=== PATIENT | male | born 1945 | race Caucasian/White ===

== ENCOUNTER 2019-01-02 05:02 | Inpatient (IN) | payer MEDICARE, OTHER ==
[~2019-01-02] VITALS: Ht 152.4 cm; Wt 76.4 kg
[2019-01-02] MEDS ORDERED: APIX5TAB3 PO (05:33)
[2019-01-02] MEDS ORDERED: DONE5TAB7 PO (05:33)
[2019-01-02] MEDS ORDERED: DIVA500T17 PO (05:33)
[2019-01-02] MEDS ORDERED: SERT100T8 PO (05:33)
[2019-01-02] MEDS ORDERED: DILT180C86 PO (05:33)
[2019-01-02] MEDS ORDERED: ASPI81TA50 PO (05:33)
[2019-01-02] MEDS ORDERED: LEVO25TA4 PO (05:33)
[2019-01-02] MEDS ORDERED: FINA5TAB4 PO (05:33)
[2019-01-02] MEDS ORDERED: CARV25TA2 PO (05:33)
[2019-01-02] MEDS ORDERED: FURO20TA3 PO (05:33)
[2019-01-02] MEDS ORDERED: VALS320T2 PO (05:33)
[2019-01-02] MEDS ORDERED: TAMS0.4C97 PO (05:33)
[2019-01-02] MEDS ORDERED: POTA20TA4 PO (05:33)
[2019-01-02] MEDS ORDERED: MELA3TAB56 PO (05:33)
[2019-01-02] MEDS ORDERED: ATOR40TA59 PO (05:33)
[2019-01-02] MEDS ORDERED: DIVA250T14 PO (05:33)
[2019-01-02] MEDS ORDERED: MEMA5TAB PO (05:33)
[2019-01-02] MEDS ORDERED: PANT40TA5 PO (05:33)
[2019-01-02] MEDS ORDERED: MAG HYDROX/AL HYDROX/SIMETH 30 ML ORAL.SUSP PO PRN (06:30)
[2019-01-02] MEDS ORDERED: METHYL SALICYLATE/MENTHOL TOPICAL OINTMENT 57GM TUBE. TP PRN (06:30)
[2019-01-02] MEDS ORDERED: [UNRECOGNIZED DRUG - OTHER] (06:32)
[2019-01-02] MEDS ORDERED: BUDE10.22 IH (06:32)
[2019-01-02 06:33] VITALS: BP 164/96
[2019-01-02 07:00] LABS: BASO # 0.1 x10^3/uL (0.0-0.2); BASO % 1 % (0-3); EOS # 0.6 x10^3/uL (0.0-0.7); EOS % 8 % (0-3); HEMATOCRIT 38.4 % (39.0-53.0); HEMOGLOBIN 12.6 g/dL (13.0-17.5); LYMPH # 2.7 x10^3/uL (1.0-4.8); LYMPH % 37 % (24-48); MEAN CORPUSCULAR HEMOGLOBIN 30 pg (25-35); MEAN CORPUSCULAR HGB CONC 33 g/dL (31-37); MEAN CORPUSCULAR VOLUME 93 fL (79-100); MONO # 0.7 x10^3/uL (0.0-1.1); MONO % 10 % (0-9); NEUT # 3.1 x10^3uL (1.8-7.7); NEUT % 44 % (31-73); PLATELET COUNT 175 x10^3/uL (140-400); RED BLOOD COUNT 4.15 x10^6/uL (4.30-5.70); RED CELL DISTRIBUTION WIDTH 13.9 % (11.5-14.5); WHITE BLOOD COUNT 7.1 x10^3/uL (4.0-11.0)
[2019-01-02 07:07] LABS: BACTERIA,URINE 0 /HPF (0-FEW); BILIRUBIN,URINE NEG (NEG); CLARITY,URINE CLEAR; COLOR,URINE STRAW; GLUCOSE,URINE NEG (NEG); HYALINE CASTS, URINE OCC /HPF; NITRITE,URINE NEG (NEG); RBC,URINE OCC /HPF (0-2); SQUAMOUS EPITHELIAL CELL,UR OCC /LPF; UROBILINOGEN,URINE 0.2 mg/dL (0.2 mg/dL); WBC,URINE RARE /HPF (0-4)
[2019-01-02 07:19] LABS: ALBUMIN 2.9 g/dL (3.4-5.0); ALBUMIN/GLOBULIN RATIO 0.8 (1.0-1.7); CALCIUM 9.9 mg/dL (8.5-10.1); CREATININE 1.3 mg/dL (0.7-1.3); GFR 54.3; POTASSIUM 3.7 mmol/L (3.5-5.1); TOTAL BILIRUBIN 0.2 mg/dL (0.2-1.0); TOTAL PROTEIN 6.7 g/dL (6.4-8.2)
[2019-01-02 07:41] LABS: VAL ACID 41 mcg/mL (50-100)
[2019-01-02] MEDS: PANTOPRAZOLE 40 MG TABLET. PO SCH ×2 (07:53→16:02)
[2019-01-02] MEDS: LEVOTHYROXINE 25 MCG TABLET. PO SCH (07:54)
[2019-01-02] MEDS: CARVEDILOL 12.5 MG TABLET PO SCH ×2 (07:54→16:02)
[2019-01-02] MEDS: DONEPEZIL HCL 5 MG TABLET. PO SCH (07:56)
[2019-01-02] MEDS: APIXABAN 5 MG TABLET. PO SCH ×2 (07:57→19:36)
[2019-01-02] MEDS: DIVALPROEX ER 250 MG TAB.ER.24H. PO SCH (07:57)
[2019-01-02] MEDS: LOSARTAN 50 MG TABLET. PO SCH (07:57)
[2019-01-02] MEDS: FINASTERIDE 5 MG TABLET PO SCH (07:58)
[2019-01-02] MEDS: FUROSEMIDE 20 MG TABLET PO SCH (07:58)
[2019-01-02] MEDS: MEMANTINE 5 MG TABLET. PO SCH (07:58)
[2019-01-02] MEDS: SERTRALINE 100 MG TABLET. PO SCH (07:59)
[2019-01-02] MEDS ORDERED: NON FORMULARY ITEM (Budesonide/Formoterol Fumarate (Symbicort 80-4.5 Mcg Inhaler) 2 PUFF) IH SCH (09:00)
[2019-01-02] MEDS: BUDESONIDE 0.5 MG/2 ML NEBU NEB SCH ×2 (11:00→22:47)
[2019-01-02] MEDS: ALBUTEROL SULFATE 2.5 MG/3 ML NEBU. NEB SCH ×3 (11:00→22:47)
[2019-01-02 14:34] LABS: THYROID STIM HORMONE (TSH) 11.215 uIU/mL (0.358-3.740)
[2019-01-02 16:17] VITALS: BP 175/86
--- NOTE | 2019-01-02 16:56 | EKG ---
[address] [address] Test Date: 2019-01-02 Test Time: 16:32:43 Pat Name: JACQUE MUSTAFA Department: Room: [facility] 1 Gender: M Legislators: : 1945 Requested By: EILEEN CHAVEZ Order Number: [id number] Reading MD: Clint Chandra MD Measurements Intervals [place] Rate: 57 P: MA: QRS: 56 QRSD: 100 T: -3 QT: 456 QTc: 443 Interpretive Statements ATRIAL FIBRILLATION WITH CONTROLLED VENTRICULAR RESPONSE NON-SPECIFIC ST/T CHANGES Electronically Signed On 01-03-2019 14:14:34 CDT by Clint Chandra MD
[2019-01-02] MEDS: MELATONIN 3 MG TABLET PO SCH (19:36)
[2019-01-02] MEDS: ASPIRIN ENTERIC COATED 81 MG TABLET.DR. PO SCH (19:36)
[2019-01-02] MEDS: POTASSIUM CHLORIDE 20 MEQ TABLET.ER. PO SCH (19:37)
[2019-01-02] MEDS: ATORVASTATIN CALCIUM 20 MG TABLET PO SCH (19:37)
[2019-01-02] MEDS: TAMSULOSIN 0.4 MG CAP.ER.24H. PO SCH (19:37)
[2019-01-02] MEDS ORDERED: DIVALPROEX ER 500 MG TAB.ER.24H PO SCH (21:00)
--- NOTE | 2019-01-02 21:36 | PDOC ---
Exam Note: Brian Note: Please also refer to the separate dictated note~for this date of service dictated separately. Discussed the patient with Nursing staff reviewed the chart.~Reviewed interim history and current functioning. Reviewed vital signs,~Labs/ Radiology~and current medications noted below. Continue current treatment with the changes noted in the dictated addendum note Assessment: Vital Signs/I&O: Vital Signs Date Time Temp Pulse Resp B/P (MAP) Pulse Ox O2 Delivery O2 Flow Rate FiO2 01/02/19 20:55 96 Room Air 01/02/19 16:17 97.2 60 20 175/86 (115) Labs: Laboratory Tests Test 01/02/19 06:19 01/02/19 06:42 Urine Collection Type Unknown Urine Color Straw Urine Clarity Clear Urine pH 7.0 Urine Specific Buna 1.015 Urine Protein Neg (NEG-TRACE) Urine Glucose (UA) Neg mg/dL (NEG) Urine Ketones (Stick) Neg mg/dL (NEG) Urine Blood Neg (NEG) Urine Nitrite Neg (NEG) Urine Bilirubin Neg (NEG) Urine Urobilinogen Dipstick 0.2 mg/dL (0.2 mg/dL) Urine Leukocyte Esterase Neg (NEG) Urine RBC Occ /HPF (0-2) Urine WBC Rare /HPF (0-4) Urine Squamous Epithelial Cells Occ /LPF Urine Bacteria 0 /HPF (0-FEW) Urine Hyaline Casts Occ /HPF White Blood Count 7.1 x10^3/uL (4.0-11.0) Red Blood Count 4.15 x10^6/uL (4.30-5.70) L Hemoglobin 12.6 g/dL (13.0-17.5) L Hematocrit 38.4 % (39.0-53.0) L Mean Corpuscular Volume 93 fL (79-100) Mean Corpuscular Hemoglobin 30 pg (25-35) Mean Corpuscular Hemoglobin Concent 33 g/dL (31-37) Red Cell Distribution Width 13.9 % (11.5-14.5) Platelet Count 175 x10^3/uL (140-400) Neutrophils (%) (Auto) 44 % (31-73) Lymphocytes (%) (Auto) 37 % (24-48) Monocytes (%) (Auto) 10 % (0-9) H Eosinophils (%) (Auto) 8 % (0-3) H Basophils (%) (Auto) 1 % (0-3) Neutrophils # (Auto) 3.1 x10^3uL (1.8-7.7) Lymphocytes # (Auto) 2.7 x10^3/uL (1.0-4.8) Monocytes # (Auto) 0.7 x10^3/uL (0.0-1.1) Eosinophils # (Auto) 0.6 x10^3/uL (0.0-0.7) Basophils # (Auto) 0.1 x10^3/uL (0.0-0.2) Sodium Level 142 mmol/L (136-145) Potassium Level 3.7 mmol/L (3.5-5.1) Chloride Level 107 mmol/L (98-107) Carbon Dioxide Level 31 mmol/L (21-32) Anion Gap 4 (6-14) L Blood Urea Nitrogen 25 mg/dL (8-26) Creatinine 1.3 mg/dL (0.7-1.3) Estimated GFR (Cockcroft-Gault) 54.3 BUN/Creatinine Ratio 19 (6-20) Glucose Level 111 mg/dL (70-99) H Calcium Level 9.9 mg/dL (8.5-10.1) Magnesium Level 2.0 mg/dL (1.8-2.4) Iron Level 45 ug/dL (65-175) L Total Iron Binding Capacity 251 ug/dL (250-450) Iron Saturation 18 % (15-34) Total Bilirubin 0.2 mg/dL (0.2-1.0) Aspartate Amino Transferase (AST) 17 U/L (15-37) Alanine Aminotransferase (ALT) 14 U/L (16-63) L Alkaline Phosphatase 86 U/L (46-116) Total Protein 6.7 g/dL (6.4-8.2) Albumin 2.9 g/dL (3.4-5.0) L Albumin/Globulin Ratio 0.8 (1.0-1.7) L Triglycerides Level 106 mg/dL (0-150) Cholesterol Level 137 mg/dL (0-200) LDL Cholesterol, Calculated 83 mg/dL (0-100) VLDL Cholesterol, Calculated 21 mg/dL (0-40) Non-HDL Cholesterol Calculated 104 mg/dL (0-129) HDL Cholesterol 33 mg/dL (40-60) L Cholesterol/HDL Ratio 4.0 25-Hydroxy Vitamin D Total 26.7 ng/mL (30-100) L Thyroid Stimulating Hormone (TSH) 11.215 uIU/mL (0.358-3.740) Valproic Acid Level 41 mcg/mL (50-100) L Valproic Acid Last Dose Date 01/01/19 Valproic Acid Last Dose Time 0900 Treponema pallidum Antibody Nonreactive (Nonreactive) Current Medications: Meds: Current Medications Medications (Trade) Dose Ordered Sig/Ojse David Route PRN Reason Start Time Stop Time Status Last Admin Dose Admin Divalproex Sodium (Depakote Er) 250 mg DAILY PO 01/02/19 09:00 01/02/19 07:59 Divalproex Sodium (Depakote Er) 500 mg HS PO 01/02/19 21:00 01/02/19 19:37 Donepezil HCl (Aricept) 5 mg DAILY PO 01/02/19 09:00 01/02/19 07:59 Memantine (Namenda) 5 mg DAILY PO 01/02/19 09:00 01/02/19 07:59 Sertraline HCl (Zoloft) 150 mg DAILY PO 01/02/19 09:00 01/02/19 07:59 Melatonin 3 mg QHS PO 01/02/19 21:00 01/02/19 19:37 Apixaban (Eliquis) 5 mg BID PO 01/02/19 09:00 01/02/19 19:37 Aspirin (Aspirin Enteric Coated) 81 mg HS PO 01/02/19 21:00 01/02/19 19:37 Finasteride (Proscar) 5 mg DAILY PO 01/02/19 09:00 01/02/19 07:59 Furosemide (Lasix) 20 mg DAILY PO 01/02/19 09:00 01/02/19 07:59 Levothyroxine Sodium (Synthroid) 12.5 mcg DAILY06 PO 01/02/19 07:30 01/02/19 07:59 Pantoprazole Sodium (Protonix) 40 mg BIDBFRMEAL PO 01/02/19 07:30 01/02/19 16:02 Potassium Chloride (Klor-Con) 20 meq HS PO 01/02/19 21:00 01/02/19 19:37 Tamsulosin HCl (Flomax) 0.8 mg HS PO 01/02/19 21:00 01/02/19 19:37 Atorvastatin Calcium (Lipitor) 40 mg QHS PO 01/02/19 21:00 01/02/19 19:37 Carvedilol (Coreg) 25 mg BIDWMEALS PO 01/02/19 08:00 01/02/19 16:02 Diltiazem HCl (Cardizem 24hr Cd) 180 mg DAILY PO 01/02/19 09:00 01/02/19 07:59 Losartan Potassium (Cozaar) 100 mg DAILY PO 01/02/19 09:00 01/02/19 07:59 Olanzapine (ZyPREXA ZYDIS) 2.5 mg PRN Q2HR PRN PO PSYCHOSIS 01/02/19 07:00 01/02/19 17:54 Albuterol Sulfate (Ventolin) 2.5 mg Q6H NEB 01/02/19 12:00 01/02/19 16:38 Budesonide (Pulmicort) 0.5 mg RTBID NEB 01/02/19 08:00 01/02/19 11:00 I have reviewed the current psychotropics carefully including drug interactions. Risk benefit ratio favors no change other than as noted in my dictated progress note. Diagnosis: Problems: (1) Major neurocognitive disorder (2) Anxiety disorder (3) Dementia in Alzheimer's disease with delusions (4) Dementia in Alzheimer's disease with depression (5) Dementia, vascular, with delusions (6) Dementia, vascular, with depression (7) Impulse control disorder EILEEN CHAVEZ MD Jan 02, 2019 21:36
[2019-01-02 22:11] LABS: THYROXINE 4.3 ug/dL (4.5-12.0)
[2019-01-03 00:06] LABS: HEMOGLOBIN A1C 7.1 % (4.8-5.6)
[2019-01-03] MEDS: LEVOTHYROXINE 25 MCG TABLET. PO SCH (06:02)
[2019-01-03] MEDS: ALBUTEROL SULFATE 2.5 MG/3 ML NEBU. NEB SCH ×4 (06:15→22:13)
[2019-01-03 06:25] VITALS: BP 177/89
[2019-01-03] MEDS: LOSARTAN 50 MG TABLET. PO SCH (08:08)
[2019-01-03] MEDS: SERTRALINE 100 MG TABLET. PO SCH (08:08)
[2019-01-03] MEDS: PANTOPRAZOLE 40 MG TABLET. PO SCH ×2 (08:09→16:17)
[2019-01-03] MEDS: FUROSEMIDE 20 MG TABLET PO SCH (08:09)
[2019-01-03] MEDS: CARVEDILOL 12.5 MG TABLET PO SCH ×2 (08:09→16:17)
[2019-01-03] MEDS: DONEPEZIL HCL 5 MG TABLET. PO SCH (08:10)
[2019-01-03] MEDS: MEMANTINE 5 MG TABLET. PO SCH (08:10)
[2019-01-03] MEDS: FINASTERIDE 5 MG TABLET PO SCH (08:10)
[2019-01-03] MEDS: DIVALPROEX ER 250 MG TAB.ER.24H. PO SCH (08:10)
[2019-01-03] MEDS: APIXABAN 5 MG TABLET. PO SCH ×2 (08:10→19:25)
[2019-01-03] MEDS: BUDESONIDE 0.5 MG/2 ML NEBU NEB SCH ×2 (09:45→20:00)
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
[2019-01-03 16:21] VITALS: BP 160/89
[2019-01-03] MEDS ORDERED: HALOPERIDOL LACT 5 MG/ML VIAL. IM ONE (17:45)
[2019-01-03] MEDS: MELATONIN 3 MG TABLET PO SCH (19:24)
[2019-01-03] MEDS: DIVALPROEX ER 500 MG TAB.ER.24H PO SCH (19:24)
[2019-01-03] MEDS: ASPIRIN ENTERIC COATED 81 MG TABLET.DR. PO SCH (19:24)
[2019-01-03] MEDS: ATORVASTATIN CALCIUM 20 MG TABLET PO SCH (19:25)
[2019-01-03] MEDS: TAMSULOSIN 0.4 MG CAP.ER.24H. PO SCH (19:25)
[2019-01-03] MEDS: POTASSIUM CHLORIDE 20 MEQ TABLET.ER. PO SCH (19:25)
[2019-01-03] MEDS: PRAZOSIN 1 MG CAPSULE. PO SCH (21:00)
--- NOTE | 2019-01-03 21:44 | PDOC ---
Exam Note: Brian Note: Please also refer to the separate dictated note~for this date of service dictated separately.~Patient seen individually. Discussed the patient with Nursing staff reviewed the chart.~Reviewed interim history and current functioning. Reviewed vital signs,~Labs/ Radiology~and current medications noted below. Continue current treatment with the changes noted in the dictated addendum note Assessment: Vital Signs/I&O: Vital Signs Date Time Temp Pulse Resp B/P (MAP) Pulse Ox O2 Delivery O2 Flow Rate FiO2 01/03/19 16:21 97.2 68 19 160/89 (112) 96 Room Air I & O 01/02/19 01/02/19 01/03/19 14:59 22:59 06:59 Intake Total 480 ml 120 ml Balance 480 ml 120 ml Current Medications: Meds: Current Medications Medications (Trade) Dose Ordered Sig/Jose David Route PRN Reason Start Time Stop Time Status Last Admin Dose Admin Divalproex Sodium (Depakote Er) 1,000 mg HS PO 01/03/19 21:00 01/03/19 19:26 Haloperidol Lactate (Haldol) 10 mg 1X ONCE IM 01/03/19 17:45 01/03/19 17:46 DC 01/03/19 19:05 Lorazepam (Ativan Inj) 1 mg 1X ONCE IM 01/03/19 17:45 01/03/19 17:46 DC 01/03/19 19:05 I have reviewed the current psychotropics carefully including drug interactions. Risk benefit ratio favors no change other than as noted in my dictated progress note. Diagnosis: Problems: (1) Major neurocognitive disorder (2) Anxiety disorder (3) Dementia in Alzheimer's disease with delusions (4) Dementia in Alzheimer's disease with depression (5) Dementia, vascular, with delusions (6) Dementia, vascular, with depression (7) Impulse control disorder EILEEN CHAVEZ MD Jan 03, 2019 21:44
[2019-01-04] MEDS: LEVOTHYROXINE 25 MCG TABLET. PO SCH (05:34)
[2019-01-04] MEDS: ALBUTEROL SULFATE 2.5 MG/3 ML NEBU. NEB SCH ×3 (05:57→20:20)
[2019-01-04 06:04] VITALS: BP 137/73
[2019-01-04] MEDS: LOSARTAN 50 MG TABLET. PO SCH (07:48)
[2019-01-04] MEDS: DONEPEZIL HCL 5 MG TABLET. PO SCH (07:48)
[2019-01-04] MEDS: SERTRALINE 100 MG TABLET. PO SCH (07:49)
[2019-01-04] MEDS: FUROSEMIDE 20 MG TABLET PO SCH (07:49)
[2019-01-04] MEDS: PANTOPRAZOLE 40 MG TABLET. PO SCH ×2 (07:49→16:30)
[2019-01-04] MEDS: MEMANTINE 5 MG TABLET. PO SCH (07:49)
[2019-01-04] MEDS: APIXABAN 5 MG TABLET. PO SCH ×2 (07:49→20:00)
[2019-01-04] MEDS: FINASTERIDE 5 MG TABLET PO SCH (07:49)
[2019-01-04] MEDS: CARVEDILOL 12.5 MG TABLET PO SCH ×2 (07:50→17:00)
[2019-01-04] MEDS: BUDESONIDE 0.5 MG/2 ML NEBU NEB SCH ×2 (11:39→20:20)
[2019-01-04 16:38] VITALS: BP 140/86
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
--- NOTE | 2019-01-04 19:37 | CONS ---
DATE OF CONSULTATION: 01/04/2019 ATTENDING PHYSICIAN: Dr. Mata. REASON FOR CONSULTATION: We are asked to see this patient for medical evaluation. The patient is very pleasant, but confused. INCOMPLETE DICTATION ANNETTE CORONADO MD DR: AIDA/zheng JOB#: [id number] / [id number]
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
[2019-01-04] MEDS: DIVALPROEX ER 500 MG TAB.ER.24H PO SCH (19:59)
[2019-01-04] MEDS: TAMSULOSIN 0.4 MG CAP.ER.24H. PO SCH (19:59)
[2019-01-04] MEDS: MELATONIN 3 MG TABLET PO SCH (20:00)
[2019-01-04] MEDS: ATORVASTATIN CALCIUM 20 MG TABLET PO SCH (20:00)
[2019-01-04] MEDS: POTASSIUM CHLORIDE 20 MEQ TABLET.ER. PO SCH (20:00)
[2019-01-04] MEDS: ASPIRIN ENTERIC COATED 81 MG TABLET.DR. PO SCH (20:00)
[2019-01-04] MEDS: PRAZOSIN 1 MG CAPSULE. PO SCH (20:00)
[2019-01-04] MEDS: risperiDONE 0.5 MG TABLET. PO SCH (20:01)
--- NOTE | 2019-01-04 21:47 | PDOC ---
Exam Note: Brian Note: Please also refer to the separate dictated note~for this date of service dictated separately.~Patient seen individually. Discussed the patient with Nursing staff reviewed the chart.~Reviewed interim history and current functioning. Reviewed vital signs,~Labs/ Radiology~and current medications noted below. Continue current treatment with the changes noted in the dictated addendum note Assessment: Vital Signs/I&O: Vital Signs Date Time Temp Pulse Resp B/P (MAP) Pulse Ox O2 Delivery O2 Flow Rate FiO2 01/04/19 20:24 94 Room Air 01/04/19 20:01 72 140/86 01/04/19 16:38 97.6 18 I & O 01/03/19 01/03/19 01/04/19 15:00 23:00 07:00 Intake Total 840 ml 0 ml 240 ml Balance 840 ml 0 ml 240 ml Current Medications: Meds: Current Medications Medications (Trade) Dose Ordered Sig/Jose David Route PRN Reason Start Time Stop Time Status Last Admin Dose Admin Risperidone (RisperDAL) 0.5 mg HS PO 01/04/19 21:00 01/04/19 20:01 I have reviewed the current psychotropics carefully including drug interactions. Risk benefit ratio favors no change other than as noted in my dictated progress note. Diagnosis: Problems: (1) Major neurocognitive disorder (2) Anxiety disorder (3) Dementia in Alzheimer's disease with delusions (4) Dementia in Alzheimer's disease with depression (5) Dementia, vascular, with delusions (6) Dementia, vascular, with depression (7) Impulse control disorder EILEEN CHAVEZ MD Jan 04, 2019 21:47
[2019-01-05] MEDS: ALBUTEROL SULFATE 2.5 MG/3 ML NEBU. NEB SCH ×5 (05:00→20:47)
[2019-01-05 05:44] VITALS: BP 145/62
[2019-01-05] MEDS: LEVOTHYROXINE 25 MCG TABLET. PO SCH (05:47)
[2019-01-05] MEDS: FUROSEMIDE 20 MG TABLET PO SCH (07:42)
[2019-01-05] MEDS: FINASTERIDE 5 MG TABLET PO SCH (07:43)
[2019-01-05] MEDS: MEMANTINE 5 MG TABLET. PO SCH (07:43)
[2019-01-05] MEDS: CARVEDILOL 12.5 MG TABLET PO SCH ×2 (07:43→17:00)
[2019-01-05] MEDS: APIXABAN 5 MG TABLET. PO SCH ×2 (07:43→19:31)
[2019-01-05] MEDS: LOSARTAN 50 MG TABLET. PO SCH (07:43)
[2019-01-05] MEDS: DONEPEZIL HCL 5 MG TABLET. PO SCH (07:43)
[2019-01-05] MEDS: PANTOPRAZOLE 40 MG TABLET. PO SCH ×2 (07:43→16:30)
[2019-01-05] MEDS: SERTRALINE 100 MG TABLET. PO SCH (07:44)
[2019-01-05] MEDS: BUDESONIDE 0.5 MG/2 ML NEBU NEB SCH ×2 (08:00→20:47)
[2019-01-05 15:29] VITALS: BP 173/125
[2019-01-05] MEDS: MELATONIN 3 MG TABLET PO SCH (19:30)
[2019-01-05] MEDS: ASPIRIN ENTERIC COATED 81 MG TABLET.DR. PO SCH (19:30)
[2019-01-05] MEDS: DIVALPROEX ER 500 MG TAB.ER.24H PO SCH (19:31)
[2019-01-05] MEDS: POTASSIUM CHLORIDE 20 MEQ TABLET.ER. PO SCH (19:31)
[2019-01-05] MEDS: TAMSULOSIN 0.4 MG CAP.ER.24H. PO SCH (19:31)
[2019-01-05] MEDS: ATORVASTATIN CALCIUM 20 MG TABLET PO SCH (19:31)
[2019-01-05] MEDS: PRAZOSIN 1 MG CAPSULE. PO SCH (19:32)
[2019-01-05] MEDS: risperiDONE 0.5 MG TABLET. PO SCH (19:32)
--- NOTE | 2019-01-05 22:43 | PDOC ---
Exam Note: Brian Note: Please also refer to the separate dictated note~for this date of service dictated separately.~Patient seen individually. Discussed the patient with Nursing staff reviewed the chart.~Reviewed interim history and current functioning. Reviewed vital signs,~Labs/ Radiology~and current medications noted below. Continue current treatment with the changes noted in the dictated addendum note Assessment: Vital Signs/I&O: Vital Signs Date Time Temp Pulse Resp B/P (MAP) Pulse Ox O2 Delivery O2 Flow Rate FiO2 01/05/19 20:49 95 Room Air 01/05/19 19:32 66 173/125 01/05/19 15:29 97.9 20 I & O 01/04/19 01/04/19 01/05/19 15:00 23:00 07:00 Intake Total 840 ml 720 ml Balance 840 ml 720 ml Labs: Laboratory Tests Test 01/05/19 12:03 01/05/19 19:29 Glucose (Fingerstick) 101 mg/dL (70-99) H 159 mg/dL (70-99) H Current Medications: I have reviewed the current psychotropics carefully including drug interactions. Risk benefit ratio favors no change other than as noted in my dictated progress note. Diagnosis: Problems: (1) Major neurocognitive disorder (2) Anxiety disorder (3) Dementia in Alzheimer's disease with delusions (4) Dementia in Alzheimer's disease with depression (5) Dementia, vascular, with delusions (6) Dementia, vascular, with depression (7) Impulse control disorder EILEEN CHAVEZ MD Jan 05, 2019 22:43
[2019-01-05] MEDS: LORazepam 0.5 MG TABLET PO PRN (22:58)
[2019-01-06] MEDS: LEVOTHYROXINE 25 MCG TABLET. PO SCH (05:03)
[2019-01-06] MEDS: ALBUTEROL SULFATE 2.5 MG/3 ML NEBU. NEB SCH ×4 (05:53→23:58)
[2019-01-06 05:56] VITALS: BP 152/80
[2019-01-06] MEDS: MEMANTINE 5 MG TABLET. PO SCH (07:40)
[2019-01-06] MEDS: FINASTERIDE 5 MG TABLET PO SCH (07:40)
[2019-01-06] MEDS: FUROSEMIDE 20 MG TABLET PO SCH (07:40)
[2019-01-06] MEDS: DONEPEZIL HCL 5 MG TABLET. PO SCH (07:41)
[2019-01-06] MEDS: PANTOPRAZOLE 40 MG TABLET. PO SCH ×2 (07:42→15:49)
[2019-01-06] MEDS: APIXABAN 5 MG TABLET. PO SCH ×2 (07:42→19:42)
[2019-01-06] MEDS: LOSARTAN 50 MG TABLET. PO SCH (07:42)
[2019-01-06] MEDS: SERTRALINE 100 MG TABLET. PO SCH (07:42)
[2019-01-06] MEDS: CARVEDILOL 12.5 MG TABLET PO SCH ×2 (07:42→15:48)
[2019-01-06 07:44] LABS: BASO # 0.1 x10^3/uL (0.0-0.2); BASO % 1 % (0-3); EOS # 0.5 x10^3/uL (0.0-0.7); EOS % 7 % (0-3); HEMOGLOBIN 13.5 g/dL (13.0-17.5); LYMPH % 31 % (24-48); MEAN CORPUSCULAR HEMOGLOBIN 30 pg (25-35); MEAN CORPUSCULAR HGB CONC 33 g/dL (31-37); MEAN CORPUSCULAR VOLUME 93 fL (79-100); MONO # 0.7 x10^3/uL (0.0-1.1); MONO % 10 % (0-9); NEUT # 3.4 x10^3uL (1.8-7.7); NEUT % 51 % (31-73); PLATELET COUNT 189 x10^3/uL (140-400); RED BLOOD COUNT 4.42 x10^6/uL (4.30-5.70); RED CELL DISTRIBUTION WIDTH 14.1 % (11.5-14.5); WHITE BLOOD COUNT 6.6 x10^3/uL (4.0-11.0)
[2019-01-06 07:51] LABS: ALBUMIN 3.1 g/dL (3.4-5.0); ALBUMIN/GLOBULIN RATIO 0.8 (1.0-1.7); ALK PHOS 89 U/L (46-116); ALT (SGPT) 19 U/L (16-63); ANION GAP 6 (6-14); AST (SGOT) 20 U/L (15-37); BLOOD UREA NITROGEN 16 mg/dL (8-26); BUN/CREATININE RATIO 15 (6-20); CALCIUM 10.2 mg/dL (8.5-10.1); CARBON DIOXIDE 31 mmol/L (21-32); CHLORIDE 107 mmol/L (98-107); CREATININE 1.1 mg/dL (0.7-1.3); GFR 65.8; GLUCOSE 105 mg/dL (70-99); POTASSIUM 3.9 mmol/L (3.5-5.1); SODIUM 144 mmol/L (136-145); TOTAL BILIRUBIN 0.2 mg/dL (0.2-1.0)
[2019-01-06 07:56] LABS: VAL ACID 57 mcg/mL (50-100)
[2019-01-06] MEDS: BUDESONIDE 0.5 MG/2 ML NEBU NEB SCH ×2 (09:59→23:58)
[2019-01-06 15:42] VITALS: BP 163/92
[2019-01-06] MEDS: ASPIRIN ENTERIC COATED 81 MG TABLET.DR. PO SCH (19:42)
[2019-01-06] MEDS: DIVALPROEX ER 500 MG TAB.ER.24H PO SCH (19:42)
[2019-01-06] MEDS: risperiDONE 0.5 MG TABLET. PO SCH (19:42)
[2019-01-06] MEDS: MELATONIN 3 MG TABLET PO SCH (19:42)
[2019-01-06] MEDS: TAMSULOSIN 0.4 MG CAP.ER.24H. PO SCH (19:42)
[2019-01-06] MEDS: POTASSIUM CHLORIDE 20 MEQ TABLET.ER. PO SCH (19:42)
[2019-01-06] MEDS: ATORVASTATIN CALCIUM 20 MG TABLET PO SCH (19:43)
[2019-01-06] MEDS: PRAZOSIN 1 MG CAPSULE. PO SCH (19:44)
[2019-01-06] MEDS: MIRTAZAPINE 7.5 MG TABLET. PO SCH (20:57)
--- NOTE | 2019-01-06 20:57 | PDOC ---
Exam Note: Brian Note: Please also refer to the separate dictated note~for this date of service dictated separately.~Patient seen individually. Discussed the patient with Nursing staff reviewed the chart.~Reviewed interim history and current functioning. Reviewed vital signs,~Labs/ Radiology~and current medications noted below. Continue current treatment with the changes noted in the dictated addendum note Assessment: Vital Signs/I&O: Vital Signs Date Time Temp Pulse Resp B/P (MAP) Pulse Ox O2 Delivery O2 Flow Rate FiO2 01/06/19 19:44 65 163/92 01/06/19 15:42 97.3 16 97 01/06/19 10:00 Room Air I & O 01/05/19 01/05/19 01/06/19 15:00 23:00 07:00 Intake Total 480 ml 480 ml 480 ml Balance 480 ml 480 ml 480 ml Labs: Laboratory Tests Test 01/06/19 07:15 01/06/19 07:34 01/06/19 19:18 White Blood Count 6.6 x10^3/uL (4.0-11.0) Red Blood Count 4.42 x10^6/uL (4.30-5.70) Hemoglobin 13.5 g/dL (13.0-17.5) Hematocrit 41.0 % (39.0-53.0) Mean Corpuscular Volume 93 fL (79-100) Mean Corpuscular Hemoglobin 30 pg (25-35) Mean Corpuscular Hemoglobin Concent 33 g/dL (31-37) Red Cell Distribution Width 14.1 % (11.5-14.5) Platelet Count 189 x10^3/uL (140-400) Neutrophils (%) (Auto) 51 % (31-73) Lymphocytes (%) (Auto) 31 % (24-48) Monocytes (%) (Auto) 10 % (0-9) H Eosinophils (%) (Auto) 7 % (0-3) H Basophils (%) (Auto) 1 % (0-3) Neutrophils # (Auto) 3.4 x10^3uL (1.8-7.7) Lymphocytes # (Auto) 2.0 x10^3/uL (1.0-4.8) Monocytes # (Auto) 0.7 x10^3/uL (0.0-1.1) Eosinophils # (Auto) 0.5 x10^3/uL (0.0-0.7) Basophils # (Auto) 0.1 x10^3/uL (0.0-0.2) Sodium Level 144 mmol/L (136-145) Potassium Level 3.9 mmol/L (3.5-5.1) Chloride Level 107 mmol/L (98-107) Carbon Dioxide Level 31 mmol/L (21-32) Anion Gap 6 (6-14) Blood Urea Nitrogen 16 mg/dL (8-26) Creatinine 1.1 mg/dL (0.7-1.3) Estimated GFR (Cockcroft-Gault) 65.8 BUN/Creatinine Ratio 15 (6-20) Glucose Level 105 mg/dL (70-99) H Calcium Level 10.2 mg/dL (8.5-10.1) H Total Bilirubin 0.2 mg/dL (0.2-1.0) Aspartate Amino Transferase (AST) 20 U/L (15-37) Alanine Aminotransferase (ALT) 19 U/L (16-63) Alkaline Phosphatase 89 U/L (46-116) Ammonia 20 mcmol/L (11-34) Total Protein 7.0 g/dL (6.4-8.2) Albumin 3.1 g/dL (3.4-5.0) L Albumin/Globulin Ratio 0.8 (1.0-1.7) L Valproic Acid Level 57 mcg/mL (50-100) Valproic Acid Last Dose Date 01/05/2019 Valproic Acid Last Dose Time 2100 Glucose (Fingerstick) 92 mg/dL (70-99) 197 mg/dL (70-99) H Current Medications: Meds: Current Medications Medications (Trade) Dose Ordered Sig/Jose David Route PRN Reason Start Time Stop Time Status Last Admin Dose Admin Prazosin HCl (Minipress) 2 mg HS PO 01/06/19 21:00 01/06/19 19:44 I have reviewed the current psychotropics carefully including drug interactions. Risk benefit ratio favors no change other than as noted in my dictated progress note. Diagnosis: Problems: (1) Impulse control disorder (2) Dementia, vascular, with depression (3) Dementia, vascular, with delusions (4) Dementia in Alzheimer's disease with depression (5) Dementia in Alzheimer's disease with delusions (6) Anxiety disorder EILEEN CHAVEZ MD Jan 06, 2019 20:57
--- NOTE | 2019-01-07 00:43 | PN ---
DATE: 01/04/2019 PSYCHIATRIC PROGRESS NOTE This late entry 01/04/2019 covers elements not covered in my initial note. SUBJECTIVE: I met with the patient evening of 01/04/2019. The patient slept 8-3/4 hours previous night. He remains somewhat anxious, paranoid, but the marked agitation, aggression totally out of control and dangerous behavior, throwing things that he had the night before, has not been evident on 01/04/2019. REVIEW OF SYSTEMS: No CV, , pulmonary, eye, ENT system symptoms on review. Reliability poor. MENTAL STATUS EXAM: Oriented to himself. Insight, judgment, recent and remote memory, attention, concentration, fund of knowledge poor, consistent with his diagnosis mentioned in my initial note. PLAN: Increase nighttime Risperdal to 0.5 mg at bedtime. Continue Depakote, Zoloft, Aricept, Namenda, melatonin, unchanged along with Zyprexa p.r.n. Valproic acid level subtherapeutic at 41 and is being adjusted. MAN Yvon CHAVEZ MD DR: JEANIE/zheng JOB#: [id number] / [id number]
--- NOTE | 2019-01-07 00:45 | PN ---
DATE: 01/05/2019 PSYCHIATRIC PROGRESS NOTE This late entry, 01/05/2019, covers elements not covered in my initial note. SUBJECTIVE: I met with the patient evening of 01/05/2019. The patient slept 7 hours previous night. He remains confused, less paranoid for the last 48 hours. We will discontinue the IM scheduled Haldol. REVIEW OF SYSTEMS: No CV, , pulmonary, eye, ENT system symptoms on review. Reliability poor. MENTAL STATUS EXAM: Oriented to himself. Insight, judgment, recent and remote memory, attention, concentration, fund of knowledge poor, consistent with his diagnosis mentioned in my initial note. PLAN: No change from initial note and Risperdal 0.5 mg at bedtime may need to be increased in due course. MAN Yvon CHAVEZ MD DR: JEANIE/zheng JOB#: [id number] / [id number]
[2019-01-07] MEDS: ALBUTEROL SULFATE 2.5 MG/3 ML NEBU. NEB SCH ×4 (05:21→23:35)
[2019-01-07 05:42] VITALS: BP 174/74
[2019-01-07] MEDS: LEVOTHYROXINE 25 MCG TABLET. PO SCH (06:33)
[2019-01-07] MEDS: LOSARTAN 50 MG TABLET. PO SCH (08:05)
[2019-01-07] MEDS: FINASTERIDE 5 MG TABLET PO SCH (08:05)
[2019-01-07] MEDS: MEMANTINE 5 MG TABLET. PO SCH (08:05)
[2019-01-07] MEDS: APIXABAN 5 MG TABLET. PO SCH ×2 (08:06→19:52)
[2019-01-07] MEDS: SERTRALINE 100 MG TABLET. PO SCH (08:06)
[2019-01-07] MEDS: CARVEDILOL 12.5 MG TABLET PO SCH ×2 (08:06→17:00)
[2019-01-07] MEDS: FUROSEMIDE 20 MG TABLET PO SCH (08:06)
[2019-01-07] MEDS: PANTOPRAZOLE 40 MG TABLET. PO SCH ×2 (08:06→16:30)
[2019-01-07] MEDS: DONEPEZIL HCL 5 MG TABLET. PO SCH (08:07)
[2019-01-07] MEDS: BUDESONIDE 0.5 MG/2 ML NEBU NEB SCH ×2 (11:10→23:35)
[2019-01-07 16:30] VITALS: BP 118/70
--- NOTE | 2019-01-07 18:31 | PN ---
DATE: 01/04/2019 ADDENDUM I previously dictated the patient's note on the dictation #[id number], this relates to date of service 01/04/2019. MAN Yvon CHAVEZ MD DR: Bob JOB#: [id number] / [id number]
--- NOTE | 2019-01-07 19:16 | PDOC ---
Exam Note: Brian Note: Please also refer to the separate dictated note~for this date of service dictated separately.~Patient seen individually. Discussed the patient with Nursing staff reviewed the chart.~Reviewed interim history and current functioning. Reviewed vital signs,~Labs/ Radiology~and current medications noted below. Continue current treatment with the changes noted in the dictated addendum note Assessment: Vital Signs/I&O: Vital Signs Date Time Temp Pulse Resp B/P (MAP) Pulse Ox O2 Delivery O2 Flow Rate FiO2 01/07/19 18:07 81 118/70 01/07/19 16:30 98.0 18 93 01/07/19 16:24 Room Air I & O 01/06/19 01/06/19 01/07/19 15:00 23:00 07:00 Intake Total 720 ml 600 ml Balance 720 ml 600 ml Labs: Laboratory Tests Test 01/06/19 19:18 01/07/19 08:12 Glucose (Fingerstick) 197 mg/dL (70-99) H 94 mg/dL (70-99) Current Medications: Meds: Current Medications Medications (Trade) Dose Ordered Sig/Jose David Route PRN Reason Start Time Stop Time Status Last Admin Dose Admin Prazosin HCl (Minipress) 2 mg HS PO 01/06/19 21:00 01/06/19 19:44 Mirtazapine (Remeron) 7.5 mg QHS PO 01/06/19 21:00 01/06/19 20:57 I have reviewed the current psychotropics carefully including drug interactions. Risk benefit ratio favors no change other than as noted in my dictated progress note. Diagnosis: Problems: (1) Post traumatic stress disorder (2) Impulse control disorder (3) Dementia, vascular, with depression (4) Dementia, vascular, with delusions (5) Dementia in Alzheimer's disease with depression (6) Dementia in Alzheimer's disease with delusions (7) Anxiety disorder EILEEN CHAVEZ MD Jan 07, 2019 19:16
[2019-01-07] MEDS: risperiDONE 0.5 MG TABLET. PO SCH (19:52)
[2019-01-07] MEDS: MELATONIN 3 MG TABLET PO SCH (19:52)
[2019-01-07] MEDS: ASPIRIN ENTERIC COATED 81 MG TABLET.DR. PO SCH (19:52)
[2019-01-07] MEDS: MIRTAZAPINE 7.5 MG TABLET. PO SCH (19:52)
[2019-01-07] MEDS: POTASSIUM CHLORIDE 20 MEQ TABLET.ER. PO SCH (19:53)
[2019-01-07] MEDS: ATORVASTATIN CALCIUM 20 MG TABLET PO SCH (19:53)
[2019-01-07] MEDS: DIVALPROEX ER 500 MG TAB.ER.24H PO SCH (19:53)
[2019-01-07] MEDS: TAMSULOSIN 0.4 MG CAP.ER.24H. PO SCH (19:53)
[2019-01-07] MEDS: PRAZOSIN 1 MG CAPSULE. PO SCH (19:53)
[2019-01-08] MEDS: LEVOTHYROXINE 25 MCG TABLET. PO SCH (05:18)
[2019-01-08 05:35] VITALS: BP 146/82
[2019-01-08] MEDS: ALBUTEROL SULFATE 2.5 MG/3 ML NEBU. NEB SCH ×2 (05:54→10:33)
[2019-01-08] MEDS: BUDESONIDE 0.5 MG/2 ML NEBU NEB SCH ×2 (08:00→22:07)
[2019-01-08] MEDS: PANTOPRAZOLE 40 MG TABLET. PO SCH ×2 (08:10→16:52)
[2019-01-08] MEDS: DONEPEZIL HCL 5 MG TABLET. PO SCH (08:10)
[2019-01-08] MEDS: CARVEDILOL 12.5 MG TABLET PO SCH ×2 (08:12→16:53)
[2019-01-08] MEDS: LOSARTAN 50 MG TABLET. PO SCH (08:13)
[2019-01-08] MEDS: APIXABAN 5 MG TABLET. PO SCH ×2 (08:13→19:30)
[2019-01-08] MEDS: FINASTERIDE 5 MG TABLET PO SCH (08:14)
[2019-01-08] MEDS: MEMANTINE 5 MG TABLET. PO SCH (08:14)
[2019-01-08] MEDS: SERTRALINE 100 MG TABLET. PO SCH (08:14)
[2019-01-08] MEDS: FUROSEMIDE 20 MG TABLET PO SCH (08:14)
[2019-01-08] MEDS ORDERED: ALBUTEROL SULFATE 2.5 MG/3 ML NEBU. NEB PRN (13:30)
[2019-01-08 16:10] VITALS: BP 156/82
[2019-01-08] MEDS: CHOLECALCIFEROL (VITAMIN D3) 50,000 UNIT CAPSULE PO SCH (16:52)
--- NOTE | 2019-01-08 18:42 | PDOC ---
Exam Note: Brian Note: Please also refer to the separate dictated note~for this date of service dictated separately.~Patient seen individually. Discussed the patient with Nursing staff reviewed the chart.~Reviewed interim history and current functioning. Reviewed vital signs,~Labs/ Radiology~and current medications noted below. Continue current treatment with the changes noted in the dictated addendum note Assessment: Vital Signs/I&O: Vital Signs Date Time Temp Pulse Resp B/P (MAP) Pulse Ox O2 Delivery O2 Flow Rate FiO2 01/08/19 16:54 64 156/82 01/08/19 16:10 98.0 19 96 Room Air I & O 01/07/19 01/07/19 01/08/19 15:00 23:00 07:00 Intake Total 360 ml 720 ml Balance 360 ml 720 ml Labs: Laboratory Tests Test 01/07/19 19:45 01/08/19 07:13 Glucose (Fingerstick) 163 mg/dL (70-99) H 115 mg/dL (70-99) H Current Medications: Meds: Current Medications Medications (Trade) Dose Ordered Sig/Jose David Route PRN Reason Start Time Stop Time Status Last Admin Dose Admin Vitamin D (Vitamin D3) 50,000 unit WEEKLY PO 01/08/19 13:15 01/08/19 16:54 I have reviewed the current psychotropics carefully including drug interactions. Risk benefit ratio favors no change other than as noted in my dictated progress note. Diagnosis: Problems: (1) Impulse control disorder (2) Dementia, vascular, with depression (3) Dementia, vascular, with delusions (4) Dementia in Alzheimer's disease with depression (5) Dementia in Alzheimer's disease with delusions (6) Anxiety disorder (7) Post traumatic stress disorder EILEEN CHAVEZ MD Jan 08, 2019 18:42
[2019-01-08] MEDS: POTASSIUM CHLORIDE 20 MEQ TABLET.ER. PO SCH (19:29)
[2019-01-08] MEDS: MELATONIN 3 MG TABLET PO SCH (19:29)
[2019-01-08] MEDS: MIRTAZAPINE 7.5 MG TABLET. PO SCH (19:29)
[2019-01-08] MEDS: risperiDONE 0.5 MG TABLET. PO SCH (19:30)
[2019-01-08] MEDS: PRAZOSIN 1 MG CAPSULE. PO SCH (19:30)
[2019-01-08] MEDS: ASPIRIN ENTERIC COATED 81 MG TABLET.DR. PO SCH (19:30)
[2019-01-08] MEDS: DIVALPROEX ER 500 MG TAB.ER.24H PO SCH (19:30)
[2019-01-08] MEDS: TAMSULOSIN 0.4 MG CAP.ER.24H. PO SCH (19:30)
[2019-01-08] MEDS: ATORVASTATIN CALCIUM 20 MG TABLET PO SCH (19:30)
--- NOTE | 2019-01-08 23:13 | PN ---
DATE: 01/07/2019 PSYCHIATRIC PROGRESS NOTE This late entry 01/07/2019 covers elements not covered in my initial note. SUBJECTIVE: I met with the patient evening of 01/07/2019. The patient slept 5-1/2 hours previous night, which is an improvement from the night before. He slept until lunch. He was up at night, undressed, confused, did not seem to recognize his of 50 years when she initially woke him up during visiting, but once he was fully awake, he recognized her readily. His , Darshana, did visit him and he was not aggressive towards her. REVIEW OF SYSTEMS: No CV, , pulmonary, eye, ENT system symptoms on review. Reliability poor. MENTAL STATUS EXAM: Oriented to himself. Insight, judgment, recent and remote memory, attention, concentration, fund of knowledge poor, consistent with his diagnosis mentioned in my initial note. PLAN: No change from initial note. EILEEN CHAVEZ MD DR: JEANIE/zheng JOB#: [id number] / [id number]
--- NOTE | 2019-01-08 23:14 | PN ---
DATE: 01/06/2019 PSYCHIATRIC PROGRESS NOTE This late entry, 01/06, covers the elements not covered in my initial note. SUBJECTIVE: I met with the patient on the evening of 01/06. The patient slept 3 hours previous night. Middle of the night, he was up and about saying there was a man in the basement, was yelling and agitated, psychotic. His brother and nephew visited. He has received Zyprexa around dinnertime. Gait is slightly unsteady. Valproic acid level is 57 therapeutic. REVIEW OF SYSTEMS: No CV, , pulmonary, eye, ENT systems symptoms on review. Reliability poor. MENTAL STATUS EXAM: Oriented to himself. Insight, judgment, recent and remote memory, attention, concentration, fund of knowledge poor, consistent with his diagnosis. IMPRESSION: Major neurocognitive disorder, Alzheimer, vascular with delusion, depression, behavioral disturbance, PTSD; anxiety disorder, unspecified; impulse control disorder, unspecified. PLAN: Start Remeron 7.5 mg at bedtime. Continue Depakote, Namenda, melatonin, Aricept, Zoloft and Risperdal for now. Continue Minipress 2 mg p.o. at bedtime for his PTSD symptoms. Start Remeron 7.5 mg at bedtime for insomnia and anxiety. Rest unchanged for now. EILEEN CHAVEZ MD DR: JEANIE/zheng JOB#: [id number] / [id number]
[2019-01-09] MEDS: LEVOTHYROXINE 25 MCG TABLET. PO SCH (05:04)
[2019-01-09 05:42] VITALS: BP 150/79
[2019-01-09] MEDS: FUROSEMIDE 20 MG TABLET PO SCH (08:17)
[2019-01-09] MEDS: PANTOPRAZOLE 40 MG TABLET. PO SCH ×2 (08:17→17:16)
[2019-01-09] MEDS: APIXABAN 5 MG TABLET. PO SCH ×2 (08:17→19:34)
[2019-01-09] MEDS: DONEPEZIL HCL 5 MG TABLET. PO SCH (08:17)
[2019-01-09] MEDS: FINASTERIDE 5 MG TABLET PO SCH (08:18)
[2019-01-09] MEDS: SERTRALINE 100 MG TABLET. PO SCH (08:18)
[2019-01-09] MEDS: MEMANTINE 5 MG TABLET. PO SCH (08:18)
[2019-01-09] MEDS: CARVEDILOL 12.5 MG TABLET PO SCH ×2 (08:19→17:16)
[2019-01-09] MEDS: LOSARTAN 50 MG TABLET. PO SCH (08:20)
[2019-01-09] MEDS: BUDESONIDE 0.5 MG/2 ML NEBU NEB SCH ×2 (09:45→20:00)
[2019-01-09] MEDS: LORazepam 0.5 MG TABLET PO PRN ×2 (13:08→23:31)
[2019-01-09 16:15] VITALS: BP 157/90
[2019-01-09] MEDS: PRAZOSIN 1 MG CAPSULE. PO SCH (19:33)
[2019-01-09] MEDS: DIVALPROEX ER 500 MG TAB.ER.24H PO SCH (19:33)
[2019-01-09] MEDS: ATORVASTATIN CALCIUM 20 MG TABLET PO SCH (19:34)
[2019-01-09] MEDS: POTASSIUM CHLORIDE 20 MEQ TABLET.ER. PO SCH (19:34)
[2019-01-09] MEDS: ASPIRIN ENTERIC COATED 81 MG TABLET.DR. PO SCH (19:34)
[2019-01-09] MEDS: TAMSULOSIN 0.4 MG CAP.ER.24H. PO SCH (19:34)
[2019-01-09] MEDS: MELATONIN 3 MG TABLET PO SCH (19:34)
[2019-01-09] MEDS: risperiDONE 1 MG TABLET. PO SCH (19:35)
[2019-01-09] MEDS: MIRTAZAPINE 7.5 MG TABLET. PO SCH (19:36)
--- NOTE | 2019-01-09 21:48 | PDOC ---
Exam Note: Brian Note: Please also refer to the separate dictated note~for this date of service dictated separately.~Patient seen individually. Discussed the patient with Nursing staff reviewed the chart.~Reviewed interim history and current functioning. Reviewed vital signs,~Labs/ Radiology~and current medications noted below. Continue current treatment with the changes noted in the dictated addendum note Assessment: Vital Signs/I&O: Vital Signs Date Time Temp Pulse Resp B/P (MAP) Pulse Ox O2 Delivery O2 Flow Rate FiO2 01/09/19 20:10 97 Room Air 01/09/19 19:36 85 157/90 01/09/19 16:15 97.8 20 I & O 01/08/19 01/08/19 01/09/19 15:00 23:00 07:00 Intake Total 600 ml 480 ml Balance 600 ml 480 ml Labs: Laboratory Tests Test 01/09/19 08:22 01/09/19 19:37 Glucose (Fingerstick) 102 mg/dL (70-99) H 130 mg/dL (70-99) H Current Medications: Meds: Current Medications Medications (Trade) Dose Ordered Sig/Jose David Route PRN Reason Start Time Stop Time Status Last Admin Dose Admin Risperidone (RisperDAL) 1 mg HS PO 01/09/19 21:00 01/09/19 19:36 I have reviewed the current psychotropics carefully including drug interactions. Risk benefit ratio favors no change other than as noted in my dictated progress note. Diagnosis: Problems: (1) Major neurocognitive disorder (2) Post traumatic stress disorder (3) Anxiety disorder (4) Dementia in Alzheimer's disease with delusions (5) Dementia in Alzheimer's disease with depression (6) Dementia, vascular, with delusions (7) Dementia, vascular, with depression (8) Impulse control disorder EILEEN CHAVEZ MD Jan 09, 2019 21:48
--- NOTE | 2019-01-10 02:31 | PN ---
DATE: 01/08/2019 PSYCHIATRIC PROGRESS NOTE This late entry for date of service 01/08/2019 covers elements not covered in my initial note. SUBJECTIVE: I met with the patient in the evening of 01/08/2019. The patient slept 7-1/4 hours previous night. He did well at night, but around 3:30, he was exit seeking looking for his . Received Zyprexa Zydis and then was calmer. REVIEW OF SYSTEMS: No CV, , pulmonary, eye, ENT system symptoms on review. Reliability poor. MENTAL STATUS EXAM: Oriented to himself. Insight, judgment, recent and remote memory, attention, concentration, fund of knowledge poor, consistent with his diagnosis mentioned in my initial note. PLAN: No change from initial note. MAN Yvon CHAVEZ MD DR: JEANIE/zheng JOB#: [id number] / [id number]
[2019-01-10] MEDS: LEVOTHYROXINE 25 MCG TABLET. PO SCH (05:20)
[2019-01-10 06:31] VITALS: BP 180/94
[2019-01-10 07:50] VITALS: BP 201/115
[2019-01-10] MEDS: MEMANTINE 5 MG TABLET. PO SCH (08:01)
[2019-01-10] MEDS: FUROSEMIDE 20 MG TABLET PO SCH (08:01)
[2019-01-10] MEDS: CARVEDILOL 12.5 MG TABLET PO SCH ×2 (08:01→16:31)
[2019-01-10] MEDS: DONEPEZIL HCL 5 MG TABLET. PO SCH (08:02)
[2019-01-10] MEDS: LOSARTAN 50 MG TABLET. PO SCH (08:02)
[2019-01-10] MEDS: PANTOPRAZOLE 40 MG TABLET. PO SCH ×2 (08:02→16:31)
[2019-01-10] MEDS: FINASTERIDE 5 MG TABLET PO SCH (08:02)
[2019-01-10] MEDS: SERTRALINE 100 MG TABLET. PO SCH (08:03)
[2019-01-10] MEDS: APIXABAN 5 MG TABLET. PO SCH ×2 (08:03→19:28)
[2019-01-10 11:06] VITALS: BP 163/99
[2019-01-10] MEDS: BUDESONIDE 0.5 MG/2 ML NEBU NEB SCH ×2 (11:32→20:14)
[2019-01-10] MEDS: LORazepam 0.5 MG TABLET PO PRN (13:10)
[2019-01-10 15:51] VITALS: BP 147/98
[2019-01-10] MEDS: ATORVASTATIN CALCIUM 20 MG TABLET PO SCH (19:27)
[2019-01-10] MEDS: ASPIRIN ENTERIC COATED 81 MG TABLET.DR. PO SCH (19:27)
[2019-01-10] MEDS: risperiDONE 1 MG TABLET. PO SCH (19:27)
[2019-01-10] MEDS: MIRTAZAPINE 7.5 MG TABLET. PO SCH (19:27)
[2019-01-10] MEDS: POTASSIUM CHLORIDE 20 MEQ TABLET.ER. PO SCH (19:28)
[2019-01-10] MEDS: TAMSULOSIN 0.4 MG CAP.ER.24H. PO SCH (19:28)
[2019-01-10] MEDS: DIVALPROEX ER 500 MG TAB.ER.24H PO SCH (19:28)
[2019-01-10] MEDS: MELATONIN 3 MG TABLET PO SCH (19:28)
[2019-01-10] MEDS: PRAZOSIN 1 MG CAPSULE. PO SCH (19:32)
[2019-01-10] MEDS: traZODone 50 MG TABLET. PO PRN (20:30)
--- NOTE | 2019-01-10 21:04 | PDOC ---
Exam Note: Brian Note: Please also refer to the separate dictated note~for this date of service dictated separately.~Patient seen individually. Discussed the patient with Nursing staff reviewed the chart.~Reviewed interim history and current functioning. Reviewed vital signs,~Labs/ Radiology~and current medications noted below. Continue current treatment with the changes noted in the dictated addendum note Assessment: Vital Signs/I&O: Vital Signs Date Time Temp Pulse Resp B/P (MAP) Pulse Ox O2 Delivery O2 Flow Rate FiO2 01/10/19 20:15 97 Room Air 01/10/19 19:32 67 147/98 01/10/19 15:51 97.4 16 I & O 01/09/19 01/09/19 01/10/19 15:00 23:00 07:00 Intake Total 720 ml 240 ml 240 ml Balance 720 ml 240 ml 240 ml Labs: Laboratory Tests Test 01/10/19 07:58 01/10/19 19:36 Glucose (Fingerstick) 114 mg/dL (70-99) H 139 mg/dL (70-99) H Current Medications: Meds: Current Medications Medications (Trade) Dose Ordered Sig/Jose David Route PRN Reason Start Time Stop Time Status Last Admin Dose Admin Prazosin HCl (Minipress) 3 mg HS PO 01/10/19 21:00 01/10/19 19:32 Trazodone HCl (Desyrel) 50 mg PRN QHS PRN PO insomnia 01/10/19 12:00 01/10/19 20:31 I have reviewed the current psychotropics carefully including drug interactions. Risk benefit ratio favors no change other than as noted in my dictated progress note. Diagnosis: Problems: (1) Major neurocognitive disorder (2) Post traumatic stress disorder (3) Anxiety disorder (4) Dementia in Alzheimer's disease with delusions (5) Dementia in Alzheimer's disease with depression (6) Dementia, vascular, with delusions (7) Dementia, vascular, with depression (8) Impulse control disorder EILEEN CHAVEZ MD Jan 10, 2019 21:04
--- NOTE | 2019-01-11 01:02 | PN ---
DATE: 01/09/2019 PSYCHIATRIC PROGRESS NOTE This late entry 01/09/2019 covers elements not covered in my initial note. SUBJECTIVE: I met with the patient in the evening of 01/09/2019. The patient slept 6-1/4 hours previous night. He remains confused, but he had one episode where he threw a chair in the dining room. He was paranoid, gets intermittently quite psychotic, though he is not as severe as he was a few days back. These symptoms persist. REVIEW OF SYSTEMS: No CV, , pulmonary, eye, ENT system symptoms on review. Reliability poor. MENTAL STATUS EXAM: Oriented to himself. Insight, judgment, recent and remote memory, attention, concentration, fund of knowledge poor, consistent with his diagnosis mentioned in my initial note. PLAN: No change from initial note, but we may need to increase the Minipress and perhaps the Risperdal if psychotic symptoms persist. MAN Yvon CHAVEZ MD DR: JEANIE/zheng JOB#: [id number] / [id number]
--- NOTE | 2019-01-11 01:05 | PN ---
DATE: 01/10/2019 PSYCHIATRIC PROGRESS NOTE This note covers elements not covered in my initial note of 01/10/2019. SUBJECTIVE: I met with the patient in the evening and staff at a treatment team meeting with the entire team in the morning. The patient slept 1-1/2 hours previous night. He remains disorganized. After lunchtime, he was agitated, tried to throw a chair, restless, and anxious. REVIEW OF SYSTEMS: No CV, , pulmonary, eye, ENT system symptoms on review. Reliability poor. MENTAL STATUS EXAM: Oriented to himself. Insight, judgment, recent and remote memory, attention, concentration, fund of knowledge poor, consistent with his diagnosis mentioned in my initial note. PLAN: Increase Risperdal from 0.5 mg at bedtime to 1 mg at bedtime, Minipress from 2 mg at bedtime to 3 mg at bedtime. Continue Aricept 5 mg a day, Namenda at current dosage, Zoloft 150 mg a day, melatonin 3 mg at bedtime, Depakote ER 1000 mg at bedtime, level is therapeutic at 57, Zyprexa p.r.n., Remeron 7.5 mg at bedtime, Ativan p.r.n. We will make further adjustments as clinically indicated. We will go ahead and add trazodone 50 mg at bedtime p.r.n. insomnia, may repeat times one. MAN Yvon CHAVEZ MD DR: JEANIE/zheng JOB#: [id number] / [id number]
[2019-01-11] MEDS: LEVOTHYROXINE 25 MCG TABLET. PO SCH (04:58)
[2019-01-11 06:17] VITALS: BP 153/93
[2019-01-11] MEDS: CARVEDILOL 12.5 MG TABLET PO SCH ×2 (08:30→16:24)
[2019-01-11] MEDS: PANTOPRAZOLE 40 MG TABLET. PO SCH ×2 (08:30→16:23)
[2019-01-11] MEDS: DONEPEZIL HCL 5 MG TABLET. PO SCH (08:30)
[2019-01-11] MEDS: APIXABAN 5 MG TABLET. PO SCH ×2 (08:31→20:54)
[2019-01-11] MEDS: LOSARTAN 50 MG TABLET. PO SCH (08:31)
[2019-01-11] MEDS: SERTRALINE 100 MG TABLET. PO SCH (08:32)
[2019-01-11] MEDS: MEMANTINE 5 MG TABLET. PO SCH (08:32)
[2019-01-11] MEDS: FUROSEMIDE 20 MG TABLET PO SCH (08:32)
[2019-01-11] MEDS: FINASTERIDE 5 MG TABLET PO SCH (08:32)
[2019-01-11] MEDS: POLYETHYLENE GLYCOL 3350 17 GM PACKET. PO SCH (08:34)
[2019-01-11] MEDS: DOCUSATE SODIUM 100 MG CAPSULE PO SCH (08:34)
[2019-01-11] MEDS: BUDESONIDE 0.5 MG/2 ML NEBU NEB SCH ×2 (11:20→19:57)
[2019-01-11 15:46] VITALS: BP 172/97
[2019-01-11 20:35] LABS: BASO # 0.1 x10^3/uL (0.0-0.2); BASO % 1 % (0-3); EOS # 0.7 x10^3/uL (0.0-0.7); EOS % 10 % (0-3); HEMATOCRIT 42.8 % (39.0-53.0); LYMPH % 29 % (24-48); MEAN CORPUSCULAR HEMOGLOBIN 31 pg (25-35); MEAN CORPUSCULAR HGB CONC 33 g/dL (31-37); MEAN CORPUSCULAR VOLUME 94 fL (79-100); MONO # 0.9 x10^3/uL (0.0-1.1); MONO % 13 % (0-9); NEUT # 3.3 x10^3uL (1.8-7.7); NEUT % 48 % (31-73); PLATELET COUNT 207 x10^3/uL (140-400); RED BLOOD COUNT 4.56 x10^6/uL (4.30-5.70); RED CELL DISTRIBUTION WIDTH 14.2 % (11.5-14.5); WHITE BLOOD COUNT 6.8 x10^3/uL (4.0-11.0)
[2019-01-11] MEDS: ASPIRIN ENTERIC COATED 81 MG TABLET.DR. PO SCH (20:53)
[2019-01-11] MEDS: MELATONIN 3 MG TABLET PO SCH (20:53)
[2019-01-11] MEDS: POTASSIUM CHLORIDE 20 MEQ TABLET.ER. PO SCH (20:54)
[2019-01-11] MEDS: DIVALPROEX 125 MG CAP.SPRINK PO SCH (20:54)
[2019-01-11] MEDS: MIRTAZAPINE 7.5 MG TABLET. PO SCH (20:55)
[2019-01-11] MEDS: risperiDONE 1 MG TABLET. PO SCH (20:55)
[2019-01-11] MEDS: TAMSULOSIN 0.4 MG CAP.ER.24H. PO SCH (20:55)
[2019-01-11] MEDS: PRAZOSIN 1 MG CAPSULE. PO SCH (20:55)
[2019-01-11] MEDS: ATORVASTATIN CALCIUM 20 MG TABLET PO SCH (20:55)
[2019-01-11 21:11] LABS: ALBUMIN 3.3 g/dL (3.4-5.0); ALBUMIN/GLOBULIN RATIO 0.8 (1.0-1.7); CALCIUM 10.1 mg/dL (8.5-10.1); TOTAL PROTEIN 7.5 g/dL (6.4-8.2)
[2019-01-11 21:12] LABS: CREATININE 1.4 mg/dL (0.7-1.3); GFR 49.8; POTASSIUM 4.1 mmol/L (3.5-5.1); TOTAL BILIRUBIN 0.3 mg/dL (0.2-1.0)
--- NOTE | 2019-01-11 21:58 | PDOC ---
Exam Note: Brian Note: Please also refer to the separate dictated note~for this date of service dictated separately.~Patient seen individually. Discussed the patient with Nursing staff reviewed the chart.~Reviewed interim history and current functioning. Reviewed vital signs,~Labs/ Radiology~and current medications noted below. Continue current treatment with the changes noted in the dictated addendum note Assessment: Vital Signs/I&O: Vital Signs Date Time Temp Pulse Resp B/P (MAP) Pulse Ox O2 Delivery O2 Flow Rate FiO2 01/11/19 20:56 60 144/90 01/11/19 19:58 95 Room Air 01/11/19 15:46 98.0 20 I & O 01/10/19 01/10/19 01/11/19 14:59 22:59 06:59 Intake Total 720 ml 480 ml 240 ml Balance 720 ml 480 ml 240 ml Labs: Laboratory Tests Test 01/11/19 07:24 01/11/19 19:09 01/11/19 20:13 Glucose (Fingerstick) 118 mg/dL (70-99) H 198 mg/dL (70-99) H White Blood Count 6.8 x10^3/uL (4.0-11.0) Red Blood Count 4.56 x10^6/uL (4.30-5.70) Hemoglobin 14.0 g/dL (13.0-17.5) Hematocrit 42.8 % (39.0-53.0) Mean Corpuscular Volume 94 fL (79-100) Mean Corpuscular Hemoglobin 31 pg (25-35) Mean Corpuscular Hemoglobin Concent 33 g/dL (31-37) Red Cell Distribution Width 14.2 % (11.5-14.5) Platelet Count 207 x10^3/uL (140-400) Neutrophils (%) (Auto) 48 % (31-73) Lymphocytes (%) (Auto) 29 % (24-48) Monocytes (%) (Auto) 13 % (0-9) H Eosinophils (%) (Auto) 10 % (0-3) H Basophils (%) (Auto) 1 % (0-3) Neutrophils # (Auto) 3.3 x10^3uL (1.8-7.7) Lymphocytes # (Auto) 2.0 x10^3/uL (1.0-4.8) Monocytes # (Auto) 0.9 x10^3/uL (0.0-1.1) Eosinophils # (Auto) 0.7 x10^3/uL (0.0-0.7) Basophils # (Auto) 0.1 x10^3/uL (0.0-0.2) Sodium Level 142 mmol/L (136-145) Potassium Level 4.1 mmol/L (3.5-5.1) Chloride Level 105 mmol/L (98-107) Carbon Dioxide Level 33 mmol/L (21-32) H Anion Gap 4 (6-14) L Blood Urea Nitrogen 20 mg/dL (8-26) Creatinine 1.4 mg/dL (0.7-1.3) H Estimated GFR (Cockcroft-Gault) 49.8 BUN/Creatinine Ratio 14 (6-20) Glucose Level 217 mg/dL (70-99) H Calcium Level 10.1 mg/dL (8.5-10.1) Total Bilirubin 0.3 mg/dL (0.2-1.0) Aspartate Amino Transferase (AST) 11 U/L (15-37) L Alanine Aminotransferase (ALT) 16 U/L (16-63) Alkaline Phosphatase 106 U/L (46-116) Total Protein 7.5 g/dL (6.4-8.2) Albumin 3.3 g/dL (3.4-5.0) L Albumin/Globulin Ratio 0.8 (1.0-1.7) L Current Medications: Meds: Current Medications Medications (Trade) Dose Ordered Sig/Jose David Route PRN Reason Start Time Stop Time Status Last Admin Dose Admin Diltiazem HCl (Cardizem 24hr Cd) 240 mg DAILY PO 01/11/19 09:00 01/11/19 08:34 Docusate Sodium (Colace) 100 mg DAILY PO 01/11/19 09:00 01/11/19 08:34 Polyethylene Glycol (miraLAX) 17 gm DAILY PO 01/11/19 09:00 01/11/19 08:34 Divalproex Sodium (Depakote Sprinkles) 1,000 mg HS PO 01/11/19 21:00 01/11/19 20:56 I have reviewed the current psychotropics carefully including drug interactions. Risk benefit ratio favors no change other than as noted in my dictated progress note. Diagnosis: Problems: (1) Major neurocognitive disorder (2) Post traumatic stress disorder (3) Anxiety disorder (4) Dementia in Alzheimer's disease with delusions (5) Dementia in Alzheimer's disease with depression (6) Dementia, vascular, with delusions (7) Dementia, vascular, with depression (8) Impulse control disorder EILEEN CHAVEZ MD Jan 11, 2019 21:58
[2019-01-11] MEDS: LORazepam 0.5 MG TABLET PO PRN (23:37)
[2019-01-11] MEDS: traZODone 50 MG TABLET. PO PRN (23:37)
[2019-01-12] MEDS: LEVOTHYROXINE 25 MCG TABLET. PO SCH (06:09)
[2019-01-12] MEDS: CARVEDILOL 12.5 MG TABLET PO SCH ×2 (06:09→16:47)
[2019-01-12 06:16] VITALS: BP 175/98
[2019-01-12] MEDS: PANTOPRAZOLE 40 MG TABLET. PO SCH ×2 (08:14→16:46)
[2019-01-12] MEDS: DOCUSATE SODIUM 100 MG CAPSULE PO SCH (08:15)
[2019-01-12] MEDS: LOSARTAN 50 MG TABLET. PO SCH (08:15)
[2019-01-12] MEDS: DONEPEZIL HCL 5 MG TABLET. PO SCH (08:15)
[2019-01-12] MEDS: FUROSEMIDE 20 MG TABLET PO SCH (08:16)
[2019-01-12] MEDS: FINASTERIDE 5 MG TABLET PO SCH (08:16)
[2019-01-12] MEDS: MEMANTINE 5 MG TABLET. PO SCH (08:16)
[2019-01-12] MEDS: POLYETHYLENE GLYCOL 3350 17 GM PACKET. PO SCH (08:16)
[2019-01-12] MEDS: APIXABAN 5 MG TABLET. PO SCH ×2 (08:16→21:40)
[2019-01-12] MEDS: SERTRALINE 100 MG TABLET. PO SCH (08:16)
[2019-01-12] MEDS: LORazepam 0.5 MG TABLET PO PRN ×2 (11:36→23:19)
[2019-01-12] MEDS: BUDESONIDE 0.5 MG/2 ML NEBU NEB SCH ×2 (13:45→20:00)
[2019-01-12 14:00] LABS: BACTERIA,URINE 0 /HPF (0-FEW); BILIRUBIN,URINE NEG (NEG); CLARITY,URINE CLEAR; COLOR,URINE STRAW; GLUCOSE,URINE NEG (NEG); HYALINE CASTS, URINE OCC /HPF; NITRITE,URINE NEG (NEG); UROBILINOGEN,URINE 0.2 mg/dL (0.2 mg/dL)
[2019-01-12 15:56] VITALS: BP 157/89
[2019-01-12] MEDS: ASPIRIN ENTERIC COATED 81 MG TABLET.DR. PO SCH (20:35)
[2019-01-12] MEDS: MIRTAZAPINE 7.5 MG TABLET. PO SCH (20:36)
[2019-01-12] MEDS: ATORVASTATIN CALCIUM 20 MG TABLET PO SCH (20:36)
[2019-01-12] MEDS: TAMSULOSIN 0.4 MG CAP.ER.24H. PO SCH (20:36)
[2019-01-12] MEDS: PRAZOSIN 1 MG CAPSULE. PO SCH (20:36)
[2019-01-12] MEDS: risperiDONE 1 MG TABLET. PO SCH (20:37)
[2019-01-12] MEDS: DIVALPROEX 125 MG CAP.SPRINK PO SCH (21:40)
[2019-01-12] MEDS: MELATONIN 3 MG TABLET PO SCH (21:41)
[2019-01-12] MEDS: POTASSIUM CHLORIDE 20 MEQ TABLET.ER. PO SCH (21:43)
[2019-01-12] MEDS: traZODone 50 MG TABLET. PO PRN ×2 (22:08→23:19)
--- NOTE | 2019-01-12 22:38 | PDOC ---
Exam Note: Brian Note: Please also refer to the separate dictated note~for this date of service dictated separately.~Patient seen individually. Discussed the patient with Nursing staff reviewed the chart.~Reviewed interim history and current functioning. Reviewed vital signs,~Labs/ Radiology~and current medications noted below. Continue current treatment with the changes noted in the dictated addendum note Assessment: Vital Signs/I&O: Vital Signs Date Time Temp Pulse Resp B/P (MAP) Pulse Ox O2 Delivery O2 Flow Rate FiO2 01/12/19 21:44 72 157/89 01/12/19 20:17 95 Room Air 01/12/19 15:56 97.8 18 I & O 01/11/19 01/11/19 01/12/19 15:00 23:00 07:00 Intake Total 1200 ml 360 ml Balance 1200 ml 360 ml Labs: Laboratory Tests Test 01/12/19 07:22 01/12/19 13:35 Glucose (Fingerstick) 143 mg/dL (70-99) H Urine Collection Type Void Urine Color Straw Urine Clarity Clear Urine pH 7.0 Urine Specific [place] 1.015 Urine Protein Neg (NEG-TRACE) Urine Glucose (UA) Neg mg/dL (NEG) Urine Ketones (Stick) Neg mg/dL (NEG) Urine Blood Trace (NEG) Urine Nitrite Neg (NEG) Urine Bilirubin Neg (NEG) Urine Urobilinogen Dipstick 0.2 mg/dL (0.2 mg/dL) Urine Leukocyte Esterase Neg (NEG) Urine RBC 1-2 /HPF (0-2) Urine WBC 1-4 /HPF (0-4) Urine Squamous Epithelial Cells None /LPF Urine Bacteria 0 /HPF (0-FEW) Urine Hyaline Casts Occ /HPF Urine Mucus Slight /LPF Current Medications: I have reviewed the current psychotropics carefully including drug interactions. Risk benefit ratio favors no change other than as noted in my dictated progress note. Diagnosis: Problems: (1) Major neurocognitive disorder (2) Post traumatic stress disorder (3) Anxiety disorder (4) Dementia in Alzheimer's disease with delusions (5) Dementia in Alzheimer's disease with depression (6) Dementia, vascular, with delusions (7) Dementia, vascular, with depression (8) Impulse control disorder EILENE CHAVEZ MD Jan 12, 2019 22:38
[2019-01-13 05:38] VITALS: BP 164/86
[2019-01-13] MEDS: LEVOTHYROXINE 25 MCG TABLET. PO SCH (06:39)
[2019-01-13] MEDS: PANTOPRAZOLE 40 MG TABLET. PO SCH ×3 (08:15→17:03)
[2019-01-13] MEDS: DONEPEZIL HCL 10 MG TABLET PO SCH ×2 (08:15→12:16)
[2019-01-13] MEDS: CARVEDILOL 12.5 MG TABLET PO SCH ×3 (08:15→17:04)
[2019-01-13] MEDS: DOCUSATE SODIUM 100 MG CAPSULE PO SCH ×2 (08:16→12:17)
[2019-01-13] MEDS: APIXABAN 5 MG TABLET. PO SCH ×3 (08:16→20:17)
[2019-01-13] MEDS: LOSARTAN 50 MG TABLET. PO SCH ×2 (08:16→12:17)
[2019-01-13] MEDS: FINASTERIDE 5 MG TABLET PO SCH ×2 (08:17→12:18)
[2019-01-13] MEDS: FUROSEMIDE 20 MG TABLET PO SCH ×2 (08:17→12:17)
[2019-01-13] MEDS: POLYETHYLENE GLYCOL 3350 17 GM PACKET. PO SCH ×2 (08:17→12:17)
[2019-01-13] MEDS: SERTRALINE 100 MG TABLET. PO SCH ×2 (08:17→12:18)
[2019-01-13] MEDS: MEMANTINE 5 MG TABLET. PO SCH ×3 (08:17→20:18)
[2019-01-13] MEDS: BUDESONIDE 0.5 MG/2 ML NEBU NEB SCH (12:03)
[2019-01-13 12:15] VITALS: BP 187/92
[2019-01-13 16:04] VITALS: BP 140/90
[2019-01-13] MEDS: ASPIRIN ENTERIC COATED 81 MG TABLET.DR. PO SCH (20:16)
[2019-01-13] MEDS: MELATONIN 3 MG TABLET PO SCH (20:16)
[2019-01-13] MEDS: DIVALPROEX 125 MG CAP.SPRINK PO SCH (20:16)
[2019-01-13] MEDS: ATORVASTATIN CALCIUM 20 MG TABLET PO SCH (20:17)
[2019-01-13] MEDS: POTASSIUM CHLORIDE 20 MEQ TABLET.ER. PO SCH (20:17)
[2019-01-13] MEDS: TAMSULOSIN 0.4 MG CAP.ER.24H. PO SCH (20:17)
[2019-01-13] MEDS: PRAZOSIN 1 MG CAPSULE. PO SCH (20:18)
[2019-01-13] MEDS: MIRTAZAPINE 7.5 MG TABLET. PO SCH (20:18)
[2019-01-13] MEDS: risperiDONE 1 MG TABLET. PO SCH (20:19)
--- NOTE | 2019-01-13 21:50 | PN ---
DATE: 01/12/2019 PSYCHIATRIC PROGRESS NOTE This late entry 01/12/2019 covers elements not covered in my initial note of 01/12/2019. SUBJECTIVE: I met with the patient evening of 01/12/2019. The patient slept 6-1/2 hours previous night. Nursing staff report, he had an episode earlier in the day, which they described as a "PTSD attack." He was bewildered, appeared agitated, appeared psychotic, had to be re-moved to the other end of the hallway away from stimuli, received a p.r.n., then did better. Labs are awaited. REVIEW OF SYSTEMS: No CV, , pulmonary, eye, ENT system symptoms on review. Reliability poor. MENTAL STATUS EXAM: Oriented to himself. Insight, judgment, recent and remote memory, attention, concentration, fund of knowledge poor, consistent with his diagnosis mentioned in my initial note. PLAN: Increase Aricept from 5 mg a day to 10 mg a day, Namenda from 5 mg daily to 5 mg twice a day. Trazodone had been added the previous night 50 mg at bedtime p.r.n., may repeat x 1 for insomnia. Continue rest of the psychotropics per initial note including clonidine 3 mg at bedtime for his PTSD symptoms. Risperdal 1 mg at bedtime, Remeron 7.5 mg at bedtime; Aricept, Namenda is as noted, melatonin 3 mg at bedtime, Depakote Sprinkles 1000 mg at bedtime, level is therapeutic at 57, Zyprexa p.r.n. EILEEN CHAVEZ MD DR: JEANEI/zheng JOB#: [id number] / [id number]
--- NOTE | 2019-01-13 21:59 | PN ---
DATE: 01/11/2019 PSYCHIATRIC PROGRESS NOTE This late entry 01/11/2019 covers elements not covered in my initial note. SUBJECTIVE: I met with the patient evening of 01/11/2019. The patient slept 6-1/4 hours previous night. He remains confused, his speech is word salad. Takes his medications crushed. At one point, he was trying to eat the paper menu. REVIEW OF SYSTEMS: No CV, , pulmonary, eye, ENT system symptoms on review. Reliability poor. MENTAL STATUS EXAM: Oriented to himself. Insight, judgment, recent and remote memory, attention, concentration, fund of knowledge poor, consistent with his diagnosis mentioned in my initial note. PLAN: We will check a UA, make sure UTI is not worsening his confusion. Check labs, CBC, CMP for electrolytes. Continue rest of the psychotropics unchanged. MAN Yvon CHAVEZ MD DR: JEANIE/zheng JOB#: [id number] / [id number]
--- NOTE | 2019-01-13 22:20 | PDOC ---
Exam Note: Brian Note: Please also refer to the separate dictated note~for this date of service dictated separately.~Patient seen individually. Discussed the patient with Nursing staff reviewed the chart.~Reviewed interim history and current functioning. Reviewed vital signs,~Labs/ Radiology~and current medications noted below. Continue current treatment with the changes noted in the dictated addendum note Assessment: Vital Signs/I&O: Vital Signs Date Time Temp Pulse Resp B/P (MAP) Pulse Ox O2 Delivery O2 Flow Rate FiO2 01/13/19 20:55 97 Room Air 01/13/19 20:19 90 140/90 01/13/19 16:04 97.0 20 I & O 01/12/19 01/12/19 01/13/19 15:00 23:00 07:00 Intake Total 840 ml 720 ml 240 ml Balance 840 ml 720 ml 240 ml Labs: Laboratory Tests Test 01/13/19 07:19 01/13/19 19:27 Glucose (Fingerstick) 106 mg/dL (70-99) H 147 mg/dL (70-99) H Current Medications: Meds: Current Medications Medications (Trade) Dose Ordered Sig/Jose David Route PRN Reason Start Time Stop Time Status Last Admin Dose Admin Donepezil HCl (Aricept) 10 mg DAILY PO 01/13/19 09:00 01/13/19 12:18 Memantine (Namenda) 5 mg BID PO 01/13/19 09:00 01/13/19 20:19 I have reviewed the current psychotropics carefully including drug interactions. Risk benefit ratio favors no change other than as noted in my dictated progress note. Diagnosis: Problems: (1) Major neurocognitive disorder (2) Post traumatic stress disorder (3) Anxiety disorder (4) Dementia in Alzheimer's disease with delusions (5) Dementia in Alzheimer's disease with depression (6) Dementia, vascular, with delusions (7) Dementia, vascular, with depression (8) Impulse control disorder EILEEN CHAVEZ MD Jan 13, 2019 22:20
[2019-01-14] MEDS: LEVOTHYROXINE 25 MCG TABLET. PO SCH (05:07)
[2019-01-14 05:48] VITALS: BP 139/84
[2019-01-14] MEDS: BUDESONIDE 0.5 MG/2 ML NEBU NEB SCH ×3 (05:57→23:03)
[2019-01-14] MEDS: PANTOPRAZOLE 40 MG TABLET. PO SCH ×2 (08:17→15:52)
[2019-01-14] MEDS: CARVEDILOL 12.5 MG TABLET PO SCH ×2 (08:17→15:52)
[2019-01-14] MEDS: DONEPEZIL HCL 10 MG TABLET PO SCH (08:17)
[2019-01-14] MEDS: DOCUSATE SODIUM 100 MG CAPSULE PO SCH (08:17)
[2019-01-14] MEDS: POLYETHYLENE GLYCOL 3350 17 GM PACKET. PO SCH (08:18)
[2019-01-14] MEDS: SERTRALINE 100 MG TABLET. PO SCH (08:18)
[2019-01-14] MEDS: MEMANTINE 5 MG TABLET. PO SCH ×2 (08:18→19:36)
[2019-01-14] MEDS: FINASTERIDE 5 MG TABLET PO SCH (08:18)
[2019-01-14] MEDS: LOSARTAN 50 MG TABLET. PO SCH (08:18)
[2019-01-14] MEDS: APIXABAN 5 MG TABLET. PO SCH ×2 (08:18→19:36)
[2019-01-14] MEDS: FUROSEMIDE 20 MG TABLET PO SCH (08:18)
[2019-01-14 15:31] VITALS: BP 154/91
[2019-01-14] MEDS: LORazepam 0.5 MG TABLET PO PRN (18:27)
[2019-01-14] MEDS: ASPIRIN ENTERIC COATED 81 MG TABLET.DR. PO SCH (19:32)
[2019-01-14] MEDS: ATORVASTATIN CALCIUM 20 MG TABLET PO SCH (19:32)
[2019-01-14] MEDS: DIVALPROEX 125 MG CAP.SPRINK PO SCH (19:32)
[2019-01-14] MEDS: MELATONIN 3 MG TABLET PO SCH (19:33)
[2019-01-14] MEDS: risperiDONE 1 MG TABLET. PO SCH (19:35)
[2019-01-14] MEDS: MIRTAZAPINE 7.5 MG TABLET. PO SCH (19:36)
[2019-01-14] MEDS: POTASSIUM CHLORIDE 20 MEQ TABLET.ER. PO SCH (19:36)
[2019-01-14] MEDS: TAMSULOSIN 0.4 MG CAP.ER.24H. PO SCH (19:37)
[2019-01-14] MEDS: traZODone 50 MG TABLET. PO PRN (19:37)
[2019-01-14] MEDS ORDERED: PRAZOSIN 1 MG CAPSULE. PO SCH (21:00)
--- NOTE | 2019-01-14 21:42 | PDOC ---
Exam Note: Brian Note: Please also refer to the separate dictated note~for this date of service dictated separately.~Patient seen individually. Discussed the patient with Nursing staff reviewed the chart.~Reviewed interim history and current functioning. Reviewed vital signs,~Labs/ Radiology~and current medications noted below. Continue current treatment with the changes noted in the dictated addendum note Assessment: Vital Signs/I&O: Vital Signs Date Time Temp Pulse Resp B/P (MAP) Pulse Ox O2 Delivery O2 Flow Rate FiO2 01/14/19 20:15 96 Room Air 01/14/19 19:37 74 154/91 01/14/19 15:31 97.0 20 I & O 01/13/19 01/13/19 01/14/19 15:00 23:00 07:00 Intake Total 240 ml 340 ml Balance 240 ml 340 ml Labs: Laboratory Tests Test 01/14/19 07:56 Glucose (Fingerstick) 101 mg/dL (70-99) H Current Medications: Meds: Current Medications Medications (Trade) Dose Ordered Sig/Jose David Route PRN Reason Start Time Stop Time Status Last Admin Dose Admin Prazosin HCl (Minipress) 4 mg HS PO 01/14/19 21:00 01/14/19 19:37 Risperidone (RisperDAL) 1.5 mg HS PO 01/14/19 21:00 01/14/19 19:37 I have reviewed the current psychotropics carefully including drug interactions. Risk benefit ratio favors no change other than as noted in my dictated progress note. Diagnosis: Problems: (1) Major neurocognitive disorder (2) Post traumatic stress disorder (3) Anxiety disorder (4) Dementia in Alzheimer's disease with delusions (5) Dementia in Alzheimer's disease with depression (6) Dementia, vascular, with delusions (7) Dementia, vascular, with depression (8) Impulse control disorder EILEEN CHAVEZ MD Jan 14, 2019 21:42
--- NOTE | 2019-01-15 01:07 | PN ---
DATE: 01/13/2019 PSYCHIATRIC PROGRESS NOTE This late entry 01/13/2019 covers elements not covered in my initial note. SUBJECTIVE: I met with the patient in evening of 01/13/2019. The patient slept just 1 hour previous night. He has been restless, received trazodone x 2, Ativan and Zyprexa at night, has a shuffling gait, leaning over to one side, more disorganized. REVIEW OF SYSTEMS: No CV, , pulmonary, eye, ENT system symptoms on review. Reliability poor. MENTAL STATUS EXAM: Oriented to himself. Insight, judgment, recent and remote memory, attention, concentration, fund of knowledge poor consistent with his diagnosis mentioned in my initial note. PLAN: No change from initial note. We will increase the Namenda and Aricept. We will see how he sleeps the night of 01/13/2019 and then make further adjustments as clinically indicated. May need to check a UA as well. MAN Yvon CHAVEZ MD DR: JEANIE/zheng JOB#: [id number] / [id number]
[2019-01-15 05:44] VITALS: BP 138/74
[2019-01-15] MEDS: LEVOTHYROXINE 25 MCG TABLET. PO SCH (06:03)
[2019-01-15] MEDS: FINASTERIDE 5 MG TABLET PO SCH (07:30)
[2019-01-15] MEDS: CARVEDILOL 12.5 MG TABLET PO SCH ×2 (07:31→16:17)
[2019-01-15] MEDS: APIXABAN 5 MG TABLET. PO SCH ×2 (07:31→19:26)
[2019-01-15] MEDS: SERTRALINE 100 MG TABLET. PO SCH (07:31)
[2019-01-15] MEDS: DOCUSATE SODIUM 100 MG CAPSULE PO SCH (07:31)
[2019-01-15] MEDS: LOSARTAN 50 MG TABLET. PO SCH (07:32)
[2019-01-15] MEDS: DONEPEZIL HCL 10 MG TABLET PO SCH (07:32)
[2019-01-15] MEDS: FUROSEMIDE 20 MG TABLET PO SCH (07:32)
[2019-01-15] MEDS: MEMANTINE 5 MG TABLET. PO SCH ×2 (07:32→19:27)
[2019-01-15] MEDS: PANTOPRAZOLE 40 MG TABLET. PO SCH ×2 (07:32→16:13)
[2019-01-15] MEDS: POLYETHYLENE GLYCOL 3350 17 GM PACKET. PO SCH (07:33)
[2019-01-15] MEDS: CHOLECALCIFEROL (VITAMIN D3) 50,000 UNIT CAPSULE PO SCH (07:35)
[2019-01-15] MEDS: BUDESONIDE 0.5 MG/2 ML NEBU NEB SCH ×2 (08:00→20:00)
[2019-01-15 15:34] VITALS: BP 148/95
[2019-01-15] MEDS: DIVALPROEX 125 MG CAP.SPRINK PO SCH (19:25)
[2019-01-15] MEDS: ASPIRIN ENTERIC COATED 81 MG TABLET.DR. PO SCH (19:25)
[2019-01-15] MEDS: MIRTAZAPINE 7.5 MG TABLET. PO SCH (19:25)
[2019-01-15] MEDS: risperiDONE 1 MG TABLET. PO SCH (19:26)
[2019-01-15] MEDS: traZODone 50 MG TABLET. PO PRN ×2 (19:26→22:00)
[2019-01-15] MEDS: POTASSIUM CHLORIDE 20 MEQ TABLET.ER. PO SCH (19:26)
[2019-01-15] MEDS: MELATONIN 3 MG TABLET PO SCH (19:27)
[2019-01-15] MEDS: ATORVASTATIN CALCIUM 20 MG TABLET PO SCH (19:27)
[2019-01-15] MEDS: TAMSULOSIN 0.4 MG CAP.ER.24H. PO SCH (19:27)
[2019-01-15] MEDS ORDERED: PRAZOSIN 1 MG CAPSULE. PO SCH (21:00)
--- NOTE | 2019-01-15 21:43 | PDOC ---
Exam Note: Brian Note: Please also refer to the separate dictated note~for this date of service dictated separately.~Patient seen individually. Discussed the patient with Nursing staff reviewed the chart.~Reviewed interim history and current functioning. Reviewed vital signs,~Labs/ Radiology~and current medications noted below. Continue current treatment with the changes noted in the dictated addendum note Assessment: Vital Signs/I&O: Vital Signs Date Time Temp Pulse Resp B/P (MAP) Pulse Ox O2 Delivery O2 Flow Rate FiO2 01/15/19 20:18 95 Room Air 01/15/19 19:28 92 148/95 01/15/19 15:34 97.6 18 I & O 01/14/19 01/14/19 01/15/19 15:00 23:00 07:00 Intake Total 360 ml 120 ml Balance 360 ml 120 ml Labs: Laboratory Tests Test 01/15/19 07:46 01/15/19 19:34 Glucose (Fingerstick) 146 mg/dL (70-99) H 151 mg/dL (70-99) H Current Medications: Meds: Current Medications Medications (Trade) Dose Ordered Sig/Jose David Route PRN Reason Start Time Stop Time Status Last Admin Dose Admin Prazosin HCl (Minipress) 2 mg HS PO 01/15/19 21:00 01/15/19 19:28 I have reviewed the current psychotropics carefully including drug interactions. Risk benefit ratio favors no change other than as noted in my dictated progress note. Diagnosis: Problems: (1) Major neurocognitive disorder (2) Post traumatic stress disorder (3) Anxiety disorder (4) Dementia in Alzheimer's disease with delusions (5) Dementia in Alzheimer's disease with depression (6) Dementia, vascular, with delusions (7) Dementia, vascular, with depression (8) Impulse control disorder EILEEN CHAVEZ MD Jan 15, 2019 21:42
--- NOTE | 2019-01-15 23:17 | PN ---
DATE: 01/14/2019 PSYCHIATRIC PROGRESS NOTE This late entry, 01/14, covers the elements not covered in my initial note. SUBJECTIVE: I met with the patient on the evening of 01/14. The patient slept 3-1/4 hours previous night, but then he slept early in the day, slept till lunchtime. He refused his bedtime meds the night before, but generally had a good day till the evening of 01/14. He had visits from his family and his son, who he has not seen for 10 years, visited him. The patient was unable to recognize the son, but some of this is understandable. He did recognize his , Darshana, when she visited. UA on the was negative. However, around 5:00 p.m. as the family were in the office of social service staff and nursing staff was there as well, the patient became extremely paranoid, psychotic and according to the description by staff seemed to have a "PTSD attack." He grabbed onto the nurse, refused to let her go, was barricading the room, extremely aggressive, volatile, making threatening gestures, pointing like he was shooting and believed people were trying to kill him. This is quite an emergency situation. Staff had to intervene. He was removed to the less stimuli area of the [facility]. REVIEW OF SYSTEMS: No CV, , pulmonary, eye, ENT systems symptoms on review. I met with him in the [facility]. Reliability poor. MENTAL STATUS EXAM: Oriented to himself. Insight, judgment, recent and remote memory, attention, concentration, fund of knowledge poor, consistent with his diagnosis. IMPRESSION: Major neurocognitive disorder, Alzheimer, vascular with delusion, depression, behavioral disturbance. PTSD. Anxiety disorder, unspecified. Impulse control disorder, unspecified. PLAN: Increase Minipress from 3 mg at bedtime to 4 mg at bedtime, Risperdal from 1 mg at bedtime to 1.5 mg at bedtime. May need to add daytime Minipress for PTSD symptoms as well. Continue Aricept, Zoloft, Namenda, melatonin, Depakote along with Zyprexa p.r.n., trazodone, Remeron, unchanged from initial note. EILEEN CHAVEZ MD DR: JEANIE/zheng JOB#: [id number] / [id number]
[2019-01-16] MEDS: LEVOTHYROXINE 25 MCG TABLET. PO SCH (03:51)
[2019-01-16 05:42] VITALS: BP 125/78
[2019-01-16] MEDS: DONEPEZIL HCL 10 MG TABLET PO SCH (08:25)
[2019-01-16] MEDS: APIXABAN 5 MG TABLET. PO SCH ×2 (08:25→21:14)
[2019-01-16] MEDS: DOCUSATE SODIUM 100 MG CAPSULE PO SCH (08:25)
[2019-01-16] MEDS: POLYETHYLENE GLYCOL 3350 17 GM PACKET. PO SCH (08:25)
[2019-01-16] MEDS: PRAZOSIN 1 MG CAPSULE. PO SCH ×3 (08:26→21:43)
[2019-01-16] MEDS: FUROSEMIDE 20 MG TABLET PO SCH (08:26)
[2019-01-16] MEDS: PANTOPRAZOLE 40 MG TABLET. PO SCH ×2 (08:26→15:38)
[2019-01-16] MEDS: CARVEDILOL 12.5 MG TABLET PO SCH ×2 (08:27→15:39)
[2019-01-16] MEDS: FINASTERIDE 5 MG TABLET PO SCH (08:27)
[2019-01-16] MEDS: SERTRALINE 100 MG TABLET. PO SCH (08:28)
[2019-01-16] MEDS: MEMANTINE 5 MG TABLET. PO SCH ×2 (08:29→21:14)
[2019-01-16] MEDS: LOSARTAN 50 MG TABLET. PO SCH (08:29)
[2019-01-16] MEDS: BUDESONIDE 0.5 MG/2 ML NEBU NEB SCH ×2 (10:30→20:18)
[2019-01-16 15:37] VITALS: BP 167/81
--- NOTE | 2019-01-16 21:03 | PDOC ---
Exam Note: Brian Note: Please also refer to the separate dictated note~for this date of service dictated separately.~Patient seen individually. Discussed the patient with Nursing staff reviewed the chart.~Reviewed interim history and current functioning. Reviewed vital signs,~Labs/ Radiology~and current medications noted below. Continue current treatment with the changes noted in the dictated addendum note Assessment: Vital Signs/I&O: Vital Signs Date Time Temp Pulse Resp B/P (MAP) Pulse Ox O2 Delivery O2 Flow Rate FiO2 01/16/19 20:19 94 Room Air 01/16/19 15:39 63 167/81 01/16/19 15:37 98.4 18 I & O 01/15/19 01/15/19 01/16/19 14:59 22:59 06:59 Intake Total 960 ml 480 ml Balance 960 ml 480 ml Labs: Laboratory Tests Test 01/16/19 07:56 01/16/19 19:56 Glucose (Fingerstick) 115 mg/dL (70-99) H 97 mg/dL (70-99) Current Medications: Meds: Current Medications Medications (Trade) Dose Ordered Sig/Jose David Route PRN Reason Start Time Stop Time Status Last Admin Dose Admin Prazosin HCl (Minipress) 1 mg BID@0900,1300 PO 01/16/19 09:00 01/16/19 17:42 DC 01/16/19 14:56 I have reviewed the current psychotropics carefully including drug interactions. Risk benefit ratio favors no change other than as noted in my dictated progress note. Diagnosis: Problems: (1) Major neurocognitive disorder (2) Post traumatic stress disorder (3) Anxiety disorder (4) Dementia in Alzheimer's disease with delusions (5) Dementia in Alzheimer's disease with depression (6) Dementia, vascular, with delusions (7) Dementia, vascular, with depression (8) Impulse control disorder EILEEN CHAVEZ MD Jan 16, 2019 21:03
[2019-01-16] MEDS: MELATONIN 3 MG TABLET PO SCH (21:11)
[2019-01-16] MEDS: ATORVASTATIN CALCIUM 20 MG TABLET PO SCH (21:11)
[2019-01-16] MEDS: MIRTAZAPINE 7.5 MG TABLET. PO SCH (21:12)
[2019-01-16] MEDS: POTASSIUM CHLORIDE 20 MEQ TABLET.ER. PO SCH (21:12)
[2019-01-16] MEDS: TAMSULOSIN 0.4 MG CAP.ER.24H. PO SCH (21:12)
[2019-01-16] MEDS: ASPIRIN ENTERIC COATED 81 MG TABLET.DR. PO SCH (21:13)
[2019-01-16] MEDS: risperiDONE 1 MG TABLET. PO SCH (21:13)
[2019-01-16] MEDS: DIVALPROEX 125 MG CAP.SPRINK PO SCH (21:14)
--- NOTE | 2019-01-17 00:26 | PN ---
DATE: 01/15/2019 PSYCHIATRIC PROGRESS NOTE This late entry 01/15/2019 covers elements not covered in my initial note. SUBJECTIVE: I met with the patient in the evening of 01/15/2019. The patient slept 6 hours previous night. He did well previous night. No PRNs were given, did well in the morning until about 2 p.m. Then, he was anxious, pacing, walking rapidly up and down the unit, hyperverbal, talking to his father. He received Zyprexa p.r.n. and then seemed calmer about 45 minutes after that. Quite interactive, verbal, still impulsive as I met with him at some length in the evening. REVIEW OF SYSTEMS: No CV, , pulmonary, eye, ENT system symptoms on review. Reliability poor. MENTAL STATUS EXAM: Oriented to himself. Insight, judgment, recent and remote memory, attention, concentration, fund of knowledge poor, consistent with his diagnosis mentioned in my initial note. IMPRESSION: Major neurocognitive disorder, Alzheimer, vascular with delusion, depression, behavioral disturbance, PTSD; anxiety disorder, unspecified; impulse control disorder, unspecified. PLAN: Change the Minipress 4 mg at bedtime to 1 mg at 9:00 a.m., 1:00 p.m. and 2 mg at bedtime, may need to increase further. Continue rest of the psychotropics unchanged. Valproic acid level is therapeutic. MAN Yvon CHAVEZ MD DR: JEANIE/zheng JOB#: [id number] / [id number]
[2019-01-17 05:52] VITALS: BP 171/94
[2019-01-17] MEDS: LEVOTHYROXINE 25 MCG TABLET. PO SCH (05:59)
[2019-01-17] MEDS: CARVEDILOL 12.5 MG TABLET PO SCH ×2 (06:00→17:35)
[2019-01-17] MEDS: BUDESONIDE 0.5 MG/2 ML NEBU NEB SCH ×2 (08:00→22:55)
[2019-01-17] MEDS: MEMANTINE 5 MG TABLET. PO SCH ×2 (08:14→19:27)
[2019-01-17] MEDS: APIXABAN 5 MG TABLET. PO SCH ×2 (08:14→19:29)
[2019-01-17] MEDS: FINASTERIDE 5 MG TABLET PO SCH (08:14)
[2019-01-17] MEDS: PRAZOSIN 1 MG CAPSULE. PO SCH ×3 (08:14→19:28)
[2019-01-17] MEDS: LOSARTAN 50 MG TABLET. PO SCH (08:15)
[2019-01-17] MEDS: SERTRALINE 100 MG TABLET. PO SCH (08:15)
[2019-01-17] MEDS: DOCUSATE SODIUM 100 MG CAPSULE PO SCH (08:17)
[2019-01-17] MEDS: DONEPEZIL HCL 10 MG TABLET PO SCH (08:17)
[2019-01-17] MEDS: FUROSEMIDE 20 MG TABLET PO SCH (08:18)
[2019-01-17] MEDS: POLYETHYLENE GLYCOL 3350 17 GM PACKET. PO SCH (08:18)
[2019-01-17] MEDS: PANTOPRAZOLE 40 MG TABLET. PO SCH ×2 (08:18→17:35)
[2019-01-17 15:41] VITALS: BP 175/83
[2019-01-17] MEDS: ASPIRIN ENTERIC COATED 81 MG TABLET.DR. PO SCH (19:26)
[2019-01-17] MEDS: MIRTAZAPINE 7.5 MG TABLET. PO SCH (19:26)
[2019-01-17] MEDS: risperiDONE 1 MG TABLET. PO SCH (19:27)
[2019-01-17] MEDS: MELATONIN 3 MG TABLET PO SCH (19:27)
[2019-01-17] MEDS: ATORVASTATIN CALCIUM 20 MG TABLET PO SCH (19:28)
[2019-01-17] MEDS: POTASSIUM CHLORIDE 20 MEQ TABLET.ER. PO SCH (19:29)
[2019-01-17] MEDS: TAMSULOSIN 0.4 MG CAP.ER.24H. PO SCH (19:30)
[2019-01-17] MEDS: DIVALPROEX 125 MG CAP.SPRINK PO SCH (19:30)
--- NOTE | 2019-01-17 21:54 | PDOC ---
Exam Note: Brian Note: Please also refer to the separate dictated note~for this date of service dictated separately.~Patient seen individually. Discussed the patient with Nursing staff reviewed the chart.~Reviewed interim history and current functioning. Reviewed vital signs,~Labs/ Radiology~and current medications noted below. Continue current treatment with the changes noted in the dictated addendum note Assessment: Vital Signs/I&O: Vital Signs Date Time Temp Pulse Resp B/P (MAP) Pulse Ox O2 Delivery O2 Flow Rate FiO2 01/17/19 20:50 97 Room Air 01/17/19 19:41 64 175/83 01/17/19 15:41 97.9 19 I & O 01/16/19 01/16/19 01/17/19 14:59 22:59 06:59 Intake Total 990 ml 480 ml Balance 990 ml 480 ml Labs: Laboratory Tests Test 01/17/19 07:53 01/17/19 19:38 Glucose (Fingerstick) 115 mg/dL (70-99) H 140 mg/dL (70-99) H Current Medications: I have reviewed the current psychotropics carefully including drug interactions. Risk benefit ratio favors no change other than as noted in my dictated progress note. Diagnosis: Problems: (1) Major neurocognitive disorder (2) Post traumatic stress disorder (3) Anxiety disorder (4) Dementia in Alzheimer's disease with delusions (5) Dementia in Alzheimer's disease with depression (6) Dementia, vascular, with delusions (7) Dementia, vascular, with depression (8) Impulse control disorder EILEEN CHAVEZ MD Jan 17, 2019 21:54
[2019-01-17] MEDS: traZODone 50 MG TABLET. PO PRN (23:26)
[2019-01-18 06:00] VITALS: BP 159/69
[2019-01-18] MEDS: LEVOTHYROXINE 25 MCG TABLET. PO SCH (06:12)
[2019-01-18] MEDS: BUDESONIDE 0.5 MG/2 ML NEBU NEB SCH ×2 (08:00→20:00)
[2019-01-18] MEDS: APIXABAN 5 MG TABLET. PO SCH ×2 (08:18→19:59)
[2019-01-18] MEDS: DOCUSATE SODIUM 100 MG CAPSULE PO SCH (08:18)
[2019-01-18] MEDS: FINASTERIDE 5 MG TABLET PO SCH (08:19)
[2019-01-18] MEDS: PRAZOSIN 1 MG CAPSULE. PO SCH ×3 (08:19→19:57)
[2019-01-18] MEDS: PANTOPRAZOLE 40 MG TABLET. PO SCH ×2 (08:19→16:55)
[2019-01-18] MEDS: LOSARTAN 50 MG TABLET. PO SCH (08:20)
[2019-01-18] MEDS: CARVEDILOL 12.5 MG TABLET PO SCH ×2 (08:20→16:55)
[2019-01-18] MEDS: DONEPEZIL HCL 10 MG TABLET PO SCH (08:20)
[2019-01-18] MEDS: MEMANTINE 5 MG TABLET. PO SCH ×2 (08:21→19:59)
[2019-01-18] MEDS: SERTRALINE 100 MG TABLET. PO SCH (08:21)
[2019-01-18] MEDS: POLYETHYLENE GLYCOL 3350 17 GM PACKET. PO SCH (08:22)
[2019-01-18] MEDS: FUROSEMIDE 20 MG TABLET PO SCH (08:22)
[2019-01-18 16:51] VITALS: BP 121/70
[2019-01-18] MEDS: POTASSIUM CHLORIDE 20 MEQ TABLET.ER. PO SCH (19:58)
[2019-01-18] MEDS: MIRTAZAPINE 7.5 MG TABLET. PO SCH (19:59)
[2019-01-18] MEDS: ASPIRIN ENTERIC COATED 81 MG TABLET.DR. PO SCH (19:59)
[2019-01-18] MEDS: MELATONIN 3 MG TABLET PO SCH (19:59)
[2019-01-18] MEDS: risperiDONE 1 MG TABLET. PO SCH (19:59)
[2019-01-18] MEDS: TAMSULOSIN 0.4 MG CAP.ER.24H. PO SCH (19:59)
[2019-01-18] MEDS: ATORVASTATIN CALCIUM 20 MG TABLET PO SCH (19:59)
[2019-01-18] MEDS: DIVALPROEX 125 MG CAP.SPRINK PO SCH (20:00)
[2019-01-18] MEDS: traZODone 50 MG TABLET. PO PRN (20:31)
[2019-01-18] MEDS: LORazepam 0.5 MG TABLET PO PRN (20:32)
--- NOTE | 2019-01-18 21:38 | PDOC ---
Exam Note: Brian Note: Please also refer to the separate dictated note~for this date of service dictated separately.~Patient seen individually. Discussed the patient with Nursing staff reviewed the chart.~Reviewed interim history and current functioning. Reviewed vital signs,~Labs/ Radiology~and current medications noted below. Continue current treatment with the changes noted in the dictated addendum note Assessment: Vital Signs/I&O: Vital Signs Date Time Temp Pulse Resp B/P (MAP) Pulse Ox O2 Delivery O2 Flow Rate FiO2 01/18/19 20:15 97 Room Air 01/18/19 20:10 65 121/70 01/18/19 16:51 97.9 16 I & O 01/17/19 01/17/19 01/18/19 14:59 22:59 06:59 Intake Total 960 ml 0 ml 240 ml Balance 960 ml 0 ml 240 ml Labs: Laboratory Tests Test 01/18/19 07:36 01/18/19 19:14 Glucose (Fingerstick) 97 mg/dL (70-99) 204 mg/dL (70-99) H Current Medications: I have reviewed the current psychotropics carefully including drug interactions. Risk benefit ratio favors no change other than as noted in my dictated progress note. Diagnosis: Problems: (1) Major neurocognitive disorder (2) Post traumatic stress disorder (3) Anxiety disorder (4) Dementia in Alzheimer's disease with delusions (5) Dementia in Alzheimer's disease with depression (6) Dementia, vascular, with delusions (7) Dementia, vascular, with depression (8) Impulse control disorder EILEEN CHAVEZ MD Jan 18, 2019 21:38
--- NOTE | 2019-01-18 22:40 | PN ---
DATE: 01/17/2019 PSYCHIATRIC PROGRESS NOTE This late entry 01/17/2019 covers elements not covered in my initial note. SUBJECTIVE: I met with the patient evening of 01/17/2019 and staffed at a treatment team, meeting with the entire team in the morning. The patient's and youngest son, Darshana attended that lengthy treatment team meeting. We had a lengthy discussion with the patient's diagnosis of major neurocognitive disorder, Alzheimer, vascular with delusion, depression, behavioral disturbance, PTSD and his ongoing episodic marked aggression, threatening behavior, reliving war. Appetite 75-100%, sleeping 4-1/2-5:00 hours. The patient remains anxious, delusional. He has been raising his fists, asking for a gun to shoot people because he feels he is being shot at. was quite clear she could not have the patient back home. [facility] and social [facility]. REVIEW OF SYSTEMS: No CV, , pulmonary, eye, ENT system symptoms on review. Reliability poor. MENTAL STATUS EXAM: Oriented to himself. Insight, judgment, recent and remote memory, attention, concentration, fund of knowledge poor, consistent with his diagnosis. IMPRESSION: Major neurocognitive disorder, Alzheimer, vascular with delusions, depression, behavioral disturbance; anxiety disorder, unspecified; impulse control disorder, unspecified; post-traumatic stress disorder. Rest unchanged. PLAN: Continue current psychotropics. We will increase the patient's prazosin. Maintain Namenda, Zoloft, Aricept, melatonin, Depakote, Zyprexa as p.r.n., Risperdal 1.5 mg at bedtime, Remeron along with trazodone and Ativan p.r.n. Adjust further as clinically indicated. MAN Yvon CHAVEZ MD DR: JEANIE/zheng JOB#: [id number] / [id number]
--- NOTE | 2019-01-19 02:46 | PN ---
DATE: 01/16/2019 PSYCHIATRIC PROGRESS NOTE This late entry, 01/16/2019, covers elements not covered in my initial note. SUBJECTIVE: I met with the patient evening of 01/16/2019. The patient slept 6-3/4 hours previous night. He was delusional in the morning and it appeared to nursing staff, he felt he was in a war and was in the [place], making statements "the [place] will take over this place." He was posturing. He had his fist ____ ready to strike nursing staff, but did not do so. REVIEW OF SYSTEMS: No CV, , pulmonary, eye, ENT system symptoms on review. Reliability poor. MENTAL STATUS EXAM: Oriented to himself. Insight, judgment, recent and remote memory, attention, concentration, fund of knowledge poor, consistent with his diagnosis. IMPRESSION: Posttraumatic stress disorder; major neurocognitive disorder; Alzheimer, vascular with delusion; depression; behavioral disturbance; anxiety disorder, unspecified; impulse control disorder, unspecified. PLAN: The patient got a Zyprexa p.r.n. at 8:45 and did better a little bit after that. Given his significant PTSD symptoms, increase prazosin to 2 mg 3 times a day from current 1 mg twice a day, 2 mg at bedtime. Continue rest unchanged for now. EILEEN CHAVEZ MD DR: JEANIE/zheng JOB#: [id number] / [id number]
[2019-01-19] MEDS: LEVOTHYROXINE 25 MCG TABLET. PO SCH (05:27)
[2019-01-19] MEDS: DONEPEZIL HCL 10 MG TABLET PO SCH (07:50)
[2019-01-19] MEDS: POLYETHYLENE GLYCOL 3350 17 GM PACKET. PO SCH (07:50)
[2019-01-19] MEDS: LOSARTAN 50 MG TABLET. PO SCH (07:50)
[2019-01-19] MEDS: DOCUSATE SODIUM 100 MG CAPSULE PO SCH (07:51)
[2019-01-19] MEDS: CARVEDILOL 12.5 MG TABLET PO SCH ×2 (07:51→17:04)
[2019-01-19] MEDS: FUROSEMIDE 20 MG TABLET PO SCH (07:51)
[2019-01-19] MEDS: PANTOPRAZOLE 40 MG TABLET. PO SCH ×2 (07:51→17:02)
[2019-01-19] MEDS: MEMANTINE 5 MG TABLET. PO SCH ×2 (07:52→20:02)
[2019-01-19] MEDS: FINASTERIDE 5 MG TABLET PO SCH (07:52)
[2019-01-19] MEDS: APIXABAN 5 MG TABLET. PO SCH ×2 (07:52→20:03)
[2019-01-19] MEDS: SERTRALINE 100 MG TABLET. PO SCH (07:53)
[2019-01-19] MEDS: PRAZOSIN 1 MG CAPSULE. PO SCH ×2 (07:53→15:01)
[2019-01-19 10:24] VITALS: BP 125/75
[2019-01-19] MEDS: BUDESONIDE 0.5 MG/2 ML NEBU NEB SCH ×2 (11:24→20:23)
[2019-01-19 15:22] VITALS: BP 149/76
--- NOTE | 2019-01-19 19:52 | PDOC ---
Exam Note: Brian Note: Please also refer to the separate dictated note~for this date of service dictated separately.~Patient seen individually. Discussed the patient with Nursing staff reviewed the chart.~Reviewed interim history and current functioning. Reviewed vital signs,~Labs/ Radiology~and current medications noted below. Continue current treatment with the changes noted in the dictated addendum note Assessment: Vital Signs/I&O: Vital Signs Date Time Temp Pulse Resp B/P (MAP) Pulse Ox O2 Delivery O2 Flow Rate FiO2 01/19/19 17:04 84 149/76 01/19/19 15:22 97.3 18 92 01/19/19 11:24 Room Air I & O 01/18/19 01/18/19 01/19/19 15:00 23:00 07:00 Intake Total 960 ml 480 ml 240 ml Balance 960 ml 480 ml 240 ml Labs: Laboratory Tests Test 01/19/19 07:41 01/19/19 19:16 Glucose (Fingerstick) 104 mg/dL (70-99) H 128 mg/dL (70-99) H Current Medications: I have reviewed the current psychotropics carefully including drug interactions. Risk benefit ratio favors no change other than as noted in my dictated progress note. Diagnosis: Problems: (1) Major neurocognitive disorder (2) Post traumatic stress disorder (3) Anxiety disorder (4) Dementia in Alzheimer's disease with delusions (5) Dementia in Alzheimer's disease with depression (6) Dementia, vascular, with delusions (7) Dementia, vascular, with depression (8) Impulse control disorder EILEEN CHAVEZ MD Jan 19, 2019 19:52
[2019-01-19] MEDS: ATORVASTATIN CALCIUM 20 MG TABLET PO SCH (20:02)
[2019-01-19] MEDS: MELATONIN 3 MG TABLET PO SCH (20:02)
[2019-01-19] MEDS: ASPIRIN ENTERIC COATED 81 MG TABLET.DR. PO SCH (20:02)
[2019-01-19] MEDS: TAMSULOSIN 0.4 MG CAP.ER.24H. PO SCH (20:03)
[2019-01-19] MEDS: POTASSIUM CHLORIDE 20 MEQ TABLET.ER. PO SCH (20:03)
[2019-01-19] MEDS: MIRTAZAPINE 7.5 MG TABLET. PO SCH (20:03)
[2019-01-19] MEDS: risperiDONE 1 MG TABLET. PO SCH (20:04)
[2019-01-19] MEDS: DIVALPROEX 125 MG CAP.SPRINK PO SCH (20:04)
[2019-01-19] MEDS ORDERED: PRAZOSIN 1 MG CAPSULE. PO SCH (21:00)
[2019-01-20 05:45] VITALS: BP 161/78
[2019-01-20] MEDS: LEVOTHYROXINE 25 MCG TABLET. PO SCH (06:11)
[2019-01-20] MEDS: POLYETHYLENE GLYCOL 3350 17 GM PACKET. PO SCH (07:42)
[2019-01-20] MEDS: PRAZOSIN 1 MG CAPSULE. PO SCH ×3 (07:43→21:11)
[2019-01-20] MEDS: APIXABAN 5 MG TABLET. PO SCH ×2 (07:43→20:52)
[2019-01-20] MEDS: MEMANTINE 5 MG TABLET. PO SCH ×2 (07:43→20:52)
[2019-01-20] MEDS: PANTOPRAZOLE 40 MG TABLET. PO SCH ×2 (07:43→17:24)
[2019-01-20] MEDS: LOSARTAN 50 MG TABLET. PO SCH (07:43)
[2019-01-20] MEDS: SERTRALINE 100 MG TABLET. PO SCH (07:44)
[2019-01-20] MEDS: DONEPEZIL HCL 10 MG TABLET PO SCH (07:44)
[2019-01-20] MEDS: FINASTERIDE 5 MG TABLET PO SCH (07:44)
[2019-01-20] MEDS: DOCUSATE SODIUM 100 MG CAPSULE PO SCH (07:44)
[2019-01-20] MEDS: FUROSEMIDE 20 MG TABLET PO SCH (07:44)
[2019-01-20] MEDS: CARVEDILOL 12.5 MG TABLET PO SCH ×2 (07:44→17:24)
[2019-01-20 08:23] LABS: BASO % 1 % (0-3); EOS # 0.6 x10^3/uL (0.0-0.7); EOS % 10 % (0-3); HEMOGLOBIN 14.3 g/dL (13.0-17.5); LYMPH # 1.7 x10^3/uL (1.0-4.8); LYMPH % 28 % (24-48); MEAN CORPUSCULAR HEMOGLOBIN 31 pg (25-35); MEAN CORPUSCULAR HGB CONC 33 g/dL (31-37); MEAN CORPUSCULAR VOLUME 94 fL (79-100); MONO # 0.8 x10^3/uL (0.0-1.1); MONO % 13 % (0-9); NEUT % 48 % (31-73); PLATELET COUNT 216 x10^3/uL (140-400); RED BLOOD COUNT 4.67 x10^6/uL (4.30-5.70); RED CELL DISTRIBUTION WIDTH 14.3 % (11.5-14.5); WHITE BLOOD COUNT 6.1 x10^3/uL (4.0-11.0)
[2019-01-20] MEDS: LORazepam 0.5 MG TABLET PO PRN (08:30)
[2019-01-20 08:35] LABS: ALBUMIN 3.6 g/dL (3.4-5.0); ALBUMIN/GLOBULIN RATIO 0.8 (1.0-1.7); CALCIUM 10.5 mg/dL (8.5-10.1); CREATININE 1.4 mg/dL (0.7-1.3); GFR 49.8; POTASSIUM 3.8 mmol/L (3.5-5.1); TOTAL BILIRUBIN 0.3 mg/dL (0.2-1.0); TOTAL PROTEIN 7.9 g/dL (6.4-8.2)
[2019-01-20] MEDS: BUDESONIDE 0.5 MG/2 ML NEBU NEB SCH ×2 (11:43→21:53)
[2019-01-20] MEDS ORDERED: PRAZOSIN 1 MG CAPSULE. PO SCH (14:00)
[2019-01-20 15:52] VITALS: BP 155/89
[2019-01-20] MEDS: TAMSULOSIN 0.4 MG CAP.ER.24H. PO SCH (20:47)
[2019-01-20] MEDS: MIRTAZAPINE 7.5 MG TABLET. PO SCH (20:47)
[2019-01-20] MEDS: ATORVASTATIN CALCIUM 20 MG TABLET PO SCH (20:47)
[2019-01-20] MEDS: POTASSIUM CHLORIDE 20 MEQ TABLET.ER. PO SCH (20:48)
[2019-01-20] MEDS: risperiDONE 1 MG TABLET. PO SCH (20:48)
[2019-01-20] MEDS: MELATONIN 3 MG TABLET PO SCH (20:48)
[2019-01-20] MEDS: ASPIRIN ENTERIC COATED 81 MG TABLET.DR. PO SCH (20:48)
[2019-01-20] MEDS: DIVALPROEX 125 MG CAP.SPRINK PO SCH (20:49)
--- NOTE | 2019-01-20 21:29 | PN ---
DATE: 01/18/2019 PSYCHIATRIC PROGRESS NOTE This late entry 01/18/2019 covers elements not covered in my initial note. SUBJECTIVE: I met with the patient evening of 01/18/2019. The patient slept 6-3/4 hours previous night. He has had intermittent hallucinations, flashbacks part of his PTSD and has been seeing his son. He has been yelling for his son, wanting to walk to the parking lot, frequently asking others if they would fly the aircraft. He seems to get back to the [place] War, getting upset at another demented patient, but at other times singing and dancing with staff, quite labile. REVIEW OF SYSTEMS: No CV, , pulmonary, eye, ENT system symptoms on review. Reliability poor. MENTAL STATUS EXAM: Oriented to himself. Insight, judgment, recent and remote memory, attention, concentration, fund of knowledge poor, consistent with his diagnosis mentioned in my initial note. PLAN: No change from initial note. Prazosin was increased. Maintain Zoloft 150 mg a day. Rest unchanged. MAN Yvon CHAVEZ MD DR: JEANIE/zheng JOB#: [id number] / [id number]
--- NOTE | 2019-01-20 21:37 | PN ---
DATE: 01/19/2019 PSYCHIATRIC PROGRESS NOTE This late entry 01/19/2019 covers elements not covered in my initial note. SUBJECTIVE: I met with the patient in the evening of 01/19/2019. The patient slept 7-1/4 hours previous night. He has had a better day, remains confused, paranoid, believes nursing staff are trying to poison him, was agitated previous night and intermittently during the day on 01/19/2019 as well. REVIEW OF SYSTEMS: No CV, , pulmonary, eye, ENT system symptoms on review. Reliability poor. MENTAL STATUS EXAM: Oriented to himself. Insight, judgment, recent and remote memory, attention, concentration, fund of knowledge poor, consistent with his diagnosis mentioned in my initial note. PLAN: No change from initial note, but he is currently on prazosin 2 mg 3 times a day. We will increase to 2 mg a.m. and 3 mg at 2:00 p.m., which is around the time he has most of his PTSD flashbacks and continue 2 mg in the evening. Rest unchanged. MAN Yvon CHAVEZ MD DR: JEANIE/zheng JOB#: [id number] / [id number]
--- NOTE | 2019-01-20 21:38 | PDOC ---
Exam Note: Brian Note: Please also refer to the separate dictated note~for this date of service dictated separately.~Patient seen individually. Discussed the patient with Nursing staff reviewed the chart.~Reviewed interim history and current functioning. Reviewed vital signs,~Labs/ Radiology~and current medications noted below. Continue current treatment with the changes noted in the dictated addendum note Assessment: Vital Signs/I&O: Vital Signs Date Time Temp Pulse Resp B/P (MAP) Pulse Ox O2 Delivery O2 Flow Rate FiO2 01/20/19 21:11 67 114/72 01/20/19 15:52 98.0 20 97 01/20/19 11:43 Room Air I & O 01/19/19 01/19/19 01/20/19 15:00 23:00 07:00 Intake Total 960 ml 720 ml Balance 960 ml 720 ml Labs: Laboratory Tests Test 01/20/19 07:48 01/20/19 07:58 01/20/19 19:20 Glucose (Fingerstick) 110 mg/dL (70-99) H 126 mg/dL (70-99) H White Blood Count 6.1 x10^3/uL (4.0-11.0) Red Blood Count 4.67 x10^6/uL (4.30-5.70) Hemoglobin 14.3 g/dL (13.0-17.5) Hematocrit 44.0 % (39.0-53.0) Mean Corpuscular Volume 94 fL (79-100) Mean Corpuscular Hemoglobin 31 pg (25-35) Mean Corpuscular Hemoglobin Concent 33 g/dL (31-37) Red Cell Distribution Width 14.3 % (11.5-14.5) Platelet Count 216 x10^3/uL (140-400) Neutrophils (%) (Auto) 48 % (31-73) Lymphocytes (%) (Auto) 28 % (24-48) Monocytes (%) (Auto) 13 % (0-9) H Eosinophils (%) (Auto) 10 % (0-3) H Basophils (%) (Auto) 1 % (0-3) Neutrophils # (Auto) 3.0 x10^3uL (1.8-7.7) Lymphocytes # (Auto) 1.7 x10^3/uL (1.0-4.8) Monocytes # (Auto) 0.8 x10^3/uL (0.0-1.1) Eosinophils # (Auto) 0.6 x10^3/uL (0.0-0.7) Basophils # (Auto) 0.0 x10^3/uL (0.0-0.2) Sodium Level 144 mmol/L (136-145) Potassium Level 3.8 mmol/L (3.5-5.1) Chloride Level 106 mmol/L (98-107) Carbon Dioxide Level 33 mmol/L (21-32) H Anion Gap 5 (6-14) L Blood Urea Nitrogen 22 mg/dL (8-26) Creatinine 1.4 mg/dL (0.7-1.3) H Estimated GFR (Cockcroft-Gault) 49.8 BUN/Creatinine Ratio 16 (6-20) Glucose Level 134 mg/dL (70-99) H Calcium Level 10.5 mg/dL (8.5-10.1) H Total Bilirubin 0.3 mg/dL (0.2-1.0) Aspartate Amino Transferase (AST) 19 U/L (15-37) Alanine Aminotransferase (ALT) 18 U/L (16-63) Alkaline Phosphatase 105 U/L (46-116) Total Protein 7.9 g/dL (6.4-8.2) Albumin 3.6 g/dL (3.4-5.0) Albumin/Globulin Ratio 0.8 (1.0-1.7) L Current Medications: Meds: Current Medications Medications (Trade) Dose Ordered Sig/Jose David Route PRN Reason Start Time Stop Time Status Last Admin Dose Admin Prazosin HCl (Minipress) 2 mg BID PO 01/20/19 09:00 01/20/19 21:11 Prazosin HCl (Minipress) 3 mg 1400 PO 01/20/19 14:00 01/20/19 17:24 I have reviewed the current psychotropics carefully including drug interactions. Risk benefit ratio favors no change other than as noted in my dictated progress note. Diagnosis: Problems: (1) Major neurocognitive disorder (2) Post traumatic stress disorder (3) Anxiety disorder (4) Dementia in Alzheimer's disease with delusions (5) Dementia in Alzheimer's disease with depression (6) Dementia, vascular, with delusions (7) Dementia, vascular, with depression (8) Impulse control disorder EILEEN CHAVEZ MD Jan 20, 2019 21:38
[2019-01-21 06:07] VITALS: BP 121/76
[2019-01-21] MEDS: LEVOTHYROXINE 25 MCG TABLET. PO SCH (06:46)
[2019-01-21] MEDS: APIXABAN 5 MG TABLET. PO SCH ×2 (07:47→21:30)
[2019-01-21] MEDS: MEMANTINE 5 MG TABLET. PO SCH ×2 (07:47→21:30)
[2019-01-21] MEDS: DOCUSATE SODIUM 100 MG CAPSULE PO SCH (07:47)
[2019-01-21] MEDS: FUROSEMIDE 20 MG TABLET PO SCH (07:48)
[2019-01-21] MEDS: PRAZOSIN 1 MG CAPSULE. PO SCH ×3 (07:48→20:23)
[2019-01-21] MEDS: PANTOPRAZOLE 40 MG TABLET. PO SCH ×2 (07:48→17:03)
[2019-01-21] MEDS: DONEPEZIL HCL 10 MG TABLET PO SCH (07:49)
[2019-01-21] MEDS: POLYETHYLENE GLYCOL 3350 17 GM PACKET. PO SCH (07:49)
[2019-01-21] MEDS: FINASTERIDE 5 MG TABLET PO SCH (07:49)
[2019-01-21] MEDS: SERTRALINE 100 MG TABLET. PO SCH (07:49)
[2019-01-21] MEDS: LOSARTAN 50 MG TABLET. PO SCH (07:52)
[2019-01-21] MEDS: CARVEDILOL 12.5 MG TABLET PO SCH ×2 (07:52→17:03)
[2019-01-21] MEDS: BUDESONIDE 0.5 MG/2 ML NEBU NEB SCH ×2 (08:00→20:14)
[2019-01-21] MEDS: LORazepam 0.5 MG TABLET PO PRN (13:21)
[2019-01-21 16:19] VITALS: BP 129/71
[2019-01-21] MEDS: risperiDONE 1 MG TABLET. PO SCH (20:24)
[2019-01-21] MEDS: MIRTAZAPINE 7.5 MG TABLET. PO SCH (20:24)
[2019-01-21] MEDS: traZODone 50 MG TABLET. PO PRN (20:24)
[2019-01-21] MEDS: DIVALPROEX 125 MG CAP.SPRINK PO SCH (20:26)
[2019-01-21] MEDS: MELATONIN 3 MG TABLET PO SCH (21:30)
[2019-01-21] MEDS: TAMSULOSIN 0.4 MG CAP.ER.24H. PO SCH (21:30)
[2019-01-21] MEDS: POTASSIUM CHLORIDE 20 MEQ TABLET.ER. PO SCH (21:30)
[2019-01-21] MEDS: ATORVASTATIN CALCIUM 20 MG TABLET PO SCH (21:30)
[2019-01-21] MEDS: ASPIRIN ENTERIC COATED 81 MG TABLET.DR. PO SCH (21:30)
--- NOTE | 2019-01-21 21:33 | PDOC ---
Exam Note: Brian Note: Please also refer to the separate dictated note~for this date of service dictated separately.~Patient seen individually. Discussed the patient with Nursing staff reviewed the chart.~Reviewed interim history and current functioning. Reviewed vital signs,~Labs/ Radiology~and current medications noted below. Continue current treatment with the changes noted in the dictated addendum note Assessment: Vital Signs/I&O: Vital Signs Date Time Temp Pulse Resp B/P (MAP) Pulse Ox O2 Delivery O2 Flow Rate FiO2 01/21/19 20:27 70 129/71 01/21/19 20:16 97 Room Air 01/21/19 16:19 98.2 20 I & O 01/20/19 01/20/19 01/21/19 14:59 22:59 06:59 Intake Total 480 ml 240 ml 120 ml Balance 480 ml 240 ml 120 ml Labs: Laboratory Tests Test 01/21/19 07:37 01/21/19 19:27 Glucose (Fingerstick) 103 mg/dL (70-99) H 179 mg/dL (70-99) H Current Medications: I have reviewed the current psychotropics carefully including drug interactions. Risk benefit ratio favors no change other than as noted in my dictated progress note. Diagnosis: Problems: (1) Major neurocognitive disorder (2) Post traumatic stress disorder (3) Anxiety disorder (4) Dementia in Alzheimer's disease with delusions (5) Dementia in Alzheimer's disease with depression (6) Dementia, vascular, with delusions (7) Dementia, vascular, with depression (8) Impulse control disorder EILEEN CHAVEZ MD Jan 21, 2019 21:33
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
[2019-01-22 05:51] VITALS: BP 167/91
[2019-01-22] MEDS: LEVOTHYROXINE 25 MCG TABLET. PO SCH (05:52)
[2019-01-22] MEDS: DOCUSATE SODIUM 100 MG CAPSULE PO SCH (07:42)
[2019-01-22] MEDS: APIXABAN 5 MG TABLET. PO SCH ×2 (07:42→20:02)
[2019-01-22] MEDS: SERTRALINE 100 MG TABLET. PO SCH (07:43)
[2019-01-22] MEDS: PRAZOSIN 1 MG CAPSULE. PO SCH ×3 (07:43→20:09)
[2019-01-22] MEDS: FINASTERIDE 5 MG TABLET PO SCH (07:44)
[2019-01-22] MEDS: FUROSEMIDE 20 MG TABLET PO SCH (07:44)
[2019-01-22] MEDS: DONEPEZIL HCL 10 MG TABLET PO SCH (07:44)
[2019-01-22] MEDS: MEMANTINE 5 MG TABLET. PO SCH ×2 (07:44→21:45)
[2019-01-22] MEDS: LOSARTAN 50 MG TABLET. PO SCH (07:45)
[2019-01-22] MEDS: CARVEDILOL 12.5 MG TABLET PO SCH ×2 (07:45→16:18)
[2019-01-22] MEDS: PANTOPRAZOLE 40 MG TABLET. PO SCH ×2 (07:45→16:18)
[2019-01-22] MEDS: POLYETHYLENE GLYCOL 3350 17 GM PACKET. PO SCH (07:46)
[2019-01-22] MEDS: CHOLECALCIFEROL (VITAMIN D3) 50,000 UNIT CAPSULE PO SCH (07:47)
[2019-01-22] MEDS: BUDESONIDE 0.5 MG/2 ML NEBU NEB SCH (11:53)
[2019-01-22 15:41] VITALS: BP 144/84
[2019-01-22] MEDS: MIRTAZAPINE 7.5 MG TABLET. PO SCH (20:00)
[2019-01-22] MEDS: DIVALPROEX 125 MG CAP.SPRINK PO SCH (20:02)
[2019-01-22] MEDS: risperiDONE 1 MG TABLET. PO SCH (20:02)
[2019-01-22] MEDS: ATORVASTATIN CALCIUM 20 MG TABLET PO SCH (21:46)
[2019-01-22] MEDS: MELATONIN 3 MG TABLET PO SCH (21:46)
[2019-01-22] MEDS: ASPIRIN ENTERIC COATED 81 MG TABLET.DR. PO SCH (21:46)
[2019-01-22] MEDS: POTASSIUM CHLORIDE 20 MEQ TABLET.ER. PO SCH (21:46)
[2019-01-22] MEDS: TAMSULOSIN 0.4 MG CAP.ER.24H. PO SCH (21:47)
--- NOTE | 2019-01-22 21:52 | PDOC ---
Exam Note: Brian Note: Please also refer to the separate dictated note~for this date of service dictated separately.~Patient seen individually. Discussed the patient with Nursing staff reviewed the chart.~Reviewed interim history and current functioning. Reviewed vital signs,~Labs/ Radiology~and current medications noted below. Continue current treatment with the changes noted in the dictated addendum note Assessment: Vital Signs/I&O: Vital Signs Date Time Temp Pulse Resp B/P (MAP) Pulse Ox O2 Delivery O2 Flow Rate FiO2 01/22/19 20:30 96 Room Air 01/22/19 20:09 61 144/84 01/22/19 15:41 97.8 20 I & O 01/21/19 01/21/19 01/22/19 15:00 23:00 07:00 Intake Total 840 ml 120 ml 240 ml Balance 840 ml 120 ml 240 ml Labs: Laboratory Tests Test 01/22/19 07:39 01/22/19 19:22 Glucose (Fingerstick) 112 mg/dL (70-99) H 145 mg/dL (70-99) H Current Medications: Meds: Current Medications Medications (Trade) Dose Ordered Sig/Jose David Route PRN Reason Start Time Stop Time Status Last Admin Dose Admin Prazosin HCl (Minipress) 2 mg QHS PO 01/22/19 21:00 01/22/19 20:09 I have reviewed the current psychotropics carefully including drug interactions. Risk benefit ratio favors no change other than as noted in my dictated progress note. Diagnosis: Problems: (1) Major neurocognitive disorder (2) Post traumatic stress disorder (3) Anxiety disorder (4) Dementia in Alzheimer's disease with delusions (5) Dementia in Alzheimer's disease with depression (6) Dementia, vascular, with delusions (7) Dementia, vascular, with depression (8) Impulse control disorder EILEEN CHAVEZ MD Jan 22, 2019 21:52
[2019-01-22] MEDS: MAGNESIUM HYDROXIDE 2,400 MG/30 ML ORAL.SUSP. PO PRN (22:17)
--- NOTE | 2019-01-22 22:57 | PN ---
DATE: 01/21/2019 PSYCHIATRIC PROGRESS NOTE. This late entry of 01/21/2019 covers the elements not covered in my initial note. SUBJECTIVE: I met with the patient on the evening of 01/21/2019. The patient slept 6 hours previous night. He has done little better during the day, 01/21/2019 but previous evening, he was tearful, anxious, labile. He received Ativan and Zyprexa, then did better. REVIEW OF SYSTEMS: Ambulation somewhat impaired, slightly unsteady gait, but no CV, , pulmonary, eye, ENT system symptoms on review. Reliability poor. MENTAL STATUS EXAM: Oriented to himself. Insight, judgment, recent and remote memory, attention, concentration, fund of knowledge poor, consistent with his diagnosis mentioned in my initial note. PLAN: No change from initial note. We have increased the prazosin, may need to adjust further as clinically indicated. EILEEN CHAVEZ MD DR: JEANIE/zheng JOB#: [id number] / [id number]
[2019-01-23] MEDS: BUDESONIDE 0.5 MG/2 ML NEBU NEB SCH ×2 (03:30→11:27)
[2019-01-23] MEDS: LEVOTHYROXINE 25 MCG TABLET. PO SCH (05:50)
[2019-01-23 06:01] VITALS: BP 154/75
[2019-01-23] MEDS: SERTRALINE 100 MG TABLET. PO SCH (07:58)
[2019-01-23] MEDS: DONEPEZIL HCL 10 MG TABLET PO SCH (07:59)
[2019-01-23] MEDS: FINASTERIDE 5 MG TABLET PO SCH (07:59)
[2019-01-23] MEDS: CARVEDILOL 12.5 MG TABLET PO SCH ×2 (07:59→15:44)
[2019-01-23] MEDS: DOCUSATE SODIUM 100 MG CAPSULE PO SCH (07:59)
[2019-01-23] MEDS: APIXABAN 5 MG TABLET. PO SCH ×2 (07:59→20:07)
[2019-01-23] MEDS: MEMANTINE 5 MG TABLET. PO SCH ×2 (08:00→22:43)
[2019-01-23] MEDS: PANTOPRAZOLE 40 MG TABLET. PO SCH ×2 (08:00→15:43)
[2019-01-23] MEDS: LOSARTAN 50 MG TABLET. PO SCH (08:00)
[2019-01-23] MEDS: FUROSEMIDE 20 MG TABLET PO SCH (08:01)
[2019-01-23] MEDS: POLYETHYLENE GLYCOL 3350 17 GM PACKET. PO SCH (08:01)
[2019-01-23] MEDS: PRAZOSIN 1 MG CAPSULE. PO SCH ×3 (08:09→20:06)
[2019-01-23 15:37] VITALS: BP 128/84
[2019-01-23] MEDS: ACETAMINOPHEN 325 MG TABLET PO PRN (15:43)
[2019-01-23] MEDS: DIVALPROEX 125 MG CAP.SPRINK PO SCH (20:06)
[2019-01-23] MEDS: MIRTAZAPINE 7.5 MG TABLET. PO SCH (20:07)
[2019-01-23] MEDS: risperiDONE 1 MG TABLET. PO SCH (20:08)
--- NOTE | 2019-01-23 21:57 | PDOC ---
Exam Note: Brian Note: Please also refer to the separate dictated note~for this date of service dictated separately.~Patient seen individually. Discussed the patient with Nursing staff reviewed the chart.~Reviewed interim history and current functioning. Reviewed vital signs,~Labs/ Radiology~and current medications noted below. Continue current treatment with the changes noted in the dictated addendum note Assessment: Vital Signs/I&O: Vital Signs Date Time Temp Pulse Resp B/P (MAP) Pulse Ox O2 Delivery O2 Flow Rate FiO2 01/23/19 20:25 96 Room Air 01/23/19 20:11 89 128/84 01/23/19 15:37 97.9 16 I & O 01/22/19 01/22/19 01/23/19 15:00 23:00 07:00 Intake Total 840 ml 360 ml Balance 840 ml 360 ml Labs: Laboratory Tests Test 01/23/19 07:09 Glucose (Fingerstick) 101 mg/dL (70-99) H Current Medications: Meds: Current Medications Medications (Trade) Dose Ordered Sig/Jose David Route PRN Reason Start Time Stop Time Status Last Admin Dose Admin Prazosin HCl (Minipress) 3 mg BID92 PO 01/23/19 09:00 01/23/19 13:55 I have reviewed the current psychotropics carefully including drug interactions. Risk benefit ratio favors no change other than as noted in my dictated progress note. Diagnosis: Problems: (1) Major neurocognitive disorder (2) Post traumatic stress disorder (3) Anxiety disorder (4) Dementia in Alzheimer's disease with delusions (5) Dementia in Alzheimer's disease with depression (6) Dementia, vascular, with delusions (7) Dementia, vascular, with depression (8) Impulse control disorder EILEEN CHAVEZ MD Jan 23, 2019 21:57
--- NOTE | 2019-01-23 22:13 | PN ---
DATE: 01/22/2019 PSYCHIATRIC PROGRESS NOTE This late entry 01/22/2019 covers elements not covered in my initial note. SUBJECTIVE: I met with the patient in the evening of 01/22/2019. The patient slept 6-1/2 hours previous night per [place] [facility]. Previous night, he was disorganized, paranoid when the stimuli got too loud around him. He does take his meds whole. He believes he is in an airplane, wants to teach staff how to fly, quite confused. REVIEW OF SYSTEMS: No CV, , pulmonary, eye, ENT system symptoms on review. Reliability poor. MENTAL STATUS EXAM: Oriented to himself. Insight, judgment, recent and remote memory, attention, concentration, fund of knowledge poor, consistent with his diagnosis. IMPRESSION: Major neurocognitive disorder, Alzheimer, vascular with delusion, depression, behavioral disturbance; anxiety disorder, unspecified; impulse control disorder, unspecified; posttraumatic stress disorder. PLAN: The patient is currently on total of 7 mg prazosin during the day. We will increase to a total of 8 mg a day, 3 mg 9:00 a.m., 3 mg at 2:00 p.m. and 2 mg at 9 p.m. Continue Zoloft, Aricept, Namenda, melatonin and Depakote at current dosage, level therapeutic at 57, Zyprexa as p.r.n., Remeron 7.5 mg at bedtime, trazodone and Ativan p.r.n. MAN Yvon CHAVEZ MD DR: JEANIE/zheng JOB#: [id number] / [id number]
[2019-01-23] MEDS: MELATONIN 3 MG TABLET PO SCH (22:43)
[2019-01-23] MEDS: ATORVASTATIN CALCIUM 20 MG TABLET PO SCH (22:43)
[2019-01-23] MEDS: ASPIRIN ENTERIC COATED 81 MG TABLET.DR. PO SCH (22:43)
[2019-01-23] MEDS: POTASSIUM CHLORIDE 20 MEQ TABLET.ER. PO SCH (22:43)
[2019-01-23] MEDS: TAMSULOSIN 0.4 MG CAP.ER.24H. PO SCH (22:44)
[2019-01-23] MEDS: traZODone 50 MG TABLET. PO PRN (22:50)
[2019-01-24] MEDS: BUDESONIDE 0.5 MG/2 ML NEBU NEB SCH ×2 (01:20→09:55)
[2019-01-24] MEDS: LEVOTHYROXINE 25 MCG TABLET. PO SCH (05:30)
[2019-01-24 05:38] VITALS: BP 162/99
[2019-01-24] MEDS: SERTRALINE 100 MG TABLET. PO SCH (07:56)
[2019-01-24] MEDS: PRAZOSIN 1 MG CAPSULE. PO SCH ×3 (07:57→19:57)
[2019-01-24] MEDS: APIXABAN 5 MG TABLET. PO SCH ×2 (07:58→19:56)
[2019-01-24] MEDS: LOSARTAN 50 MG TABLET. PO SCH (07:58)
[2019-01-24] MEDS: MEMANTINE 5 MG TABLET. PO SCH ×2 (07:58→19:56)
[2019-01-24] MEDS: CARVEDILOL 12.5 MG TABLET PO SCH ×2 (07:59→16:34)
[2019-01-24] MEDS: DOCUSATE SODIUM 100 MG CAPSULE PO SCH (07:59)
[2019-01-24] MEDS: DONEPEZIL HCL 10 MG TABLET PO SCH (07:59)
[2019-01-24] MEDS: POLYETHYLENE GLYCOL 3350 17 GM PACKET. PO SCH (08:00)
[2019-01-24] MEDS: FINASTERIDE 5 MG TABLET PO SCH (08:05)
[2019-01-24] MEDS: FUROSEMIDE 20 MG TABLET PO SCH (08:05)
[2019-01-24] MEDS: PANTOPRAZOLE 40 MG TABLET. PO SCH ×2 (08:05→16:33)
[2019-01-24 16:23] VITALS: BP 125/73
[2019-01-24] MEDS: MELATONIN 3 MG TABLET PO SCH (19:56)
[2019-01-24] MEDS: POTASSIUM CHLORIDE 20 MEQ TABLET.ER. PO SCH (19:56)
[2019-01-24] MEDS: ATORVASTATIN CALCIUM 20 MG TABLET PO SCH (19:56)
[2019-01-24] MEDS: MIRTAZAPINE 7.5 MG TABLET. PO SCH (19:57)
[2019-01-24] MEDS: TAMSULOSIN 0.4 MG CAP.ER.24H. PO SCH (19:58)
[2019-01-24] MEDS: risperiDONE 1 MG TABLET. PO SCH (19:58)
[2019-01-24] MEDS: ASPIRIN ENTERIC COATED 81 MG TABLET.DR. PO SCH (19:58)
[2019-01-24] MEDS: DIVALPROEX 125 MG CAP.SPRINK PO SCH (19:59)
--- NOTE | 2019-01-24 21:37 | PDOC ---
Exam Note: Brian Note: Please also refer to the separate dictated note~for this date of service dictated separately.~Patient seen individually. Discussed the patient with Nursing staff reviewed the chart.~Reviewed interim history and current functioning. Reviewed vital signs,~Labs/ Radiology~and current medications noted below. Continue current treatment with the changes noted in the dictated addendum note Assessment: Vital Signs/I&O: Vital Signs Date Time Temp Pulse Resp B/P (MAP) Pulse Ox O2 Delivery O2 Flow Rate FiO2 01/24/19 20:20 98 Room Air 01/24/19 19:59 78 125/73 01/24/19 16:23 98.1 16 I & O 01/23/19 01/23/19 01/24/19 14:59 22:59 06:59 Intake Total 720 ml 240 ml 120 ml Balance 720 ml 240 ml 120 ml Current Medications: I have reviewed the current psychotropics carefully including drug interactions. Risk benefit ratio favors no change other than as noted in my dictated progress note. Diagnosis: Problems: (1) Major neurocognitive disorder (2) Post traumatic stress disorder (3) Anxiety disorder (4) Dementia in Alzheimer's disease with delusions (5) Dementia in Alzheimer's disease with depression (6) Dementia, vascular, with delusions (7) Dementia, vascular, with depression (8) Impulse control disorder EILEEN CHAVEZ MD Jan 24, 2019 21:37
[2019-01-25] MEDS: LEVOTHYROXINE 25 MCG TABLET. PO SCH (04:48)
[2019-01-25] MEDS: BUDESONIDE 0.5 MG/2 ML NEBU NEB SCH ×3 (04:52→20:12)
[2019-01-25 05:37] VITALS: BP 165/96
[2019-01-25] MEDS: CARVEDILOL 12.5 MG TABLET PO SCH ×2 (07:46→17:21)
[2019-01-25] MEDS: PRAZOSIN 1 MG CAPSULE. PO SCH ×3 (07:46→20:20)
[2019-01-25] MEDS: FINASTERIDE 5 MG TABLET PO SCH (07:47)
[2019-01-25] MEDS: SERTRALINE 100 MG TABLET. PO SCH (07:47)
[2019-01-25] MEDS: PANTOPRAZOLE 40 MG TABLET. PO SCH ×2 (07:47→17:21)
[2019-01-25] MEDS: FUROSEMIDE 20 MG TABLET PO SCH (07:47)
[2019-01-25] MEDS: DOCUSATE SODIUM 100 MG CAPSULE PO SCH (07:48)
[2019-01-25] MEDS: MEMANTINE 5 MG TABLET. PO SCH ×2 (07:48→20:20)
[2019-01-25] MEDS: APIXABAN 5 MG TABLET. PO SCH ×2 (07:48→20:21)
[2019-01-25] MEDS: DONEPEZIL HCL 10 MG TABLET PO SCH (07:48)
[2019-01-25] MEDS: LOSARTAN 50 MG TABLET. PO SCH (07:48)
[2019-01-25] MEDS: POLYETHYLENE GLYCOL 3350 17 GM PACKET. PO SCH (07:49)
[2019-01-25 16:29] VITALS: BP 152/88
[2019-01-25] MEDS: MIRTAZAPINE 7.5 MG TABLET. PO SCH (20:20)
[2019-01-25] MEDS: ATORVASTATIN CALCIUM 20 MG TABLET PO SCH (20:21)
[2019-01-25] MEDS: MELATONIN 3 MG TABLET PO SCH (20:21)
[2019-01-25] MEDS: risperiDONE 1 MG TABLET. PO SCH (20:21)
[2019-01-25] MEDS: TAMSULOSIN 0.4 MG CAP.ER.24H. PO SCH (20:21)
[2019-01-25] MEDS: ASPIRIN ENTERIC COATED 81 MG TABLET.DR. PO SCH (20:22)
[2019-01-25] MEDS: DIVALPROEX 125 MG CAP.SPRINK PO SCH (20:22)
[2019-01-25] MEDS: POTASSIUM CHLORIDE 20 MEQ TABLET.ER. PO SCH (20:22)
--- NOTE | 2019-01-25 21:57 | PDOC ---
Exam Note: Brian Note: Please also refer to the separate dictated note~for this date of service dictated separately.~Patient seen individually. Discussed the patient with Nursing staff reviewed the chart.~Reviewed interim history and current functioning. Reviewed vital signs,~Labs/ Radiology~and current medications noted below. Continue current treatment with the changes noted in the dictated addendum note Assessment: Vital Signs/I&O: Vital Signs Date Time Temp Pulse Resp B/P (MAP) Pulse Ox O2 Delivery O2 Flow Rate FiO2 01/25/19 20:22 68 152/88 01/25/19 20:13 98 Room Air 01/25/19 16:29 97.0 16 I & O 01/24/19 01/24/19 01/25/19 15:00 23:00 07:00 Intake Total 840 ml 240 ml 120 ml Balance 840 ml 240 ml 120 ml Current Medications: I have reviewed the current psychotropics carefully including drug interactions. Risk benefit ratio favors no change other than as noted in my dictated progress note. Diagnosis: Problems: (1) Major neurocognitive disorder (2) Post traumatic stress disorder (3) Anxiety disorder (4) Dementia in Alzheimer's disease with delusions (5) Dementia in Alzheimer's disease with depression (6) Dementia, vascular, with delusions (7) Dementia, vascular, with depression (8) Impulse control disorder EILEEN CHAVEZ MD Jan 25, 2019 21:57
--- NOTE | 2019-01-26 01:36 | PN ---
DATE: 01/23/2019 PSYCHIATRIC PROGRESS NOTE This late entry 01/23/2019 covers elements not covered in my initial note. Discussed the patient with the nursing staff, reviewed the chart. The patient was also staffed at a treatment team meeting with the entire team. The patient slept 7 hours previous night. Appetite 75-100%. Speech remains word salad. 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 Talking about a child, 2 dogs, and some sheep. However, his PTSD symptoms are better. REVIEW OF SYSTEMS: No CV, , pulmonary, eye, ENT system symptoms on review. Reliability poor. MENTAL STATUS EXAM: Oriented to himself. Insight, judgment, recent and remote memory, attention, concentration, fund of knowledge poor, consistent with his diagnosis mentioned in my initial note. PLAN: No change from initial note. EILEEN CHAVEZ MD DR: JEANIE/zheng JOB#: [id number] / [id number]
--- NOTE | 2019-01-26 01:37 | PN ---
DATE: 01/24/2019 PSYCHIATRIC PROGRESS NOTE This late entry 01/24/2019 covers elements not covered in my initial note. SUBJECTIVE: I met with the patient evening of 01/24/2019. The patient slept 5-1/4 hours previous night. He was taking his medications whole, is less disorganized, less agitated. REVIEW OF SYSTEMS: No CV, , pulmonary, eye, ENT system symptoms on review. Reliability poor. MENTAL STATUS EXAM: Oriented to himself. Insight, judgment, recent and remote memory, attention, concentration, fund of knowledge poor, consistent with his diagnosis mentioned in my initial note. LABORATORY DATA: Reviewed. IMPRESSION: Unchanged from initial note. PLAN: No change from initial note. MAN Yvon CHAVEZ MD DR: JEANIE/zheng JOB#: [id number] / [id number]
[2019-01-26 05:03] VITALS: BP 121/84
[2019-01-26] MEDS: LEVOTHYROXINE 25 MCG TABLET. PO SCH (05:24)
[2019-01-26] MEDS: BUDESONIDE 0.5 MG/2 ML NEBU NEB SCH ×2 (08:00→20:00)
[2019-01-26] MEDS: PANTOPRAZOLE 40 MG TABLET. PO SCH ×2 (10:21→16:11)
[2019-01-26] MEDS: DONEPEZIL HCL 10 MG TABLET PO SCH (10:21)
[2019-01-26] MEDS: CARVEDILOL 12.5 MG TABLET PO SCH ×2 (10:21→16:11)
[2019-01-26] MEDS: DOCUSATE SODIUM 100 MG CAPSULE PO SCH (10:22)
[2019-01-26] MEDS: LOSARTAN 50 MG TABLET. PO SCH (10:22)
[2019-01-26] MEDS: APIXABAN 5 MG TABLET. PO SCH ×2 (10:22→19:50)
[2019-01-26] MEDS: PRAZOSIN 1 MG CAPSULE. PO SCH ×3 (10:23→19:49)
[2019-01-26] MEDS: FUROSEMIDE 20 MG TABLET PO SCH (10:23)
[2019-01-26] MEDS: MEMANTINE 5 MG TABLET. PO SCH ×2 (10:23→19:49)
[2019-01-26] MEDS: FINASTERIDE 5 MG TABLET PO SCH (10:23)
[2019-01-26] MEDS: SERTRALINE 100 MG TABLET. PO SCH (10:23)
[2019-01-26] MEDS: POLYETHYLENE GLYCOL 3350 17 GM PACKET. PO SCH (10:23)
[2019-01-26 13:12] VITALS: BP 163/84
[2019-01-26 13:17] LABS: BASO # 0.1 x10^3/uL (0.0-0.2); BASO % 1 % (0-3); EOS # 0.6 x10^3/uL (0.0-0.7); EOS % 8 % (0-3); HEMATOCRIT 42.8 % (39.0-53.0); HEMOGLOBIN 13.9 g/dL (13.0-17.5); LYMPH # 1.8 x10^3/uL (1.0-4.8); LYMPH % 25 % (24-48); MEAN CORPUSCULAR HEMOGLOBIN 30 pg (25-35); MEAN CORPUSCULAR HGB CONC 32 g/dL (31-37); MEAN CORPUSCULAR VOLUME 94 fL (79-100); MONO # 0.7 x10^3/uL (0.0-1.1); MONO % 10 % (0-9); NEUT % 56 % (31-73); PLATELET COUNT 204 x10^3/uL (140-400); RED BLOOD COUNT 4.55 x10^6/uL (4.30-5.70); RED CELL DISTRIBUTION WIDTH 14.2 % (11.5-14.5); WHITE BLOOD COUNT 7.2 x10^3/uL (4.0-11.0)
[2019-01-26 13:27] LABS: ALBUMIN 3.4 g/dL (3.4-5.0); ALBUMIN/GLOBULIN RATIO 0.8 (1.0-1.7); CALCIUM 10.6 mg/dL (8.5-10.1); CREATININE 1.4 mg/dL (0.7-1.3); GFR 49.8; POTASSIUM 4.2 mmol/L (3.5-5.1); TOTAL BILIRUBIN 0.3 mg/dL (0.2-1.0); TOTAL PROTEIN 7.5 g/dL (6.4-8.2)
[2019-01-26 15:48] VITALS: BP 148/89
[2019-01-26] MEDS: DIVALPROEX 125 MG CAP.SPRINK PO SCH (19:48)
[2019-01-26] MEDS: ASPIRIN ENTERIC COATED 81 MG TABLET.DR. PO SCH (19:49)
[2019-01-26] MEDS: risperiDONE 1 MG TABLET. PO SCH (19:49)
[2019-01-26] MEDS: POTASSIUM CHLORIDE 20 MEQ TABLET.ER. PO SCH (19:49)
[2019-01-26] MEDS: ATORVASTATIN CALCIUM 20 MG TABLET PO SCH (19:50)
[2019-01-26] MEDS: MELATONIN 3 MG TABLET PO SCH (19:50)
[2019-01-26] MEDS: MIRTAZAPINE 7.5 MG TABLET. PO SCH (19:50)
[2019-01-26] MEDS: TAMSULOSIN 0.4 MG CAP.ER.24H. PO SCH (19:50)
--- NOTE | 2019-01-26 22:03 | PN ---
DATE: 01/25/2019 PSYCHIATRIC PROGRESS NOTE This late entry 01/25/2019 covers elements not covered in my initial note. SUBJECTIVE: I met with the patient in the evening. The patient slept 6-1/4 hours previous night. Per report from [place], he had a much better day. He has been pleasant, asking for his , redirectable. PTSD symptoms, agitation, aggression, paranoia are much improved. REVIEW OF SYSTEMS: No CV, , pulmonary, eye, ENT system symptoms on review. Reliability poor. MENTAL STATUS EXAM: Oriented to himself. Insight, judgment, recent and remote memory, attention, concentration, fund of knowledge poor, consistent with his diagnosis mentioned in my initial note. PLAN: No change from initial note. MAN Yvon CHAVEZ MD DR: JEANIE/zheng JOB#: [id number] / [id number]
--- NOTE | 2019-01-26 22:57 | PDOC ---
Exam Note: Brian Note: Please also refer to the separate dictated note~for this date of service dictated separately.~Patient seen individually. Discussed the patient with Nursing staff reviewed the chart.~Reviewed interim history and current functioning. Reviewed vital signs,~Labs/ Radiology~and current medications noted below. Continue current treatment with the changes noted in the dictated addendum note Assessment: Vital Signs/I&O: Vital Signs Date Time Temp Pulse Resp B/P (MAP) Pulse Ox O2 Delivery O2 Flow Rate FiO2 01/26/19 19:50 62 148/89 01/26/19 15:48 97.9 20 96 01/25/19 20:13 Room Air I & O 01/25/19 01/25/19 01/26/19 15:00 23:00 07:00 Intake Total 840 ml 360 ml 240 ml Balance 840 ml 360 ml 240 ml Labs: Laboratory Tests Test 01/26/19 13:05 White Blood Count 7.2 x10^3/uL (4.0-11.0) Red Blood Count 4.55 x10^6/uL (4.30-5.70) Hemoglobin 13.9 g/dL (13.0-17.5) Hematocrit 42.8 % (39.0-53.0) Mean Corpuscular Volume 94 fL (79-100) Mean Corpuscular Hemoglobin 30 pg (25-35) Mean Corpuscular Hemoglobin Concent 32 g/dL (31-37) Red Cell Distribution Width 14.2 % (11.5-14.5) Platelet Count 204 x10^3/uL (140-400) Neutrophils (%) (Auto) 56 % (31-73) Lymphocytes (%) (Auto) 25 % (24-48) Monocytes (%) (Auto) 10 % (0-9) H Eosinophils (%) (Auto) 8 % (0-3) H Basophils (%) (Auto) 1 % (0-3) Neutrophils # (Auto) 4.0 x10^3uL (1.8-7.7) Lymphocytes # (Auto) 1.8 x10^3/uL (1.0-4.8) Monocytes # (Auto) 0.7 x10^3/uL (0.0-1.1) Eosinophils # (Auto) 0.6 x10^3/uL (0.0-0.7) Basophils # (Auto) 0.1 x10^3/uL (0.0-0.2) Sodium Level 144 mmol/L (136-145) Potassium Level 4.2 mmol/L (3.5-5.1) Chloride Level 105 mmol/L (98-107) Carbon Dioxide Level 32 mmol/L (21-32) Anion Gap 7 (6-14) Blood Urea Nitrogen 20 mg/dL (8-26) Creatinine 1.4 mg/dL (0.7-1.3) H Estimated GFR (Cockcroft-Gault) 49.8 BUN/Creatinine Ratio 14 (6-20) Glucose Level 166 mg/dL (70-99) H Calcium Level 10.6 mg/dL (8.5-10.1) H Total Bilirubin 0.3 mg/dL (0.2-1.0) Aspartate Amino Transferase (AST) 22 U/L (15-37) Alanine Aminotransferase (ALT) 22 U/L (16-63) Alkaline Phosphatase 98 U/L (46-116) Total Protein 7.5 g/dL (6.4-8.2) Albumin 3.4 g/dL (3.4-5.0) Albumin/Globulin Ratio 0.8 (1.0-1.7) L Current Medications: I have reviewed the current psychotropics carefully including drug interactions. Risk benefit ratio favors no change other than as noted in my dictated progress note. Diagnosis: Problems: (1) Major neurocognitive disorder (2) Post traumatic stress disorder (3) Anxiety disorder (4) Dementia in Alzheimer's disease with delusions (5) Dementia in Alzheimer's disease with depression (6) Dementia, vascular, with delusions (7) Dementia, vascular, with depression (8) Impulse control disorder EILEEN CHAVEZ MD Jan 26, 2019 22:57
[2019-01-27] MEDS: traZODone 50 MG TABLET. PO PRN ×2 (01:50→19:47)
[2019-01-27] MEDS: LEVOTHYROXINE 25 MCG TABLET. PO SCH (05:08)
[2019-01-27 06:04] VITALS: BP 158/82
[2019-01-27] MEDS: PRAZOSIN 1 MG CAPSULE. PO SCH ×3 (08:13→19:44)
[2019-01-27] MEDS: APIXABAN 5 MG TABLET. PO SCH ×2 (08:15→19:45)
[2019-01-27] MEDS: LOSARTAN 50 MG TABLET. PO SCH (08:15)
[2019-01-27] MEDS: SERTRALINE 100 MG TABLET. PO SCH (08:16)
[2019-01-27] MEDS: DONEPEZIL HCL 10 MG TABLET PO SCH (08:16)
[2019-01-27] MEDS: MEMANTINE 5 MG TABLET. PO SCH ×2 (08:16→19:44)
[2019-01-27] MEDS: CARVEDILOL 12.5 MG TABLET PO SCH ×2 (08:17→15:33)
[2019-01-27] MEDS: DOCUSATE SODIUM 100 MG CAPSULE PO SCH (08:17)
[2019-01-27] MEDS: FINASTERIDE 5 MG TABLET PO SCH (08:17)
[2019-01-27] MEDS: FUROSEMIDE 20 MG TABLET PO SCH (08:17)
[2019-01-27] MEDS: PANTOPRAZOLE 40 MG TABLET. PO SCH ×2 (08:18→15:32)
[2019-01-27] MEDS: POLYETHYLENE GLYCOL 3350 17 GM PACKET. PO SCH (08:18)
[2019-01-27] MEDS: BUDESONIDE 0.5 MG/2 ML NEBU NEB SCH ×2 (09:52→19:42)
[2019-01-27 15:47] VITALS: BP 147/75
[2019-01-27] MEDS: DIVALPROEX 125 MG CAP.SPRINK PO SCH (19:44)
[2019-01-27] MEDS: risperiDONE 1 MG TABLET. PO SCH (19:45)
[2019-01-27] MEDS: ASPIRIN ENTERIC COATED 81 MG TABLET.DR. PO SCH (19:45)
[2019-01-27] MEDS: TAMSULOSIN 0.4 MG CAP.ER.24H. PO SCH (19:47)
[2019-01-27] MEDS: MIRTAZAPINE 7.5 MG TABLET. PO SCH (19:47)
[2019-01-27] MEDS: ATORVASTATIN CALCIUM 20 MG TABLET PO SCH (19:48)
[2019-01-27] MEDS: MELATONIN 3 MG TABLET PO SCH (19:48)
[2019-01-27] MEDS: POTASSIUM CHLORIDE 20 MEQ TABLET.ER. PO SCH (19:48)
--- NOTE | 2019-01-27 21:33 | PDOC ---
Exam Note: Brian Note: Please also refer to the separate dictated note~for this date of service dictated separately.~Patient seen individually. Discussed the patient with Nursing staff reviewed the chart.~Reviewed interim history and current functioning. Reviewed vital signs,~Labs/ Radiology~and current medications noted below. Continue current treatment with the changes noted in the dictated addendum note Assessment: Vital Signs/I&O: Vital Signs Date Time Temp Pulse Resp B/P (MAP) Pulse Ox O2 Delivery O2 Flow Rate FiO2 01/27/19 19:49 76 147/75 01/27/19 19:46 96 Room Air 01/27/19 15:47 98.0 20 I & O 01/26/19 01/26/19 01/27/19 15:00 23:00 07:00 Intake Total 360 ml 480 ml Balance 360 ml 480 ml Current Medications: I have reviewed the current psychotropics carefully including drug interactions. Risk benefit ratio favors no change other than as noted in my dictated progress note. Diagnosis: Problems: (1) Major neurocognitive disorder (2) Post traumatic stress disorder (3) Anxiety disorder (4) Dementia in Alzheimer's disease with delusions (5) Dementia in Alzheimer's disease with depression (6) Dementia, vascular, with delusions (7) Dementia, vascular, with depression (8) Impulse control disorder EILEEN CHAVEZ MD Jan 27, 2019 21:33
[2019-01-28] MEDS: LEVOTHYROXINE 25 MCG TABLET. PO SCH (03:33)
[2019-01-28] MEDS: BUDESONIDE 0.5 MG/2 ML NEBU NEB SCH ×2 (04:57→20:22)
[2019-01-28 06:01] VITALS: BP 160/84
[2019-01-28] MEDS: PRAZOSIN 1 MG CAPSULE. PO SCH ×3 (07:48→19:27)
[2019-01-28] MEDS: SERTRALINE 100 MG TABLET. PO SCH (07:52)
[2019-01-28] MEDS: DOCUSATE SODIUM 100 MG CAPSULE PO SCH (07:52)
[2019-01-28] MEDS: LOSARTAN 50 MG TABLET. PO SCH (07:52)
[2019-01-28] MEDS: FINASTERIDE 5 MG TABLET PO SCH (07:52)
[2019-01-28] MEDS: PANTOPRAZOLE 40 MG TABLET. PO SCH ×2 (07:53→16:14)
[2019-01-28] MEDS: CARVEDILOL 12.5 MG TABLET PO SCH ×2 (07:53→16:15)
[2019-01-28] MEDS: APIXABAN 5 MG TABLET. PO SCH ×2 (07:53→19:27)
[2019-01-28] MEDS: DONEPEZIL HCL 10 MG TABLET PO SCH (07:53)
[2019-01-28] MEDS: FUROSEMIDE 20 MG TABLET PO SCH (07:53)
[2019-01-28] MEDS: POLYETHYLENE GLYCOL 3350 17 GM PACKET. PO SCH (07:54)
[2019-01-28] MEDS: MEMANTINE 5 MG TABLET. PO SCH ×2 (07:54→19:23)
[2019-01-28 15:53] VITALS: BP 147/81
[2019-01-28] MEDS: MIRTAZAPINE 7.5 MG TABLET. PO SCH (19:22)
[2019-01-28] MEDS: DIVALPROEX 125 MG CAP.SPRINK PO SCH (19:22)
[2019-01-28] MEDS: ATORVASTATIN CALCIUM 20 MG TABLET PO SCH (19:23)
[2019-01-28] MEDS: POTASSIUM CHLORIDE 20 MEQ TABLET.ER. PO SCH (19:23)
[2019-01-28] MEDS: TAMSULOSIN 0.4 MG CAP.ER.24H. PO SCH (19:27)
[2019-01-28] MEDS: MELATONIN 3 MG TABLET PO SCH (19:27)
[2019-01-28] MEDS: risperiDONE 1 MG TABLET. PO SCH (19:28)
[2019-01-28] MEDS: ASPIRIN ENTERIC COATED 81 MG TABLET.DR. PO SCH (19:52)
--- NOTE | 2019-01-28 21:36 | PDOC ---
Exam Note: Brian Note: Please also refer to the separate dictated note~for this date of service dictated separately.~Patient seen individually. Discussed the patient with Nursing staff reviewed the chart.~Reviewed interim history and current functioning. Reviewed vital signs,~Labs/ Radiology~and current medications noted below. Continue current treatment with the changes noted in the dictated addendum note Assessment: Vital Signs/I&O: Vital Signs Date Time Temp Pulse Resp B/P (MAP) Pulse Ox O2 Delivery O2 Flow Rate FiO2 01/28/19 20:24 95 Room Air 01/28/19 19:29 61 147/81 01/28/19 15:53 97.9 20 I & O 01/27/19 01/27/19 01/28/19 15:00 23:00 07:00 Intake Total 840 ml 240 ml 0 ml Balance 840 ml 240 ml 0 ml Current Medications: I have reviewed the current psychotropics carefully including drug interactions. Risk benefit ratio favors no change other than as noted in my dictated progress note. Diagnosis: Problems: (1) Major neurocognitive disorder (2) Post traumatic stress disorder (3) Anxiety disorder (4) Dementia in Alzheimer's disease with delusions (5) Dementia in Alzheimer's disease with depression (6) Dementia, vascular, with delusions (7) Dementia, vascular, with depression (8) Impulse control disorder EILEEN CHAVEZ MD Jan 28, 2019 21:36
--- NOTE | 2019-01-28 21:54 | PN ---
DATE: 01/26/2019 PSYCHIATRIC PROGRESS NOTE This late entry 01/26/2019 covers elements not covered in my initial note. SUBJECTIVE: I met with the patient evening of 01/26/2019. The patient slept 6 hours previous night. For the most part, the patient remains confused, but less agitated and symptoms of PTSD are less intense. REVIEW OF SYSTEMS: No CV, , pulmonary, eye, ENT system symptoms on review. Reliability poor. MENTAL STATUS EXAMINATION: Oriented to himself. Insight, judgment, recent and remote memory, attention, concentration, fund of knowledge poor, consistent with his diagnosis mentioned in my initial note. LABORATORY DATA: Reviewed. PLAN: Continue current psychotropics. We will gradually increase the prazosin. We will maintain Zoloft, Aricept, Namenda, melatonin, Depakote along with Zyprexa p.r.n., Remeron, Risperdal and trazodone p.r.n. for now. EILEEN CHAVEZ MD DR: JEANIE/zheng JOB#: [id number] / [id number]
[2019-01-28] MEDS: traZODone 50 MG TABLET. PO PRN (22:55)
--- NOTE | 2019-01-28 23:43 | PN ---
DATE: 01/27/2019 PSYCHIATRIC PROGRESS NOTE This late entry 01/27/2019 covers the elements not covered in my initial note. SUBJECTIVE: I met with the patient in the evening of 01/27/2019. The patient slept 4-1/4 hours previous night. He has been doing better, less anxious, less labile, less of the intense symptoms of psychosis and PTSD. He is up early in the morning. REVIEW OF SYSTEMS: No CV, , pulmonary, eye, ENT system symptoms on review. Reliability is poor. MENTAL STATUS EXAM: Oriented to himself. Insight, judgment, recent and remote memory, attention, concentration, fund of knowledge poor, consistent with his diagnosis mentioned in my initial note. PLAN: No change from initial note. MAN Yvon CHAVEZ MD DR: JEANIE/zheng JOB#: [id number] / [id number]
[2019-01-29] MEDS: LEVOTHYROXINE 25 MCG TABLET. PO SCH (04:48)
[2019-01-29 06:24] VITALS: BP 172/92
[2019-01-29] MEDS: PRAZOSIN 1 MG CAPSULE. PO SCH ×3 (07:48→19:47)
[2019-01-29] MEDS: FINASTERIDE 5 MG TABLET PO SCH (07:49)
[2019-01-29] MEDS: MEMANTINE 5 MG TABLET. PO SCH ×2 (07:49→19:48)
[2019-01-29] MEDS: APIXABAN 5 MG TABLET. PO SCH ×2 (07:49→19:46)
[2019-01-29] MEDS: DOCUSATE SODIUM 100 MG CAPSULE PO SCH (07:49)
[2019-01-29] MEDS: CHOLECALCIFEROL (VITAMIN D3) 50,000 UNIT CAPSULE PO SCH (07:49)
[2019-01-29] MEDS: SERTRALINE 100 MG TABLET. PO SCH (07:50)
[2019-01-29] MEDS: LOSARTAN 50 MG TABLET. PO SCH (07:50)
[2019-01-29] MEDS: DONEPEZIL HCL 10 MG TABLET PO SCH (07:50)
[2019-01-29] MEDS: PANTOPRAZOLE 40 MG TABLET. PO SCH ×2 (07:51→16:50)
[2019-01-29] MEDS: FUROSEMIDE 20 MG TABLET PO SCH (07:51)
[2019-01-29] MEDS: POLYETHYLENE GLYCOL 3350 17 GM PACKET. PO SCH (07:51)
[2019-01-29] MEDS: CARVEDILOL 12.5 MG TABLET PO SCH ×2 (07:53→16:51)
[2019-01-29] MEDS: BUDESONIDE 0.5 MG/2 ML NEBU NEB SCH ×2 (08:00→22:49)
[2019-01-29 16:50] VITALS: BP 110/63
--- NOTE | 2019-01-29 19:07 | PN ---
DATE: 01/28/2019 PSYCHIATRIC PROGRESS NOTE This late entry January 28 covers elements not covered in my initial note. SUBJECTIVE: I met with the patient in the evening. The patient slept at 10:00 in the morning, but did go for breakfast. He has been confused, a little anxious, less paranoid, but no aggression. No CV, , pulmonary, eye, ENT system symptoms on review. Reliability poor. He was trying to whisper in my ear, but it was difficult to understand what he was saying. There was element of paranoia, but much improved. REVIEW OF SYSTEMS: No CV, , pulmonary, eye, ENT system symptoms on review. MENTAL STATUS EXAM: Oriented to himself. Insight, judgment, recent and remote memory, attention, concentration, fund of knowledge poor, consistent with his diagnosis mentioned in my initial note. IMPRESSION: Major neurocognitive disorder, Alzheimer, vascular with delusion, depression, behavioral disturbance, posttraumatic stress disorder, psychotic disorder, unspecified. Rest unchanged. PLAN: No change from initial note. MAN Yvon CHAVEZ MD DR: JEANIE/zheng JOB#: [id number] / [id number]
[2019-01-29] MEDS: MELATONIN 3 MG TABLET PO SCH (19:44)
[2019-01-29] MEDS: ASPIRIN ENTERIC COATED 81 MG TABLET.DR. PO SCH (19:44)
[2019-01-29] MEDS: DIVALPROEX 125 MG CAP.SPRINK PO SCH (19:46)
[2019-01-29] MEDS: POTASSIUM CHLORIDE 20 MEQ TABLET.ER. PO SCH (19:46)
[2019-01-29] MEDS: TAMSULOSIN 0.4 MG CAP.ER.24H. PO SCH (19:46)
[2019-01-29] MEDS: ATORVASTATIN CALCIUM 20 MG TABLET PO SCH (19:47)
[2019-01-29] MEDS: traZODone 50 MG TABLET. PO PRN (19:48)
[2019-01-29] MEDS: risperiDONE 1 MG TABLET. PO SCH (19:48)
[2019-01-29] MEDS: MIRTAZAPINE 7.5 MG TABLET. PO SCH (19:48)
--- NOTE | 2019-01-29 21:57 | PDOC ---
Exam Note: Brian Note: Please also refer to the separate dictated note~for this date of service dictated separately.~Patient seen individually. Discussed the patient with Nursing staff reviewed the chart.~Reviewed interim history and current functioning. Reviewed vital signs,~Labs/ Radiology~and current medications noted below. Continue current treatment with the changes noted in the dictated addendum note Assessment: Vital Signs/I&O: Vital Signs Date Time Temp Pulse Resp B/P (MAP) Pulse Ox O2 Delivery O2 Flow Rate FiO2 01/29/19 20:20 96 Room Air 01/29/19 19:48 61 110/63 01/29/19 16:50 98.6 16 I & O 01/28/19 01/28/19 01/29/19 15:00 23:00 07:00 Intake Total 720 ml 480 ml 240 ml Balance 720 ml 480 ml 240 ml Current Medications: I have reviewed the current psychotropics carefully including drug interactions. Risk benefit ratio favors no change other than as noted in my dictated progress note. Diagnosis: Problems: (1) Major neurocognitive disorder (2) Post traumatic stress disorder (3) Anxiety disorder (4) Dementia in Alzheimer's disease with delusions (5) Dementia in Alzheimer's disease with depression (6) Dementia, vascular, with delusions (7) Dementia, vascular, with depression (8) Impulse control disorder EILEEN CHAVEZ MD Jan 29, 2019 21:57
[2019-01-29 22:32] LABS: BACTERIA,URINE 0 /HPF (0-FEW); BILIRUBIN,URINE NEG (NEG); CLARITY,URINE HAZY; COLOR,URINE YELLOW; GLUCOSE,URINE NEG (NEG); NITRITE,URINE NEG (NEG); SQUAMOUS EPITHELIAL CELL,UR OCC /LPF; UROBILINOGEN,URINE 0.2 mg/dL (0.2 mg/dL)
[2019-01-30] MEDS: LEVOTHYROXINE 25 MCG TABLET. PO SCH (06:12)
[2019-01-30 06:32] VITALS: BP 124/79
[2019-01-30] MEDS: BUDESONIDE 0.5 MG/2 ML NEBU NEB SCH ×2 (08:00→20:00)
[2019-01-30] MEDS: FINASTERIDE 5 MG TABLET PO SCH (10:53)
[2019-01-30] MEDS: DOCUSATE SODIUM 100 MG CAPSULE PO SCH (10:53)
[2019-01-30] MEDS: PRAZOSIN 1 MG CAPSULE. PO SCH ×3 (10:53→19:36)
[2019-01-30] MEDS: SERTRALINE 100 MG TABLET. PO SCH (10:54)
[2019-01-30] MEDS: CARVEDILOL 12.5 MG TABLET PO SCH ×2 (10:55→17:04)
[2019-01-30] MEDS: DONEPEZIL HCL 10 MG TABLET PO SCH (10:55)
[2019-01-30] MEDS: MEMANTINE 5 MG TABLET. PO SCH ×2 (10:55→19:37)
[2019-01-30] MEDS: APIXABAN 5 MG TABLET. PO SCH ×2 (10:55→19:35)
[2019-01-30] MEDS: PANTOPRAZOLE 40 MG TABLET. PO SCH ×2 (10:55→17:03)
[2019-01-30] MEDS: FUROSEMIDE 20 MG TABLET PO SCH (10:56)
[2019-01-30] MEDS: LOSARTAN 50 MG TABLET. PO SCH (10:56)
[2019-01-30] MEDS: POLYETHYLENE GLYCOL 3350 17 GM PACKET. PO SCH (10:56)
[2019-01-30 16:57] VITALS: BP 170/90
[2019-01-30] MEDS: ASPIRIN ENTERIC COATED 81 MG TABLET.DR. PO SCH (19:33)
[2019-01-30] MEDS: MELATONIN 3 MG TABLET PO SCH (19:33)
[2019-01-30] MEDS: DIVALPROEX 125 MG CAP.SPRINK PO SCH (19:35)
[2019-01-30] MEDS: TAMSULOSIN 0.4 MG CAP.ER.24H. PO SCH (19:35)
[2019-01-30] MEDS: ATORVASTATIN CALCIUM 20 MG TABLET PO SCH (19:36)
[2019-01-30] MEDS: POTASSIUM CHLORIDE 20 MEQ TABLET.ER. PO SCH (19:36)
[2019-01-30] MEDS: MIRTAZAPINE 7.5 MG TABLET. PO SCH (19:37)
[2019-01-30] MEDS: risperiDONE 1 MG TABLET. PO SCH (19:39)
--- NOTE | 2019-01-30 21:42 | PDOC ---
Exam Note: Brian Note: Please also refer to the separate dictated note~for this date of service dictated separately.~Patient seen individually. Discussed the patient with Nursing staff reviewed the chart.~Reviewed interim history and current functioning. Reviewed vital signs,~Labs/ Radiology~and current medications noted below. Continue current treatment with the changes noted in the dictated addendum note Assessment: Vital Signs/I&O: Vital Signs Date Time Temp Pulse Resp B/P (MAP) Pulse Ox O2 Delivery O2 Flow Rate FiO2 01/30/19 19:36 56 170/90 01/30/19 17:25 95 01/30/19 16:57 96.9 20 01/30/19 10:27 Room Air I & O 01/29/19 01/29/19 01/30/19 15:00 23:00 07:00 Intake Total 960 ml 360 ml Balance 960 ml 360 ml Labs: Laboratory Tests Test 01/29/19 21:55 Urine Collection Type Unknown Urine Color Yellow Urine Clarity Hazy Urine pH 5.5 Urine Specific [place] >=1.030 Urine Protein Neg (NEG-TRACE) Urine Glucose (UA) Neg mg/dL (NEG) Urine Ketones (Stick) Trace mg/dL (NEG) Urine Blood Trace (NEG) Urine Nitrite Neg (NEG) Urine Bilirubin Neg (NEG) Urine Urobilinogen Dipstick 0.2 mg/dL (0.2 mg/dL) Urine Leukocyte Esterase Trace (NEG) Urine RBC 1-2 /HPF (0-2) Urine WBC 5-10 /HPF (0-4) Urine Squamous Epithelial Cells Occ /LPF Urine Bacteria 0 /HPF (0-FEW) Urine Mucus Mod /LPF Current Medications: I have reviewed the current psychotropics carefully including drug interactions. Risk benefit ratio favors no change other than as noted in my dictated progress note. Diagnosis: Problems: (1) Major neurocognitive disorder (2) Post traumatic stress disorder (3) Anxiety disorder (4) Dementia in Alzheimer's disease with delusions (5) Dementia in Alzheimer's disease with depression (6) Dementia, vascular, with delusions (7) Dementia, vascular, with depression (8) Impulse control disorder EILEEN CHAVEZ MD Jan 30, 2019 21:42
--- NOTE | 2019-01-31 00:30 | PN ---
DATE: 01/29/2019 PSYCHIATRIC PROGRESS NOTE This late entry 01/29/2019 covers elements not covered in my initial note. SUBJECTIVE: I met with the patient evening of 01/29/2019. The patient slept 5-1/4 hours previous night. He has done better during the day, somewhat disorganized. He put his medications in his pocket instead of swallowing them when administered per nursing staff, put water into the cup appropriately. Last night per nursing report, he was "up and down all night." We will check a UA, make sure he does not have a UTI. REVIEW OF SYSTEMS: No CV, , pulmonary, eye, ENT system symptoms on review. Reliability poor. MENTAL STATUS EXAM: Oriented to himself. Insight, judgment, recent and remote memory, attention, concentration, fund of knowledge poor, consistent with his diagnosis mentioned in my initial note. PLAN: No change from initial note. MAN Yvon CHAVEZ MD DR: JEANIE/zheng JOB#: [id number] / [id number]
[2019-01-31] MEDS: LEVOTHYROXINE 25 MCG TABLET. PO SCH (05:46)
[2019-01-31 06:41] VITALS: BP 152/82
[2019-01-31] MEDS: CARVEDILOL 12.5 MG TABLET PO SCH ×2 (08:09→16:29)
[2019-01-31] MEDS: PRAZOSIN 1 MG CAPSULE. PO SCH ×3 (08:09→19:32)
[2019-01-31] MEDS: FUROSEMIDE 20 MG TABLET PO SCH (08:10)
[2019-01-31] MEDS: DOCUSATE SODIUM 100 MG CAPSULE PO SCH (08:10)
[2019-01-31] MEDS: PANTOPRAZOLE 40 MG TABLET. PO SCH ×2 (08:10→16:29)
[2019-01-31] MEDS: DONEPEZIL HCL 10 MG TABLET PO SCH (08:10)
[2019-01-31] MEDS: MEMANTINE 5 MG TABLET. PO SCH ×2 (08:10→19:32)
[2019-01-31] MEDS: APIXABAN 5 MG TABLET. PO SCH ×2 (08:10→19:31)
[2019-01-31] MEDS: SERTRALINE 100 MG TABLET. PO SCH (08:11)
[2019-01-31] MEDS: LOSARTAN 50 MG TABLET. PO SCH (08:11)
[2019-01-31] MEDS: POLYETHYLENE GLYCOL 3350 17 GM PACKET. PO SCH (08:12)
[2019-01-31] MEDS: FINASTERIDE 5 MG TABLET PO SCH (08:12)
[2019-01-31] MEDS: BUDESONIDE 0.5 MG/2 ML NEBU NEB SCH ×2 (11:26→20:17)
[2019-01-31 15:39] VITALS: BP 127/80
[2019-01-31] MEDS: ASPIRIN ENTERIC COATED 81 MG TABLET.DR. PO SCH (19:30)
[2019-01-31] MEDS: MELATONIN 3 MG TABLET PO SCH (19:30)
[2019-01-31] MEDS: ATORVASTATIN CALCIUM 20 MG TABLET PO SCH (19:31)
[2019-01-31] MEDS: TAMSULOSIN 0.4 MG CAP.ER.24H. PO SCH (19:31)
[2019-01-31] MEDS: DIVALPROEX 125 MG CAP.SPRINK PO SCH (19:31)
[2019-01-31] MEDS: POTASSIUM CHLORIDE 20 MEQ TABLET.ER. PO SCH (19:31)
[2019-01-31] MEDS: MIRTAZAPINE 7.5 MG TABLET. PO SCH (19:32)
[2019-01-31] MEDS: risperiDONE 1 MG TABLET. PO SCH (19:32)
--- NOTE | 2019-01-31 21:47 | PDOC ---
Exam Note: Brian Note: Please also refer to the separate dictated note~for this date of service dictated separately.~Patient seen individually. Discussed the patient with Nursing staff reviewed the chart.~Reviewed interim history and current functioning. Reviewed vital signs,~Labs/ Radiology~and current medications noted below. Continue current treatment with the changes noted in the dictated addendum note Assessment: Vital Signs/I&O: Vital Signs Date Time Temp Pulse Resp B/P (MAP) Pulse Ox O2 Delivery O2 Flow Rate FiO2 01/31/19 20:18 95 Room Air 01/31/19 19:32 64 127/80 01/31/19 15:39 98.4 16 I & O 01/30/19 01/30/19 01/31/19 15:00 23:00 07:00 Intake Total 840 ml 0 ml 240 ml Balance 840 ml 0 ml 240 ml Current Medications: I have reviewed the current psychotropics carefully including drug interactions. Risk benefit ratio favors no change other than as noted in my dictated progress note. Diagnosis: Problems: (1) Major neurocognitive disorder (2) Post traumatic stress disorder (3) Anxiety disorder (4) Dementia in Alzheimer's disease with delusions (5) Dementia in Alzheimer's disease with depression (6) Dementia, vascular, with delusions (7) Dementia, vascular, with depression (8) Impulse control disorder EILEEN CHAVEZ MD Jan 31, 2019 21:47
[2019-02-01 05:00] VITALS: BP 134/75
[2019-02-01] MEDS: LEVOTHYROXINE 25 MCG TABLET. PO SCH (05:41)
[2019-02-01 07:13] LABS: BASO # 0.1 x10^3/uL (0.0-0.2); BASO % 1 % (0-3); EOS # 0.5 x10^3/uL (0.0-0.7); EOS % 8 % (0-3); HEMATOCRIT 38.8 % (39.0-53.0); HEMOGLOBIN 12.6 g/dL (13.0-17.5); LYMPH # 2.1 x10^3/uL (1.0-4.8); LYMPH % 34 % (24-48); MEAN CORPUSCULAR HEMOGLOBIN 31 pg (25-35); MEAN CORPUSCULAR HGB CONC 33 g/dL (31-37); MEAN CORPUSCULAR VOLUME 94 fL (79-100); MONO # 0.8 x10^3/uL (0.0-1.1); MONO % 12 % (0-9); NEUT # 2.8 x10^3uL (1.8-7.7); NEUT % 45 % (31-73); PLATELET COUNT 193 x10^3/uL (140-400); RED BLOOD COUNT 4.11 x10^6/uL (4.30-5.70); RED CELL DISTRIBUTION WIDTH 14.6 % (11.5-14.5); WHITE BLOOD COUNT 6.2 x10^3/uL (4.0-11.0)
[2019-02-01] MEDS: FUROSEMIDE 20 MG TABLET PO SCH (07:35)
[2019-02-01] MEDS: LOSARTAN 50 MG TABLET. PO SCH (07:36)
[2019-02-01 07:37] LABS: ALBUMIN 2.9 g/dL (3.4-5.0); ALBUMIN/GLOBULIN RATIO 0.8 (1.0-1.7); CREATININE 1.4 mg/dL (0.7-1.3); GFR 49.8; POTASSIUM 4.2 mmol/L (3.5-5.1); TOTAL BILIRUBIN 0.2 mg/dL (0.2-1.0); TOTAL PROTEIN 6.5 g/dL (6.4-8.2)
[2019-02-01] MEDS: POLYETHYLENE GLYCOL 3350 17 GM PACKET. PO SCH (07:37)
[2019-02-01] MEDS: DONEPEZIL HCL 10 MG TABLET PO SCH (07:37)
[2019-02-01] MEDS: PRAZOSIN 1 MG CAPSULE. PO SCH ×3 (07:37→19:23)
[2019-02-01] MEDS: PANTOPRAZOLE 40 MG TABLET. PO SCH ×2 (07:37→16:30)
[2019-02-01 07:38] LABS: VAL ACID 50 mcg/mL (50-100)
[2019-02-01] MEDS: MEMANTINE 5 MG TABLET. PO SCH ×2 (07:38→19:23)
[2019-02-01] MEDS: SERTRALINE 100 MG TABLET. PO SCH (07:38)
[2019-02-01] MEDS: FINASTERIDE 5 MG TABLET PO SCH (07:38)
[2019-02-01] MEDS: DOCUSATE SODIUM 100 MG CAPSULE PO SCH (07:38)
[2019-02-01] MEDS: CARVEDILOL 12.5 MG TABLET PO SCH ×2 (07:38→17:00)
[2019-02-01] MEDS: APIXABAN 5 MG TABLET. PO SCH ×2 (07:38→19:22)
[2019-02-01] MEDS: BUDESONIDE 0.5 MG/2 ML NEBU NEB SCH ×2 (08:00→21:33)
[2019-02-01 16:18] VITALS: BP 162/97
[2019-02-01] MEDS: MELATONIN 3 MG TABLET PO SCH (19:21)
[2019-02-01] MEDS: ASPIRIN ENTERIC COATED 81 MG TABLET.DR. PO SCH (19:21)
[2019-02-01] MEDS: DIVALPROEX 125 MG CAP.SPRINK PO SCH (19:22)
[2019-02-01] MEDS: POTASSIUM CHLORIDE 20 MEQ TABLET.ER. PO SCH (19:22)
[2019-02-01] MEDS: TAMSULOSIN 0.4 MG CAP.ER.24H. PO SCH (19:22)
[2019-02-01] MEDS: risperiDONE 1 MG TABLET. PO SCH (19:23)
[2019-02-01] MEDS: ATORVASTATIN CALCIUM 20 MG TABLET PO SCH (19:23)
[2019-02-01] MEDS: MIRTAZAPINE 7.5 MG TABLET. PO SCH (19:23)
--- NOTE | 2019-02-01 20:09 | PN ---
DATE: 01/30/2019 PSYCHIATRIC PROGRESS NOTE This late entry 01/30/2019 covers the elements not covered in my initial note. SUBJECTIVE: I met with the patient in the evening of 01/30/2019. The patient slept 5-3/4 hours previous night. Per [place] Finnegan, the patient slept until about 11:00 a.m., had his lunch and then was back to bed around 1:00 p.m. Repeat UA, has reflex to culture and we will await the results since the UTI could be causing some sedation. REVIEW OF SYSTEMS: No CV, , pulmonary, eye, ENT system symptoms on review. Reliability poor. MENTAL STATUS EXAM: Oriented to himself. Insight, judgment, recent and remote memory, attention, concentration and fund of knowledge are poor, consistent with his diagnosis. As I met with him individually, he was holding my hand, wanting to whisper into my ear, seem somewhat suspicious, but not aggressive. IMPRESSION: Unchanged from initial note. PLAN: No change from initial note. Assess for UTI and treat as clinically indicated. Rest unchanged. MAN Yvon CHAVEZ MD DR: JEANIE/zheng JOB#: [id number] / [id number]
--- NOTE | 2019-02-01 21:38 | PDOC ---
Exam Note: Brian Note: Please also refer to the separate dictated note~for this date of service dictated separately.~Patient seen individually. Discussed the patient with Nursing staff reviewed the chart.~Reviewed interim history and current functioning. Reviewed vital signs,~Labs/ Radiology~and current medications noted below. Continue current treatment with the changes noted in the dictated addendum note Assessment: Vital Signs/I&O: Vital Signs Date Time Temp Pulse Resp B/P (MAP) Pulse Ox O2 Delivery O2 Flow Rate FiO2 02/01/19 19:50 96 Room Air 02/01/19 19:23 70 162/97 02/01/19 16:18 97.9 16 I & O 01/31/19 01/31/19 02/01/19 15:00 23:00 07:00 Intake Total 840 ml 480 ml 240 ml Balance 840 ml 480 ml 240 ml Labs: Laboratory Tests Test 02/01/19 06:27 White Blood Count 6.2 x10^3/uL (4.0-11.0) Red Blood Count 4.11 x10^6/uL (4.30-5.70) L Hemoglobin 12.6 g/dL (13.0-17.5) L Hematocrit 38.8 % (39.0-53.0) L Mean Corpuscular Volume 94 fL (79-100) Mean Corpuscular Hemoglobin 31 pg (25-35) Mean Corpuscular Hemoglobin Concent 33 g/dL (31-37) Red Cell Distribution Width 14.6 % (11.5-14.5) H Platelet Count 193 x10^3/uL (140-400) Neutrophils (%) (Auto) 45 % (31-73) Lymphocytes (%) (Auto) 34 % (24-48) Monocytes (%) (Auto) 12 % (0-9) H Eosinophils (%) (Auto) 8 % (0-3) H Basophils (%) (Auto) 1 % (0-3) Neutrophils # (Auto) 2.8 x10^3uL (1.8-7.7) Lymphocytes # (Auto) 2.1 x10^3/uL (1.0-4.8) Monocytes # (Auto) 0.8 x10^3/uL (0.0-1.1) Eosinophils # (Auto) 0.5 x10^3/uL (0.0-0.7) Basophils # (Auto) 0.1 x10^3/uL (0.0-0.2) Sodium Level 146 mmol/L (136-145) H Potassium Level 4.2 mmol/L (3.5-5.1) Chloride Level 110 mmol/L (98-107) H Carbon Dioxide Level 33 mmol/L (21-32) H Anion Gap 3 (6-14) L Blood Urea Nitrogen 27 mg/dL (8-26) H Creatinine 1.4 mg/dL (0.7-1.3) H Estimated GFR (Cockcroft-Gault) 49.8 BUN/Creatinine Ratio 19 (6-20) Glucose Level 104 mg/dL (70-99) H Calcium Level 10.0 mg/dL (8.5-10.1) Total Bilirubin 0.2 mg/dL (0.2-1.0) Aspartate Amino Transferase (AST) 16 U/L (15-37) Alanine Aminotransferase (ALT) 17 U/L (16-63) Alkaline Phosphatase 83 U/L (46-116) Total Protein 6.5 g/dL (6.4-8.2) Albumin 2.9 g/dL (3.4-5.0) L Albumin/Globulin Ratio 0.8 (1.0-1.7) L Valproic Acid Level 50 mcg/mL (50-100) Valproic Acid Last Dose Date 01/31/19 Valproic Acid Last Dose Time 2100 Current Medications: I have reviewed the current psychotropics carefully including drug interactions. Risk benefit ratio favors no change other than as noted in my dictated progress note. Diagnosis: Problems: (1) Major neurocognitive disorder (2) Post traumatic stress disorder (3) Anxiety disorder (4) Dementia in Alzheimer's disease with delusions (5) Dementia in Alzheimer's disease with depression (6) Dementia, vascular, with delusions (7) Dementia, vascular, with depression (8) Impulse control disorder EILEEN CHAVEZ MD Feb 01, 2019 21:38
--- NOTE | 2019-02-01 22:25 | PN ---
DATE: 01/31/2019 PSYCHIATRIC PROGRESS NOTE This late entry 01/31/2019 covers the elements not covered in my initial note. SUBJECTIVE: I met with the patient in the evening and staffed at a treatment team meeting with the entire team in the morning. The patient slept 8 hours previous night. Social service staff discussed how he may be [facility] [place] since [employer] and [facility] [employer] may not have a place. He does walk a little stoop, bent over. Alert, oriented to himself. Slept 7 hours average. Appetite is 75-100%. REVIEW OF SYSTEMS: No CV, , pulmonary, eye, ENT system symptoms on review. Reliability is poor. MENTAL STATUS EXAM: Oriented to self. Insight, judgment, recent and remote memory, attention, concentration, fund of knowledge poor, consistent with his diagnosis mentioned in my initial note. PLAN: No change from initial note. We will check CBC, CMP, valproic acid level in the morning of 02/01/2019. MAN Yvon CHAVEZ MD DR: JEANIE/zheng JOB#: [id number] / [id number]
[2019-02-01] MEDS: LORazepam 0.5 MG TABLET PO PRN (22:31)
[2019-02-01] MEDS: traZODone 50 MG TABLET. PO PRN (22:31)
[2019-02-02 05:05] VITALS: BP 138/92
[2019-02-02] MEDS: LEVOTHYROXINE 25 MCG TABLET. PO SCH (05:31)
[2019-02-02] MEDS: DOCUSATE SODIUM 100 MG CAPSULE PO SCH (07:56)
[2019-02-02] MEDS: SERTRALINE 100 MG TABLET. PO SCH (07:56)
[2019-02-02] MEDS: POLYETHYLENE GLYCOL 3350 17 GM PACKET. PO SCH (07:56)
[2019-02-02] MEDS: CARVEDILOL 12.5 MG TABLET PO SCH ×2 (07:57→17:00)
[2019-02-02] MEDS: PRAZOSIN 1 MG CAPSULE. PO SCH ×3 (07:57→20:01)
[2019-02-02] MEDS: FINASTERIDE 5 MG TABLET PO SCH (07:57)
[2019-02-02] MEDS: MEMANTINE 5 MG TABLET. PO SCH ×2 (07:58→20:01)
[2019-02-02] MEDS: DONEPEZIL HCL 10 MG TABLET PO SCH (07:58)
[2019-02-02] MEDS: LOSARTAN 50 MG TABLET. PO SCH (07:58)
[2019-02-02] MEDS: PANTOPRAZOLE 40 MG TABLET. PO SCH ×2 (07:58→16:30)
[2019-02-02] MEDS: APIXABAN 5 MG TABLET. PO SCH ×2 (07:58→20:01)
[2019-02-02] MEDS: FUROSEMIDE 20 MG TABLET PO SCH (07:59)
[2019-02-02] MEDS: BUDESONIDE 0.5 MG/2 ML NEBU NEB SCH ×2 (10:37→20:03)
[2019-02-02 15:22] VITALS: BP 151/82
[2019-02-02] MEDS: DIVALPROEX 125 MG CAP.SPRINK PO SCH (20:00)
[2019-02-02] MEDS: MELATONIN 3 MG TABLET PO SCH (20:01)
[2019-02-02] MEDS: MIRTAZAPINE 7.5 MG TABLET. PO SCH (20:01)
[2019-02-02] MEDS: TAMSULOSIN 0.4 MG CAP.ER.24H. PO SCH (20:01)
[2019-02-02] MEDS: ASPIRIN ENTERIC COATED 81 MG TABLET.DR. PO SCH (20:01)
[2019-02-02] MEDS: risperiDONE 1 MG TABLET. PO SCH (20:02)
[2019-02-02] MEDS: POTASSIUM CHLORIDE 20 MEQ TABLET.ER. PO SCH (20:02)
[2019-02-02] MEDS: ATORVASTATIN CALCIUM 20 MG TABLET PO SCH (20:02)
--- NOTE | 2019-02-02 22:12 | PDOC ---
Exam Note: Brian Note: Please also refer to the separate dictated note~for this date of service dictated separately.~Patient seen individually. Discussed the patient with Nursing staff reviewed the chart.~Reviewed interim history and current functioning. Reviewed vital signs,~Labs/ Radiology~and current medications noted below. Continue current treatment with the changes noted in the dictated addendum note Assessment: Vital Signs/I&O: Vital Signs Date Time Temp Pulse Resp B/P (MAP) Pulse Ox O2 Delivery O2 Flow Rate FiO2 02/02/19 20:01 96 151/82 02/02/19 15:22 97.3 18 95 02/02/19 10:39 Room Air I & O 02/01/19 02/01/19 02/02/19 15:00 23:00 07:00 Intake Total 1440 ml 840 ml Balance 1440 ml 840 ml Current Medications: I have reviewed the current psychotropics carefully including drug interactions. Risk benefit ratio favors no change other than as noted in my dictated progress note. Diagnosis: Problems: (1) Major neurocognitive disorder (2) Post traumatic stress disorder (3) Anxiety disorder (4) Dementia in Alzheimer's disease with delusions (5) Dementia in Alzheimer's disease with depression (6) Dementia, vascular, with delusions (7) Dementia, vascular, with depression (8) Impulse control disorder EILEEN CHAVEZ MD Feb 02, 2019 22:12
[2019-02-02] MEDS: traZODone 50 MG TABLET. PO PRN (23:50)
[2019-02-02] MEDS: LORazepam 0.5 MG TABLET PO PRN (23:50)
[2019-02-03 05:36] VITALS: BP 158/86
[2019-02-03] MEDS: LEVOTHYROXINE 25 MCG TABLET. PO SCH (05:40)
[2019-02-03] MEDS: POLYETHYLENE GLYCOL 3350 17 GM PACKET. PO SCH (07:45)
[2019-02-03] MEDS: PRAZOSIN 1 MG CAPSULE. PO SCH ×3 (07:46→19:48)
[2019-02-03] MEDS: DOCUSATE SODIUM 100 MG CAPSULE PO SCH (07:46)
[2019-02-03] MEDS: FINASTERIDE 5 MG TABLET PO SCH (07:47)
[2019-02-03] MEDS: DONEPEZIL HCL 10 MG TABLET PO SCH (07:47)
[2019-02-03] MEDS: SERTRALINE 100 MG TABLET. PO SCH (07:47)
[2019-02-03] MEDS: CARVEDILOL 12.5 MG TABLET PO SCH ×2 (07:47→17:00)
[2019-02-03] MEDS: PANTOPRAZOLE 40 MG TABLET. PO SCH ×2 (07:48→16:30)
[2019-02-03] MEDS: LOSARTAN 50 MG TABLET. PO SCH (07:48)
[2019-02-03] MEDS: FUROSEMIDE 20 MG TABLET PO SCH (07:48)
[2019-02-03] MEDS: APIXABAN 5 MG TABLET. PO SCH ×2 (07:49→19:48)
[2019-02-03] MEDS: MEMANTINE 10 MG TABLET. PO SCH ×2 (07:50→19:47)
[2019-02-03] MEDS ORDERED: MEMANTINE 10 MG TABLET. PO SCH (09:00)
[2019-02-03] MEDS: BUDESONIDE 0.5 MG/2 ML NEBU NEB SCH (10:17)
--- NOTE | 2019-02-03 12:00 | PN ---
DATE: 02/01/2019 This late entry 02/01/2019 covers elements not covered in my initial note. SUBJECTIVE: I met with the patient evening of 02/01/2019. The patient slept 5-3/4 hours previous night. He remains confused, but less agitated, less psychotic, symptoms of PTSD appear improved. He is somewhat slow in his movements. REVIEW OF SYSTEMS: No CV, , pulmonary, eye, ENT system symptoms on review. Reliability poor. MENTAL STATUS EXAM: Oriented to himself. Insight, judgment, recent and remote memory, attention, concentration, fund of knowledge poor, consistent with his diagnosis mentioned in my initial note. PLAN: No change from initial note. MAN Yvon CHAVEZ MD DR: JEANIE/zheng JOB#: [id number] / [id number]
[2019-02-03 15:56] VITALS: BP 146/85
[2019-02-03] MEDS: POTASSIUM CHLORIDE 20 MEQ TABLET.ER. PO SCH (19:47)
[2019-02-03] MEDS: ASPIRIN ENTERIC COATED 81 MG TABLET.DR. PO SCH (19:47)
[2019-02-03] MEDS: MIRTAZAPINE 7.5 MG TABLET. PO SCH (19:47)
[2019-02-03] MEDS: MELATONIN 3 MG TABLET PO SCH (19:47)
[2019-02-03] MEDS: ATORVASTATIN CALCIUM 20 MG TABLET PO SCH (19:48)
[2019-02-03] MEDS: DIVALPROEX 125 MG CAP.SPRINK PO SCH (19:49)
[2019-02-03] MEDS: TAMSULOSIN 0.4 MG CAP.ER.24H. PO SCH (19:49)
[2019-02-03] MEDS: risperiDONE 1 MG TABLET. PO SCH (19:49)
--- NOTE | 2019-02-03 21:26 | PDOC ---
Exam Note: Brian Note: Please also refer to the separate dictated note~for this date of service dictated separately.~Patient seen individually. Discussed the patient with Nursing staff reviewed the chart.~Reviewed interim history and current functioning. Reviewed vital signs,~Labs/ Radiology~and current medications noted below. Continue current treatment with the changes noted in the dictated addendum note Assessment: Vital Signs/I&O: Vital Signs Date Time Temp Pulse Resp B/P (MAP) Pulse Ox O2 Delivery O2 Flow Rate FiO2 02/03/19 20:50 98 Room Air 02/03/19 19:48 64 146/85 02/03/19 15:56 97.1 16 I & O 02/02/19 02/02/19 02/03/19 14:59 22:59 06:59 Intake Total 840 ml 480 ml Balance 840 ml 480 ml Current Medications: Meds: Current Medications Medications (Trade) Dose Ordered Sig/Jose David Route PRN Reason Start Time Stop Time Status Last Admin Dose Admin Memantine (Namenda) 10 mg BID PO 02/03/19 09:00 02/03/19 19:47 I have reviewed the current psychotropics carefully including drug interactions. Risk benefit ratio favors no change other than as noted in my dictated progress note. Diagnosis: Problems: (1) Major neurocognitive disorder (2) Post traumatic stress disorder (3) Anxiety disorder (4) Dementia in Alzheimer's disease with delusions (5) Dementia in Alzheimer's disease with depression (6) Dementia, vascular, with delusions (7) Dementia, vascular, with depression (8) Impulse control disorder EILEEN CHAVEZ MD Feb 03, 2019 21:26
[2019-02-04 05:11] VITALS: BP 146/84
[2019-02-04] MEDS: BUDESONIDE 0.5 MG/2 ML NEBU NEB SCH ×3 (05:48→23:00)
[2019-02-04] MEDS: LEVOTHYROXINE 25 MCG TABLET. PO SCH (05:59)
[2019-02-04] MEDS: POLYETHYLENE GLYCOL 3350 17 GM PACKET. PO SCH (07:50)
[2019-02-04] MEDS: PANTOPRAZOLE 40 MG TABLET. PO SCH ×2 (07:51→17:04)
[2019-02-04] MEDS: FINASTERIDE 5 MG TABLET PO SCH (07:51)
[2019-02-04] MEDS: PRAZOSIN 1 MG CAPSULE. PO SCH ×3 (07:51→19:23)
[2019-02-04] MEDS: APIXABAN 5 MG TABLET. PO SCH ×2 (07:51→19:22)
[2019-02-04] MEDS: DOCUSATE SODIUM 100 MG CAPSULE PO SCH (07:51)
[2019-02-04] MEDS: FUROSEMIDE 20 MG TABLET PO SCH (07:52)
[2019-02-04] MEDS: LOSARTAN 50 MG TABLET. PO SCH (07:52)
[2019-02-04] MEDS: SERTRALINE 100 MG TABLET. PO SCH (07:52)
[2019-02-04] MEDS: MEMANTINE 10 MG TABLET. PO SCH ×2 (07:52→19:23)
[2019-02-04] MEDS: DONEPEZIL HCL 10 MG TABLET PO SCH (07:52)
[2019-02-04] MEDS: CARVEDILOL 12.5 MG TABLET PO SCH ×2 (07:53→17:05)
[2019-02-04] MEDS ORDERED: FLU VAX QS 2019-20 (36MOS+)/PF 0.5 ML SYRINGE. VAX IM ONE (13:30)
[2019-02-04 15:56] VITALS: BP 109/75
[2019-02-04] MEDS: MELATONIN 3 MG TABLET PO SCH (19:20)
[2019-02-04] MEDS: ASPIRIN ENTERIC COATED 81 MG TABLET.DR. PO SCH (19:21)
[2019-02-04] MEDS: DIVALPROEX 125 MG CAP.SPRINK PO SCH (19:21)
[2019-02-04] MEDS: TAMSULOSIN 0.4 MG CAP.ER.24H. PO SCH (19:22)
[2019-02-04] MEDS: POTASSIUM CHLORIDE 20 MEQ TABLET.ER. PO SCH (19:22)
[2019-02-04] MEDS: ATORVASTATIN CALCIUM 20 MG TABLET PO SCH (19:22)
[2019-02-04] MEDS: MIRTAZAPINE 7.5 MG TABLET. PO SCH (19:23)
[2019-02-04] MEDS: risperiDONE 1 MG TABLET. PO SCH (19:23)
--- NOTE | 2019-02-04 21:37 | PDOC ---
Exam Note: Brian Note: Please also refer to the separate dictated note~for this date of service dictated separately.~Patient seen individually. Discussed the patient with Nursing staff reviewed the chart.~Reviewed interim history and current functioning. Reviewed vital signs,~Labs/ Radiology~and current medications noted below. Continue current treatment with the changes noted in the dictated addendum note Assessment: Vital Signs/I&O: Vital Signs Date Time Temp Pulse Resp B/P (MAP) Pulse Ox O2 Delivery O2 Flow Rate FiO2 02/04/19 20:39 98 Room Air 02/04/19 19:23 69 134/89 02/04/19 15:56 97.9 18 I & O 02/03/19 02/03/19 02/04/19 15:00 23:00 07:00 Intake Total 960 ml 360 ml Balance 960 ml 360 ml Current Medications: Meds: Current Medications Medications (Trade) Dose Ordered Sig/Jose David Route PRN Reason Start Time Stop Time Status Last Admin Dose Admin Influenza Virus Vaccine Quadrival (Afluria Quad 2019-20 (3yr Up) Syringe) 0.5 ml ONCE ONCE VAX IM 02/04/19 13:30 02/04/19 13:31 DC 02/04/19 17:04 I have reviewed the current psychotropics carefully including drug interactions. Risk benefit ratio favors no change other than as noted in my dictated progress note. Diagnosis: Problems: (1) Major neurocognitive disorder (2) Post traumatic stress disorder (3) Anxiety disorder (4) Dementia in Alzheimer's disease with delusions (5) Dementia in Alzheimer's disease with depression (6) Dementia, vascular, with delusions (7) Dementia, vascular, with depression (8) Impulse control disorder EILEEN CHAVEZ MD Feb 04, 2019 21:37
--- NOTE | 2019-02-04 23:35 | PN ---
DATE: 02/02/2019 PSYCHIATRIC PROGRESS NOTE This late entry, 02/02, covers elements not covered in my initial note. SUBJECTIVE: I met with the patient evening of 02/02. The patient slept 6 hours previous night. Per [place] Andrews, patient earlier in the day had packed his stuff as if he was leaving, wanted to call his . Valproic acid level therapeutic at 50. Previous night, he was restless, anxious. REVIEW OF SYSTEMS: No CV, , pulmonary, eye, ENT system symptoms on review. Reliability poor. MENTAL STATUS EXAM: Oriented to himself. Insight, judgment, recent and remote memory, attention, concentration, fund of knowledge poor, consistent with his diagnosis mentioned in my initial note. PLAN: No change from initial note, but we will increase Namenda from 5 mg b.i.d. to 10 mg b.i.d. We will maintain prazosin for his PTSD, Zoloft 150 mg a day for his depression, Aricept 10 mg a day, Depakote Sprinkles at current dosage, level therapeutic at 57, Remeron 7.5 mg at bedtime, Risperdal 1.5 mg bedtime. MAN Yvon CHAVEZ MD DR: JEANIE/zheng JOB#: [id number] / [id number]
--- NOTE | 2019-02-05 01:58 | PN ---
DATE: 02/03/2019 PSYCHIATRIC PROGRESS NOTE This late entry of 02/03 covers elements not covered in my initial note. SUBJECTIVE: I met with the patient in the evening. The patient slept 5-1/2 hours the previous night. He has been doing reasonably well and the agitation, aggression, psychotic symptoms and symptoms of PTSD appear much improved. REVIEW OF SYSTEMS: No CV, , pulmonary, eye, ENT system symptoms on review. Reliability poor. MENTAL STATUS EXAMINATION: Oriented to himself. Insight, judgment, recent and remote memory, attention, concentration, fund of knowledge poor, consistent with his diagnosis. LABORATORY DATA: Reviewed. IMPRESSION: Major neurocognitive disorder, Alzheimer, vascular with delusion, depression, behavioral disturbance; anxiety disorder, unspecified; impulse control disorder, unspecified; post-traumatic stress disorder. Rest unchanged for now. PLAN: Continue current psychotropics, adjust as clinically indicated. MAN Yvon CHAVEZ MD DR: JEANIE/zheng JOB#: [id number] / [id number]
[2019-02-05] MEDS: LEVOTHYROXINE 25 MCG TABLET. PO SCH (05:40)
[2019-02-05 05:46] VITALS: BP 133/73
[2019-02-05] MEDS: POLYETHYLENE GLYCOL 3350 17 GM PACKET. PO SCH (07:40)
[2019-02-05] MEDS: DOCUSATE SODIUM 100 MG CAPSULE PO SCH (07:40)
[2019-02-05] MEDS: FINASTERIDE 5 MG TABLET PO SCH (07:40)
[2019-02-05] MEDS: CARVEDILOL 12.5 MG TABLET PO SCH ×2 (07:41→17:01)
[2019-02-05] MEDS: PANTOPRAZOLE 40 MG TABLET. PO SCH ×2 (07:41→17:00)
[2019-02-05] MEDS: FUROSEMIDE 20 MG TABLET PO SCH (07:41)
[2019-02-05] MEDS: MEMANTINE 10 MG TABLET. PO SCH ×2 (07:41→20:43)
[2019-02-05] MEDS: SERTRALINE 100 MG TABLET. PO SCH (07:42)
[2019-02-05] MEDS: DONEPEZIL HCL 10 MG TABLET PO SCH (07:43)
[2019-02-05] MEDS: PRAZOSIN 1 MG CAPSULE. PO SCH ×3 (07:43→20:44)
[2019-02-05] MEDS: APIXABAN 5 MG TABLET. PO SCH ×2 (07:43→20:41)
[2019-02-05] MEDS: LOSARTAN 50 MG TABLET. PO SCH (07:44)
[2019-02-05] MEDS: CHOLECALCIFEROL (VITAMIN D3) 50,000 UNIT CAPSULE PO SCH (07:46)
[2019-02-05] MEDS: BUDESONIDE 0.5 MG/2 ML NEBU NEB SCH ×2 (09:41→20:06)
[2019-02-05 16:19] VITALS: BP 114/72
[2019-02-05] MEDS: DIVALPROEX 125 MG CAP.SPRINK PO SCH (20:41)
[2019-02-05] MEDS: ATORVASTATIN CALCIUM 20 MG TABLET PO SCH (20:41)
[2019-02-05] MEDS: MIRTAZAPINE 7.5 MG TABLET. PO SCH (20:41)
[2019-02-05] MEDS: ASPIRIN ENTERIC COATED 81 MG TABLET.DR. PO SCH (20:41)
[2019-02-05] MEDS: risperiDONE 1 MG TABLET. PO SCH (20:42)
[2019-02-05] MEDS: POTASSIUM CHLORIDE 20 MEQ TABLET.ER. PO SCH (20:43)
[2019-02-05] MEDS: TAMSULOSIN 0.4 MG CAP.ER.24H. PO SCH (20:43)
[2019-02-05] MEDS: MELATONIN 3 MG TABLET PO SCH (20:43)
--- NOTE | 2019-02-05 22:08 | PDOC ---
Exam Note: Brian Note: Please also refer to the separate dictated note~for this date of service dictated separately.~Patient seen individually. Discussed the patient with Nursing staff reviewed the chart.~Reviewed interim history and current functioning. Reviewed vital signs,~Labs/ Radiology~and current medications noted below. Continue current treatment with the changes noted in the dictated addendum note Assessment: Vital Signs/I&O: Vital Signs Date Time Temp Pulse Resp B/P (MAP) Pulse Ox O2 Delivery O2 Flow Rate FiO2 02/05/19 20:44 66 161/84 02/05/19 20:13 97 Room Air 02/05/19 16:19 98.5 18 I & O 02/04/19 02/04/19 02/05/19 15:00 23:00 07:00 Intake Total 560 ml 120 ml 120 ml Balance 560 ml 120 ml 120 ml Current Medications: I have reviewed the current psychotropics carefully including drug interactions. Risk benefit ratio favors no change other than as noted in my dictated progress note. Diagnosis: Problems: (1) Major neurocognitive disorder (2) Post traumatic stress disorder (3) Anxiety disorder (4) Dementia in Alzheimer's disease with delusions (5) Dementia in Alzheimer's disease with depression (6) Dementia, vascular, with delusions (7) Dementia, vascular, with depression (8) Impulse control disorder EILEEN CHAVEZ MD Feb 05, 2019 22:08
--- NOTE | 2019-02-06 03:13 | PN ---
DATE: 02/04/2019 PSYCHIATRIC PROGRESS NOTE This is a late entry 02/04/2019 covers elements not covered in my initial note. SUBJECTIVE: I met with the patient in the evening. The patient slept 6-1/4 hours previous night per [place] Finnegan. The patient has been disorganized, joking, standing outside the nursing station glass window. He was confused, poured water into his medication cup oblivious of what he was doing. He needs cuing for his medications. REVIEW OF SYSTEMS: No CV, , pulmonary, eye, ENT system symptoms on review. Reliability poor. MENTAL STATUS EXAM: Oriented to himself. Insight, judgment, recent and remote memory, attention, concentration, fund of knowledge poor, consistent with his diagnosis mentioned in my initial note. PLAN: No change from initial note. MAN Yvon CHAVEZ MD DR: JEANIE/zheng JOB#: [id number] / [id number]
[2019-02-06 05:45] VITALS: BP 154/84
[2019-02-06] MEDS: LEVOTHYROXINE 25 MCG TABLET. PO SCH (05:55)
[2019-02-06] MEDS: POLYETHYLENE GLYCOL 3350 17 GM PACKET. PO SCH (07:46)
[2019-02-06] MEDS: PRAZOSIN 1 MG CAPSULE. PO SCH ×3 (07:47→19:18)
[2019-02-06] MEDS: SERTRALINE 100 MG TABLET. PO SCH (07:48)
[2019-02-06] MEDS: FINASTERIDE 5 MG TABLET PO SCH (07:48)
[2019-02-06] MEDS: FUROSEMIDE 20 MG TABLET PO SCH (07:49)
[2019-02-06] MEDS: CARVEDILOL 12.5 MG TABLET PO SCH ×2 (07:49→17:20)
[2019-02-06] MEDS: DONEPEZIL HCL 10 MG TABLET PO SCH (07:51)
[2019-02-06] MEDS: LOSARTAN 50 MG TABLET. PO SCH (07:51)
[2019-02-06] MEDS: DOCUSATE SODIUM 100 MG CAPSULE PO SCH (07:51)
[2019-02-06] MEDS: PANTOPRAZOLE 40 MG TABLET. PO SCH ×2 (07:52→17:20)
[2019-02-06] MEDS: APIXABAN 5 MG TABLET. PO SCH ×2 (07:52→19:17)
[2019-02-06] MEDS: MEMANTINE 10 MG TABLET. PO SCH ×2 (07:52→19:18)
[2019-02-06] MEDS: BUDESONIDE 0.5 MG/2 ML NEBU NEB SCH ×2 (10:07→20:22)
[2019-02-06 16:00] VITALS: BP 156/96
[2019-02-06] MEDS: ASPIRIN ENTERIC COATED 81 MG TABLET.DR. PO SCH (19:16)
[2019-02-06] MEDS: MELATONIN 3 MG TABLET PO SCH (19:16)
[2019-02-06] MEDS: DIVALPROEX 125 MG CAP.SPRINK PO SCH (19:17)
[2019-02-06] MEDS: TAMSULOSIN 0.4 MG CAP.ER.24H. PO SCH (19:17)
[2019-02-06] MEDS: ATORVASTATIN CALCIUM 20 MG TABLET PO SCH (19:18)
[2019-02-06] MEDS: POTASSIUM CHLORIDE 20 MEQ TABLET.ER. PO SCH (19:18)
[2019-02-06] MEDS: MIRTAZAPINE 7.5 MG TABLET. PO SCH (19:18)
[2019-02-06] MEDS: risperiDONE 1 MG TABLET. PO SCH (19:19)
--- NOTE | 2019-02-06 21:24 | PDOC ---
Exam Note: Brian Note: Please also refer to the separate dictated note~for this date of service dictated separately.~Patient seen individually. Discussed the patient with Nursing staff reviewed the chart.~Reviewed interim history and current functioning. Reviewed vital signs,~Labs/ Radiology~and current medications noted below. Continue current treatment with the changes noted in the dictated addendum note Assessment: Vital Signs/I&O: Vital Signs Date Time Temp Pulse Resp B/P (MAP) Pulse Ox O2 Delivery O2 Flow Rate FiO2 02/06/19 20:22 95 Room Air 02/06/19 19:18 69 156/96 02/06/19 16:00 97.5 16 I & O 02/05/19 02/05/19 02/06/19 14:59 22:59 06:59 Intake Total 600 ml 480 ml 120 ml Balance 600 ml 480 ml 120 ml Current Medications: I have reviewed the current psychotropics carefully including drug interactions. Risk benefit ratio favors no change other than as noted in my dictated progress note. Diagnosis: Problems: (1) Major neurocognitive disorder (2) Post traumatic stress disorder (3) Anxiety disorder (4) Dementia in Alzheimer's disease with delusions (5) Dementia in Alzheimer's disease with depression (6) Dementia, vascular, with delusions (7) Dementia, vascular, with depression (8) Impulse control disorder EILEEN CHAVEZ MD Feb 06, 2019 21:24
--- NOTE | 2019-02-07 03:19 | PN ---
DATE: 02/05/2019 PSYCHIATRIC PROGRESS NOTE This late entry 02/05/2019 covers elements not covered in my initial note. SUBJECTIVE: I met with the patient evening of 02/05/2019. The patient slept 6-1/2 hours previous night. Luis Riley RN. the patient is compliant with his medication. No behaviors noted. REVIEW OF SYSTEMS: No CV, , pulmonary, eye, ENT system symptoms on review. Reliability poor. MENTAL STATUS EXAM: Oriented to himself. Insight, judgment, recent and remote memory, attention, concentration, fund of knowledge poor, consistent with his diagnosis mentioned in my initial note. PLAN: No change from initial note. MAN Yvon CHAVEZ MD DR: JEANIE/zheng JOB#: [id number] / [id number]
[2019-02-07 05:33] VITALS: BP 183/95
[2019-02-07] MEDS: LEVOTHYROXINE 25 MCG TABLET. PO SCH (05:57)
[2019-02-07] MEDS: POLYETHYLENE GLYCOL 3350 17 GM PACKET. PO SCH (07:51)
[2019-02-07] MEDS: DOCUSATE SODIUM 100 MG CAPSULE PO SCH (07:52)
[2019-02-07] MEDS: SERTRALINE 100 MG TABLET. PO SCH (07:52)
[2019-02-07] MEDS: LOSARTAN 50 MG TABLET. PO SCH (07:52)
[2019-02-07] MEDS: DONEPEZIL HCL 10 MG TABLET PO SCH (07:53)
[2019-02-07] MEDS: PRAZOSIN 1 MG CAPSULE. PO SCH ×3 (07:53→19:46)
[2019-02-07] MEDS: FUROSEMIDE 20 MG TABLET PO SCH (07:53)
[2019-02-07] MEDS: PANTOPRAZOLE 40 MG TABLET. PO SCH ×2 (07:53→17:35)
[2019-02-07] MEDS: FINASTERIDE 5 MG TABLET PO SCH (07:54)
[2019-02-07] MEDS: MEMANTINE 10 MG TABLET. PO SCH ×2 (07:54→19:47)
[2019-02-07] MEDS: CARVEDILOL 12.5 MG TABLET PO SCH ×2 (07:54→17:35)
[2019-02-07] MEDS: APIXABAN 5 MG TABLET. PO SCH ×2 (07:54→19:47)
[2019-02-07] MEDS: BUDESONIDE 0.5 MG/2 ML NEBU NEB SCH ×2 (10:48→20:00)
[2019-02-07 16:38] VITALS: BP 163/88
[2019-02-07] MEDS: risperiDONE 1 MG TABLET. PO SCH (19:46)
[2019-02-07] MEDS: DIVALPROEX 125 MG CAP.SPRINK PO SCH (19:46)
[2019-02-07] MEDS: ASPIRIN ENTERIC COATED 81 MG TABLET.DR. PO SCH (19:47)
[2019-02-07] MEDS: ATORVASTATIN CALCIUM 20 MG TABLET PO SCH (19:47)
[2019-02-07] MEDS: TAMSULOSIN 0.4 MG CAP.ER.24H. PO SCH (19:47)
[2019-02-07] MEDS: POTASSIUM CHLORIDE 20 MEQ TABLET.ER. PO SCH (19:47)
[2019-02-07] MEDS: MELATONIN 3 MG TABLET PO SCH (19:47)
[2019-02-07] MEDS: MIRTAZAPINE 7.5 MG TABLET. PO SCH (19:47)
--- NOTE | 2019-02-07 21:43 | PDOC ---
Exam Note: Brian Note: Please also refer to the separate dictated note~for this date of service dictated separately.~Patient seen individually. Discussed the patient with Nursing staff reviewed the chart.~Reviewed interim history and current functioning. Reviewed vital signs,~Labs/ Radiology~and current medications noted below. Continue current treatment with the changes noted in the dictated addendum note Assessment: Vital Signs/I&O: Vital Signs Date Time Temp Pulse Resp B/P (MAP) Pulse Ox O2 Delivery O2 Flow Rate FiO2 02/07/19 20:06 98 Room Air 02/07/19 19:47 61 163/88 02/07/19 16:38 97.8 18 96.0 I & O 02/06/19 02/06/19 02/07/19 15:00 23:00 07:00 Intake Total 840 ml 240 ml Balance 840 ml 240 ml Current Medications: I have reviewed the current psychotropics carefully including drug interactions. Risk benefit ratio favors no change other than as noted in my dictated progress note. Diagnosis: Problems: (1) Major neurocognitive disorder (2) Post traumatic stress disorder (3) Anxiety disorder (4) Dementia in Alzheimer's disease with delusions (5) Dementia in Alzheimer's disease with depression (6) Dementia, vascular, with delusions (7) Dementia, vascular, with depression (8) Impulse control disorder EILEEN CHAVEZ MD Feb 07, 2019 21:43
[2019-02-08] MEDS: LEVOTHYROXINE 25 MCG TABLET. PO SCH (05:14)
[2019-02-08 05:47] VITALS: BP 156/89
[2019-02-08 07:00] LABS: BASO # 0.1 x10^3/uL (0.0-0.2); BASO % 1 % (0-3); EOS # 0.6 x10^3/uL (0.0-0.7); EOS % 10 % (0-3); HEMATOCRIT 41.4 % (39.0-53.0); HEMOGLOBIN 13.7 g/dL (13.0-17.5); LYMPH # 1.7 x10^3/uL (1.0-4.8); LYMPH % 28 % (24-48); MEAN CORPUSCULAR HEMOGLOBIN 31 pg (25-35); MEAN CORPUSCULAR HGB CONC 33 g/dL (31-37); MEAN CORPUSCULAR VOLUME 94 fL (79-100); MONO # 0.7 x10^3/uL (0.0-1.1); MONO % 12 % (0-9); NEUT # 2.9 x10^3uL (1.8-7.7); NEUT % 49 % (31-73); PLATELET COUNT 191 x10^3/uL (140-400); RED BLOOD COUNT 4.39 x10^6/uL (4.30-5.70); RED CELL DISTRIBUTION WIDTH 14.3 % (11.5-14.5); WHITE BLOOD COUNT 5.9 x10^3/uL (4.0-11.0)
[2019-02-08 07:30] LABS: ALBUMIN 3.2 g/dL (3.4-5.0); ALBUMIN/GLOBULIN RATIO 0.7 (1.0-1.7); CALCIUM 10.6 mg/dL (8.5-10.1); CREATININE 1.3 mg/dL (0.7-1.3); GFR 54.3; TOTAL BILIRUBIN 0.3 mg/dL (0.2-1.0); TOTAL PROTEIN 7.5 g/dL (6.4-8.2)
[2019-02-08] MEDS: FUROSEMIDE 20 MG TABLET PO SCH (07:51)
[2019-02-08] MEDS: DONEPEZIL HCL 10 MG TABLET PO SCH (07:51)
[2019-02-08] MEDS: POLYETHYLENE GLYCOL 3350 17 GM PACKET. PO SCH (07:51)
[2019-02-08] MEDS: MEMANTINE 10 MG TABLET. PO SCH ×2 (07:52→19:38)
[2019-02-08] MEDS: LOSARTAN 50 MG TABLET. PO SCH (07:52)
[2019-02-08] MEDS: DOCUSATE SODIUM 100 MG CAPSULE PO SCH (07:52)
[2019-02-08] MEDS: SERTRALINE 100 MG TABLET. PO SCH (07:52)
[2019-02-08] MEDS: APIXABAN 5 MG TABLET. PO SCH ×2 (07:53→19:38)
[2019-02-08] MEDS: FINASTERIDE 5 MG TABLET PO SCH (07:53)
[2019-02-08] MEDS: CARVEDILOL 12.5 MG TABLET PO SCH ×2 (07:53→17:00)
[2019-02-08] MEDS: PANTOPRAZOLE 40 MG TABLET. PO SCH ×2 (07:53→16:30)
[2019-02-08] MEDS: PRAZOSIN 1 MG CAPSULE. PO SCH ×3 (07:53→20:09)
[2019-02-08] MEDS: BUDESONIDE 0.5 MG/2 ML NEBU NEB SCH ×2 (09:44→20:00)
--- NOTE | 2019-02-08 16:07 | PN ---
DATE: 02/06/2019 This late entry, 02/06/2019, covers elements not covered in my initial note. SUBJECTIVE: I met with the patient evening of 02/06/2019. Per nursing report from [place] Finnegan, the patient slept 5-3/4 hours previous night. He remains disorganized, was not agitated, aggressive and PTSD. Episodes have remarkably improved. REVIEW OF SYSTEMS: No CV, , pulmonary, eye, ENT system symptoms on review. Reliability poor. MENTAL STATUS EXAM: Oriented to himself. Insight, judgment, recent and remote memory, attention, concentration, fund of knowledge poor, consistent with his diagnosis mentioned in my initial note. PLAN: No change from initial note for now. MAN Yvon CHAVEZ MD DR: JEANIE/zheng JOB#: [id number] / [id number]
[2019-02-08 16:14] VITALS: BP 136/82
--- NOTE | 2019-02-08 17:21 | PN ---
DATE: 02/07/2019 PSYCHIATRIC PROGRESS NOTE This late entry 02/07/2019 covers elements not covered in my initial note. SUBJECTIVE: I met with the patient evening of 02/07/2019. The patient was also staffed at a treatment team meeting with the entire team morning of 02/07/2019. The patient slept 8 hours previous night. Appetite 75-100%. The patient has been calm, cooperative, confused, cooperative with medications and assessment and care. REVIEW OF SYSTEMS: No CV, , pulmonary, eye, ENT system symptoms on review. Reliability poor. MENTAL STATUS EXAM: Oriented to himself. Insight, judgment, recent and remote memory, attention, concentration, fund of knowledge poor, consistent with his diagnosis. IMPRESSION: Major neurocognitive disorder, Alzheimer, vascular with delusion, depression, behavioral disturbance; anxiety disorder, unspecified; impulse control disorder, unspecified; posttraumatic stress disorder. PLAN: Continue psychotropics mentioned in my initial note. May need to increase prazosin in due course. EILEEN CHAVEZ MD DR: JEANIE/zheng JOB#: [id number] / [id number]
[2019-02-08] MEDS: MIRTAZAPINE 7.5 MG TABLET. PO SCH (19:37)
[2019-02-08] MEDS: ASPIRIN ENTERIC COATED 81 MG TABLET.DR. PO SCH (19:37)
[2019-02-08] MEDS: DIVALPROEX 125 MG CAP.SPRINK PO SCH (19:37)
[2019-02-08] MEDS: risperiDONE 1 MG TABLET. PO SCH (19:38)
[2019-02-08] MEDS: ATORVASTATIN CALCIUM 20 MG TABLET PO SCH (19:38)
[2019-02-08] MEDS: MELATONIN 3 MG TABLET PO SCH (19:38)
[2019-02-08] MEDS: POTASSIUM CHLORIDE 20 MEQ TABLET.ER. PO SCH (19:38)
[2019-02-08 20:06] VITALS: BP 178/99
[2019-02-08] MEDS: TAMSULOSIN 0.4 MG CAP.ER.24H. PO SCH (20:09)
--- NOTE | 2019-02-08 21:33 | PDOC ---
Exam Note: Brian Note: Please also refer to the separate dictated note~for this date of service dictated separately.~Patient seen individually. Discussed the patient with Nursing staff reviewed the chart.~Reviewed interim history and current functioning. Reviewed vital signs,~Labs/ Radiology~and current medications noted below. Continue current treatment with the changes noted in the dictated addendum note Assessment: Vital Signs/I&O: Vital Signs Date Time Temp Pulse Resp B/P (MAP) Pulse Ox O2 Delivery O2 Flow Rate FiO2 02/08/19 20:58 97 Room Air 02/08/19 20:09 70 178/99 02/08/19 20:06 97.8 16 02/07/19 16:38 96.0 I & O 02/07/19 02/07/19 02/08/19 15:00 23:00 07:00 Intake Total 960 ml 240 ml 60 ml Balance 960 ml 240 ml 60 ml Labs: Laboratory Tests Test 02/08/19 06:49 White Blood Count 5.9 x10^3/uL (4.0-11.0) Red Blood Count 4.39 x10^6/uL (4.30-5.70) Hemoglobin 13.7 g/dL (13.0-17.5) Hematocrit 41.4 % (39.0-53.0) Mean Corpuscular Volume 94 fL (79-100) Mean Corpuscular Hemoglobin 31 pg (25-35) Mean Corpuscular Hemoglobin Concent 33 g/dL (31-37) Red Cell Distribution Width 14.3 % (11.5-14.5) Platelet Count 191 x10^3/uL (140-400) Neutrophils (%) (Auto) 49 % (31-73) Lymphocytes (%) (Auto) 28 % (24-48) Monocytes (%) (Auto) 12 % (0-9) H Eosinophils (%) (Auto) 10 % (0-3) H Basophils (%) (Auto) 1 % (0-3) Neutrophils # (Auto) 2.9 x10^3uL (1.8-7.7) Lymphocytes # (Auto) 1.7 x10^3/uL (1.0-4.8) Monocytes # (Auto) 0.7 x10^3/uL (0.0-1.1) Eosinophils # (Auto) 0.6 x10^3/uL (0.0-0.7) Basophils # (Auto) 0.1 x10^3/uL (0.0-0.2) Sodium Level 143 mmol/L (136-145) Potassium Level 4.0 mmol/L (3.5-5.1) Chloride Level 106 mmol/L (98-107) Carbon Dioxide Level 34 mmol/L (21-32) H Anion Gap 3 (6-14) L Blood Urea Nitrogen 18 mg/dL (8-26) Creatinine 1.3 mg/dL (0.7-1.3) Estimated GFR (Cockcroft-Gault) 54.3 BUN/Creatinine Ratio 14 (6-20) Glucose Level 112 mg/dL (70-99) H Calcium Level 10.6 mg/dL (8.5-10.1) H Total Bilirubin 0.3 mg/dL (0.2-1.0) Aspartate Amino Transferase (AST) 21 U/L (15-37) Alanine Aminotransferase (ALT) 21 U/L (16-63) Alkaline Phosphatase 93 U/L (46-116) Total Protein 7.5 g/dL (6.4-8.2) Albumin 3.2 g/dL (3.4-5.0) L Albumin/Globulin Ratio 0.7 (1.0-1.7) L Current Medications: I have reviewed the current psychotropics carefully including drug interactions. Risk benefit ratio favors no change other than as noted in my dictated progress note. Diagnosis: Problems: (1) Major neurocognitive disorder (2) Post traumatic stress disorder (3) Anxiety disorder (4) Dementia in Alzheimer's disease with delusions (5) Dementia in Alzheimer's disease with depression (6) Dementia, vascular, with delusions (7) Dementia, vascular, with depression (8) Impulse control disorder EILEEN CHAVEZ MD Feb 08, 2019 21:33
[2019-02-09] MEDS: LEVOTHYROXINE 25 MCG TABLET. PO SCH (05:33)
[2019-02-09 05:39] VITALS: BP 158/83
[2019-02-09] MEDS: BUDESONIDE 0.5 MG/2 ML NEBU NEB SCH ×2 (08:00→20:00)
[2019-02-09] MEDS: FUROSEMIDE 20 MG TABLET PO SCH (08:25)
[2019-02-09] MEDS: PANTOPRAZOLE 40 MG TABLET. PO SCH ×2 (08:25→16:30)
[2019-02-09] MEDS: CARVEDILOL 12.5 MG TABLET PO SCH ×2 (08:25→17:00)
[2019-02-09] MEDS: POLYETHYLENE GLYCOL 3350 17 GM PACKET. PO SCH (08:25)
[2019-02-09] MEDS: APIXABAN 5 MG TABLET. PO SCH ×2 (08:26→19:39)
[2019-02-09] MEDS: DOCUSATE SODIUM 100 MG CAPSULE PO SCH (08:26)
[2019-02-09] MEDS: PRAZOSIN 1 MG CAPSULE. PO SCH ×3 (08:26→19:38)
[2019-02-09] MEDS: MEMANTINE 10 MG TABLET. PO SCH ×2 (08:26→19:37)
[2019-02-09] MEDS: DONEPEZIL HCL 10 MG TABLET PO SCH (08:27)
[2019-02-09] MEDS: FINASTERIDE 5 MG TABLET PO SCH (08:27)
[2019-02-09] MEDS: LOSARTAN 50 MG TABLET. PO SCH (08:28)
[2019-02-09] MEDS: SERTRALINE 100 MG TABLET. PO SCH (08:29)
[2019-02-09 15:36] VITALS: BP 150/96
[2019-02-09 19:36] VITALS: BP 160/87
[2019-02-09] MEDS: MIRTAZAPINE 7.5 MG TABLET. PO SCH (19:37)
[2019-02-09] MEDS: DIVALPROEX 125 MG CAP.SPRINK PO SCH (19:39)
[2019-02-09] MEDS: POTASSIUM CHLORIDE 20 MEQ TABLET.ER. PO SCH (19:39)
[2019-02-09] MEDS: risperiDONE 1 MG TABLET. PO SCH (19:39)
[2019-02-09] MEDS: ASPIRIN ENTERIC COATED 81 MG TABLET.DR. PO SCH (19:39)
[2019-02-09] MEDS: ATORVASTATIN CALCIUM 20 MG TABLET PO SCH (19:39)
[2019-02-09] MEDS: MELATONIN 3 MG TABLET PO SCH (19:39)
[2019-02-09] MEDS: TAMSULOSIN 0.4 MG CAP.ER.24H. PO SCH (19:39)
--- NOTE | 2019-02-09 19:51 | PN ---
DATE: 02/08/2019 PSYCHIATRIC PROGRESS NOTE This late entry of 02/08/2019 covers elements not covered in my initial note. SUBJECTIVE: I met with the patient in the evening of 02/08/2019. Per [place] Salgado, the patient slept 6-1/4 hours previous night. He remains confused, but not aggressive and some of the extreme violent behaviors as part of his PTSD symptoms have not resurfaced in a while. REVIEW OF SYSTEMS: No CV, , pulmonary, eye, ENT system symptoms on review. MENTAL STATUS EXAM: Oriented to himself. Insight, judgment, recent and remote memory, attention, concentration, fund of knowledge poor, consistent with his diagnosis mentioned in my initial note. PLAN: No change from initial note. MAN Yvon CHAVEZ MD DR: JEANIE/zheng JOB#: [id number] / [id number]
--- NOTE | 2019-02-09 21:49 | PDOC ---
Exam Note: Brian Note: Please also refer to the separate dictated note~for this date of service dictated separately.~Patient seen individually. Discussed the patient with Nursing staff reviewed the chart.~Reviewed interim history and current functioning. Reviewed vital signs,~Labs/ Radiology~and current medications noted below. Continue current treatment with the changes noted in the dictated addendum note Assessment: Vital Signs/I&O: Vital Signs Date Time Temp Pulse Resp B/P (MAP) Pulse Ox O2 Delivery O2 Flow Rate FiO2 02/09/19 20:20 94 Room Air 02/09/19 19:38 72 160/87 02/09/19 19:36 16 02/09/19 15:36 97.4 02/07/19 16:38 96.0 I & O 02/08/19 02/08/19 02/09/19 15:00 23:00 07:00 Intake Total 480 ml 580 ml Balance 480 ml 580 ml Current Medications: I have reviewed the current psychotropics carefully including drug interactions. Risk benefit ratio favors no change other than as noted in my dictated progress note. Diagnosis: Problems: (1) Major neurocognitive disorder (2) Post traumatic stress disorder (3) Anxiety disorder (4) Dementia in Alzheimer's disease with delusions (5) Dementia in Alzheimer's disease with depression (6) Dementia, vascular, with delusions (7) Dementia, vascular, with depression (8) Impulse control disorder EILEEN CHAVEZ MD Feb 09, 2019 21:49
[2019-02-10] MEDS: ACETAMINOPHEN 325 MG TABLET PO PRN (06:08)
[2019-02-10] MEDS: LEVOTHYROXINE 25 MCG TABLET. PO SCH (06:09)
[2019-02-10 06:33] VITALS: BP 179/89
[2019-02-10] MEDS: APIXABAN 5 MG TABLET. PO SCH ×2 (07:35→20:16)
[2019-02-10] MEDS: FINASTERIDE 5 MG TABLET PO SCH (07:35)
[2019-02-10] MEDS: POLYETHYLENE GLYCOL 3350 17 GM PACKET. PO SCH (07:35)
[2019-02-10] MEDS: DOCUSATE SODIUM 100 MG CAPSULE PO SCH (07:36)
[2019-02-10] MEDS: MEMANTINE 10 MG TABLET. PO SCH ×2 (07:36→20:15)
[2019-02-10] MEDS: CARVEDILOL 12.5 MG TABLET PO SCH ×2 (07:36→17:00)
[2019-02-10] MEDS: DONEPEZIL HCL 10 MG TABLET PO SCH (07:36)
[2019-02-10] MEDS: PRAZOSIN 1 MG CAPSULE. PO SCH ×3 (07:37→20:14)
[2019-02-10] MEDS: SERTRALINE 100 MG TABLET. PO SCH (07:37)
[2019-02-10] MEDS: FUROSEMIDE 20 MG TABLET PO SCH (07:37)
[2019-02-10] MEDS: LOSARTAN 50 MG TABLET. PO SCH (07:37)
[2019-02-10] MEDS: PANTOPRAZOLE 40 MG TABLET. PO SCH ×2 (07:37→16:30)
[2019-02-10] MEDS: BUDESONIDE 0.5 MG/2 ML NEBU NEB SCH ×2 (08:00→20:00)
[2019-02-10 16:13] VITALS: BP 145/90
[2019-02-10] MEDS: ATORVASTATIN CALCIUM 20 MG TABLET PO SCH (20:14)
[2019-02-10] MEDS: ASPIRIN ENTERIC COATED 81 MG TABLET.DR. PO SCH (20:14)
[2019-02-10] MEDS: POTASSIUM CHLORIDE 20 MEQ TABLET.ER. PO SCH (20:15)
[2019-02-10] MEDS: TAMSULOSIN 0.4 MG CAP.ER.24H. PO SCH (20:15)
[2019-02-10] MEDS: risperiDONE 1 MG TABLET. PO SCH (20:16)
[2019-02-10] MEDS: MELATONIN 3 MG TABLET PO SCH (20:16)
[2019-02-10] MEDS: DIVALPROEX 125 MG CAP.SPRINK PO SCH (20:17)
[2019-02-10] MEDS: MIRTAZAPINE 7.5 MG TABLET. PO SCH (20:17)
--- NOTE | 2019-02-11 02:44 | PN ---
DATE: 02/10/2019 SUBJECTIVE: The patient was seen today, met with the staff, chart reviewed and also covering for Dr. Mata. Staff reports the patient is still anxious and increased agitation and also problems with his gait. OBSERVATION: VITAL SIGNS: Temperature 96.9, blood pressure 179/89, pulse 64, respirations 20, O2 sat 93%. Slept about 7 hours last night. The patient's appetite is fair. The patient continues to have periods he gets confused and also having problems with his thinking, mostly circumstantial and also exhibiting high level of anxiety and also increased psychomotor agitation. The patient apparently wanting to stay on his prazosin for his PTSD. The patient has been compliant with the treatment. LABORATORY DATA: The patient's lab reviewed and no significant change from prior levels. MEDICATIONS: The patient's current medications include Namenda 10 mg b.i.d., prazosin 3 mg b.i.d. and 2 mg at night, Risperdal 1.5 mg at night, Aricept 10 mg daily, Depakote 1000 mg at night, trazodone 50 mg at night p.r.n., mirtazapine 7.5 mg at night, melatonin 3 mg at night, Zoloft 50 mg daily and also on olanzapine 2.5 mg q. 2 hours p.r.n. The patient currently not exhibiting any side effects to medications. ASSESSMENT: 1. Major neurocognitive disorder, Alzheimer's, vascular with delusions, depression, and behavioral disturbances. 2. Posttraumatic stress disorder. 3. Anxiety disorder, unspecified. 4. Impulse control disorder, unspecified. PLAN: To continue with the current treatment plan. The patient currently not exhibiting any side effects to the medications. MUSHTAQ RANDOLPH MD DR: CARLI/zheng JOB#: [id number] / [id number] LIVIA
[2019-02-11 05:29] VITALS: BP 175/98
[2019-02-11] MEDS: LEVOTHYROXINE 25 MCG TABLET. PO SCH (05:33)
[2019-02-11] MEDS: FINASTERIDE 5 MG TABLET PO SCH (07:40)
[2019-02-11] MEDS: MEMANTINE 10 MG TABLET. PO SCH ×2 (07:40→19:41)
[2019-02-11] MEDS: LOSARTAN 50 MG TABLET. PO SCH (07:41)
[2019-02-11] MEDS: DOCUSATE SODIUM 100 MG CAPSULE PO SCH (07:41)
[2019-02-11] MEDS: CARVEDILOL 12.5 MG TABLET PO SCH ×2 (07:42→17:02)
[2019-02-11] MEDS: PRAZOSIN 1 MG CAPSULE. PO SCH ×3 (07:42→19:42)
[2019-02-11] MEDS: APIXABAN 5 MG TABLET. PO SCH ×2 (07:43→19:44)
[2019-02-11] MEDS: SERTRALINE 100 MG TABLET. PO SCH (07:43)
[2019-02-11] MEDS: POLYETHYLENE GLYCOL 3350 17 GM PACKET. PO SCH (07:44)
[2019-02-11] MEDS: PANTOPRAZOLE 40 MG TABLET. PO SCH ×2 (07:44→17:03)
[2019-02-11] MEDS: FUROSEMIDE 20 MG TABLET PO SCH (07:44)
[2019-02-11] MEDS: DONEPEZIL HCL 10 MG TABLET PO SCH (07:44)
[2019-02-11] MEDS: BUDESONIDE 0.5 MG/2 ML NEBU NEB SCH ×2 (10:40→20:33)
[2019-02-11 16:03] VITALS: BP 157/83
[2019-02-11] MEDS: MIRTAZAPINE 7.5 MG TABLET. PO SCH (19:40)
[2019-02-11] MEDS: DIVALPROEX 125 MG CAP.SPRINK PO SCH (19:41)
[2019-02-11] MEDS: POTASSIUM CHLORIDE 20 MEQ TABLET.ER. PO SCH (19:41)
[2019-02-11] MEDS: ATORVASTATIN CALCIUM 20 MG TABLET PO SCH (19:42)
[2019-02-11] MEDS: risperiDONE 1 MG TABLET. PO SCH (19:42)
[2019-02-11] MEDS: TAMSULOSIN 0.4 MG CAP.ER.24H. PO SCH (19:43)
[2019-02-11] MEDS: ASPIRIN ENTERIC COATED 81 MG TABLET.DR. PO SCH (19:43)
[2019-02-11] MEDS: MELATONIN 3 MG TABLET PO SCH (19:44)
[2019-02-12] MEDS: LEVOTHYROXINE 25 MCG TABLET. PO SCH (05:52)
[2019-02-12 06:00] VITALS: BP 142/68
--- NOTE | 2019-02-12 06:46 | PN ---
DATE: 02/11/2019 SUBJECTIVE: The patient was seen today, met with the staff, chart reviewed and also covering for Dr. Mata. Staff reports no major behavior problems. Still have increased anxiety, hyperverbal sometimes and also demanding and emotional lability but no evidence of any psychotic symptoms. OBSERVATION: VITAL SIGNS: Temperature 97.9, blood pressure 175/98, pulse 83, respirations 18, O2 sat 94%. GENERAL: Slept about 7 hours last night. The patient's appetite normal. MEDICATIONS: Reviewed. Currently on Namenda 10 mg b.i.d., prazosin 3 mg b.i.d. and 2 mg at night. He is also on Risperdal 1.5 mg at night, Aricept 10 mg daily, Depakote 1000 mg at night, trazodone 50 mg at night p.r.n., mirtazapine 7.5 mg at night, melatonin 3 mg at night and also Zoloft 50 mg daily. The patient is not having any major side effects. ASSESSMENT: 1. Major neurocognitive disorder, Alzheimer's, vascular with delusions, depression and behavioral disturbances. 2. Posttraumatic stress disorder. 3. Anxiety disorder, unspecified. 4. Impulse control disorder, unspecified. PLAN: To continue with the current treatment plan. The patient is awaiting for placement. MUSHTAQ RANDOLPH MD DR: CARLI/zheng JOB#: [id number] / [id number]
[2019-02-12] MEDS: BUDESONIDE 0.5 MG/2 ML NEBU NEB SCH ×2 (08:00→23:33)
[2019-02-12] MEDS: DONEPEZIL HCL 10 MG TABLET PO SCH (08:24)
[2019-02-12] MEDS: MEMANTINE 10 MG TABLET. PO SCH ×2 (08:24→19:50)
[2019-02-12] MEDS: CARVEDILOL 12.5 MG TABLET PO SCH ×2 (08:24→17:34)
[2019-02-12] MEDS: FINASTERIDE 5 MG TABLET PO SCH (08:24)
[2019-02-12] MEDS: PRAZOSIN 1 MG CAPSULE. PO SCH ×3 (08:25→19:51)
[2019-02-12] MEDS: POLYETHYLENE GLYCOL 3350 17 GM PACKET. PO SCH (08:25)
[2019-02-12] MEDS: DOCUSATE SODIUM 100 MG CAPSULE PO SCH (08:25)
[2019-02-12] MEDS: LOSARTAN 50 MG TABLET. PO SCH (08:26)
[2019-02-12] MEDS: PANTOPRAZOLE 40 MG TABLET. PO SCH ×2 (08:26→17:34)
[2019-02-12] MEDS: FUROSEMIDE 20 MG TABLET PO SCH (08:26)
[2019-02-12] MEDS: APIXABAN 5 MG TABLET. PO SCH ×2 (08:26→19:48)
[2019-02-12] MEDS: SERTRALINE 100 MG TABLET. PO SCH (08:26)
[2019-02-12] MEDS: CHOLECALCIFEROL (VITAMIN D3) 50,000 UNIT CAPSULE PO SCH (08:27)
[2019-02-12 16:17] VITALS: BP 170/83
[2019-02-12] MEDS: ATORVASTATIN CALCIUM 20 MG TABLET PO SCH (19:48)
[2019-02-12] MEDS: risperiDONE 1 MG TABLET. PO SCH (19:48)
[2019-02-12] MEDS: POTASSIUM CHLORIDE 20 MEQ TABLET.ER. PO SCH (19:49)
[2019-02-12] MEDS: ASPIRIN ENTERIC COATED 81 MG TABLET.DR. PO SCH (19:49)
[2019-02-12] MEDS: DIVALPROEX 125 MG CAP.SPRINK PO SCH (19:49)
[2019-02-12] MEDS: TAMSULOSIN 0.4 MG CAP.ER.24H. PO SCH (19:50)
[2019-02-12] MEDS: MIRTAZAPINE 7.5 MG TABLET. PO SCH (19:51)
[2019-02-12] MEDS: MELATONIN 3 MG TABLET PO SCH (19:51)
--- NOTE | 2019-02-12 21:45 | PDOC ---
Exam Note: Brian Note: Please also refer to the separate dictated note~for this date of service dictated separately.~Patient seen individually. Discussed the patient with Nursing staff reviewed the chart.~Reviewed interim history and current functioning. Reviewed vital signs,~Labs/ Radiology~and current medications noted below. Continue current treatment with the changes noted in the dictated addendum note Assessment: Vital Signs/I&O: Vital Signs Date Time Temp Pulse Resp B/P (MAP) Pulse Ox O2 Delivery O2 Flow Rate FiO2 02/12/19 19:51 58 170/83 02/12/19 16:17 97.7 16 92 02/12/19 11:32 Room Air 02/07/19 16:38 96.0 I & O 02/11/19 02/11/19 02/12/19 15:00 23:00 07:00 Intake Total 840 ml 840 ml Balance 840 ml 840 ml Current Medications: I have reviewed the current psychotropics carefully including drug interactions. Risk benefit ratio favors no change other than as noted in my dictated progress note. Diagnosis: Problems: (1) Major neurocognitive disorder (2) Post traumatic stress disorder (3) Anxiety disorder (4) Dementia in Alzheimer's disease with delusions (5) Dementia in Alzheimer's disease with depression (6) Dementia, vascular, with delusions (7) Dementia, vascular, with depression (8) Impulse control disorder EILEEN CHAVEZ MD Feb 12, 2019 21:45
--- NOTE | 2019-02-13 01:47 | PN ---
DATE: 02/09/2019 PSYCHIATRIC PROGRESS NOTE This late entry, 02/09, covers elements not covered in my initial note. SUBJECTIVE: The patient slept 7-1/4 hours previous night. At night, he was restless, but reasonable during the day per [place] Salgado. REVIEW OF SYSTEMS: No CV, , pulmonary, eye, ENT system symptoms on review. Reliability poor. MENTAL STATUS EXAM: Oriented to himself. Insight, judgment, recent and remote memory, attention, concentration, fund of knowledge poor, consistent with his diagnosis mentioned in my initial note. PLAN: No change from initial note. MAN Yvon CHAVEZ MD DR: JEANIE/zheng JOB#: [id number] / [id number]
[2019-02-13 04:48] VITALS: BP 117/77
[2019-02-13] MEDS: LEVOTHYROXINE 25 MCG TABLET. PO SCH (05:56)
[2019-02-13] MEDS: APIXABAN 5 MG TABLET. PO SCH ×2 (07:53→20:56)
[2019-02-13] MEDS: FUROSEMIDE 20 MG TABLET PO SCH (07:54)
[2019-02-13] MEDS: POLYETHYLENE GLYCOL 3350 17 GM PACKET. PO SCH (07:54)
[2019-02-13] MEDS: PRAZOSIN 1 MG CAPSULE. PO SCH ×3 (07:54→20:57)
[2019-02-13] MEDS: PANTOPRAZOLE 40 MG TABLET. PO SCH ×2 (07:55→16:57)
[2019-02-13] MEDS: FINASTERIDE 5 MG TABLET PO SCH (07:55)
[2019-02-13] MEDS: SERTRALINE 100 MG TABLET. PO SCH (07:55)
[2019-02-13] MEDS: DOCUSATE SODIUM 100 MG CAPSULE PO SCH (07:55)
[2019-02-13] MEDS: MEMANTINE 10 MG TABLET. PO SCH ×2 (07:55→20:56)
[2019-02-13] MEDS: DONEPEZIL HCL 10 MG TABLET PO SCH (07:56)
[2019-02-13] MEDS: CARVEDILOL 12.5 MG TABLET PO SCH ×2 (07:56→16:57)
[2019-02-13] MEDS: LOSARTAN 50 MG TABLET. PO SCH (07:56)
[2019-02-13] MEDS: BUDESONIDE 0.5 MG/2 ML NEBU NEB SCH ×2 (08:00→20:00)
[2019-02-13 16:13] VITALS: BP 138/90
[2019-02-13] MEDS: risperiDONE 1 MG TABLET. PO SCH (20:55)
[2019-02-13] MEDS: MIRTAZAPINE 7.5 MG TABLET. PO SCH (20:55)
[2019-02-13] MEDS: ASPIRIN ENTERIC COATED 81 MG TABLET.DR. PO SCH (20:56)
[2019-02-13] MEDS: ATORVASTATIN CALCIUM 20 MG TABLET PO SCH (20:56)
[2019-02-13] MEDS: MELATONIN 3 MG TABLET PO SCH (20:56)
[2019-02-13] MEDS: POTASSIUM CHLORIDE 20 MEQ TABLET.ER. PO SCH (20:56)
[2019-02-13] MEDS: TAMSULOSIN 0.4 MG CAP.ER.24H. PO SCH (20:56)
[2019-02-13] MEDS: DIVALPROEX 125 MG CAP.SPRINK PO SCH (20:57)
--- NOTE | 2019-02-13 21:49 | PDOC ---
Exam Note: Brian Note: Please also refer to the separate dictated note~for this date of service dictated separately.~Patient seen individually. Discussed the patient with Nursing staff reviewed the chart.~Reviewed interim history and current functioning. Reviewed vital signs,~Labs/ Radiology~and current medications noted below. Continue current treatment with the changes noted in the dictated addendum note Assessment: Vital Signs/I&O: Vital Signs Date Time Temp Pulse Resp B/P (MAP) Pulse Ox O2 Delivery O2 Flow Rate FiO2 02/13/19 20:57 84 156/83 02/13/19 16:13 98.3 16 94 02/13/19 11:51 Room Air 02/07/19 16:38 96.0 I & O 02/12/19 02/12/19 02/13/19 15:00 23:00 07:00 Intake Total 840 ml 600 ml Balance 840 ml 600 ml Current Medications: I have reviewed the current psychotropics carefully including drug interactions. Risk benefit ratio favors no change other than as noted in my dictated progress note. Diagnosis: Problems: (1) Major neurocognitive disorder (2) Post traumatic stress disorder (3) Anxiety disorder (4) Dementia in Alzheimer's disease with delusions (5) Dementia in Alzheimer's disease with depression (6) Dementia, vascular, with delusions (7) Dementia, vascular, with depression (8) Impulse control disorder EILEEN CHAVEZ MD Feb 13, 2019 21:49
[2019-02-13] MEDS: traZODone 50 MG TABLET. PO PRN (23:39)
--- NOTE | 2019-02-14 01:44 | PN ---
DATE: 02/12/2019 PSYCHIATRIC PROGRESS NOTE This late entry, 02/12/2019, covers elements not covered in my initial note. SUBJECTIVE: I met with the patient in the evening. The patient slept 7 hours previous night. He remains confused, but not agitated, aggressive and the paranoia and other symptoms of PTSD are significantly improved. Confusion persists. REVIEW OF SYSTEMS: No CV, , pulmonary, eye, ENT system symptoms on review. Reliability poor. MENTAL STATUS EXAM: Oriented to himself. Insight, judgment, recent and remote memory, attention, concentration, fund of knowledge poor, consistent with his diagnosis. Reviewed information with Dr. Sharpe, who covered for me for the past 2 days. IMPRESSION: Posttraumatic stress disorder, major neurocognitive disorder, Alzheimer, vascular with delusion, depression, behavioral disturbance. Rest unchanged. PLAN: No change from initial note. MAN Yvon CHAVEZ MD DR: JEANIE/zheng JOB#: [id number] / [id number]
[2019-02-14] MEDS: LEVOTHYROXINE 25 MCG TABLET. PO SCH (06:06)
[2019-02-14 06:13] VITALS: BP 147/81
[2019-02-14] MEDS: FUROSEMIDE 20 MG TABLET PO SCH (07:41)
[2019-02-14] MEDS: PRAZOSIN 1 MG CAPSULE. PO SCH ×3 (07:42→19:42)
[2019-02-14] MEDS: LOSARTAN 50 MG TABLET. PO SCH (07:42)
[2019-02-14] MEDS: MEMANTINE 10 MG TABLET. PO SCH ×2 (07:43→19:42)
[2019-02-14] MEDS: FINASTERIDE 5 MG TABLET PO SCH (07:43)
[2019-02-14] MEDS: DOCUSATE SODIUM 100 MG CAPSULE PO SCH (07:43)
[2019-02-14] MEDS: DONEPEZIL HCL 10 MG TABLET PO SCH (07:43)
[2019-02-14] MEDS: SERTRALINE 100 MG TABLET. PO SCH (07:43)
[2019-02-14] MEDS: CARVEDILOL 12.5 MG TABLET PO SCH ×2 (07:43→16:49)
[2019-02-14] MEDS: POLYETHYLENE GLYCOL 3350 17 GM PACKET. PO SCH (07:44)
[2019-02-14] MEDS: APIXABAN 5 MG TABLET. PO SCH ×2 (07:44→19:43)
[2019-02-14] MEDS: PANTOPRAZOLE 40 MG TABLET. PO SCH ×2 (07:44→16:49)
[2019-02-14 07:50] LABS: BASO % 1 % (0-3); EOS # 0.6 x10^3/uL (0.0-0.7); EOS % 10 % (0-3); HEMATOCRIT 42.4 % (39.0-53.0); HEMOGLOBIN 13.9 g/dL (13.0-17.5); LYMPH # 1.7 x10^3/uL (1.0-4.8); LYMPH % 30 % (24-48); MEAN CORPUSCULAR HEMOGLOBIN 31 pg (25-35); MEAN CORPUSCULAR HGB CONC 33 g/dL (31-37); MEAN CORPUSCULAR VOLUME 95 fL (79-100); MONO # 0.7 x10^3/uL (0.0-1.1); MONO % 13 % (0-9); NEUT # 2.6 x10^3uL (1.8-7.7); NEUT % 47 % (31-73); PLATELET COUNT 197 x10^3/uL (140-400); RED BLOOD COUNT 4.48 x10^6/uL (4.30-5.70); RED CELL DISTRIBUTION WIDTH 14.5 % (11.5-14.5); WHITE BLOOD COUNT 5.6 x10^3/uL (4.0-11.0)
[2019-02-14 07:56] LABS: ALBUMIN 3.2 g/dL (3.4-5.0); ALBUMIN/GLOBULIN RATIO 0.7 (1.0-1.7); CALCIUM 10.7 mg/dL (8.5-10.1); CREATININE 1.4 mg/dL (0.7-1.3); GFR 49.8; POTASSIUM 3.9 mmol/L (3.5-5.1); TOTAL BILIRUBIN 0.2 mg/dL (0.2-1.0); TOTAL PROTEIN 7.6 g/dL (6.4-8.2)
[2019-02-14] MEDS: BUDESONIDE 0.5 MG/2 ML NEBU NEB SCH ×2 (08:00→20:00)
[2019-02-14 17:27] VITALS: BP 145/84
[2019-02-14] MEDS: MIRTAZAPINE 7.5 MG TABLET. PO SCH (19:42)
[2019-02-14] MEDS: TAMSULOSIN 0.4 MG CAP.ER.24H. PO SCH (19:42)
[2019-02-14] MEDS: ATORVASTATIN CALCIUM 20 MG TABLET PO SCH (19:42)
[2019-02-14] MEDS: ASPIRIN ENTERIC COATED 81 MG TABLET.DR. PO SCH (19:42)
[2019-02-14] MEDS: POTASSIUM CHLORIDE 20 MEQ TABLET.ER. PO SCH (19:42)
[2019-02-14] MEDS: risperiDONE 1 MG TABLET. PO SCH (19:43)
[2019-02-14] MEDS: DIVALPROEX 125 MG CAP.SPRINK PO SCH (19:43)
[2019-02-14] MEDS: MELATONIN 3 MG TABLET PO SCH (19:47)
--- NOTE | 2019-02-14 21:50 | PDOC ---
Exam Note: Brian Note: Please also refer to the separate dictated note~for this date of service dictated separately.~Patient seen individually. Discussed the patient with Nursing staff reviewed the chart.~Reviewed interim history and current functioning. Reviewed vital signs,~Labs/ Radiology~and current medications noted below. Continue current treatment with the changes noted in the dictated addendum note Assessment: Vital Signs/I&O: Vital Signs Date Time Temp Pulse Resp B/P (MAP) Pulse Ox O2 Delivery O2 Flow Rate FiO2 02/14/19 19:44 65 145/84 02/14/19 17:27 97.8 16 94 Room Air I & O 02/13/19 02/13/19 02/14/19 15:00 23:00 07:00 Intake Total 240 ml 480 ml Output Total 850 ml Balance 240 ml -370 ml Labs: Laboratory Tests Test 02/14/19 07:11 White Blood Count 5.6 x10^3/uL (4.0-11.0) Red Blood Count 4.48 x10^6/uL (4.30-5.70) Hemoglobin 13.9 g/dL (13.0-17.5) Hematocrit 42.4 % (39.0-53.0) Mean Corpuscular Volume 95 fL (79-100) Mean Corpuscular Hemoglobin 31 pg (25-35) Mean Corpuscular Hemoglobin Concent 33 g/dL (31-37) Red Cell Distribution Width 14.5 % (11.5-14.5) Platelet Count 197 x10^3/uL (140-400) Neutrophils (%) (Auto) 47 % (31-73) Lymphocytes (%) (Auto) 30 % (24-48) Monocytes (%) (Auto) 13 % (0-9) H Eosinophils (%) (Auto) 10 % (0-3) H Basophils (%) (Auto) 1 % (0-3) Neutrophils # (Auto) 2.6 x10^3uL (1.8-7.7) Lymphocytes # (Auto) 1.7 x10^3/uL (1.0-4.8) Monocytes # (Auto) 0.7 x10^3/uL (0.0-1.1) Eosinophils # (Auto) 0.6 x10^3/uL (0.0-0.7) Basophils # (Auto) 0.0 x10^3/uL (0.0-0.2) Sodium Level 145 mmol/L (136-145) Potassium Level 3.9 mmol/L (3.5-5.1) Chloride Level 106 mmol/L (98-107) Carbon Dioxide Level 35 mmol/L (21-32) H Anion Gap 4 (6-14) L Blood Urea Nitrogen 27 mg/dL (8-26) H Creatinine 1.4 mg/dL (0.7-1.3) H Estimated GFR (Cockcroft-Gault) 49.8 BUN/Creatinine Ratio 19 (6-20) Glucose Level 118 mg/dL (70-99) H Calcium Level 10.7 mg/dL (8.5-10.1) H Total Bilirubin 0.2 mg/dL (0.2-1.0) Aspartate Amino Transferase (AST) 19 U/L (15-37) Alanine Aminotransferase (ALT) 19 U/L (16-63) Alkaline Phosphatase 87 U/L (46-116) Total Protein 7.6 g/dL (6.4-8.2) Albumin 3.2 g/dL (3.4-5.0) L Albumin/Globulin Ratio 0.7 (1.0-1.7) L Current Medications: I have reviewed the current psychotropics carefully including drug interactions. Risk benefit ratio favors no change other than as noted in my dictated progress note. Diagnosis: Problems: (1) Major neurocognitive disorder (2) Post traumatic stress disorder (3) Anxiety disorder (4) Dementia in Alzheimer's disease with delusions (5) Dementia in Alzheimer's disease with depression (6) Dementia, vascular, with delusions (7) Dementia, vascular, with depression (8) Impulse control disorder EILEEN CHAVEZ MD Feb 14, 2019 21:50
[2019-02-14] MEDS: traZODone 50 MG TABLET. PO PRN (21:53)
[2019-02-15] MEDS: LEVOTHYROXINE 25 MCG TABLET. PO SCH (05:17)
[2019-02-15 05:30] VITALS: BP 159/98
[2019-02-15] MEDS: FUROSEMIDE 20 MG TABLET PO SCH (07:49)
[2019-02-15] MEDS: DOCUSATE SODIUM 100 MG CAPSULE PO SCH (07:49)
[2019-02-15] MEDS: DONEPEZIL HCL 10 MG TABLET PO SCH (07:49)
[2019-02-15] MEDS: POLYETHYLENE GLYCOL 3350 17 GM PACKET. PO SCH (07:49)
[2019-02-15] MEDS: MEMANTINE 10 MG TABLET. PO SCH ×2 (07:49→19:33)
[2019-02-15] MEDS: LOSARTAN 50 MG TABLET. PO SCH (07:50)
[2019-02-15] MEDS: FINASTERIDE 5 MG TABLET PO SCH (07:50)
[2019-02-15] MEDS: APIXABAN 5 MG TABLET. PO SCH ×2 (07:50→19:34)
[2019-02-15] MEDS: CARVEDILOL 12.5 MG TABLET PO SCH ×2 (07:50→17:00)
[2019-02-15] MEDS: SERTRALINE 100 MG TABLET. PO SCH (07:50)
[2019-02-15] MEDS: PANTOPRAZOLE 40 MG TABLET. PO SCH ×2 (07:51→16:30)
[2019-02-15] MEDS: PRAZOSIN 1 MG CAPSULE. PO SCH ×3 (07:51→20:26)
[2019-02-15] MEDS: BUDESONIDE 0.5 MG/2 ML NEBU NEB SCH ×2 (11:05→20:00)
[2019-02-15 15:39] VITALS: BP 173/94
[2019-02-15] MEDS: TAMSULOSIN 0.4 MG CAP.ER.24H. PO SCH (19:32)
[2019-02-15] MEDS: DIVALPROEX 125 MG CAP.SPRINK PO SCH (19:32)
[2019-02-15] MEDS: ASPIRIN ENTERIC COATED 81 MG TABLET.DR. PO SCH (19:33)
[2019-02-15] MEDS: POTASSIUM CHLORIDE 20 MEQ TABLET.ER. PO SCH (19:33)
[2019-02-15] MEDS: ATORVASTATIN CALCIUM 20 MG TABLET PO SCH (19:33)
[2019-02-15] MEDS: MELATONIN 3 MG TABLET PO SCH (19:33)
[2019-02-15] MEDS: risperiDONE 1 MG TABLET. PO SCH (19:34)
[2019-02-15] MEDS: MIRTAZAPINE 7.5 MG TABLET. PO SCH (19:34)
[2019-02-15] MEDS: traZODone 100 MG TABLET. PO SCH (19:35)
[2019-02-15 20:01] VITALS: BP 182/90
--- NOTE | 2019-02-15 21:41 | PDOC ---
Exam Note: Brian Note: Please also refer to the separate dictated note~for this date of service dictated separately.~Patient seen individually. Discussed the patient with Nursing staff reviewed the chart.~Reviewed interim history and current functioning. Reviewed vital signs,~Labs/ Radiology~and current medications noted below. Continue current treatment with the changes noted in the dictated addendum note Assessment: Vital Signs/I&O: Vital Signs Date Time Temp Pulse Resp B/P (MAP) Pulse Ox O2 Delivery O2 Flow Rate FiO2 02/15/19 20:26 65 182/90 02/15/19 20:05 95 Room Air 02/15/19 15:39 97.9 16 I & O 02/14/19 02/14/19 02/15/19 15:00 23:00 07:00 Intake Total 720 ml 480 ml Balance 720 ml 480 ml Current Medications: Meds: Current Medications Medications (Trade) Dose Ordered Sig/Jose David Route PRN Reason Start Time Stop Time Status Last Admin Dose Admin Trazodone HCl (Desyrel) 100 mg QHS PO 02/15/19 21:00 02/15/19 19:35 I have reviewed the current psychotropics carefully including drug interactions. Risk benefit ratio favors no change other than as noted in my dictated progress note. Diagnosis: Problems: (1) Anxiety disorder (2) Dementia in Alzheimer's disease with delusions (3) Dementia in Alzheimer's disease with depression (4) Dementia, vascular, with delusions (5) Dementia, vascular, with depression (6) Impulse control disorder (7) Major neurocognitive disorder EILEEN CHAVEZ MD Feb 15, 2019 21:41
--- NOTE | 2019-02-16 00:15 | PN ---
DATE: 02/13/2019 PSYCHIATRIC PROGRESS NOTE This late entry 02/13/2019 covers elements not covered in my initial note. SUBJECTIVE: I met with the patient evening of 02/13/2019. Overall, patient slept 7 hours previous night. He remains confused, somewhat anxious, but no overt hallucinations, suicidal or homicidal ideation. REVIEW OF SYSTEMS: No CV, , pulmonary, eye, ENT system symptoms on review. Reliability poor. He followed me around the unit as he normally does part of his anxiety, disorientation. MENTAL STATUS EXAM: Oriented to himself. Insight, judgment, recent and remote memory, attention, concentration, fund of knowledge poor, consistent with his diagnosis mentioned in my initial note. PLAN: No change from initial note. MAN Yvon CHAVEZ MD DR: JEANIE/zheng JOB#: [id number] / [id number]
--- NOTE | 2019-02-16 00:41 | PN ---
DATE: 02/14/2019 PSYCHIATRIC PROGRESS NOTE This late entry, 02/14, covers elements not covered in my initial note. SUBJECTIVE: I met with the patient evening of 02/14 and staffed at a treatment team meeting with the entire team in the morning. The patient slept 6-1/4 hours previous night. Appetite 75-100%. He remains confused, disorganized, does interact socially. His is looking at [facility] or [facility], [facility] per social service report. REVIEW OF SYSTEMS: No CV, , pulmonary, eye system symptoms on review. Reliability poor. MENTAL STATUS EXAM: Oriented to himself. Insight, judgment, recent and remote memory, attention, concentration, fund of knowledge poor, consistent with his diagnosis. Reviewed his history, diagnosis, progress, current psychotropics, drug interactions, discharge plans at length at the treatment team meeting. LABORATORY DATA: Reviewed. IMPRESSION: Major neurocognitive disorder; Alzheimer, vascular with delusion; depression; behavioral disturbance; anxiety disorder, unspecified; impulse control disorder, unspecified; posttraumatic stress disorder. PLAN: Continue psychotropics mentioned in my initial note, Zoloft, Aricept, Namenda, melatonin, Depakote with a level that is therapeutic at 50, Zyprexa p.r.n., prazosin for his PTSD, Risperdal, Remeron, along with trazodone and Ativan. The latter two are p.r.n. MAN Yvon CHAVEZ MD DR: JEANIE/zheng JOB#: [id number] / [id number]
[2019-02-16] MEDS: LEVOTHYROXINE 25 MCG TABLET. PO SCH (05:17)
[2019-02-16 06:22] VITALS: BP 152/97
[2019-02-16] MEDS: POLYETHYLENE GLYCOL 3350 17 GM PACKET. PO SCH (07:16)
[2019-02-16] MEDS: PANTOPRAZOLE 40 MG TABLET. PO SCH ×2 (07:17→16:30)
[2019-02-16] MEDS: FINASTERIDE 5 MG TABLET PO SCH (07:17)
[2019-02-16] MEDS: PRAZOSIN 1 MG CAPSULE. PO SCH ×3 (07:17→20:11)
[2019-02-16] MEDS: MEMANTINE 10 MG TABLET. PO SCH ×2 (07:17→20:11)
[2019-02-16] MEDS: FUROSEMIDE 20 MG TABLET PO SCH (07:18)
[2019-02-16] MEDS: APIXABAN 5 MG TABLET. PO SCH ×2 (07:18→20:10)
[2019-02-16] MEDS: SERTRALINE 100 MG TABLET. PO SCH (07:18)
[2019-02-16] MEDS: CARVEDILOL 12.5 MG TABLET PO SCH ×2 (07:18→17:00)
[2019-02-16] MEDS: DONEPEZIL HCL 10 MG TABLET PO SCH (07:18)
[2019-02-16] MEDS: DOCUSATE SODIUM 100 MG CAPSULE PO SCH (07:19)
[2019-02-16] MEDS: LOSARTAN 50 MG TABLET. PO SCH (07:19)
[2019-02-16] MEDS: BUDESONIDE 0.5 MG/2 ML NEBU NEB SCH ×2 (08:00→20:00)
[2019-02-16 16:03] VITALS: BP 154/87
--- NOTE | 2019-02-16 16:50 | PN ---
DATE: 02/15/2019 This note covers elements not covered in my initial note 02/15. SUBJECTIVE: The patient was seen on rounds evening of 02/15. Discussed with [place] Salgado, reviewed the chart. The patient slept 5-1/4 hours previous night. He remains confused, but less anxious, agitated, not aggressive, not disruptive for having the hallucinations or flashbacks of his PTSD like he did several days ago. REVIEW OF SYSTEMS: No CV, , pulmonary, eye, ENT system symptoms on review. Reliability poor. MENTAL STATUS EXAM: Oriented to himself. Insight, judgment, recent and remote memory, attention, concentration, fund of knowledge poor, consistent with his diagnosis mentioned in my initial note. PLAN: No change from initial note. MAN Yvon CHAVEZ MD DR: JEANIE/zheng JOB#: [id number] / [id number]
[2019-02-16] MEDS: ASPIRIN ENTERIC COATED 81 MG TABLET.DR. PO SCH (20:08)
[2019-02-16] MEDS: DIVALPROEX 125 MG CAP.SPRINK PO SCH (20:09)
[2019-02-16] MEDS: traZODone 100 MG TABLET. PO SCH (20:09)
[2019-02-16] MEDS: ATORVASTATIN CALCIUM 20 MG TABLET PO SCH (20:10)
[2019-02-16] MEDS: TAMSULOSIN 0.4 MG CAP.ER.24H. PO SCH (20:10)
[2019-02-16] MEDS: POTASSIUM CHLORIDE 20 MEQ TABLET.ER. PO SCH (20:10)
[2019-02-16] MEDS: MELATONIN 3 MG TABLET PO SCH (20:10)
[2019-02-16] MEDS: MIRTAZAPINE 7.5 MG TABLET. PO SCH (20:11)
[2019-02-16] MEDS: risperiDONE 1 MG TABLET. PO SCH (20:11)
--- NOTE | 2019-02-16 22:55 | PDOC ---
Exam Note: Brian Note: Please also refer to the separate dictated note~for this date of service dictated separately.~Patient seen individually. Discussed the patient with Nursing staff reviewed the chart.~Reviewed interim history and current functioning. Reviewed vital signs,~Labs/ Radiology~and current medications noted below. Continue current treatment with the changes noted in the dictated addendum note Assessment: Vital Signs/I&O: Vital Signs Date Time Temp Pulse Resp B/P (MAP) Pulse Ox O2 Delivery O2 Flow Rate FiO2 02/16/19 20:21 94 Room Air 02/16/19 20:11 78 154/87 02/16/19 16:03 97.2 20 I & O 02/15/19 02/15/19 02/16/19 14:59 22:59 06:59 Intake Total 720 ml 240 ml 120 ml Balance 720 ml 240 ml 120 ml Current Medications: I have reviewed the current psychotropics carefully including drug interactions. Risk benefit ratio favors no change other than as noted in my dictated progress note. Diagnosis: Problems: (1) Anxiety disorder (2) Dementia in Alzheimer's disease with delusions (3) Dementia in Alzheimer's disease with depression (4) Dementia, vascular, with delusions (5) Dementia, vascular, with depression (6) Impulse control disorder (7) Major neurocognitive disorder (8) Post traumatic stress disorder EILEEN CHAVEZ MD Feb 16, 2019 22:55
[2019-02-17 05:12] VITALS: BP_SYST 139; BP_SYST 169; BP_DIAS 87; BP_DIAS 93
[2019-02-17] MEDS: LEVOTHYROXINE 25 MCG TABLET. PO SCH (05:51)
[2019-02-17] MEDS: BUDESONIDE 0.5 MG/2 ML NEBU NEB SCH ×2 (08:00→22:29)
[2019-02-17] MEDS: PANTOPRAZOLE 40 MG TABLET. PO SCH ×2 (08:04→17:20)
[2019-02-17] MEDS: DOCUSATE SODIUM 100 MG CAPSULE PO SCH (08:05)
[2019-02-17] MEDS: DONEPEZIL HCL 10 MG TABLET PO SCH (08:05)
[2019-02-17] MEDS: CARVEDILOL 12.5 MG TABLET PO SCH ×2 (08:05→16:36)
[2019-02-17] MEDS: LOSARTAN 50 MG TABLET. PO SCH (08:05)
[2019-02-17] MEDS: POLYETHYLENE GLYCOL 3350 17 GM PACKET. PO SCH (08:06)
[2019-02-17] MEDS: MEMANTINE 10 MG TABLET. PO SCH ×2 (08:06→20:03)
[2019-02-17] MEDS: PRAZOSIN 1 MG CAPSULE. PO SCH ×3 (08:06→20:03)
[2019-02-17] MEDS: APIXABAN 5 MG TABLET. PO SCH ×2 (08:06→20:01)
[2019-02-17] MEDS: SERTRALINE 100 MG TABLET. PO SCH (08:06)
[2019-02-17] MEDS: FUROSEMIDE 20 MG TABLET PO SCH (08:06)
[2019-02-17] MEDS: FINASTERIDE 5 MG TABLET PO SCH (08:06)
[2019-02-17] MEDS: ACETAMINOPHEN 325 MG TABLET PO PRN (08:07)
[2019-02-17 14:14] VITALS: BP 147/84
[2019-02-17 16:11] VITALS: BP 153/85
[2019-02-17] MEDS: TAMSULOSIN 0.4 MG CAP.ER.24H. PO SCH (19:58)
[2019-02-17] MEDS: ASPIRIN ENTERIC COATED 81 MG TABLET.DR. PO SCH (19:59)
[2019-02-17] MEDS: DIVALPROEX 125 MG CAP.SPRINK PO SCH (20:00)
[2019-02-17] MEDS: traZODone 100 MG TABLET. PO SCH (20:00)
[2019-02-17] MEDS: POTASSIUM CHLORIDE 20 MEQ TABLET.ER. PO SCH (20:01)
[2019-02-17] MEDS: MELATONIN 3 MG TABLET PO SCH (20:02)
[2019-02-17] MEDS: ATORVASTATIN CALCIUM 20 MG TABLET PO SCH (20:02)
[2019-02-17] MEDS: MIRTAZAPINE 7.5 MG TABLET. PO SCH (20:03)
[2019-02-17] MEDS: risperiDONE 1 MG TABLET. PO SCH (20:03)
[2019-02-18 05:20] VITALS: BP 147/83
[2019-02-18] MEDS: LEVOTHYROXINE 25 MCG TABLET. PO SCH (06:22)
[2019-02-18 06:26] LABS: HEMATOCRIT 38.7 % (39.0-53.0); HEMOGLOBIN 12.3 g/dL (13.0-17.5); RED BLOOD COUNT 4.06 x10^6/uL (4.30-5.70); RED CELL DISTRIBUTION WIDTH 14.2 % (11.5-14.5)
--- NOTE | 2019-02-18 06:26 | PN ---
DATE: 02/16/2019 PSYCHIATRIC PROGRESS NOTE This is a late entry, covers elements not covered in my initial note, 02/16/2019. SUBJECTIVE: I met with the patient morning of 02/16/2019. The patient slept 8 hours previous night. He remains confused, somewhat anxious, but some of his significant PTSD symptoms, psychotic symptoms, the aggression, marked paranoia, agitation, all seem to have significantly improved on his current psychotropics. REVIEW OF SYSTEMS: No CV, , pulmonary, eye, ENT system symptoms on review. Reliability poor. MENTAL STATUS EXAM: Oriented to himself. Insight, judgment, recent and remote memory, attention, concentration, fund of knowledge poor, consistent with his diagnosis mentioned in my initial note. PLAN: No change from initial note. Maintain Aricept, Zoloft, Namenda, melatonin, Depakote, prazosin, Risperdal, Remeron, along with Ativan p.r.n., trazodone p.r.n. Dr. Christy will assume care of the patient over the next few days while I am on vacation. MAN Yvon CHAVEZ MD DR: JEANIE/zheng JOB#: [id number] / [id number]
[2019-02-18 06:38] LABS: ALBUMIN 2.6 g/dL (3.4-5.0); ALBUMIN/GLOBULIN RATIO 0.7 (1.0-1.7); CALCIUM 10.2 mg/dL (8.5-10.1); CREATININE 1.4 mg/dL (0.7-1.3); GFR 49.8; POTASSIUM 4.3 mmol/L (3.5-5.1); TOTAL BILIRUBIN 0.2 mg/dL (0.2-1.0); TOTAL PROTEIN 6.5 g/dL (6.4-8.2)
[2019-02-18] MEDS: PANTOPRAZOLE 40 MG TABLET. PO SCH ×2 (07:30→16:13)
[2019-02-18] MEDS: CARVEDILOL 12.5 MG TABLET PO SCH ×2 (08:00→16:14)
[2019-02-18] MEDS: SERTRALINE 100 MG TABLET. PO SCH (09:00)
[2019-02-18] MEDS: MEMANTINE 10 MG TABLET. PO SCH ×2 (09:00→21:00)
[2019-02-18] MEDS: DOCUSATE SODIUM 100 MG CAPSULE PO SCH (09:00)
[2019-02-18] MEDS: DONEPEZIL HCL 10 MG TABLET PO SCH (09:00)
[2019-02-18] MEDS: POLYETHYLENE GLYCOL 3350 17 GM PACKET. PO SCH (09:00)
[2019-02-18] MEDS: FUROSEMIDE 20 MG TABLET PO SCH (09:00)
[2019-02-18] MEDS: FINASTERIDE 5 MG TABLET PO SCH (09:00)
[2019-02-18] MEDS: APIXABAN 5 MG TABLET. PO SCH ×2 (09:00→21:00)
[2019-02-18] MEDS: PRAZOSIN 1 MG CAPSULE. PO SCH ×3 (09:00→21:00)
[2019-02-18] MEDS: LOSARTAN 50 MG TABLET. PO SCH (09:00)
[2019-02-18] MEDS: BUDESONIDE 0.5 MG/2 ML NEBU NEB SCH (11:09)
--- NOTE | 2019-02-18 12:43 | PN ---
DATE: 02/17/2019 SUBJECTIVE: The patient was seen today, met with the staff, chart reviewed. I am also covering for Dr. Mata. Staff reports no major behavior problems. Still unsteady on his feet, periods of confusion and also increased agitation. The patient did not present with any psychotic symptoms. OBSERVATION: VITAL SIGNS: Temperature 96.1, blood pressure 169/93, pulse 66, respirations 16, O2 sat 90%. GENERAL: Slept about 7 hours last night. The patient's appetite is fair. MEDICATIONS: Reviewed. Currently on trazodone 100 mg at night, Namenda 10 mg b.i.d., prazosin 3 mg b.i.d. and prazosin 2 mg at night. The patient is also on Risperdal 1.5 mg at night, Aricept 10 mg daily, Depakote 1000 mg at night and mirtazapine 7.5 mg at night. The patient is also on melatonin 3 mg at night. The patient is not having any side effects to the medications. LABORATORY DATA: The patient's lab reviewed. The patient has not shown any significant change from the previous levels. ASSESSMENT: 1. Major neurocognitive disorder, Alzheimer's, vascular with delusion, depression and behavioral disturbances. 2. Posttraumatic stress disorder. 3. Anxiety disorder, unspecified. 4. Impulse control disorder, unspecified. PLAN: Continue with the current treatment plan. MUSHTAQ RANDOLPH MD DR: CARLI/zheng JOB#: [id number] / [id number]
[2019-02-18 16:34] VITALS: BP 145/81
[2019-02-18] MEDS: DIVALPROEX 125 MG CAP.SPRINK PO SCH (21:00)
[2019-02-18] MEDS: POTASSIUM CHLORIDE 20 MEQ TABLET.ER. PO SCH (21:00)
[2019-02-18] MEDS: TAMSULOSIN 0.4 MG CAP.ER.24H. PO SCH (21:00)
[2019-02-18] MEDS: ASPIRIN ENTERIC COATED 81 MG TABLET.DR. PO SCH (21:00)
[2019-02-18] MEDS: traZODone 100 MG TABLET. PO SCH (21:00)
[2019-02-18] MEDS: ATORVASTATIN CALCIUM 20 MG TABLET PO SCH (21:00)
[2019-02-18] MEDS: MELATONIN 3 MG TABLET PO SCH (21:00)
[2019-02-18] MEDS: risperiDONE 1 MG TABLET. PO SCH (21:00)
--- NOTE | 2019-02-19 00:40 | PN ---
DATE: 02/18/2019 SUBJECTIVE: The patient was seen today, met with the staff, chart reviewed. Staff reports the patient is still lethargic, also disorganized, also unsteady gait. The patient spends most of the time in his room. OBSERVATION: VITAL SIGNS: Temperature 97.7, blood pressure 147/83, pulse 85, respirations 16, O2 sat 90%. GENERAL: Slept about 8 hours last night. MEDICATIONS: Reviewed. Currently, he is on Aricept 10 mg daily, Zoloft 150 mg daily, Namenda 10 mg b.i.d., melatonin 3 mg at night. The patient is also on Depakote Sprinkles 1000 mg at night, Zyprexa Zydis 2.5 mg p.r.n. q.2-4 hours. The patient is currently on prazosin 3 mg in the morning and 2 mg at night and also 3 mg at noon, and because of the increased sedation, the patient's prazosin was decreased to 3 mg at night and his Remeron 7.5 mg at night was discontinued. The patient will continue on his Risperdal 1.5 mg at night, also Ativan 0.5 mg q.2 hours p.r.n. The patient is also on trazodone 100 mg p.r.n. at night for sleep. The patient is not presenting with any other complaints, except for decline in his level of functioning. LABORATORY DATA: The patient's lab reviewed. ASSESSMENT: 1. Major neurocognitive disorder, Alzheimer's, vascular with delusion, depression and behavioral disturbances. 2. Posttraumatic stress disorder. 3. Anxiety disorder, unspecified. 4. Impulse control disorder, unspecified. PLAN: To continue with the treatment. The patient's current weight 169.6 pounds. MUSHTAQ RANDOLPH MD DR: CARLI/zheng JOB#: [id number] / [id number]
[2019-02-19] MEDS: BUDESONIDE 0.5 MG/2 ML NEBU NEB SCH ×3 (02:04→23:52)
[2019-02-19] MEDS: LEVOTHYROXINE 25 MCG TABLET. PO SCH (05:44)
[2019-02-19 05:46] VITALS: BP 166/91
[2019-02-19] MEDS: FINASTERIDE 5 MG TABLET PO SCH (09:30)
[2019-02-19] MEDS: FUROSEMIDE 20 MG TABLET PO SCH (09:31)
[2019-02-19] MEDS: PRAZOSIN 1 MG CAPSULE. PO SCH ×3 (09:31→20:27)
[2019-02-19] MEDS: PANTOPRAZOLE 40 MG TABLET. PO SCH ×2 (09:31→15:52)
[2019-02-19] MEDS: CHOLECALCIFEROL (VITAMIN D3) 50,000 UNIT CAPSULE PO SCH (09:32)
[2019-02-19] MEDS: SERTRALINE 100 MG TABLET. PO SCH (09:32)
[2019-02-19] MEDS: APIXABAN 5 MG TABLET. PO SCH ×2 (09:32→20:24)
[2019-02-19] MEDS: MEMANTINE 10 MG TABLET. PO SCH ×2 (09:32→20:25)
[2019-02-19] MEDS: CARVEDILOL 12.5 MG TABLET PO SCH ×2 (09:33→15:53)
[2019-02-19] MEDS: DONEPEZIL HCL 10 MG TABLET PO SCH (09:33)
[2019-02-19] MEDS: DOCUSATE SODIUM 100 MG CAPSULE PO SCH (09:33)
[2019-02-19] MEDS: POLYETHYLENE GLYCOL 3350 17 GM PACKET. PO SCH (09:34)
[2019-02-19] MEDS: LOSARTAN 50 MG TABLET. PO SCH (09:34)
[2019-02-19 16:04] VITALS: BP 171/69
[2019-02-19] MEDS: POTASSIUM CHLORIDE 20 MEQ TABLET.ER. PO SCH (20:24)
[2019-02-19] MEDS: ASPIRIN ENTERIC COATED 81 MG TABLET.DR. PO SCH (20:24)
[2019-02-19] MEDS: ATORVASTATIN CALCIUM 20 MG TABLET PO SCH (20:25)
[2019-02-19] MEDS: TAMSULOSIN 0.4 MG CAP.ER.24H. PO SCH (20:25)
[2019-02-19] MEDS: MELATONIN 3 MG TABLET PO SCH (20:26)
[2019-02-19] MEDS: DIVALPROEX 125 MG CAP.SPRINK PO SCH (21:00)
[2019-02-19] MEDS: traZODone 100 MG TABLET. PO SCH (21:00)
[2019-02-19] MEDS: risperiDONE 1 MG TABLET. PO SCH (21:00)
[2019-02-20] MEDS: MAGNESIUM HYDROXIDE 2,400 MG/30 ML ORAL.SUSP. PO PRN (01:00)
--- NOTE | 2019-02-20 03:26 | PN ---
DATE: 02/19/2019 SUBJECTIVE: The patient was seen today, met with the staff, chart reviewed. The patient has been staying in bed most of the time, also having periods of confusion. He is able to feed himself, able to walk. Staff also observed sometimes he leans to one side, but no falls. The patient also withdrawn, tends to isolate himself. Continues to have significant cognitive deficits. OBSERVATION: VITAL SIGNS: Temperature 97.8, blood pressure 166/91, pulse 87, respirations 22, O2 sat 92%. GENERAL: Slept about 7 hours last night. The patient's appetite improved. LABORATORY DATA: The patient's lab reviewed. MEDICATIONS: The patient's current medications include Aricept 10 mg daily, Zoloft 150 mg daily, Namenda 10 mg b.i.d., and melatonin 3 mg at night. The patient is also on Depakote Sprinkles 1000 mg at night, prazosin 2 mg twice a day and 2 mg at night, trazodone 100 mg at night, Namenda 10 mg b.i.d., Risperdal 1.5 mg at night, Aricept 10 mg daily, Depakote 1000 mg at night, trazodone 50 mg at night p.r.n. for sleep, also on lorazepam 0.5 mg q. 2 hours p.r.n. The patient is also on melatonin 3 mg at night and Zoloft 150 mg daily. The patient is not having any side effects. ASSESSMENT: 1. Major neurocognitive disorder, Alzheimer's, vascular with delusion, depression and behavioral disturbances. 2. Posttraumatic stress disorder. 3. Anxiety disorder, unspecified. 4. Impulse control disorder, unspecified. PLAN: To continue with the treatment. MUSHTAQ RANDOLPH MD DR: CARLI/zheng JOB#: [id number] / [id number]
[2019-02-20 05:50] VITALS: BP 139/92
[2019-02-20] MEDS: LEVOTHYROXINE 25 MCG TABLET. PO SCH (06:24)
[2019-02-20 06:51] LABS: BASO % 1 % (0-3); EOS # 0.4 x10^3/uL (0.0-0.7); EOS % 7 % (0-3); HEMATOCRIT 38.3 % (39.0-53.0); HEMOGLOBIN 12.5 g/dL (13.0-17.5); LYMPH # 1.9 x10^3/uL (1.0-4.8); LYMPH % 28 % (24-48); MEAN CORPUSCULAR HEMOGLOBIN 31 pg (25-35); MEAN CORPUSCULAR HGB CONC 33 g/dL (31-37); MEAN CORPUSCULAR VOLUME 94 fL (79-100); MONO # 0.8 x10^3/uL (0.0-1.1); MONO % 12 % (0-9); NEUT # 3.4 x10^3uL (1.8-7.7); NEUT % 52 % (31-73); PLATELET COUNT 202 x10^3/uL (140-400); RED BLOOD COUNT 4.06 x10^6/uL (4.30-5.70); RED CELL DISTRIBUTION WIDTH 14.1 % (11.5-14.5); WHITE BLOOD COUNT 6.6 x10^3/uL (4.0-11.0)
[2019-02-20 07:06] LABS: ALBUMIN 2.6 g/dL (3.4-5.0); ALBUMIN/GLOBULIN RATIO 0.6 (1.0-1.7); ALK PHOS 77 U/L (46-116); ALT (SGPT) 22 U/L (16-63); ANION GAP 5 (6-14); AST (SGOT) 28 U/L (15-37); BLOOD UREA NITROGEN 23 mg/dL (8-26); BUN/CREATININE RATIO 19 (6-20); CALCIUM 10.5 mg/dL (8.5-10.1); CARBON DIOXIDE 33 mmol/L (21-32); CHLORIDE 103 mmol/L (98-107); CREATININE 1.2 mg/dL (0.7-1.3); GFR 59.5; GLUCOSE 116 mg/dL (70-99); POTASSIUM 3.8 mmol/L (3.5-5.1); SODIUM 141 mmol/L (136-145); TOTAL BILIRUBIN 0.3 mg/dL (0.2-1.0); TOTAL PROTEIN 6.8 g/dL (6.4-8.2)
[2019-02-20 07:07] LABS: VAL ACID 7 mcg/mL (50-100)
[2019-02-20] MEDS: BUDESONIDE 0.5 MG/2 ML NEBU NEB SCH ×2 (11:06→20:10)
[2019-02-20] MEDS: DOCUSATE SODIUM 100 MG CAPSULE PO SCH (11:57)
[2019-02-20] MEDS: FUROSEMIDE 20 MG TABLET PO SCH (11:58)
[2019-02-20] MEDS: MEMANTINE 10 MG TABLET. PO SCH ×2 (11:58→20:40)
[2019-02-20] MEDS: FINASTERIDE 5 MG TABLET PO SCH (11:58)
[2019-02-20] MEDS: LOSARTAN 50 MG TABLET. PO SCH (11:58)
[2019-02-20] MEDS: CARVEDILOL 12.5 MG TABLET PO SCH ×2 (12:00→16:50)
[2019-02-20] MEDS: DONEPEZIL HCL 10 MG TABLET PO SCH (12:00)
[2019-02-20] MEDS: PRAZOSIN 1 MG CAPSULE. PO SCH ×3 (12:00→20:41)
[2019-02-20] MEDS: SERTRALINE 100 MG TABLET. PO SCH (12:01)
[2019-02-20] MEDS: APIXABAN 5 MG TABLET. PO SCH ×2 (12:01→20:40)
[2019-02-20] MEDS: PANTOPRAZOLE 40 MG TABLET. PO SCH ×2 (12:01→16:50)
[2019-02-20] MEDS: POLYETHYLENE GLYCOL 3350 17 GM PACKET. PO SCH (12:02)
[2019-02-20 14:50] VITALS: BP 145/78
[2019-02-20 16:03] VITALS: BP 156/91
[2019-02-20] MEDS: ATORVASTATIN CALCIUM 20 MG TABLET PO SCH (20:40)
[2019-02-20] MEDS: TAMSULOSIN 0.4 MG CAP.ER.24H. PO SCH (20:40)
[2019-02-20] MEDS: traZODone 100 MG TABLET. PO SCH (20:40)
[2019-02-20] MEDS: POTASSIUM CHLORIDE 20 MEQ TABLET.ER. PO SCH (20:40)
[2019-02-20] MEDS: risperiDONE 1 MG TABLET. PO SCH (20:41)
[2019-02-20] MEDS: ASPIRIN ENTERIC COATED 81 MG TABLET.DR. PO SCH (20:41)
[2019-02-20] MEDS: MELATONIN 3 MG TABLET PO SCH (20:41)
[2019-02-20] MEDS: DIVALPROEX 125 MG CAP.SPRINK PO SCH (20:42)
[2019-02-21 06:03] VITALS: BP 133/91
[2019-02-21] MEDS: LEVOTHYROXINE 25 MCG TABLET. PO SCH (06:09)
--- NOTE | 2019-02-21 07:23 | PN ---
DATE: 02/20/2019 SUBJECTIVE: The patient was seen today, met with the staff, chart reviewed. The patient continues to have night terrors, high level of anxiety. The patient is still having visual hallucinations at times. Otherwise, the patient is pleasant, no major behavior problems. OBSERVATION: VITAL SIGNS: Temperature 97.8, blood pressure 139/92, pulse 64, respirations 20, O2 sat 92%, slept about 7 hours last night. The patient's appetite improved. The patient is not having any physical complaints. MEDICATIONS: The patient's current medications include Aricept 10 mg daily, Zoloft 150 mg daily, Namenda 10 mg b.i.d., Depakote Sprinkles 1000 mg at night, prazosin 2 mg b.i.d., Namenda 10 mg b.i.d., Risperdal 1.5 mg at night and Aricept 10 mg daily. The patient denies of any side effects to the medications. ASSESSMENT: 1. Major neurocognitive disorder, Alzheimer's, vascular with delusions, depression and behavioral disturbances. 2. Posttraumatic stress disorder. 3. Anxiety disorder, unspecified. 4. Impulse control disorder, unspecified. PLAN: The plan is to continue with the treatment. MUSHTAQ RANDOLPH MD DR: CARLI/zheng JOB#: [id number] / [id number]
[2019-02-21 10:26] VITALS: BP 156/85
[2019-02-21] MEDS: POLYETHYLENE GLYCOL 3350 17 GM PACKET. PO SCH (10:29)
[2019-02-21] MEDS: SERTRALINE 100 MG TABLET. PO SCH (10:30)
[2019-02-21] MEDS: FINASTERIDE 5 MG TABLET PO SCH (10:30)
[2019-02-21] MEDS: PANTOPRAZOLE 40 MG TABLET. PO SCH ×2 (10:31→17:14)
[2019-02-21] MEDS: CARVEDILOL 12.5 MG TABLET PO SCH ×2 (10:31→17:15)
[2019-02-21] MEDS: MEMANTINE 10 MG TABLET. PO SCH ×2 (10:31→20:17)
[2019-02-21] MEDS: PRAZOSIN 1 MG CAPSULE. PO SCH ×3 (10:31→20:17)
[2019-02-21] MEDS: DONEPEZIL HCL 10 MG TABLET PO SCH (10:31)
[2019-02-21] MEDS: FUROSEMIDE 20 MG TABLET PO SCH (10:32)
[2019-02-21] MEDS: LOSARTAN 50 MG TABLET. PO SCH (10:32)
[2019-02-21] MEDS: DOCUSATE SODIUM 100 MG CAPSULE PO SCH (10:33)
[2019-02-21] MEDS: APIXABAN 5 MG TABLET. PO SCH ×2 (10:33→20:16)
[2019-02-21] MEDS: BUDESONIDE 0.5 MG/2 ML NEBU NEB SCH (11:29)
[2019-02-21 16:08] VITALS: BP 149/98
[2019-02-21] MEDS: TAMSULOSIN 0.4 MG CAP.ER.24H. PO SCH (20:15)
[2019-02-21] MEDS: traZODone 100 MG TABLET. PO SCH (20:16)
[2019-02-21] MEDS: ATORVASTATIN CALCIUM 20 MG TABLET PO SCH (20:16)
[2019-02-21] MEDS: DIVALPROEX 125 MG CAP.SPRINK PO SCH (20:16)
[2019-02-21] MEDS: POTASSIUM CHLORIDE 20 MEQ TABLET.ER. PO SCH (20:16)
[2019-02-21] MEDS: risperiDONE 1 MG TABLET. PO SCH (20:17)
[2019-02-21] MEDS: ASPIRIN ENTERIC COATED 81 MG TABLET.DR. PO SCH (20:17)
[2019-02-21] MEDS: MELATONIN 3 MG TABLET PO SCH (20:18)
[2019-02-22] MEDS: BUDESONIDE 0.5 MG/2 ML NEBU NEB SCH ×3 (01:02→21:16)
--- NOTE | 2019-02-22 05:44 | PN ---
DATE: 02/21/2019 SUBJECTIVE: The patient was seen today, met with the staff, chart reviewed. The patient has problems with his thinking and concentration, mostly disorganized thinking. The patient is also on wheelchair, no falls. The patient's behavior fluctuates. The patient continues to have visual hallucinations, high level of anxiety and also night terrors. OBSERVATION: VITAL SIGNS: Temperature 97.1, blood pressure 133/91, pulse 61, respirations 18, O2 sat 95%. Slept about 7 hours last night. The patient's appetite improved. MEDICATIONS: The patient's current medications include Aricept 10 mg daily, Zoloft 150 mg daily, Namenda 10 mg b.i.d., Depakote Sprinkles 1000 mg at night, prazosin 2 mg b.i.d., Risperdal 1.5 mg at night. The patient denies of any side effects to the medications. ASSESSMENT: 1. Major neurocognitive disorder, Alzheimer's, vascular with delusions, depression, and behavioral disturbances. 2. Posttraumatic stress disorder. 3. Anxiety disorder, unspecified. 4. Impulse control disorder, unspecified. PLAN: To continue with the treatment. The patient is not complaining of any physical problems. The patient's lab reviewed. MUSHTAQ RANDOLPH MD DR: CARLI/zheng JOB#: [id number] / [id number]
[2019-02-22 05:46] VITALS: BP 143/75
[2019-02-22 06:07] LABS: AMORPHOUS SEDIMENT,UR PRESENT /HPF; BACTERIA,URINE FEW /HPF (0-FEW); BILIRUBIN,URINE NEG (NEG); CLARITY,URINE CLEAR; COLOR,URINE YELLOW; GLUCOSE,URINE NEG (NEG); NITRITE,URINE NEG (NEG); RBC,URINE OCC /HPF (0-2); UROBILINOGEN,URINE 0.2 mg/dL (0.2 mg/dL)
[2019-02-22] MEDS: LEVOTHYROXINE 25 MCG TABLET. PO SCH (06:26)
[2019-02-22] MEDS: FINASTERIDE 5 MG TABLET PO SCH (09:29)
[2019-02-22] MEDS: DOCUSATE SODIUM 100 MG CAPSULE PO SCH (09:30)
[2019-02-22] MEDS: SERTRALINE 100 MG TABLET. PO SCH (09:30)
[2019-02-22] MEDS: PRAZOSIN 1 MG CAPSULE. PO SCH ×3 (09:30→20:23)
[2019-02-22] MEDS: POLYETHYLENE GLYCOL 3350 17 GM PACKET. PO SCH (09:30)
[2019-02-22] MEDS: LOSARTAN 50 MG TABLET. PO SCH (09:31)
[2019-02-22] MEDS: FUROSEMIDE 20 MG TABLET PO SCH (09:31)
[2019-02-22] MEDS: APIXABAN 5 MG TABLET. PO SCH ×2 (09:31→20:20)
[2019-02-22] MEDS: DONEPEZIL HCL 10 MG TABLET PO SCH (09:32)
[2019-02-22] MEDS: MEMANTINE 10 MG TABLET. PO SCH ×2 (09:32→20:23)
[2019-02-22] MEDS: CARVEDILOL 12.5 MG TABLET PO SCH ×2 (09:32→17:26)
[2019-02-22] MEDS: PANTOPRAZOLE 40 MG TABLET. PO SCH ×2 (09:32→17:25)
[2019-02-22 16:53] VITALS: BP 155/85
[2019-02-22] MEDS: DIVALPROEX 125 MG CAP.SPRINK PO SCH (20:20)
[2019-02-22] MEDS: TAMSULOSIN 0.4 MG CAP.ER.24H. PO SCH (20:20)
[2019-02-22] MEDS: traZODone 100 MG TABLET. PO SCH (20:21)
[2019-02-22] MEDS: ATORVASTATIN CALCIUM 20 MG TABLET PO SCH (20:22)
[2019-02-22] MEDS: POTASSIUM CHLORIDE 20 MEQ TABLET.ER. PO SCH (20:22)
[2019-02-22] MEDS: MELATONIN 3 MG TABLET PO SCH (20:22)
[2019-02-22] MEDS: risperiDONE 1 MG TABLET. PO SCH (20:23)
[2019-02-22] MEDS: ASPIRIN ENTERIC COATED 81 MG TABLET.DR. PO SCH (20:24)
--- NOTE | 2019-02-23 01:49 | PN ---
DATE: 02/22/2019 SUBJECTIVE: The patient was seen today, met with the staff, chart reviewed. Staff reports withdrawal, staying in bed most of the time, periods of confusion, some agitation. OBSERVATION: VITAL SIGNS: Temperature 97.6, blood pressure 143/75, pulse 86, respirations 20, O2 sat 94%. GENERAL: Slept about 6 hours last night. CURRENT MEDICATIONS: The patient's medications reviewed. The patient is on Aricept 10 mg daily, Zoloft 150 mg daily, Namenda 10 mg b.i.d., Depakote Sprinkles 1000 mg at night, prazosin 2 mg b.i.d., Risperdal 1.5 mg at night. The patient denies of any side effects to the medications. ASSESSMENT: 1. Major neurocognitive disorder, Alzheimer's, vascular with delusions, depression and behavioral disturbances. 2. Posttraumatic stress disorder. 3. Anxiety disorder, unspecified. 4. Impulse control disorder, unspecified. PLAN: To continue with the treatment. The patient apparently has been sleeping more than usual and decreased the prazosin to 3 mg at night. The patient's lab reviewed. The patient's hemoglobin 12.5, BUN 23, glucose 116. MUSHTAQ RANDOLPH MD DR: CARLI/zheng JOB#: [id number] / [id number]
[2019-02-23 05:01] VITALS: BP 155/90
[2019-02-23] MEDS: LEVOTHYROXINE 25 MCG TABLET. PO SCH (06:20)
[2019-02-23] MEDS: PANTOPRAZOLE 40 MG TABLET. PO SCH ×2 (08:47→16:25)
[2019-02-23] MEDS: CARVEDILOL 12.5 MG TABLET PO SCH ×2 (08:47→16:26)
[2019-02-23] MEDS: DONEPEZIL HCL 10 MG TABLET PO SCH (08:47)
[2019-02-23] MEDS: DOCUSATE SODIUM 100 MG CAPSULE PO SCH (08:48)
[2019-02-23] MEDS: FUROSEMIDE 20 MG TABLET PO SCH (08:48)
[2019-02-23] MEDS: APIXABAN 5 MG TABLET. PO SCH ×2 (08:48→20:01)
[2019-02-23] MEDS: MEMANTINE 10 MG TABLET. PO SCH ×2 (08:48→19:58)
[2019-02-23] MEDS: POLYETHYLENE GLYCOL 3350 17 GM PACKET. PO SCH (08:48)
[2019-02-23] MEDS: LOSARTAN 50 MG TABLET. PO SCH (08:48)
[2019-02-23] MEDS: SERTRALINE 100 MG TABLET. PO SCH (08:49)
[2019-02-23] MEDS: FINASTERIDE 5 MG TABLET PO SCH (08:49)
[2019-02-23] MEDS: BUDESONIDE 0.5 MG/2 ML NEBU NEB SCH ×2 (10:27→19:46)
[2019-02-23 15:28] VITALS: BP 161/98
[2019-02-23] MEDS: traZODone 100 MG TABLET. PO SCH (19:58)
[2019-02-23] MEDS: PRAZOSIN 1 MG CAPSULE. PO SCH (19:59)
[2019-02-23] MEDS: TAMSULOSIN 0.4 MG CAP.ER.24H. PO SCH (20:00)
[2019-02-23] MEDS: risperiDONE 1 MG TABLET. PO SCH (20:00)
[2019-02-23] MEDS: ATORVASTATIN CALCIUM 20 MG TABLET PO SCH (20:00)
[2019-02-23] MEDS: MELATONIN 3 MG TABLET PO SCH (20:01)
[2019-02-23] MEDS: POTASSIUM CHLORIDE 20 MEQ TABLET.ER. PO SCH (20:01)
[2019-02-23] MEDS: ASPIRIN ENTERIC COATED 81 MG TABLET.DR. PO SCH (20:02)
[2019-02-23] MEDS: DIVALPROEX 125 MG CAP.SPRINK PO SCH (20:02)
[2019-02-24] MEDS: LEVOTHYROXINE 25 MCG TABLET. PO SCH (05:39)
[2019-02-24 06:45] VITALS: BP 160/94
[2019-02-24] MEDS: PANTOPRAZOLE 40 MG TABLET. PO SCH ×2 (09:04→17:26)
[2019-02-24] MEDS: CARVEDILOL 12.5 MG TABLET PO SCH ×2 (09:05→17:26)
[2019-02-24] MEDS: DOCUSATE SODIUM 100 MG CAPSULE PO SCH (09:05)
[2019-02-24] MEDS: DONEPEZIL HCL 10 MG TABLET PO SCH (09:05)
[2019-02-24] MEDS: FUROSEMIDE 20 MG TABLET PO SCH (09:06)
[2019-02-24] MEDS: APIXABAN 5 MG TABLET. PO SCH ×2 (09:06→19:55)
[2019-02-24] MEDS: POLYETHYLENE GLYCOL 3350 17 GM PACKET. PO SCH (09:06)
[2019-02-24] MEDS: FINASTERIDE 5 MG TABLET PO SCH (09:06)
[2019-02-24] MEDS: MEMANTINE 10 MG TABLET. PO SCH ×2 (09:06→19:56)
[2019-02-24] MEDS: LOSARTAN 50 MG TABLET. PO SCH (09:06)
[2019-02-24] MEDS: SERTRALINE 100 MG TABLET. PO SCH (09:06)
[2019-02-24] MEDS: BUDESONIDE 0.5 MG/2 ML NEBU NEB SCH (11:25)
[2019-02-24 15:38] VITALS: BP 157/83
[2019-02-24] MEDS: ATORVASTATIN CALCIUM 20 MG TABLET PO SCH (19:54)
[2019-02-24] MEDS: TAMSULOSIN 0.4 MG CAP.ER.24H. PO SCH (19:54)
[2019-02-24] MEDS: POTASSIUM CHLORIDE 20 MEQ TABLET.ER. PO SCH (19:54)
[2019-02-24] MEDS: PRAZOSIN 1 MG CAPSULE. PO SCH (19:54)
[2019-02-24] MEDS: risperiDONE 1 MG TABLET. PO SCH (19:55)
[2019-02-24] MEDS: MELATONIN 3 MG TABLET PO SCH (19:55)
[2019-02-24] MEDS: ASPIRIN ENTERIC COATED 81 MG TABLET.DR. PO SCH (19:56)
[2019-02-24] MEDS: traZODone 100 MG TABLET. PO SCH (19:56)
[2019-02-24] MEDS: DIVALPROEX 125 MG CAP.SPRINK PO SCH (19:56)
--- NOTE | 2019-02-24 22:26 | PDOC ---
Exam Note: Brian Note: Please also refer to the separate dictated note~for this date of service dictated separately.~Patient seen individually. Discussed the patient with Nursing staff reviewed the chart.~Reviewed interim history and current functioning. Reviewed vital signs,~Labs/ Radiology~and current medications noted below. Continue current treatment with the changes noted in the dictated addendum note Assessment: Vital Signs/I&O: Vital Signs Date Time Temp Pulse Resp B/P (MAP) Pulse Ox O2 Delivery O2 Flow Rate FiO2 02/24/19 19:56 75 157/83 02/24/19 15:38 97.6 16 98 02/24/19 11:27 Room Air I & O 02/23/19 02/23/19 02/24/19 14:59 22:59 06:59 Intake Total 960 ml 240 ml Balance 960 ml 240 ml Current Medications: I have reviewed the current psychotropics carefully including drug interactions. Risk benefit ratio favors no change other than as noted in my dictated progress note. Diagnosis: Problems: (1) Anxiety disorder (2) Dementia in Alzheimer's disease with delusions (3) Dementia in Alzheimer's disease with depression (4) Dementia, vascular, with delusions (5) Dementia, vascular, with depression (6) Impulse control disorder (7) Major neurocognitive disorder (8) Post traumatic stress disorder EILEEN CHAVEZ MD Feb 24, 2019 22:26
--- NOTE | 2019-02-25 00:04 | PN ---
DATE: 02/24/2019 SUBJECTIVE: The patient was seen today, met with the staff, chart reviewed. The patient spends most of the time in bed except for the lunch and dinner. The patient has not shown any major behavior problems. Did not report any hallucinations. OBSERVATION: VITAL SIGNS: Temperature 97.7, blood pressure 160/94, pulse 65, respirations 16, and O2 sat 98%. GENERAL: Slept about 7 hours last night. The patient's appetite improved. MEDICATIONS: Includes Aricept 10 mg daily, Zoloft 150 mg daily, Namenda 10 mg b.i.d., Depakote Sprinkles 1000 mg at night, prazosin 2 mg b.i.d., and Risperdal 1.5 mg at night. The patient is not having any side effects to medications. The patient apparently had one episode of agitation yesterday and was given Zyprexa p.r.n. The patient was also started on Zyprexa 5 mg IM daily p.r.n. for severe agitation, as the patient refuses to take his medications at times. ASSESSMENT: 1. Major neurocognitive disorder, Alzheimer's, vascular, with the delusions, depression, behavioral disturbances, and posttraumatic stress disorder. 2. Anxiety disorder, unspecified. 3. Impulse control disorder, unspecified. PLAN: To continue with the treatment. MUSHTAQ RANDOLPH MD DR: CARLI/zheng JOB#: [id number] / [id number]
[2019-02-25] MEDS: BUDESONIDE 0.5 MG/2 ML NEBU NEB SCH ×2 (01:10→10:36)
--- NOTE | 2019-02-25 04:06 | PDOC ---
Exam Note: Brian Note: Note: Dr. Chavez was to see the patient on 02/24/[address] Christy continued coverage on the patient for 02/24/2019 and the note written was an error and should be disregarded. Please also refer to the separate dictated note~for this date of service dictated separately.~Patient seen individually. Discussed the patient with Nursing staff reviewed the chart.~Reviewed interim history and current functioning. Reviewed vital signs,~Labs/ Radiology~and current medications noted below. Continue current treatment with the changes noted in the dictated addendum note Assessment: Vital Signs/I&O: Vital Signs Date Time Temp Pulse Resp B/P (MAP) Pulse Ox O2 Delivery O2 Flow Rate FiO2 02/24/19 20:10 95 Room Air 02/24/19 19:56 75 157/83 02/24/19 15:38 97.6 16 I & O 02/24/19 02/24/19 02/25/19 14:59 22:59 06:59 Intake Total 840 ml 580 ml Balance 840 ml 580 ml Current Medications: I have reviewed the current psychotropics carefully including drug interactions. Risk benefit ratio favors no change other than as noted in my dictated progress note. Diagnosis: Problems: (1) Anxiety disorder (2) Dementia in Alzheimer's disease with delusions (3) Dementia in Alzheimer's disease with depression (4) Dementia, vascular, with delusions (5) Dementia, vascular, with depression (6) Impulse control disorder (7) Major neurocognitive disorder (8) Post traumatic stress disorder EILEEN CHAVEZ MD Feb 25, 2019 04:06
[2019-02-25 06:03] VITALS: BP 127/86
[2019-02-25] MEDS: LEVOTHYROXINE 25 MCG TABLET. PO SCH (06:13)
[2019-02-25] MEDS: PANTOPRAZOLE 40 MG TABLET. PO SCH ×2 (08:39→16:24)
[2019-02-25] MEDS: DONEPEZIL HCL 10 MG TABLET PO SCH (08:39)
[2019-02-25] MEDS: DOCUSATE SODIUM 100 MG CAPSULE PO SCH (08:39)
[2019-02-25] MEDS: CARVEDILOL 12.5 MG TABLET PO SCH ×2 (08:39→16:24)
[2019-02-25] MEDS: POLYETHYLENE GLYCOL 3350 17 GM PACKET. PO SCH (08:40)
[2019-02-25] MEDS: FUROSEMIDE 20 MG TABLET PO SCH (08:40)
[2019-02-25] MEDS: LOSARTAN 50 MG TABLET. PO SCH (08:40)
[2019-02-25] MEDS: MEMANTINE 10 MG TABLET. PO SCH ×2 (08:40→20:23)
[2019-02-25] MEDS: FINASTERIDE 5 MG TABLET PO SCH (08:40)
[2019-02-25] MEDS: APIXABAN 5 MG TABLET. PO SCH ×2 (08:40→20:21)
[2019-02-25] MEDS: SERTRALINE 100 MG TABLET. PO SCH (08:43)
[2019-02-25 16:13] VITALS: BP 152/81
[2019-02-25] MEDS: POTASSIUM CHLORIDE 20 MEQ TABLET.ER. PO SCH (20:20)
[2019-02-25] MEDS: DIVALPROEX 125 MG CAP.SPRINK PO SCH (20:20)
[2019-02-25] MEDS: risperiDONE 1 MG TABLET. PO SCH (20:21)
[2019-02-25] MEDS: risperiDONE 0.5 MG TABLET. PO SCH (20:21)
[2019-02-25] MEDS: PRAZOSIN 1 MG CAPSULE. PO SCH (20:22)
[2019-02-25] MEDS: TAMSULOSIN 0.4 MG CAP.ER.24H. PO SCH (20:22)
[2019-02-25] MEDS: ATORVASTATIN CALCIUM 20 MG TABLET PO SCH (20:23)
[2019-02-25] MEDS: ASPIRIN ENTERIC COATED 81 MG TABLET.DR. PO SCH (20:23)
[2019-02-25] MEDS: traZODone 100 MG TABLET. PO SCH (20:23)
[2019-02-25] MEDS: MELATONIN 3 MG TABLET PO SCH (20:23)
--- NOTE | 2019-02-25 21:43 | PDOC ---
Exam Note: Brian Note: Please also refer to the separate dictated note~for this date of service dictated separately.~Patient seen individually. Discussed the patient with Nursing staff reviewed the chart.~Reviewed interim history and current functioning. Reviewed vital signs,~Labs/ Radiology~and current medications noted below. Continue current treatment with the changes noted in the dictated addendum note Assessment: Vital Signs/I&O: Vital Signs Date Time Temp Pulse Resp B/P (MAP) Pulse Ox O2 Delivery O2 Flow Rate FiO2 02/25/19 21:00 96 Room Air 02/25/19 20:22 66 152/81 02/25/19 16:13 97.8 16 I & O 02/24/19 02/24/19 02/25/19 14:59 22:59 06:59 Intake Total 840 ml 580 ml Balance 840 ml 580 ml Current Medications: Meds: Current Medications Medications (Trade) Dose Ordered Sig/Jose David Route PRN Reason Start Time Stop Time Status Last Admin Dose Admin Prazosin HCl (Minipress) 2 mg QHS PO 02/25/19 21:00 02/25/19 20:22 Risperidone (RisperDAL) 1 mg HS PO 02/25/19 21:00 02/25/19 20:21 Risperidone (RisperDAL) 0.75 mg HS PO 02/25/19 21:00 02/25/19 20:21 I have reviewed the current psychotropics carefully including drug interactions. Risk benefit ratio favors no change other than as noted in my dictated progress note. Diagnosis: Problems: (1) Anxiety disorder (2) Dementia in Alzheimer's disease with delusions (3) Dementia in Alzheimer's disease with depression (4) Dementia, vascular, with delusions (5) Dementia, vascular, with depression (6) Impulse control disorder (7) Major neurocognitive disorder (8) Post traumatic stress disorder EILEEN CHAVEZ MD Feb 25, 2019 21:43
[2019-02-25] MEDS: traZODone 50 MG TABLET. PO PRN (22:16)
[2019-02-26] MEDS: BUDESONIDE 0.5 MG/2 ML NEBU NEB SCH ×3 (00:13→20:17)
[2019-02-26] MEDS: LEVOTHYROXINE 25 MCG TABLET. PO SCH (05:54)
[2019-02-26 06:24] VITALS: BP 163/71
[2019-02-26] MEDS: POLYETHYLENE GLYCOL 3350 17 GM PACKET. PO SCH (08:05)
[2019-02-26] MEDS: CHOLECALCIFEROL (VITAMIN D3) 50,000 UNIT CAPSULE PO SCH (08:06)
[2019-02-26] MEDS: PRAZOSIN 1 MG CAPSULE. PO SCH ×3 (08:06→19:52)
[2019-02-26] MEDS: LOSARTAN 50 MG TABLET. PO SCH (08:06)
[2019-02-26] MEDS: FINASTERIDE 5 MG TABLET PO SCH (08:07)
[2019-02-26] MEDS: APIXABAN 5 MG TABLET. PO SCH ×2 (08:07→19:52)
[2019-02-26] MEDS: DOCUSATE SODIUM 100 MG CAPSULE PO SCH (08:07)
[2019-02-26] MEDS: FUROSEMIDE 20 MG TABLET PO SCH (08:07)
[2019-02-26] MEDS: SERTRALINE 100 MG TABLET. PO SCH (08:07)
[2019-02-26] MEDS: MEMANTINE 10 MG TABLET. PO SCH ×2 (08:08→19:54)
[2019-02-26] MEDS: DONEPEZIL HCL 10 MG TABLET PO SCH (08:08)
[2019-02-26] MEDS: PANTOPRAZOLE 40 MG TABLET. PO SCH ×2 (08:08→17:31)
[2019-02-26] MEDS: CARVEDILOL 12.5 MG TABLET PO SCH ×2 (08:08→17:31)
[2019-02-26 15:42] VITALS: BP 150/86
--- NOTE | 2019-02-26 18:41 | PN ---
DATE: 02/25/2019 PSYCHIATRIC PROGRESS NOTE This late entry 02/25 covers ailments, not covered in my initial note. SUBJECTIVE: I met with the patient at the evening of 02/25/2019 and reviewed information over the past [address] Sharpe covered for me. The patient slept 7 hours previous night. He has been compliant, cooperative, sometimes gets quite restless, agitated, seems to have recurrent PTSD, recall during the day per nursing staff, believed that people were killing others, and there were guns involved, felt someone was after him. REVIEW OF SYSTEMS: No CV, , pulmonary, eye, ENT system symptoms on review. MENTAL STATUS EXAM: Oriented to himself. Insight, judgment, recent and remote memory, attention, concentration, fund of knowledge poor, consistent with his diagnosis. IMPRESSION: Major neurocognitive disorder, Alzheimer, vascular with delusion, depression, behavioral disturbance, anxiety disorder, unspecified, post-traumatic stress disorder. Rest unchanged. PLAN: Change the prazosin from 3 mg at bedtime to 1 mg at 9:00 a.m., 1:00 p.m. and 2 mg at bedtime; increase Risperdal from 1.5 mg at bedtime to 1.75 mg at bedtime. Continue Namenda, Aricept, Zoloft, melatonin, Depakote along with Zyprexa p.r.n., trazodone p.r.n. Make further adjustments as clinically indicated. EILEEN CHAVEZ MD DR: JEANIE/zheng JOB#: [id number] / [id number]
[2019-02-26] MEDS: ATORVASTATIN CALCIUM 20 MG TABLET PO SCH (19:51)
[2019-02-26] MEDS: MELATONIN 3 MG TABLET PO SCH (19:51)
[2019-02-26] MEDS: DIVALPROEX 125 MG CAP.SPRINK PO SCH (19:51)
[2019-02-26] MEDS: traZODone 100 MG TABLET. PO SCH (19:52)
[2019-02-26] MEDS: risperiDONE 1 MG TABLET. PO SCH (19:53)
[2019-02-26] MEDS: risperiDONE 0.5 MG TABLET. PO SCH (19:53)
[2019-02-26] MEDS: ASPIRIN ENTERIC COATED 81 MG TABLET.DR. PO SCH (19:54)
[2019-02-26] MEDS: TAMSULOSIN 0.4 MG CAP.ER.24H. PO SCH (19:54)
[2019-02-26] MEDS: POTASSIUM CHLORIDE 20 MEQ TABLET.ER. PO SCH (19:54)
[2019-02-26] MEDS: traZODone 50 MG TABLET. PO PRN (21:20)
--- NOTE | 2019-02-26 21:34 | PDOC ---
Exam Note: Brian Note: Please also refer to the separate dictated note~for this date of service dictated separately.~Patient seen individually. Discussed the patient with Nursing staff reviewed the chart.~Reviewed interim history and current functioning. Reviewed vital signs,~Labs/ Radiology~and current medications noted below. Continue current treatment with the changes noted in the dictated addendum note Assessment: Vital Signs/I&O: Vital Signs Date Time Temp Pulse Resp B/P (MAP) Pulse Ox O2 Delivery O2 Flow Rate FiO2 02/26/19 20:19 93 Room Air 02/26/19 19:54 62 150/86 02/26/19 15:42 97.8 18 I & O 02/25/19 02/25/19 02/26/19 15:00 23:00 07:00 Intake Total 600 ml 240 ml 120 ml Balance 600 ml 240 ml 120 ml Current Medications: Meds: Current Medications Medications (Trade) Dose Ordered Sig/Jose David Route PRN Reason Start Time Stop Time Status Last Admin Dose Admin Prazosin HCl (Minipress) 1 mg 0900,1300 PO 02/26/19 09:00 02/26/19 13:08 I have reviewed the current psychotropics carefully including drug interactions. Risk benefit ratio favors no change other than as noted in my dictated progress note. Diagnosis: Problems: (1) Anxiety disorder (2) Dementia in Alzheimer's disease with delusions (3) Dementia in Alzheimer's disease with depression (4) Dementia, vascular, with delusions (5) Dementia, vascular, with depression (6) Impulse control disorder (7) Major neurocognitive disorder (8) Post traumatic stress disorder EILEEN CHAVEZ MD Feb 26, 2019 21:34
[2019-02-27 05:35] VITALS: BP 176/97
[2019-02-27] MEDS: LEVOTHYROXINE 25 MCG TABLET. PO SCH (05:44)
[2019-02-27 07:56] LABS: BASO % 1 % (0-3); EOS # 0.5 x10^3/uL (0.0-0.7); EOS % 8 % (0-3); HEMATOCRIT 40.5 % (39.0-53.0); HEMOGLOBIN 13.1 g/dL (13.0-17.5); LYMPH # 1.6 x10^3/uL (1.0-4.8); LYMPH % 27 % (24-48); MEAN CORPUSCULAR HEMOGLOBIN 31 pg (25-35); MEAN CORPUSCULAR HGB CONC 32 g/dL (31-37); MEAN CORPUSCULAR VOLUME 94 fL (79-100); MONO # 0.7 x10^3/uL (0.0-1.1); MONO % 11 % (0-9); NEUT # 3.1 x10^3uL (1.8-7.7); NEUT % 53 % (31-73); PLATELET COUNT 247 x10^3/uL (140-400); RED BLOOD COUNT 4.29 x10^6/uL (4.30-5.70); RED CELL DISTRIBUTION WIDTH 14.1 % (11.5-14.5); WHITE BLOOD COUNT 5.9 x10^3/uL (4.0-11.0)
[2019-02-27 08:25] LABS: ALBUMIN 2.9 g/dL (3.4-5.0); ALBUMIN/GLOBULIN RATIO 0.7 (1.0-1.7); CALCIUM 10.8 mg/dL (8.5-10.1); CREATININE 1.1 mg/dL (0.7-1.3); GFR 65.8; POTASSIUM 3.6 mmol/L (3.5-5.1); TOTAL BILIRUBIN 0.2 mg/dL (0.2-1.0); TOTAL PROTEIN 7.2 g/dL (6.4-8.2)
[2019-02-27] MEDS: POLYETHYLENE GLYCOL 3350 17 GM PACKET. PO SCH (08:37)
[2019-02-27] MEDS: LOSARTAN 50 MG TABLET. PO SCH (08:38)
[2019-02-27] MEDS: DOCUSATE SODIUM 100 MG CAPSULE PO SCH (08:38)
[2019-02-27] MEDS: FINASTERIDE 5 MG TABLET PO SCH (08:38)
[2019-02-27] MEDS: DONEPEZIL HCL 10 MG TABLET PO SCH (08:38)
[2019-02-27] MEDS: MEMANTINE 10 MG TABLET. PO SCH ×2 (08:39→21:30)
[2019-02-27] MEDS: FUROSEMIDE 20 MG TABLET PO SCH (08:39)
[2019-02-27] MEDS: APIXABAN 5 MG TABLET. PO SCH ×2 (08:39→21:29)
[2019-02-27] MEDS: PANTOPRAZOLE 40 MG TABLET. PO SCH ×2 (08:39→17:50)
[2019-02-27] MEDS: SERTRALINE 100 MG TABLET. PO SCH (08:39)
[2019-02-27] MEDS: CARVEDILOL 12.5 MG TABLET PO SCH ×2 (08:40→17:20)
[2019-02-27] MEDS: PRAZOSIN 1 MG CAPSULE. PO SCH ×3 (08:41→21:29)
[2019-02-27] MEDS: BUDESONIDE 0.5 MG/2 ML NEBU NEB SCH ×2 (09:53→21:31)
[2019-02-27 13:20] VITALS: BP 158/106
[2019-02-27 16:51] VITALS: BP 97/58
[2019-02-27] MEDS: risperiDONE 0.5 MG TABLET. PO SCH (21:27)
[2019-02-27] MEDS: risperiDONE 1 MG TABLET. PO SCH (21:28)
[2019-02-27] MEDS: ATORVASTATIN CALCIUM 20 MG TABLET PO SCH (21:29)
[2019-02-27] MEDS: POTASSIUM CHLORIDE 20 MEQ TABLET.ER. PO SCH (21:29)
[2019-02-27] MEDS: TAMSULOSIN 0.4 MG CAP.ER.24H. PO SCH (21:29)
[2019-02-27] MEDS: ASPIRIN ENTERIC COATED 81 MG TABLET.DR. PO SCH (21:29)
[2019-02-27] MEDS: MELATONIN 3 MG TABLET PO SCH (21:29)
[2019-02-27] MEDS: traZODone 100 MG TABLET. PO SCH (21:30)
[2019-02-27] MEDS: DIVALPROEX 125 MG CAP.SPRINK PO SCH (21:30)
--- NOTE | 2019-02-27 21:33 | PDOC ---
Exam Note: Brian Note: Please also refer to the separate dictated note~for this date of service dictated separately.~Patient seen individually. Discussed the patient with Nursing staff reviewed the chart.~Reviewed interim history and current functioning. Reviewed vital signs,~Labs/ Radiology~and current medications noted below. Continue current treatment with the changes noted in the dictated addendum note Assessment: Vital Signs/I&O: Vital Signs Date Time Temp Pulse Resp B/P (MAP) Pulse Ox O2 Delivery O2 Flow Rate FiO2 02/27/19 21:31 75 174/80 02/27/19 16:51 98.0 20 94 02/27/19 13:20 Room Air I & O 02/26/19 02/26/19 02/27/19 15:00 23:00 07:00 Intake Total 600 ml 600 ml Balance 600 ml 600 ml Labs: Laboratory Tests Test 02/27/19 06:58 White Blood Count 5.9 x10^3/uL (4.0-11.0) Red Blood Count 4.29 x10^6/uL (4.30-5.70) L Hemoglobin 13.1 g/dL (13.0-17.5) Hematocrit 40.5 % (39.0-53.0) Mean Corpuscular Volume 94 fL (79-100) Mean Corpuscular Hemoglobin 31 pg (25-35) Mean Corpuscular Hemoglobin Concent 32 g/dL (31-37) Red Cell Distribution Width 14.1 % (11.5-14.5) Platelet Count 247 x10^3/uL (140-400) Neutrophils (%) (Auto) 53 % (31-73) Lymphocytes (%) (Auto) 27 % (24-48) Monocytes (%) (Auto) 11 % (0-9) H Eosinophils (%) (Auto) 8 % (0-3) H Basophils (%) (Auto) 1 % (0-3) Neutrophils # (Auto) 3.1 x10^3uL (1.8-7.7) Lymphocytes # (Auto) 1.6 x10^3/uL (1.0-4.8) Monocytes # (Auto) 0.7 x10^3/uL (0.0-1.1) Eosinophils # (Auto) 0.5 x10^3/uL (0.0-0.7) Basophils # (Auto) 0.0 x10^3/uL (0.0-0.2) Sodium Level 144 mmol/L (136-145) Potassium Level 3.6 mmol/L (3.5-5.1) Chloride Level 105 mmol/L (98-107) Carbon Dioxide Level 35 mmol/L (21-32) H Anion Gap 4 (6-14) L Blood Urea Nitrogen 17 mg/dL (8-26) Creatinine 1.1 mg/dL (0.7-1.3) Estimated GFR (Cockcroft-Gault) 65.8 BUN/Creatinine Ratio 15 (6-20) Glucose Level 113 mg/dL (70-99) H Calcium Level 10.8 mg/dL (8.5-10.1) H Total Bilirubin 0.2 mg/dL (0.2-1.0) Aspartate Amino Transferase (AST) 17 U/L (15-37) Alanine Aminotransferase (ALT) 18 U/L (16-63) Alkaline Phosphatase 85 U/L (46-116) Total Protein 7.2 g/dL (6.4-8.2) Albumin 2.9 g/dL (3.4-5.0) L Albumin/Globulin Ratio 0.7 (1.0-1.7) L Current Medications: I have reviewed the current psychotropics carefully including drug interactions. Risk benefit ratio favors no change other than as noted in my dictated progress note. Diagnosis: Problems: (1) Anxiety disorder (2) Dementia in Alzheimer's disease with delusions (3) Dementia in Alzheimer's disease with depression (4) Dementia, vascular, with delusions (5) Dementia, vascular, with depression (6) Impulse control disorder (7) Major neurocognitive disorder (8) Post traumatic stress disorder EILEEN CHAVEZ MD Feb 27, 2019 21:33
--- NOTE | 2019-02-27 22:04 | PN ---
DATE: 02/26/2019 PSYCHIATRIC PROGRESS NOTE This late entry, 02/26, covers the elements not covered in my initial note. SUBJECTIVE: I met with the patient on the evening of 02/26. The patient slept 6-3/4 hours previous night per [place]. He has been more coherent at times in his sentences. He otherwise remains confused and less anxious and reactive to stimuli with respect to his PTSD. REVIEW OF SYSTEMS: No CV, , pulmonary, eye systems symptoms on review. Hard of hearing. MENTAL STATUS EXAM: Oriented to himself. Insight, judgment, recent and remote memory, attention, concentration, fund of knowledge poor, consistent with his diagnosis mentioned in my initial note. PLAN: No change from initial note, but we have gone ahead and spread out the prazosin during the daytime as well to help with the PTSD symptoms. MAN Yvon CHAVEZ MD DR: JEANIE/zheng JOB#: [id number] / [id number]
[2019-02-28] MEDS: LEVOTHYROXINE 25 MCG TABLET. PO SCH (06:00)
[2019-02-28 06:12] VITALS: BP 148/85
[2019-02-28] MEDS: POLYETHYLENE GLYCOL 3350 17 GM PACKET. PO SCH (08:08)
[2019-02-28] MEDS: LOSARTAN 50 MG TABLET. PO SCH (08:09)
[2019-02-28] MEDS: PRAZOSIN 1 MG CAPSULE. PO SCH ×3 (08:09→20:08)
[2019-02-28] MEDS: APIXABAN 5 MG TABLET. PO SCH ×2 (08:09→20:08)
[2019-02-28] MEDS: DOCUSATE SODIUM 100 MG CAPSULE PO SCH (08:09)
[2019-02-28] MEDS: CARVEDILOL 12.5 MG TABLET PO SCH ×2 (08:10→17:14)
[2019-02-28] MEDS: PANTOPRAZOLE 40 MG TABLET. PO SCH ×2 (08:11→17:14)
[2019-02-28] MEDS: SERTRALINE 100 MG TABLET. PO SCH (08:11)
[2019-02-28] MEDS: MEMANTINE 10 MG TABLET. PO SCH ×2 (08:11→20:09)
[2019-02-28] MEDS: FUROSEMIDE 20 MG TABLET PO SCH (08:11)
[2019-02-28] MEDS: DONEPEZIL HCL 10 MG TABLET PO SCH (08:11)
[2019-02-28] MEDS: FINASTERIDE 5 MG TABLET PO SCH (08:11)
[2019-02-28] MEDS: BUDESONIDE 0.5 MG/2 ML NEBU NEB SCH ×2 (10:00→20:28)
[2019-02-28 12:32] VITALS: BP 157/96
[2019-02-28 16:15] VITALS: BP 147/97
[2019-02-28] MEDS: DIVALPROEX 125 MG CAP.SPRINK PO SCH (20:06)
[2019-02-28] MEDS: traZODone 100 MG TABLET. PO SCH (20:07)
[2019-02-28] MEDS: ASPIRIN ENTERIC COATED 81 MG TABLET.DR. PO SCH (20:07)
[2019-02-28] MEDS: POTASSIUM CHLORIDE 20 MEQ TABLET.ER. PO SCH (20:07)
[2019-02-28] MEDS: TAMSULOSIN 0.4 MG CAP.ER.24H. PO SCH (20:07)
[2019-02-28] MEDS: MELATONIN 3 MG TABLET PO SCH (20:08)
[2019-02-28] MEDS: ATORVASTATIN CALCIUM 20 MG TABLET PO SCH (20:08)
[2019-02-28] MEDS ORDERED: risperiDONE 0.5 MG TABLET. PO SCH (21:00)
--- NOTE | 2019-02-28 21:03 | PDOC ---
Exam Note: Brian Note: Please also refer to the separate dictated note~for this date of service dictated separately.~Patient seen individually. Discussed the patient with Nursing staff reviewed the chart.~Reviewed interim history and current functioning. Reviewed vital signs,~Labs/ Radiology~and current medications noted below. Continue current treatment with the changes noted in the dictated addendum note Assessment: Vital Signs/I&O: Vital Signs Date Time Temp Pulse Resp B/P (MAP) Pulse Ox O2 Delivery O2 Flow Rate FiO2 02/28/19 20:08 75 147/97 02/28/19 16:15 97.7 18 94 Room Air I & O 02/27/19 02/27/19 02/28/19 15:00 23:00 07:00 Intake Total 720 ml 240 ml 120 ml Balance 720 ml 240 ml 120 ml Current Medications: Meds: Current Medications Medications (Trade) Dose Ordered Sig/Jose David Route PRN Reason Start Time Stop Time Status Last Admin Dose Admin Risperidone (RisperDAL) 0.5 mg HS PO 02/28/19 21:00 02/28/19 20:09 I have reviewed the current psychotropics carefully including drug interactions. Risk benefit ratio favors no change other than as noted in my dictated progress note. Diagnosis: Problems: (1) Anxiety disorder (2) Dementia in Alzheimer's disease with delusions (3) Dementia in Alzheimer's disease with depression (4) Dementia, vascular, with delusions (5) Dementia, vascular, with depression (6) Impulse control disorder (7) Major neurocognitive disorder (8) Post traumatic stress disorder EILEEN CHAVEZ MD Feb 28, 2019 21:03
[2019-03-01] MEDS: LEVOTHYROXINE 25 MCG TABLET. PO SCH (06:13)
[2019-03-01 06:18] VITALS: BP 137/88
[2019-03-01] MEDS: MEMANTINE 10 MG TABLET. PO SCH ×2 (08:58→20:29)
[2019-03-01] MEDS: DOCUSATE SODIUM 100 MG CAPSULE PO SCH (08:58)
[2019-03-01] MEDS: FINASTERIDE 5 MG TABLET PO SCH (08:58)
[2019-03-01] MEDS: SERTRALINE 100 MG TABLET. PO SCH (08:58)
[2019-03-01] MEDS: PANTOPRAZOLE 40 MG TABLET. PO SCH ×2 (08:59→17:21)
[2019-03-01] MEDS: PRAZOSIN 1 MG CAPSULE. PO SCH ×3 (08:59→20:30)
[2019-03-01] MEDS: CARVEDILOL 12.5 MG TABLET PO SCH ×2 (08:59→17:21)
[2019-03-01] MEDS: DONEPEZIL HCL 10 MG TABLET PO SCH (08:59)
[2019-03-01] MEDS: FUROSEMIDE 20 MG TABLET PO SCH (09:00)
[2019-03-01] MEDS: APIXABAN 5 MG TABLET. PO SCH ×2 (09:00→20:29)
[2019-03-01] MEDS: LOSARTAN 50 MG TABLET. PO SCH (09:00)
[2019-03-01] MEDS: POLYETHYLENE GLYCOL 3350 17 GM PACKET. PO SCH (09:01)
[2019-03-01] MEDS: BUDESONIDE 0.5 MG/2 ML NEBU NEB SCH (10:29)
--- NOTE | 2019-03-01 14:52 | PN ---
DATE: 02/28/2019 PSYCHIATRIC PROGRESS NOTE This late entry of 02/28/2019 covers elements not covered in my initial note. SUBJECTIVE: I met with the patient in the evening of 02/28/2019 and staffed at a treatment team meeting with the entire team in the morning. The patient reportedly has been accepted at [facility] via the [facility] system, but details are being ironed out by social service staff and the [facility] for this. In the meantime, he has had worsening gait and EPS secondary to Risperdal and we will reduce the Risperdal from 1.75 mg at bedtime down to 0.5 mg at bedtime, and if symptoms persist, we may have to stop it and then restart, depending on resurgence of his psychosis. REVIEW OF SYSTEMS: Other than this, no CV, , pulmonary, eye, ENT system symptoms on review. MENTAL STATUS EXAM: Oriented to himself. Insight, judgment, recent and remote memory, attention, concentration, fund of knowledge poor, consistent with his diagnosis. IMPRESSION: Posttraumatic stress disorder; major neurocognitive disorder; Alzheimer's, vascular with delusion, depression, behavioral disturbance; anxiety disorder, unspecified; impulse control disorder, unspecified. Rest unchanged. PLAN: Reduce the Risperdal as above. Continue rest of psychotropics. Consider stopping the Risperdal depending on how he does with his gait and EPS with reduction. Further changes as clinically indicated. EILEEN CHAVEZ MD DR: JEANIE/zheng JOB#: [id number] / [id number]
[2019-03-01 15:45] VITALS: BP 158/72
[2019-03-01] MEDS: TAMSULOSIN 0.4 MG CAP.ER.24H. PO SCH (20:28)
[2019-03-01] MEDS: POTASSIUM CHLORIDE 20 MEQ TABLET.ER. PO SCH (20:28)
[2019-03-01] MEDS: DIVALPROEX 125 MG CAP.SPRINK PO SCH (20:29)
[2019-03-01] MEDS: MELATONIN 3 MG TABLET PO SCH (20:29)
[2019-03-01] MEDS: traZODone 100 MG TABLET. PO SCH (20:29)
[2019-03-01] MEDS: ASPIRIN ENTERIC COATED 81 MG TABLET.DR. PO SCH (20:30)
[2019-03-01] MEDS: ATORVASTATIN CALCIUM 20 MG TABLET PO SCH (20:30)
--- NOTE | 2019-03-01 21:29 | PDOC ---
Exam Note: Brian Note: Please also refer to the separate dictated note~for this date of service dictated separately.~Patient seen individually. Discussed the patient with Nursing staff reviewed the chart.~Reviewed interim history and current functioning. Reviewed vital signs,~Labs/ Radiology~and current medications noted below. Continue current treatment with the changes noted in the dictated addendum note Assessment: Vital Signs/I&O: Vital Signs Date Time Temp Pulse Resp B/P (MAP) Pulse Ox O2 Delivery O2 Flow Rate FiO2 03/01/19 20:30 61 158/72 03/01/19 15:45 97.3 18 94 03/01/19 10:30 Room Air I & O 02/28/19 02/28/19 03/01/19 15:00 23:00 07:00 Intake Total 600 ml 240 ml 240 ml Balance 600 ml 240 ml 240 ml Current Medications: I have reviewed the current psychotropics carefully including drug interactions. Risk benefit ratio favors no change other than as noted in my dictated progress note. Diagnosis: Problems: (1) Anxiety disorder (2) Dementia in Alzheimer's disease with delusions (3) Dementia in Alzheimer's disease with depression (4) Dementia, vascular, with delusions (5) Dementia, vascular, with depression (6) Impulse control disorder (7) Major neurocognitive disorder (8) Post traumatic stress disorder EILEEN CHAVEZ MD Mar 01, 2019 21:29
[2019-03-02] MEDS: BUDESONIDE 0.5 MG/2 ML NEBU NEB SCH ×3 (00:29→19:59)
--- NOTE | 2019-03-02 02:47 | PN ---
DATE: 02/27/2019 PSYCHIATRIC PROGRESS NOTE This late entry 02/27/2019 covers elements not covered in my initial note. SUBJECTIVE: I met with the patient in the evening of 02/27/2019. The patient slept 7-1/4 hours previous night. Per [place] Lay, the patient has been cooperative. Ambulation impaired. Compliant with medications. Physical therapy is continuing. He has trouble following directions, but that is part of his overall cognitive deficits. REVIEW OF SYSTEMS: In addition to impaired ambulation, no CV, , pulmonary, eye, ENT system symptoms on review. Reliability poor. MENTAL STATUS EXAM: Oriented to himself. Insight, judgment, recent and remote memory, attention, concentration, fund of knowledge poor consistent with his diagnosis mentioned in my initial note. PLAN: No change from initial note. The patient's ambulation has deteriorated further. We may consider reducing or stopping the Risperdal as he seems to have some extrapyramidal side effects and no current active psychotic symptoms. We will watch another day and decide. MAN Yvon CHAVEZ MD DR: JEANIE/zheng JOB#: [id number] / [id number]
[2019-03-02] MEDS: LEVOTHYROXINE 25 MCG TABLET. PO SCH (05:39)
[2019-03-02 06:03] VITALS: BP 166/79
[2019-03-02] MEDS: PANTOPRAZOLE 40 MG TABLET. PO SCH ×2 (08:54→16:58)
[2019-03-02] MEDS: CARVEDILOL 12.5 MG TABLET PO SCH ×2 (08:55→16:59)
[2019-03-02] MEDS: DONEPEZIL HCL 10 MG TABLET PO SCH (08:55)
[2019-03-02] MEDS: LOSARTAN 50 MG TABLET. PO SCH (08:55)
[2019-03-02] MEDS: DOCUSATE SODIUM 100 MG CAPSULE PO SCH (08:55)
[2019-03-02] MEDS: APIXABAN 5 MG TABLET. PO SCH ×2 (08:56→20:49)
[2019-03-02] MEDS: FUROSEMIDE 20 MG TABLET PO SCH (08:56)
[2019-03-02] MEDS: FINASTERIDE 5 MG TABLET PO SCH (08:57)
[2019-03-02] MEDS: POLYETHYLENE GLYCOL 3350 17 GM PACKET. PO SCH (08:57)
[2019-03-02] MEDS: MEMANTINE 10 MG TABLET. PO SCH ×2 (08:57→20:49)
[2019-03-02] MEDS: SERTRALINE 100 MG TABLET. PO SCH (08:57)
[2019-03-02] MEDS: PRAZOSIN 1 MG CAPSULE. PO SCH ×3 (08:57→20:49)
[2019-03-02 12:27] VITALS: BP 168/96
[2019-03-02 16:34] VITALS: BP 166/88
[2019-03-02] MEDS: MELATONIN 3 MG TABLET PO SCH (20:49)
[2019-03-02] MEDS: DIVALPROEX 125 MG CAP.SPRINK PO SCH (20:49)
[2019-03-02] MEDS: traZODone 100 MG TABLET. PO SCH (20:49)
[2019-03-02] MEDS: ASPIRIN ENTERIC COATED 81 MG TABLET.DR. PO SCH (20:49)
[2019-03-02] MEDS: TAMSULOSIN 0.4 MG CAP.ER.24H. PO SCH (20:49)
[2019-03-02] MEDS: ATORVASTATIN CALCIUM 20 MG TABLET PO SCH (20:49)
[2019-03-02] MEDS: POTASSIUM CHLORIDE 20 MEQ TABLET.ER. PO SCH (20:50)
--- NOTE | 2019-03-02 23:17 | PDOC ---
Exam Note: Brian Note: Please also refer to the separate dictated note~for this date of service dictated separately.~Patient seen individually. Discussed the patient with Nursing staff reviewed the chart.~Reviewed interim history and current functioning. Reviewed vital signs,~Labs/ Radiology~and current medications noted below. Continue current treatment with the changes noted in the dictated addendum note Assessment: Vital Signs/I&O: Vital Signs Date Time Temp Pulse Resp B/P (MAP) Pulse Ox O2 Delivery O2 Flow Rate FiO2 03/02/19 20:49 95 166/88 03/02/19 20:01 93 Room Air 03/02/19 16:34 98.1 16 I & O 03/01/19 03/01/19 03/02/19 15:00 23:00 07:00 Intake Total 840 ml 480 ml 240 ml Balance 840 ml 480 ml 240 ml Current Medications: I have reviewed the current psychotropics carefully including drug interactions. Risk benefit ratio favors no change other than as noted in my dictated progress note. Diagnosis: Problems: (1) Anxiety disorder (2) Dementia in Alzheimer's disease with delusions (3) Dementia in Alzheimer's disease with depression (4) Dementia, vascular, with delusions (5) Dementia, vascular, with depression (6) Impulse control disorder (7) Major neurocognitive disorder (8) Post traumatic stress disorder EILEEN CHAVEZ MD Mar 02, 2019 23:17
[2019-03-03] MEDS: LEVOTHYROXINE 25 MCG TABLET. PO SCH (05:31)
[2019-03-03 05:32] VITALS: BP 140/79
[2019-03-03] MEDS: PANTOPRAZOLE 40 MG TABLET. PO SCH ×2 (08:00→16:51)
[2019-03-03] MEDS: CARVEDILOL 12.5 MG TABLET PO SCH ×2 (08:00→16:52)
[2019-03-03] MEDS: DOCUSATE SODIUM 100 MG CAPSULE PO SCH (08:01)
[2019-03-03] MEDS: DONEPEZIL HCL 10 MG TABLET PO SCH (08:01)
[2019-03-03] MEDS: FUROSEMIDE 20 MG TABLET PO SCH (08:02)
[2019-03-03] MEDS: PRAZOSIN 1 MG CAPSULE. PO SCH ×3 (08:02→20:01)
[2019-03-03] MEDS: LOSARTAN 50 MG TABLET. PO SCH (08:02)
[2019-03-03] MEDS: APIXABAN 5 MG TABLET. PO SCH ×2 (08:02→20:01)
[2019-03-03] MEDS: FINASTERIDE 5 MG TABLET PO SCH (08:02)
[2019-03-03] MEDS: SERTRALINE 100 MG TABLET. PO SCH (08:03)
[2019-03-03] MEDS: POLYETHYLENE GLYCOL 3350 17 GM PACKET. PO SCH (08:03)
[2019-03-03] MEDS: MEMANTINE 10 MG TABLET. PO SCH ×2 (08:03→20:01)
[2019-03-03 08:58] LABS: VAL ACID 57 mcg/mL (50-100)
[2019-03-03] MEDS: BUDESONIDE 0.5 MG/2 ML NEBU NEB SCH ×2 (10:35→19:57)
[2019-03-03 12:20] VITALS: BP 141/89
[2019-03-03 16:09] VITALS: BP 163/94
[2019-03-03] MEDS: POTASSIUM CHLORIDE 20 MEQ TABLET.ER. PO SCH (20:01)
[2019-03-03] MEDS: MELATONIN 3 MG TABLET PO SCH (20:01)
[2019-03-03] MEDS: TAMSULOSIN 0.4 MG CAP.ER.24H. PO SCH (20:01)
[2019-03-03] MEDS: traZODone 100 MG TABLET. PO SCH (20:02)
[2019-03-03] MEDS: ASPIRIN ENTERIC COATED 81 MG TABLET.DR. PO SCH (20:02)
[2019-03-03] MEDS: DIVALPROEX 125 MG CAP.SPRINK PO SCH (20:02)
[2019-03-03] MEDS: ATORVASTATIN CALCIUM 20 MG TABLET PO SCH (20:02)
--- NOTE | 2019-03-03 21:46 | PDOC ---
Exam Note: Brian Note: Please also refer to the separate dictated note~for this date of service dictated separately.~Patient seen individually. Discussed the patient with Nursing staff reviewed the chart.~Reviewed interim history and current functioning. Reviewed vital signs,~Labs/ Radiology~and current medications noted below. Continue current treatment with the changes noted in the dictated addendum note Assessment: Vital Signs/I&O: Vital Signs Date Time Temp Pulse Resp B/P (MAP) Pulse Ox O2 Delivery O2 Flow Rate FiO2 03/03/19 20:01 66 163/94 03/03/19 19:57 96 Room Air 03/03/19 16:09 97.1 18 I & O 03/02/19 03/02/19 03/03/19 15:00 23:00 07:00 Intake Total 600 ml 120 ml 240 ml Balance 600 ml 120 ml 240 ml Labs: Laboratory Tests Test 03/03/19 08:05 Valproic Acid Level 57 mcg/mL (50-100) Valproic Acid Last Dose Date 02/27/19 Valproic Acid Last Dose Time 2100 Current Medications: I have reviewed the current psychotropics carefully including drug interactions. Risk benefit ratio favors no change other than as noted in my dictated progress note. Diagnosis: Problems: (1) Anxiety disorder (2) Dementia in Alzheimer's disease with delusions (3) Dementia in Alzheimer's disease with depression (4) Dementia, vascular, with delusions (5) Dementia, vascular, with depression (6) Impulse control disorder (7) Major neurocognitive disorder (8) Post traumatic stress disorder (9) UTI (urinary tract infection) EILEEN CHAVEZ MD Mar 03, 2019 21:45
[2019-03-04 05:24] VITALS: BP 169/95
[2019-03-04] MEDS: LEVOTHYROXINE 25 MCG TABLET. PO SCH (05:44)
--- NOTE | 2019-03-04 06:08 | PN ---
DATE: 03/01/2019 PSYCHIATRIC PROGRESS NOTE This late entry 03/01/2019 covers elements not covered in my initial note. SUBJECTIVE: I met with the patient evening of 03/01/2019. Per [place] Porras, the patient slept 7-3/4 hours previous night. He continues to have extrapyramidal symptoms consequent to the Risperdal and we stopped the Risperdal. Valproic acid level is 27. REVIEW OF SYSTEMS: Ambulation impaired. No CV, , PULMONARY, EYE, ENT system symptoms on review. Reliability poor. MENTAL STATUS EXAM: Oriented to himself. Insight, judgment, recent and remote memory, attention, concentration, fund of knowledge poor, consistent with his diagnosis mentioned in my initial note. PLAN: No change from initial note. MAN Yvon CHAVEZ MD DR: JEANIE/zheng JOB#: [id number] / [id number]
[2019-03-04] MEDS: POLYETHYLENE GLYCOL 3350 17 GM PACKET. PO SCH (08:46)
[2019-03-04] MEDS: PANTOPRAZOLE 40 MG TABLET. PO SCH ×2 (08:51→15:59)
[2019-03-04] MEDS: CARVEDILOL 12.5 MG TABLET PO SCH ×2 (08:52→15:59)
[2019-03-04] MEDS: DOCUSATE SODIUM 100 MG CAPSULE PO SCH (08:52)
[2019-03-04] MEDS: DONEPEZIL HCL 10 MG TABLET PO SCH (08:52)
[2019-03-04] MEDS: LOSARTAN 50 MG TABLET. PO SCH (08:53)
[2019-03-04] MEDS: MEMANTINE 10 MG TABLET. PO SCH ×2 (08:53→19:45)
[2019-03-04] MEDS: APIXABAN 5 MG TABLET. PO SCH ×2 (08:53→19:45)
[2019-03-04] MEDS: FINASTERIDE 5 MG TABLET PO SCH (08:53)
[2019-03-04] MEDS: PRAZOSIN 1 MG CAPSULE. PO SCH ×3 (08:53→19:45)
[2019-03-04] MEDS: FUROSEMIDE 20 MG TABLET PO SCH (08:53)
[2019-03-04] MEDS: SERTRALINE 100 MG TABLET. PO SCH (08:54)
[2019-03-04] MEDS: BUDESONIDE 0.5 MG/2 ML NEBU NEB SCH ×2 (11:48→23:07)
[2019-03-04 12:56] VITALS: BP 152/92
[2019-03-04 15:59] VITALS: BP 157/86
[2019-03-04] MEDS: LORazepam 0.5 MG TABLET PO PRN (15:59)
[2019-03-04] MEDS: POTASSIUM CHLORIDE 20 MEQ TABLET.ER. PO SCH (19:44)
[2019-03-04] MEDS: TAMSULOSIN 0.4 MG CAP.ER.24H. PO SCH (19:45)
[2019-03-04] MEDS: MELATONIN 3 MG TABLET PO SCH (19:45)
[2019-03-04] MEDS: ATORVASTATIN CALCIUM 20 MG TABLET PO SCH (19:45)
[2019-03-04] MEDS: ASPIRIN ENTERIC COATED 81 MG TABLET.DR. PO SCH (19:45)
[2019-03-04] MEDS: DIVALPROEX 125 MG CAP.SPRINK PO SCH (19:45)
[2019-03-04] MEDS: traZODone 100 MG TABLET. PO SCH (19:45)
--- NOTE | 2019-03-04 20:09 | PN ---
DATE: 03/02/2019 PSYCHIATRIC PROGRESS NOTE This late entry 03/02/2019 covers elements not covered in my initial note. SUBJECTIVE: I met with the patient evening of 03/02/2019. The patient slept 6-3/4 hours previous night. He has been disorganized, confused, asking for his . He got agitated, received p.r.n. Zyprexa around 1645. He is having fewer extrapyramidal side effects, but still not ambulating despite coming off the Risperdal so far. REVIEW OF SYSTEMS: Ambulation impaired, in wheelchair. No CV, , pulmonary, eye, ENT system symptoms on review. Reliability poor. He was smiling, holding my hand tightly. MENTAL STATUS EXAM: Insight, judgment, recent and remote memory, attention, concentration, fund of knowledge poor, consistent with his diagnosis mentioned in my initial note. PLAN: No change from initial note. We will keep him off Risperdal for now and then reassess. Maintain prazosin, Zoloft, Aricept, Namenda, melatonin, Depakote at current dosage. Repeat valproic acid level on 03/03/2019 and adjust thereafter. MAN Yvon CHAVEZ MD DR: JEANIE/zheng JOB#: [id number] / [id number]
--- NOTE | 2019-03-04 20:11 | PN ---
DATE: 03/03/2019 PSYCHIATRIC PROGRESS NOTE This late entry 03/03/2019 covers elements not covered in my initial note. SUBJECTIVE: I met with the patient evening of 03/03/2019. The patient slept 7-1/4 hours previous night. He has been confused, had a better day, tried to stand up on his own. Gait is still unsteady. Valproic acid level therapeutic at 57. REVIEW OF SYSTEMS: No CV, , pulmonary, eye, ENT system symptoms on review. Reliability poor. MENTAL STATUS EXAMINATION: Oriented to himself. Insight, judgment, recent and remote memory, attention, concentration, fund of knowledge poor, consistent with his diagnosis mentioned in my initial note. PLAN: No change from initial note. MAN Yvon CHAVEZ MD DR: JEANIE/zheng JOB#: [id number] / [id number]
--- NOTE | 2019-03-04 21:08 | PDOC ---
Exam Note: Brian Note: Please also refer to the separate dictated note~for this date of service dictated separately.~Patient seen individually. Discussed the patient with Nursing staff reviewed the chart.~Reviewed interim history and current functioning. Reviewed vital signs,~Labs/ Radiology~and current medications noted below. Continue current treatment with the changes noted in the dictated addendum note Assessment: Vital Signs/I&O: Vital Signs Date Time Temp Pulse Resp B/P (MAP) Pulse Ox O2 Delivery O2 Flow Rate FiO2 03/04/19 19:46 70 157/83 03/04/19 15:59 97.4 20 96 03/04/19 11:52 Room Air I & O 03/03/19 03/03/19 03/04/19 15:00 23:00 07:00 Intake Total 360 ml 720 ml Balance 360 ml 720 ml Current Medications: I have reviewed the current psychotropics carefully including drug interactions. Risk benefit ratio favors no change other than as noted in my dictated progress note. Diagnosis: Problems: (1) Anxiety disorder (2) Dementia in Alzheimer's disease with delusions (3) Dementia in Alzheimer's disease with depression (4) Dementia, vascular, with delusions (5) Dementia, vascular, with depression (6) Impulse control disorder (7) Major neurocognitive disorder (8) Post traumatic stress disorder (9) UTI (urinary tract infection) EILEEN CHAVEZ MD Mar 04, 2019 21:08
[2019-03-05 04:17] VITALS: BP 175/98
[2019-03-05] MEDS: LEVOTHYROXINE 25 MCG TABLET. PO SCH (06:04)
[2019-03-05 07:52] LABS: BASO # 0.1 x10^3/uL (0.0-0.2); BASO % 1 % (0-3); EOS # 0.6 x10^3/uL (0.0-0.7); EOS % 8 % (0-3); HEMATOCRIT 41.7 % (39.0-53.0); HEMOGLOBIN 13.6 g/dL (13.0-17.5); LYMPH # 1.8 x10^3/uL (1.0-4.8); LYMPH % 24 % (24-48); MEAN CORPUSCULAR HEMOGLOBIN 31 pg (25-35); MEAN CORPUSCULAR HGB CONC 33 g/dL (31-37); MEAN CORPUSCULAR VOLUME 95 fL (79-100); MONO # 0.9 x10^3/uL (0.0-1.1); MONO % 12 % (0-9); NEUT # 4.2 x10^3uL (1.8-7.7); NEUT % 56 % (31-73); PLATELET COUNT 250 x10^3/uL (140-400); RED CELL DISTRIBUTION WIDTH 14.4 % (11.5-14.5); WHITE BLOOD COUNT 7.6 x10^3/uL (4.0-11.0)
[2019-03-05 08:03] LABS: ALBUMIN 3.1 g/dL (3.4-5.0); ALBUMIN/GLOBULIN RATIO 0.7 (1.0-1.7); CALCIUM 10.9 mg/dL (8.5-10.1); CREATININE 1.3 mg/dL (0.7-1.3); GFR 54.3; MAGNESIUM 2.2 mg/dL (1.8-2.4); POTASSIUM 4.2 mmol/L (3.5-5.1); TOTAL BILIRUBIN 0.2 mg/dL (0.2-1.0); TOTAL PROTEIN 7.7 g/dL (6.4-8.2)
[2019-03-05] MEDS: POLYETHYLENE GLYCOL 3350 17 GM PACKET. PO SCH (08:47)
[2019-03-05] MEDS: FUROSEMIDE 20 MG TABLET PO SCH (08:47)
[2019-03-05] MEDS: CHOLECALCIFEROL (VITAMIN D3) 50,000 UNIT CAPSULE PO SCH (08:48)
[2019-03-05] MEDS: LOSARTAN 50 MG TABLET. PO SCH (08:48)
[2019-03-05] MEDS: PRAZOSIN 1 MG CAPSULE. PO SCH ×3 (08:49→20:21)
[2019-03-05] MEDS: DOCUSATE SODIUM 100 MG CAPSULE PO SCH (08:49)
[2019-03-05] MEDS: SERTRALINE 100 MG TABLET. PO SCH (08:49)
[2019-03-05] MEDS: MEMANTINE 10 MG TABLET. PO SCH ×2 (08:49→20:20)
[2019-03-05] MEDS: FINASTERIDE 5 MG TABLET PO SCH (08:50)
[2019-03-05] MEDS: CARVEDILOL 12.5 MG TABLET PO SCH ×2 (08:50→17:04)
[2019-03-05] MEDS: PANTOPRAZOLE 40 MG TABLET. PO SCH ×2 (08:50→17:05)
[2019-03-05] MEDS: DONEPEZIL HCL 10 MG TABLET PO SCH (08:50)
[2019-03-05] MEDS: APIXABAN 5 MG TABLET. PO SCH ×2 (08:50→20:19)
[2019-03-05] MEDS: BUDESONIDE 0.5 MG/2 ML NEBU NEB SCH ×2 (10:30→21:38)
[2019-03-05 13:35] VITALS: BP 149/86
[2019-03-05 16:22] VITALS: BP 146/77
[2019-03-05] MEDS: ASPIRIN ENTERIC COATED 81 MG TABLET.DR. PO SCH (20:18)
[2019-03-05] MEDS: DIVALPROEX 125 MG CAP.SPRINK PO SCH (20:19)
[2019-03-05] MEDS: traZODone 100 MG TABLET. PO SCH (20:19)
[2019-03-05] MEDS: POTASSIUM CHLORIDE 20 MEQ TABLET.ER. PO SCH (20:20)
[2019-03-05] MEDS: ATORVASTATIN CALCIUM 20 MG TABLET PO SCH (20:20)
[2019-03-05] MEDS: TAMSULOSIN 0.4 MG CAP.ER.24H. PO SCH (20:20)
--- NOTE | 2019-03-05 21:04 | PDOC ---
Exam Note: Brian Note: Please also refer to the separate dictated note~for this date of service dictated separately.~Patient seen individually. Discussed the patient with Nursing staff reviewed the chart.~Reviewed interim history and current functioning. Reviewed vital signs,~Labs/ Radiology~and current medications noted below. Continue current treatment with the changes noted in the dictated addendum note Assessment: Vital Signs/I&O: Vital Signs Date Time Temp Pulse Resp B/P (MAP) Pulse Ox O2 Delivery O2 Flow Rate FiO2 03/05/19 20:21 78 146/77 03/05/19 16:22 97.7 16 94 03/05/19 13:35 Room Air I & O 03/04/19 03/04/19 03/05/19 15:00 23:00 07:00 Intake Total 720 ml 480 ml Balance 720 ml 480 ml Labs: Laboratory Tests Test 03/05/19 07:25 White Blood Count 7.6 x10^3/uL (4.0-11.0) Red Blood Count 4.40 x10^6/uL (4.30-5.70) Hemoglobin 13.6 g/dL (13.0-17.5) Hematocrit 41.7 % (39.0-53.0) Mean Corpuscular Volume 95 fL (79-100) Mean Corpuscular Hemoglobin 31 pg (25-35) Mean Corpuscular Hemoglobin Concent 33 g/dL (31-37) Red Cell Distribution Width 14.4 % (11.5-14.5) Platelet Count 250 x10^3/uL (140-400) Neutrophils (%) (Auto) 56 % (31-73) Lymphocytes (%) (Auto) 24 % (24-48) Monocytes (%) (Auto) 12 % (0-9) H Eosinophils (%) (Auto) 8 % (0-3) H Basophils (%) (Auto) 1 % (0-3) Neutrophils # (Auto) 4.2 x10^3uL (1.8-7.7) Lymphocytes # (Auto) 1.8 x10^3/uL (1.0-4.8) Monocytes # (Auto) 0.9 x10^3/uL (0.0-1.1) Eosinophils # (Auto) 0.6 x10^3/uL (0.0-0.7) Basophils # (Auto) 0.1 x10^3/uL (0.0-0.2) Sodium Level 145 mmol/L (136-145) Potassium Level 4.2 mmol/L (3.5-5.1) Chloride Level 106 mmol/L (98-107) Carbon Dioxide Level 36 mmol/L (21-32) H Anion Gap 3 (6-14) L Blood Urea Nitrogen 17 mg/dL (8-26) Creatinine 1.3 mg/dL (0.7-1.3) Estimated GFR (Cockcroft-Gault) 54.3 BUN/Creatinine Ratio 13 (6-20) Glucose Level 121 mg/dL (70-99) H Calcium Level 10.9 mg/dL (8.5-10.1) H Magnesium Level 2.2 mg/dL (1.8-2.4) Total Bilirubin 0.2 mg/dL (0.2-1.0) Aspartate Amino Transferase (AST) 19 U/L (15-37) Alanine Aminotransferase (ALT) 21 U/L (16-63) Alkaline Phosphatase 90 U/L (46-116) Total Protein 7.7 g/dL (6.4-8.2) Albumin 3.1 g/dL (3.4-5.0) L Albumin/Globulin Ratio 0.7 (1.0-1.7) L Current Medications: I have reviewed the current psychotropics carefully including drug interactions. Risk benefit ratio favors no change other than as noted in my dictated progress note. Diagnosis: Problems: (1) Anxiety disorder (2) Dementia in Alzheimer's disease with delusions (3) Dementia in Alzheimer's disease with depression (4) Dementia, vascular, with delusions (5) Dementia, vascular, with depression (6) Impulse control disorder (7) Major neurocognitive disorder (8) Post traumatic stress disorder EILEEN CHAVEZ MD Mar 05, 2019 21:04
[2019-03-05] MEDS: MELATONIN 3 MG TABLET PO SCH (21:40)
--- NOTE | 2019-03-05 22:05 | PN ---
DATE: 03/04/2019 PSYCHIATRIC PROGRESS NOTE This late entry 03/04/2019 covers the elements not covered in my initial note. SUBJECTIVE: I met with the patient evening of 03/04/2019. Per [place] Oliveira, the patient slept 6-1/2 hours previous night and did well at night. He did well during the day until about 1600, then was irritable, restless due to another patient on the unit, who was quite disruptive. He received Zyprexa and Ativan p.r.n., then did much better. He is more awake, alert since the Risperdal was discontinued and ambulated briefly with assistance, but still remains in a wheelchair. REVIEW OF SYSTEMS: In wheelchair. No CV, , pulmonary, eye system symptoms on review. MENTAL STATUS EXAM: Oriented to himself. Insight, judgment, recent and remote memory, attention, concentration, fund of knowledge poor consistent with his diagnosis. IMPRESSION: Post-traumatic stress disorder, major neurocognitive disorder, Alzheimer, vascular with depression, delusions, behavioral disturbance; anxiety disorder, unspecified; impulse control disorder, unspecified. The patient has not been aggressive, has not grabbed a knife or tried to stab or break things like he did several days back and this is despite stopping the Risperdal. We will make further adjustments as clinically indicated. MAN Yvon CHAVEZ MD DR: JEANIE/zheng JOB#: [id number] / [id number]
[2019-03-06 04:38] VITALS: BP 123/77
[2019-03-06] MEDS: LEVOTHYROXINE 25 MCG TABLET. PO SCH (06:08)
[2019-03-06] MEDS: POLYETHYLENE GLYCOL 3350 17 GM PACKET. PO SCH (07:49)
[2019-03-06] MEDS: PANTOPRAZOLE 40 MG TABLET. PO SCH ×2 (07:50→17:18)
[2019-03-06] MEDS: CARVEDILOL 12.5 MG TABLET PO SCH ×2 (07:51→17:18)
[2019-03-06] MEDS: DONEPEZIL HCL 10 MG TABLET PO SCH (07:51)
[2019-03-06] MEDS: DOCUSATE SODIUM 100 MG CAPSULE PO SCH (07:51)
[2019-03-06] MEDS: FINASTERIDE 5 MG TABLET PO SCH (07:52)
[2019-03-06] MEDS: PRAZOSIN 1 MG CAPSULE. PO SCH ×3 (07:52→20:08)
[2019-03-06] MEDS: LOSARTAN 50 MG TABLET. PO SCH (07:52)
[2019-03-06] MEDS: SERTRALINE 100 MG TABLET. PO SCH (07:53)
[2019-03-06] MEDS: MEMANTINE 10 MG TABLET. PO SCH ×2 (07:53→20:08)
[2019-03-06] MEDS: FUROSEMIDE 20 MG TABLET PO SCH (07:54)
[2019-03-06] MEDS: APIXABAN 5 MG TABLET. PO SCH ×2 (07:54→20:07)
[2019-03-06 08:00] VITALS: BP 152/75
[2019-03-06] MEDS: BUDESONIDE 0.5 MG/2 ML NEBU NEB SCH (10:22)
[2019-03-06 15:52] VITALS: BP 164/88
[2019-03-06] MEDS: ASPIRIN ENTERIC COATED 81 MG TABLET.DR. PO SCH (20:06)
[2019-03-06] MEDS: DIVALPROEX 125 MG CAP.SPRINK PO SCH (20:07)
[2019-03-06] MEDS: traZODone 100 MG TABLET. PO SCH (20:07)
[2019-03-06] MEDS: POTASSIUM CHLORIDE 20 MEQ TABLET.ER. PO SCH (20:07)
[2019-03-06] MEDS: TAMSULOSIN 0.4 MG CAP.ER.24H. PO SCH (20:07)
[2019-03-06] MEDS: MELATONIN 3 MG TABLET PO SCH (20:08)
[2019-03-06] MEDS: ATORVASTATIN CALCIUM 20 MG TABLET PO SCH (20:08)
--- NOTE | 2019-03-06 21:36 | PDOC ---
Exam Note: Brian Note: Please also refer to the separate dictated note~for this date of service dictated separately.~Patient seen individually. Discussed the patient with Nursing staff reviewed the chart.~Reviewed interim history and current functioning. Reviewed vital signs,~Labs/ Radiology~and current medications noted below. Continue current treatment with the changes noted in the dictated addendum note Assessment: Vital Signs/I&O: Vital Signs Date Time Temp Pulse Resp B/P (MAP) Pulse Ox O2 Delivery O2 Flow Rate FiO2 03/06/19 20:20 96 Room Air 03/06/19 20:08 73 164/88 03/06/19 15:52 97.6 16 I & O 03/05/19 03/05/19 03/06/19 15:00 23:00 07:00 Intake Total 720 ml 240 ml 100 ml Balance 720 ml 240 ml 100 ml Current Medications: I have reviewed the current psychotropics carefully including drug interactions. Risk benefit ratio favors no change other than as noted in my dictated progress note. Diagnosis: Problems: (1) Anxiety disorder (2) Dementia in Alzheimer's disease with delusions (3) Dementia in Alzheimer's disease with depression (4) Dementia, vascular, with delusions (5) Dementia, vascular, with depression (6) Impulse control disorder (7) Major neurocognitive disorder (8) Post traumatic stress disorder EILEEN CHAVEZ MD Mar 06, 2019 21:36
[2019-03-07] MEDS: BUDESONIDE 0.5 MG/2 ML NEBU NEB SCH ×3 (02:27→20:45)
[2019-03-07] MEDS: LEVOTHYROXINE 25 MCG TABLET. PO SCH (04:15)
[2019-03-07 05:07] VITALS: BP 174/89
[2019-03-07] MEDS: DOCUSATE SODIUM 100 MG CAPSULE PO SCH (08:13)
[2019-03-07] MEDS: DONEPEZIL HCL 10 MG TABLET PO SCH (08:13)
[2019-03-07] MEDS: MEMANTINE 10 MG TABLET. PO SCH ×2 (08:13→20:01)
[2019-03-07] MEDS: PRAZOSIN 1 MG CAPSULE. PO SCH ×3 (08:13→20:01)
[2019-03-07] MEDS: FINASTERIDE 5 MG TABLET PO SCH (08:14)
[2019-03-07] MEDS: LOSARTAN 50 MG TABLET. PO SCH (08:14)
[2019-03-07] MEDS: CARVEDILOL 12.5 MG TABLET PO SCH ×2 (08:15→17:08)
[2019-03-07] MEDS: PANTOPRAZOLE 40 MG TABLET. PO SCH ×2 (08:15→17:07)
[2019-03-07] MEDS: APIXABAN 5 MG TABLET. PO SCH ×2 (08:16→20:00)
[2019-03-07] MEDS: FUROSEMIDE 20 MG TABLET PO SCH (08:16)
[2019-03-07] MEDS: SERTRALINE 100 MG TABLET. PO SCH (08:17)
[2019-03-07] MEDS: POLYETHYLENE GLYCOL 3350 17 GM PACKET. PO SCH (08:17)
--- NOTE | 2019-03-07 08:34 | PN ---
DATE: 03/05/2019 PSYCHIATRIC PROGRESS NOTE SUBJECTIVE: The patient was seen on rounds on the evening of 03/05, discussed the patient with the nursing staff, reviewed the chart, reviewed interim history, current functioning. The patient slept 6-1/4 hours previous night. Per [place] Prakash, the patient has been confused, calm, cooperative, takes his medications whole, participated somewhat with physical therapy. REVIEW OF SYSTEMS: Ambulation impaired, in wheelchair. No CV, , pulmonary, eye, ENT systems symptoms on review. Reliability poor. MENTAL STATUS EXAM: Oriented to himself. Insight, judgment, recent and remote memory, attention, concentration, fund of knowledge poor, consistent with his diagnosis mentioned in my initial note. PLAN: No change from initial note. MAN Yvon CHAVEZ MD DR: JEANIE/zheng JOB#: [id number] / [id number]
[2019-03-07 15:34] VITALS: BP 128/72
[2019-03-07] MEDS: DIVALPROEX 125 MG CAP.SPRINK PO SCH (19:59)
[2019-03-07] MEDS: traZODone 100 MG TABLET. PO SCH (20:00)
[2019-03-07] MEDS: MELATONIN 3 MG TABLET PO SCH (20:00)
[2019-03-07] MEDS: POTASSIUM CHLORIDE 20 MEQ TABLET.ER. PO SCH (20:00)
[2019-03-07] MEDS: TAMSULOSIN 0.4 MG CAP.ER.24H. PO SCH (20:00)
[2019-03-07] MEDS: ASPIRIN ENTERIC COATED 81 MG TABLET.DR. PO SCH (20:01)
[2019-03-07] MEDS: ATORVASTATIN CALCIUM 20 MG TABLET PO SCH (20:01)
--- NOTE | 2019-03-07 21:31 | PDOC ---
Exam Note: Brian Note: Please also refer to the separate dictated note~for this date of service dictated separately.~Patient seen individually. Discussed the patient with Nursing staff reviewed the chart.~Reviewed interim history and current functioning. Reviewed vital signs,~Labs/ Radiology~and current medications noted below. Continue current treatment with the changes noted in the dictated addendum note Assessment: Vital Signs/I&O: Vital Signs Date Time Temp Pulse Resp B/P (MAP) Pulse Ox O2 Delivery O2 Flow Rate FiO2 03/07/19 20:48 97 Room Air 03/07/19 20:01 62 128/72 03/07/19 15:34 98.1 20 I & O 03/06/19 03/06/19 03/07/19 15:00 23:00 07:00 Intake Total 600 ml 360 ml 240 ml Balance 600 ml 360 ml 240 ml Current Medications: I have reviewed the current psychotropics carefully including drug interactions. Risk benefit ratio favors no change other than as noted in my dictated progress note. Diagnosis: Problems: (1) Anxiety disorder (2) Dementia in Alzheimer's disease with delusions (3) Dementia in Alzheimer's disease with depression (4) Dementia, vascular, with delusions (5) Dementia, vascular, with depression (6) Impulse control disorder (7) Major neurocognitive disorder (8) Post traumatic stress disorder EILEEN CHAVEZ MD Mar 07, 2019 21:31
[2019-03-08 05:30] VITALS: BP 154/82
[2019-03-08] MEDS: LEVOTHYROXINE 25 MCG TABLET. PO SCH (05:57)
[2019-03-08] MEDS: PANTOPRAZOLE 40 MG TABLET. PO SCH ×2 (07:55→16:40)
[2019-03-08] MEDS: CARVEDILOL 12.5 MG TABLET PO SCH ×2 (07:56→16:40)
[2019-03-08] MEDS: DONEPEZIL HCL 10 MG TABLET PO SCH (07:56)
[2019-03-08] MEDS: APIXABAN 5 MG TABLET. PO SCH ×2 (07:57→19:39)
[2019-03-08] MEDS: DOCUSATE SODIUM 100 MG CAPSULE PO SCH (07:57)
[2019-03-08] MEDS: LOSARTAN 50 MG TABLET. PO SCH (07:57)
[2019-03-08] MEDS: FINASTERIDE 5 MG TABLET PO SCH (07:58)
[2019-03-08] MEDS: PRAZOSIN 1 MG CAPSULE. PO SCH ×3 (07:58→19:39)
[2019-03-08] MEDS: FUROSEMIDE 20 MG TABLET PO SCH (07:58)
[2019-03-08] MEDS: MEMANTINE 10 MG TABLET. PO SCH ×2 (07:58→19:39)
[2019-03-08] MEDS: POLYETHYLENE GLYCOL 3350 17 GM PACKET. PO SCH (07:58)
[2019-03-08] MEDS: SERTRALINE 100 MG TABLET. PO SCH (07:59)
[2019-03-08] MEDS: BUDESONIDE 0.5 MG/2 ML NEBU NEB SCH ×2 (09:23→20:31)
[2019-03-08 15:54] VITALS: BP 145/83
--- NOTE | 2019-03-08 19:04 | PN ---
DATE: 03/06/2019 PSYCHIATRIC PROGRESS NOTE This late entry 03/06/2019 covers elements not covered in my initial note. SUBJECTIVE: I met with the patient evening of 03/06/2019. The patient slept 6 hours previous night. He remains confused, but has had a "great day" per nursing report. He has been in the day room, attended groups, takes his medications whole per [place] Tubbs REVIEW OF SYSTEMS: Ambulation impaired, in wheelchair. No CV, , pulmonary, eye system symptoms on review. Reliability poor. MENTAL STATUS EXAM: Oriented to himself. Insight, judgment, recent and remote memory, attention, concentration, fund of knowledge poor consistent with his diagnosis mentioned in my initial note. PLAN: No change from initial note. We will encourage physical therapy to get him back ambulating again now that he is totally off the Risperdal. MAN DejuanJoselito CHAVEZ MD DR: JEANIE/zheng JOB#: [id number] / [id number]
[2019-03-08] MEDS: POTASSIUM CHLORIDE 20 MEQ TABLET.ER. PO SCH (19:38)
[2019-03-08] MEDS: MELATONIN 3 MG TABLET PO SCH (19:39)
[2019-03-08] MEDS: traZODone 100 MG TABLET. PO SCH (19:39)
[2019-03-08] MEDS: ATORVASTATIN CALCIUM 20 MG TABLET PO SCH (19:39)
[2019-03-08] MEDS: DIVALPROEX 125 MG CAP.SPRINK PO SCH (19:40)
[2019-03-08] MEDS: ASPIRIN ENTERIC COATED 81 MG TABLET.DR. PO SCH (19:40)
[2019-03-08] MEDS: TAMSULOSIN 0.4 MG CAP.ER.24H. PO SCH (19:40)
--- NOTE | 2019-03-08 21:28 | PDOC ---
Exam Note: Brian Note: Please also refer to the separate dictated note~for this date of service dictated separately.~Patient seen individually. Discussed the patient with Nursing staff reviewed the chart.~Reviewed interim history and current functioning. Reviewed vital signs,~Labs/ Radiology~and current medications noted below. Continue current treatment with the changes noted in the dictated addendum note Assessment: Vital Signs/I&O: Vital Signs Date Time Temp Pulse Resp B/P (MAP) Pulse Ox O2 Delivery O2 Flow Rate FiO2 03/08/19 20:32 97 Room Air 03/08/19 19:39 68 145/83 03/08/19 15:54 95.7 18 I & O 03/07/19 03/07/19 03/08/19 15:00 23:00 07:00 Intake Total 480 ml 480 ml 240 ml Balance 480 ml 480 ml 240 ml Current Medications: I have reviewed the current psychotropics carefully including drug interactions. Risk benefit ratio favors no change other than as noted in my dictated progress note. Diagnosis: Problems: (1) Anxiety disorder (2) Dementia in Alzheimer's disease with delusions (3) Dementia in Alzheimer's disease with depression (4) Dementia, vascular, with delusions (5) Dementia, vascular, with depression (6) Impulse control disorder (7) Major neurocognitive disorder (8) Post traumatic stress disorder EILEEN CHAVEZ MD Mar 08, 2019 21:28
--- NOTE | 2019-03-09 01:07 | PN ---
DATE: 03/07/2019 PSYCHIATRIC PROGRESS NOTE This late entry 03/07/2019 covers elements not covered in my initial note. SUBJECTIVE: I met with the patient in the evening and he was staffed at a treatment team meeting with the entire team in the morning. Appetite 100%, sleeping average 7 hours, confused, cooperative and calm. [facility] accepted him, but there is some payment issues with the [place] social service staff, addressed this at some length at the treatment team meeting. He may need to be transitioned to a long term unit to help with improved ambulation prior to transition to nursing facility. REVIEW OF SYSTEMS: Ambulation impaired, in wheelchair. No CV, , pulmonary, eye system symptoms on review. He is quite confused, animated, holding my hand, smiling. MENTAL STATUS EXAMINATION: Insight, judgment, recent and remote memory, attention, concentration, fund of knowledge poor, consistent with his diagnosis mentioned in my initial note. PLAN: No change from initial note. EILEEN CHAVEZ MD DR: JEANIE/zheng JOB#: [id number] / [id number]
[2019-03-09 05:39] VITALS: BP 151/94
[2019-03-09] MEDS: LEVOTHYROXINE 25 MCG TABLET. PO SCH (06:00)
[2019-03-09] MEDS: POLYETHYLENE GLYCOL 3350 17 GM PACKET. PO SCH (07:49)
[2019-03-09] MEDS: PRAZOSIN 1 MG CAPSULE. PO SCH ×3 (07:50→20:00)
[2019-03-09] MEDS: APIXABAN 5 MG TABLET. PO SCH ×2 (07:51→20:00)
[2019-03-09] MEDS: FUROSEMIDE 20 MG TABLET PO SCH (07:51)
[2019-03-09] MEDS: DOCUSATE SODIUM 100 MG CAPSULE PO SCH (07:51)
[2019-03-09] MEDS: LOSARTAN 50 MG TABLET. PO SCH (07:51)
[2019-03-09] MEDS: FINASTERIDE 5 MG TABLET PO SCH (07:52)
[2019-03-09] MEDS: MEMANTINE 10 MG TABLET. PO SCH ×2 (07:52→20:00)
[2019-03-09] MEDS: SERTRALINE 100 MG TABLET. PO SCH (07:53)
[2019-03-09] MEDS: CARVEDILOL 12.5 MG TABLET PO SCH ×2 (07:53→16:27)
[2019-03-09] MEDS: DONEPEZIL HCL 10 MG TABLET PO SCH (07:53)
[2019-03-09] MEDS: PANTOPRAZOLE 40 MG TABLET. PO SCH ×2 (07:53→16:27)
[2019-03-09] MEDS: BUDESONIDE 0.5 MG/2 ML NEBU NEB SCH ×2 (10:18→23:33)
[2019-03-09 15:39] VITALS: BP 154/84
[2019-03-09] MEDS: traZODone 100 MG TABLET. PO SCH (19:57)
[2019-03-09] MEDS: TAMSULOSIN 0.4 MG CAP.ER.24H. PO SCH (19:58)
[2019-03-09] MEDS: DIVALPROEX 125 MG CAP.SPRINK PO SCH (19:58)
[2019-03-09] MEDS: MELATONIN 3 MG TABLET PO SCH (19:58)
[2019-03-09] MEDS: ASPIRIN ENTERIC COATED 81 MG TABLET.DR. PO SCH (20:00)
[2019-03-09] MEDS: POTASSIUM CHLORIDE 20 MEQ TABLET.ER. PO SCH (20:00)
[2019-03-09] MEDS: ATORVASTATIN CALCIUM 20 MG TABLET PO SCH (20:00)
--- NOTE | 2019-03-09 23:14 | PDOC ---
Exam Note: Brian Note: Please also refer to the separate dictated note~for this date of service dictated separately.~Patient seen individually. Discussed the patient with Nursing staff reviewed the chart.~Reviewed interim history and current functioning. Reviewed vital signs,~Labs/ Radiology~and current medications noted below. Continue current treatment with the changes noted in the dictated addendum note Assessment: Vital Signs/I&O: Vital Signs Date Time Temp Pulse Resp B/P (MAP) Pulse Ox O2 Delivery O2 Flow Rate FiO2 03/09/19 20:00 64 154/84 03/09/19 15:39 97.2 20 98 03/09/19 10:20 Room Air I & O 03/08/19 03/08/19 03/09/19 15:00 23:00 07:00 Intake Total 840 ml 580 ml Balance 840 ml 580 ml Current Medications: I have reviewed the current psychotropics carefully including drug interactions. Risk benefit ratio favors no change other than as noted in my dictated progress note. Diagnosis: Problems: (1) Anxiety disorder (2) Dementia in Alzheimer's disease with delusions (3) Dementia in Alzheimer's disease with depression (4) Dementia, vascular, with delusions (5) Dementia, vascular, with depression (6) Impulse control disorder (7) Major neurocognitive disorder (8) Post traumatic stress disorder EILEEN CHAVEZ MD Mar 09, 2019 23:14
[2019-03-10 05:49] VITALS: BP 126/82
[2019-03-10] MEDS: LEVOTHYROXINE 25 MCG TABLET. PO SCH (06:07)
[2019-03-10] MEDS: PANTOPRAZOLE 40 MG TABLET. PO SCH ×2 (08:41→16:28)
[2019-03-10] MEDS: DONEPEZIL HCL 10 MG TABLET PO SCH (08:42)
[2019-03-10] MEDS: DOCUSATE SODIUM 100 MG CAPSULE PO SCH (08:42)
[2019-03-10] MEDS: CARVEDILOL 12.5 MG TABLET PO SCH ×2 (08:42→16:28)
[2019-03-10] MEDS: MEMANTINE 10 MG TABLET. PO SCH ×2 (08:43→20:12)
[2019-03-10] MEDS: APIXABAN 5 MG TABLET. PO SCH ×2 (08:43→20:13)
[2019-03-10] MEDS: PRAZOSIN 1 MG CAPSULE. PO SCH ×3 (08:43→20:29)
[2019-03-10] MEDS: FUROSEMIDE 20 MG TABLET PO SCH (08:43)
[2019-03-10] MEDS: LOSARTAN 50 MG TABLET. PO SCH (08:43)
[2019-03-10] MEDS: POLYETHYLENE GLYCOL 3350 17 GM PACKET. PO SCH (08:43)
[2019-03-10] MEDS: FINASTERIDE 5 MG TABLET PO SCH (08:44)
[2019-03-10] MEDS: SERTRALINE 100 MG TABLET. PO SCH (08:44)
[2019-03-10 09:32] LABS: BASO % 1 % (0-3); EOS # 0.3 x10^3/uL (0.0-0.7); EOS % 5 % (0-3); HEMOGLOBIN 13.5 g/dL (13.0-17.5); LYMPH # 1.1 x10^3/uL (1.0-4.8); LYMPH % 19 % (24-48); MEAN CORPUSCULAR HEMOGLOBIN 31 pg (25-35); MEAN CORPUSCULAR HGB CONC 32 g/dL (31-37); MEAN CORPUSCULAR VOLUME 96 fL (79-100); MONO # 0.5 x10^3/uL (0.0-1.1); MONO % 8 % (0-9); NEUT # 3.9 x10^3uL (1.8-7.7); NEUT % 67 % (31-73); PLATELET COUNT 227 x10^3/uL (140-400); RED CELL DISTRIBUTION WIDTH 14.2 % (11.5-14.5); WHITE BLOOD COUNT 5.9 x10^3/uL (4.0-11.0)
[2019-03-10 09:43] LABS: ALBUMIN 3.1 g/dL (3.4-5.0); ALBUMIN/GLOBULIN RATIO 0.7 (1.0-1.7); CALCIUM 10.5 mg/dL (8.5-10.1); CREATININE 1.2 mg/dL (0.7-1.3); GFR 59.5; TOTAL BILIRUBIN 0.2 mg/dL (0.2-1.0); TOTAL PROTEIN 7.6 g/dL (6.4-8.2)
[2019-03-10] MEDS: BUDESONIDE 0.5 MG/2 ML NEBU NEB SCH ×2 (11:24→20:05)
[2019-03-10 13:05] VITALS: BP 132/90
[2019-03-10 15:41] VITALS: BP 154/89
[2019-03-10] MEDS: LORazepam 0.5 MG TABLET PO PRN (16:28)
[2019-03-10] MEDS: TAMSULOSIN 0.4 MG CAP.ER.24H. PO SCH (20:11)
[2019-03-10] MEDS: ASPIRIN ENTERIC COATED 81 MG TABLET.DR. PO SCH (20:12)
[2019-03-10] MEDS: POTASSIUM CHLORIDE 20 MEQ TABLET.ER. PO SCH (20:12)
[2019-03-10] MEDS: MELATONIN 3 MG TABLET PO SCH (20:13)
[2019-03-10] MEDS: traZODone 100 MG TABLET. PO SCH (20:13)
[2019-03-10] MEDS: ATORVASTATIN CALCIUM 20 MG TABLET PO SCH (20:13)
[2019-03-10] MEDS: DIVALPROEX 125 MG CAP.SPRINK PO SCH (20:14)
--- NOTE | 2019-03-10 20:31 | PDOC ---
Exam Note: Brian Note: Please also refer to the separate dictated note~for this date of service dictated separately.~Patient seen individually. Discussed the patient with Nursing staff reviewed the chart.~Reviewed interim history and current functioning. Reviewed vital signs,~Labs/ Radiology~and current medications noted below. Continue current treatment with the changes noted in the dictated addendum note Assessment: Vital Signs/I&O: Vital Signs Date Time Temp Pulse Resp B/P (MAP) Pulse Ox O2 Delivery O2 Flow Rate FiO2 03/10/19 20:14 80 166/102 03/10/19 20:06 95 Room Air 03/10/19 15:41 98.0 18 I & O 03/09/19 03/09/19 03/10/19 15:00 23:00 07:00 Intake Total 840 ml 240 ml 120 ml Balance 840 ml 240 ml 120 ml Labs: Laboratory Tests Test 03/10/19 09:20 White Blood Count 5.9 x10^3/uL (4.0-11.0) Red Blood Count 4.40 x10^6/uL (4.30-5.70) Hemoglobin 13.5 g/dL (13.0-17.5) Hematocrit 42.0 % (39.0-53.0) Mean Corpuscular Volume 96 fL (79-100) Mean Corpuscular Hemoglobin 31 pg (25-35) Mean Corpuscular Hemoglobin Concent 32 g/dL (31-37) Red Cell Distribution Width 14.2 % (11.5-14.5) Platelet Count 227 x10^3/uL (140-400) Neutrophils (%) (Auto) 67 % (31-73) Lymphocytes (%) (Auto) 19 % (24-48) L Monocytes (%) (Auto) 8 % (0-9) Eosinophils (%) (Auto) 5 % (0-3) H Basophils (%) (Auto) 1 % (0-3) Neutrophils # (Auto) 3.9 x10^3uL (1.8-7.7) Lymphocytes # (Auto) 1.1 x10^3/uL (1.0-4.8) Monocytes # (Auto) 0.5 x10^3/uL (0.0-1.1) Eosinophils # (Auto) 0.3 x10^3/uL (0.0-0.7) Basophils # (Auto) 0.0 x10^3/uL (0.0-0.2) Sodium Level 143 mmol/L (136-145) Potassium Level 4.0 mmol/L (3.5-5.1) Chloride Level 104 mmol/L (98-107) Carbon Dioxide Level 35 mmol/L (21-32) H Anion Gap 4 (6-14) L Blood Urea Nitrogen 18 mg/dL (8-26) Creatinine 1.2 mg/dL (0.7-1.3) Estimated GFR (Cockcroft-Gault) 59.5 BUN/Creatinine Ratio 15 (6-20) Glucose Level 211 mg/dL (70-99) H Calcium Level 10.5 mg/dL (8.5-10.1) H Total Bilirubin 0.2 mg/dL (0.2-1.0) Aspartate Amino Transferase (AST) 22 U/L (15-37) Alanine Aminotransferase (ALT) 22 U/L (16-63) Alkaline Phosphatase 87 U/L (46-116) Total Protein 7.6 g/dL (6.4-8.2) Albumin 3.1 g/dL (3.4-5.0) L Albumin/Globulin Ratio 0.7 (1.0-1.7) L Current Medications: I have reviewed the current psychotropics carefully including drug interactions. Risk benefit ratio favors no change other than as noted in my dictated progress note. Diagnosis: Problems: (1) Anxiety disorder (2) Dementia in Alzheimer's disease with delusions (3) Dementia in Alzheimer's disease with depression (4) Dementia, vascular, with delusions (5) Dementia, vascular, with depression (6) Impulse control disorder (7) Major neurocognitive disorder (8) Post traumatic stress disorder EILEEN CHAVEZ MD Mar 10, 2019 20:31
[2019-03-11] MEDS: LEVOTHYROXINE 25 MCG TABLET. PO SCH (06:00)
[2019-03-11 06:12] VITALS: BP 182/98
[2019-03-11] MEDS: POLYETHYLENE GLYCOL 3350 17 GM PACKET. PO SCH (08:34)
[2019-03-11] MEDS: DONEPEZIL HCL 10 MG TABLET PO SCH (08:35)
[2019-03-11] MEDS: PANTOPRAZOLE 40 MG TABLET. PO SCH ×2 (08:35→16:25)
[2019-03-11] MEDS: CARVEDILOL 12.5 MG TABLET PO SCH ×2 (08:35→16:25)
[2019-03-11] MEDS: FUROSEMIDE 20 MG TABLET PO SCH (08:36)
[2019-03-11] MEDS: LOSARTAN 50 MG TABLET. PO SCH (08:36)
[2019-03-11] MEDS: APIXABAN 5 MG TABLET. PO SCH ×2 (08:36→19:38)
[2019-03-11] MEDS: DOCUSATE SODIUM 100 MG CAPSULE PO SCH (08:36)
[2019-03-11] MEDS: MEMANTINE 10 MG TABLET. PO SCH ×2 (08:37→19:38)
[2019-03-11] MEDS: FINASTERIDE 5 MG TABLET PO SCH (08:37)
[2019-03-11] MEDS: PRAZOSIN 1 MG CAPSULE. PO SCH ×3 (08:37→19:37)
[2019-03-11] MEDS: SERTRALINE 100 MG TABLET. PO SCH (08:37)
[2019-03-11] MEDS: BUDESONIDE 0.5 MG/2 ML NEBU NEB SCH ×2 (11:25→23:16)
[2019-03-11 12:39] VITALS: BP 133/85
[2019-03-11 16:18] VITALS: BP 146/88
[2019-03-11] MEDS: ATORVASTATIN CALCIUM 20 MG TABLET PO SCH (19:38)
[2019-03-11] MEDS: POTASSIUM CHLORIDE 20 MEQ TABLET.ER. PO SCH (19:38)
[2019-03-11] MEDS: MELATONIN 3 MG TABLET PO SCH (19:38)
[2019-03-11] MEDS: ASPIRIN ENTERIC COATED 81 MG TABLET.DR. PO SCH (19:38)
[2019-03-11] MEDS: TAMSULOSIN 0.4 MG CAP.ER.24H. PO SCH (19:38)
[2019-03-11] MEDS: traZODone 100 MG TABLET. PO SCH (19:38)
[2019-03-11] MEDS: DIVALPROEX 125 MG CAP.SPRINK PO SCH (19:39)
--- NOTE | 2019-03-11 20:31 | PDOC ---
Exam Note: Brian Note: Please also refer to the separate dictated note~for this date of service dictated separately.~Patient seen individually. Discussed the patient with Nursing staff reviewed the chart.~Reviewed interim history and current functioning. Reviewed vital signs,~Labs/ Radiology~and current medications noted below. Continue current treatment with the changes noted in the dictated addendum note Assessment: Vital Signs/I&O: Vital Signs Date Time Temp Pulse Resp B/P (MAP) Pulse Ox O2 Delivery O2 Flow Rate FiO2 03/11/19 19:38 63 146/88 03/11/19 16:18 98.3 18 95 03/11/19 11:10 Room Air I & O 03/10/19 03/10/19 03/11/19 15:00 23:00 07:00 Intake Total 600 ml 480 ml Balance 600 ml 480 ml Current Medications: I have reviewed the current psychotropics carefully including drug interactions. Risk benefit ratio favors no change other than as noted in my dictated progress note. Diagnosis: Problems: (1) Anxiety disorder (2) Dementia in Alzheimer's disease with delusions (3) Dementia in Alzheimer's disease with depression (4) Dementia, vascular, with delusions (5) Dementia, vascular, with depression (6) Impulse control disorder (7) Major neurocognitive disorder (8) Post traumatic stress disorder EILEEN CHVAEZ MD Mar 11, 2019 20:31
--- NOTE | 2019-03-11 20:33 | PN ---
DATE: 03/08/2019 PSYCHIATRIC PROGRESS NOTE. This late entry of 03/08/2019 covers the elements not covered in my initial note. SUBJECTIVE: I met with the patient in the evening of 03/08/2019. Per [place] Prakash, the patient slept 6-1/2 hours, had a good day. Previous night, he was resistive with the nursing staff, took his meds later, got a p.r.n. Zyprexa at noon. REVIEW OF SYSTEMS: No CV, , pulmonary, eye, ENT system symptoms on review. Reliability poor. MENTAL STATUS EXAM: Oriented to himself. Insight, judgment, recent and remote memory, attention, concentration, fund of knowledge poor, consistent with his diagnosis mentioned in my initial note. PLAN: No change from initial note. MAN Yvon CHAVEZ MD DR: JEANIE/zheng JOB#: [id number] / [id number]
--- NOTE | 2019-03-11 22:47 | PN ---
DATE: 03/09/2019 PSYCHIATRIC PROGRESS NOTE This late entry 03/09/2019 covers the elements not covered in my initial note. SUBJECTIVE: I met with the patient in the evening of 03/09/2019. The patient has been confused, not agitated, but redirectable. REVIEW OF SYSTEMS: Ambulation impaired, in wheelchair. No CV, , pulmonary, eye, ENT system symptoms on review. Reliability is poor. He is quite animated, holding my hand. MENTAL STATUS EXAM: Oriented to himself. Insight, judgment, recent and remote memory, attention, concentration, fund of knowledge poor, consistent with his diagnosis mentioned in my initial note. PLAN: No change from initial note. MAN Yvon CHAVEZ MD DR: JEANIE/zheng JOB#: [id number] / [id number]
[2019-03-12 05:03] VITALS: BP 140/73
[2019-03-12] MEDS: LEVOTHYROXINE 25 MCG TABLET. PO SCH (05:40)
[2019-03-12] MEDS: POLYETHYLENE GLYCOL 3350 17 GM PACKET. PO SCH (08:35)
[2019-03-12] MEDS: PANTOPRAZOLE 40 MG TABLET. PO SCH ×2 (08:36→16:22)
[2019-03-12] MEDS: CARVEDILOL 12.5 MG TABLET PO SCH ×2 (08:37→16:22)
[2019-03-12] MEDS: DOCUSATE SODIUM 100 MG CAPSULE PO SCH (08:37)
[2019-03-12] MEDS: DONEPEZIL HCL 10 MG TABLET PO SCH (08:37)
[2019-03-12] MEDS: APIXABAN 5 MG TABLET. PO SCH ×2 (08:38→19:52)
[2019-03-12] MEDS: LOSARTAN 50 MG TABLET. PO SCH (08:38)
[2019-03-12] MEDS: FUROSEMIDE 20 MG TABLET PO SCH (08:38)
[2019-03-12] MEDS: SERTRALINE 100 MG TABLET. PO SCH (08:39)
[2019-03-12] MEDS: MEMANTINE 10 MG TABLET. PO SCH ×2 (08:39→19:49)
[2019-03-12] MEDS: PRAZOSIN 1 MG CAPSULE. PO SCH ×3 (08:39→19:49)
[2019-03-12] MEDS: FINASTERIDE 5 MG TABLET PO SCH (08:39)
[2019-03-12] MEDS: BUDESONIDE 0.5 MG/2 ML NEBU NEB SCH ×2 (10:11→23:39)
--- NOTE | 2019-03-12 11:14 | PN ---
DATE: 03/10/2019 PSYCHIATRIC PROGRESS NOTE This late entry, 03/10/2019, covers the elements not covered in my initial note. SUBJECTIVE: I met with the patient in the evening of 03/10/2019. The patient did well all day until 5:00 p.m.; then he was anxious, restless, consequent to another agitated patient on the unit. REVIEW OF SYSTEMS: Ambulation impaired, in wheelchair. No CV, , pulmonary, eye, ENT system symptoms on review. Reliability poor. MENTAL STATUS EXAM: Oriented to himself. Insight, judgment, recent and remote memory, attention, concentration, fund of knowledge poor, consistent with his diagnosis mentioned in my initial note. PLAN: No change from initial note. MAN Yvon CHAVEZ MD DR: JEANIE/zheng JOB#: [id number] / [id number]
[2019-03-12 12:21] VITALS: BP 161/93
[2019-03-12] MEDS: CHOLECALCIFEROL (VITAMIN D3) 50,000 UNIT CAPSULE PO SCH (12:24)
[2019-03-12 16:08] VITALS: BP 163/58
[2019-03-12] MEDS: LORazepam 0.5 MG TABLET PO PRN (16:22)
[2019-03-12] MEDS: MELATONIN 3 MG TABLET PO SCH (19:49)
[2019-03-12] MEDS: ASPIRIN ENTERIC COATED 81 MG TABLET.DR. PO SCH (19:49)
[2019-03-12] MEDS: traZODone 100 MG TABLET. PO SCH (19:51)
[2019-03-12] MEDS: TAMSULOSIN 0.4 MG CAP.ER.24H. PO SCH (19:51)
[2019-03-12] MEDS: DIVALPROEX 125 MG CAP.SPRINK PO SCH (19:52)
[2019-03-12] MEDS: ATORVASTATIN CALCIUM 20 MG TABLET PO SCH (19:52)
[2019-03-12] MEDS: POTASSIUM CHLORIDE 20 MEQ TABLET.ER. PO SCH (19:52)
--- NOTE | 2019-03-12 20:34 | PDOC ---
Exam Note: Brian Note: Please also refer to the separate dictated note~for this date of service dictated separately.~Patient seen individually. Discussed the patient with Nursing staff reviewed the chart.~Reviewed interim history and current functioning. Reviewed vital signs,~Labs/ Radiology~and current medications noted below. Continue current treatment with the changes noted in the dictated addendum note Assessment: Vital Signs/I&O: Vital Signs Date Time Temp Pulse Resp B/P (MAP) Pulse Ox O2 Delivery O2 Flow Rate FiO2 03/12/19 19:51 62 163/58 03/12/19 16:08 98.1 16 95 03/12/19 10:13 Room Air I & O 03/11/19 03/11/19 03/12/19 15:00 23:00 07:00 Intake Total 840 ml 840 ml Balance 840 ml 840 ml Current Medications: I have reviewed the current psychotropics carefully including drug interactions. Risk benefit ratio favors no change other than as noted in my dictated progress note. Diagnosis: Problems: (1) Anxiety disorder (2) Dementia in Alzheimer's disease with delusions (3) Dementia in Alzheimer's disease with depression (4) Dementia, vascular, with delusions (5) Dementia, vascular, with depression (6) Impulse control disorder (7) Major neurocognitive disorder (8) Post traumatic stress disorder EILEEN CHAVEZ MD Mar 12, 2019 20:34
[2019-03-13 05:15] VITALS: BP 152/83
[2019-03-13] MEDS: LEVOTHYROXINE 25 MCG TABLET. PO SCH (05:57)
[2019-03-13] MEDS: PRAZOSIN 1 MG CAPSULE. PO SCH ×3 (08:17→20:24)
[2019-03-13] MEDS: SERTRALINE 100 MG TABLET. PO SCH (08:17)
[2019-03-13] MEDS: POLYETHYLENE GLYCOL 3350 17 GM PACKET. PO SCH (08:17)
[2019-03-13] MEDS: FINASTERIDE 5 MG TABLET PO SCH (08:18)
[2019-03-13] MEDS: DONEPEZIL HCL 10 MG TABLET PO SCH (08:18)
[2019-03-13] MEDS: CARVEDILOL 12.5 MG TABLET PO SCH ×2 (08:18→16:44)
[2019-03-13] MEDS: DOCUSATE SODIUM 100 MG CAPSULE PO SCH (08:19)
[2019-03-13] MEDS: APIXABAN 5 MG TABLET. PO SCH ×2 (08:19→20:22)
[2019-03-13] MEDS: FUROSEMIDE 20 MG TABLET PO SCH (08:19)
[2019-03-13] MEDS: PANTOPRAZOLE 40 MG TABLET. PO SCH ×2 (08:19→16:44)
[2019-03-13] MEDS: LOSARTAN 50 MG TABLET. PO SCH (08:19)
[2019-03-13] MEDS: MEMANTINE 10 MG TABLET. PO SCH ×2 (08:20→20:25)
[2019-03-13] MEDS: BUDESONIDE 0.5 MG/2 ML NEBU NEB SCH ×2 (11:19→19:57)
[2019-03-13 15:43] VITALS: BP 176/98
[2019-03-13] MEDS: traZODone 100 MG TABLET. PO SCH (20:24)
[2019-03-13] MEDS: POTASSIUM CHLORIDE 20 MEQ TABLET.ER. PO SCH (20:25)
[2019-03-13] MEDS: ATORVASTATIN CALCIUM 20 MG TABLET PO SCH (20:25)
[2019-03-13] MEDS: MELATONIN 3 MG TABLET PO SCH (20:25)
[2019-03-13] MEDS: DIVALPROEX 125 MG CAP.SPRINK PO SCH (20:25)
[2019-03-13] MEDS: TAMSULOSIN 0.4 MG CAP.ER.24H. PO SCH (20:25)
--- NOTE | 2019-03-13 20:39 | PDOC ---
Exam Note: Brian Note: Please also refer to the separate dictated note~for this date of service dictated separately.~Patient seen individually. Discussed the patient with Nursing staff reviewed the chart.~Reviewed interim history and current functioning. Reviewed vital signs,~Labs/ Radiology~and current medications noted below. Continue current treatment with the changes noted in the dictated addendum note Assessment: Vital Signs/I&O: Vital Signs Date Time Temp Pulse Resp B/P (MAP) Pulse Ox O2 Delivery O2 Flow Rate FiO2 03/13/19 20:24 56 176/98 03/13/19 19:57 95 Room Air 03/13/19 15:43 98.6 16 I & O 03/12/19 03/12/19 03/13/19 15:00 23:00 07:00 Intake Total 720 ml 360 ml Balance 720 ml 360 ml Current Medications: I have reviewed the current psychotropics carefully including drug interactions. Risk benefit ratio favors no change other than as noted in my dictated progress note. Diagnosis: Problems: (1) Anxiety disorder (2) Dementia in Alzheimer's disease with delusions (3) Dementia in Alzheimer's disease with depression (4) Dementia, vascular, with delusions (5) Dementia, vascular, with depression (6) Impulse control disorder (7) Major neurocognitive disorder (8) Post traumatic stress disorder EILEEN CHAVEZ MD Mar 13, 2019 20:39
[2019-03-13] MEDS: ASPIRIN ENTERIC COATED 81 MG TABLET.DR. PO SCH (21:06)
--- NOTE | 2019-03-14 02:01 | PN ---
DATE: 03/12/2019 PSYCHIATRIC PROGRESS NOTE This late entry 03/12/2019 covers elements not covered in my initial note. SUBJECTIVE: I met with the patient evening of 03/12/2019. The patient slept 8 hours previous night. He remains confused, more so in the evening, somewhat paranoid, resistive to medications, but no new behavior is noted. REVIEW OF SYSTEMS: Ambulation impaired, in wheelchair. No CV, , pulmonary, eye, ENT system symptoms on review. Reliability poor. MENTAL STATUS EXAM: Oriented to himself. Insight, judgment, recent and remote memory, attention, concentration, fund of knowledge poor, consistent with his diagnosis mentioned in my initial note. PLAN: No change from initial note. MAN Yvon CHAVEZ MD DR: JEANIE/zheng JOB#: [id number] / [id number]
--- NOTE | 2019-03-14 02:39 | PN ---
DATE: 03/11/2019 PSYCHIATRIC PROGRESS NOTE This late entry 03/11/2019 covers the elements not covered in my initial note. SUBJECTIVE: I met with the patient in the evening of 03/11/2019. The patient slept 7-1/4 hours previous night per [place] Oliveira. He did well at night and during the day, but around 5:00 p.m., he gets more confused, paranoid, delusional, but not aggressive. REVIEW OF SYSTEMS: Ambulation impaired, in wheelchair. No CV, , pulmonary, eye, ENT system symptoms on review. Reliability poor. MENTAL STATUS EXAM: Oriented to himself. Insight, judgment, recent and remote memory, attention, concentration and fund of knowledge poor are consistent with his diagnosis mentioned in my initial note. PLAN: No change from initial note. MAN Yvon CHAVEZ MD DR: JEANIE/zheng JOB#: [id number] / [id number]
[2019-03-14] MEDS: LEVOTHYROXINE 25 MCG TABLET. PO SCH (05:34)
[2019-03-14 05:54] VITALS: BP 191/84
[2019-03-14] MEDS: FINASTERIDE 5 MG TABLET PO SCH (08:45)
[2019-03-14] MEDS: CARVEDILOL 12.5 MG TABLET PO SCH ×2 (08:45→17:20)
[2019-03-14] MEDS: MEMANTINE 10 MG TABLET. PO SCH ×2 (08:45→20:05)
[2019-03-14] MEDS: FUROSEMIDE 20 MG TABLET PO SCH (08:45)
[2019-03-14] MEDS: PANTOPRAZOLE 40 MG TABLET. PO SCH ×2 (08:46→17:20)
[2019-03-14] MEDS: SERTRALINE 100 MG TABLET. PO SCH (08:46)
[2019-03-14] MEDS: DOCUSATE SODIUM 100 MG CAPSULE PO SCH (08:46)
[2019-03-14] MEDS: DONEPEZIL HCL 10 MG TABLET PO SCH (08:46)
[2019-03-14] MEDS: APIXABAN 5 MG TABLET. PO SCH ×2 (08:46→20:02)
[2019-03-14] MEDS: LOSARTAN 50 MG TABLET. PO SCH (08:47)
[2019-03-14] MEDS: POLYETHYLENE GLYCOL 3350 17 GM PACKET. PO SCH (08:47)
[2019-03-14] MEDS: PRAZOSIN 1 MG CAPSULE. PO SCH ×3 (08:47→20:04)
[2019-03-14] MEDS: BUDESONIDE 0.5 MG/2 ML NEBU NEB SCH ×2 (10:59→20:00)
[2019-03-14 16:14] VITALS: BP 159/79
[2019-03-14] MEDS: TAMSULOSIN 0.4 MG CAP.ER.24H. PO SCH (20:03)
[2019-03-14] MEDS: ASPIRIN ENTERIC COATED 81 MG TABLET.DR. PO SCH (20:04)
[2019-03-14] MEDS: MELATONIN 3 MG TABLET PO SCH (20:04)
[2019-03-14] MEDS: ATORVASTATIN CALCIUM 20 MG TABLET PO SCH (20:04)
[2019-03-14] MEDS: POTASSIUM CHLORIDE 20 MEQ TABLET.ER. PO SCH (20:04)
[2019-03-14] MEDS: traZODone 100 MG TABLET. PO SCH (20:04)
[2019-03-14] MEDS: DIVALPROEX 125 MG CAP.SPRINK PO SCH (20:05)
--- NOTE | 2019-03-14 20:49 | PDOC ---
Exam Note: Brian Note: Please also refer to the separate dictated note~for this date of service dictated separately.~Patient seen individually. Discussed the patient with Nursing staff reviewed the chart.~Reviewed interim history and current functioning. Reviewed vital signs,~Labs/ Radiology~and current medications noted below. Continue current treatment with the changes noted in the dictated addendum note Assessment: Vital Signs/I&O: Vital Signs Date Time Temp Pulse Resp B/P (MAP) Pulse Ox O2 Delivery O2 Flow Rate FiO2 03/14/19 20:29 95 Room Air 03/14/19 20:04 67 159/79 03/14/19 16:14 98.6 18 I & O 03/13/19 03/13/19 03/14/19 15:00 23:00 07:00 Intake Total 840 ml 360 ml Balance 840 ml 360 ml Current Medications: I have reviewed the current psychotropics carefully including drug interactions. Risk benefit ratio favors no change other than as noted in my dictated progress note. Diagnosis: Problems: (1) Anxiety disorder (2) Dementia in Alzheimer's disease with delusions (3) Dementia in Alzheimer's disease with depression (4) Dementia, vascular, with delusions (5) Dementia, vascular, with depression (6) Impulse control disorder (7) Major neurocognitive disorder (8) Post traumatic stress disorder EILEEN CHAVEZ MD Mar 14, 2019 20:49
[2019-03-15] MEDS ORDERED: ACET325T21 PO (00:56)
[2019-03-15] MEDS ORDERED: CHOL500021 PO (00:58)
[2019-03-15] MEDS ORDERED: DOCU100T5 PO (00:59)
[2019-03-15] MEDS ORDERED: DIVA125C2 PO (00:59)
[2019-03-15] MEDS ORDERED: LORA0.5T96 PO (01:00)
[2019-03-15] MEDS ORDERED: MAG355OR17 PO (01:02)
[2019-03-15] MEDS ORDERED: MAGN2400 PO (01:02)
[2019-03-15] MEDS ORDERED: METH28OI2 TP (01:03)
[2019-03-15] MEDS ORDERED: OLAN5TAB5 PO (01:03)
[2019-03-15] MEDS ORDERED: POLY2500 PO (01:04)
[2019-03-15] MEDS ORDERED: PRAZ2CAP2 PO (01:05)
[2019-03-15] MEDS ORDERED: PRAZ1CAP2 PO (01:05)
[2019-03-15] MEDS ORDERED: TRAZ-120 PO (01:06)
[2019-03-15] MEDS ORDERED: TRAZ-86 PO (01:06)
[2019-03-15] MEDS ORDERED: MEMA10TA PO (01:09)
[2019-03-15 05:58] VITALS: BP 172/83
[2019-03-15] MEDS: LEVOTHYROXINE 25 MCG TABLET. PO SCH (06:10)
[2019-03-15] MEDS: APIXABAN 5 MG TABLET. PO SCH (08:17)
[2019-03-15] MEDS: DONEPEZIL HCL 10 MG TABLET PO SCH (08:17)
[2019-03-15] MEDS: CARVEDILOL 12.5 MG TABLET PO SCH (08:18)
[2019-03-15] MEDS: PANTOPRAZOLE 40 MG TABLET. PO SCH (08:18)
[2019-03-15] MEDS: LOSARTAN 50 MG TABLET. PO SCH (08:18)
[2019-03-15] MEDS: DOCUSATE SODIUM 100 MG CAPSULE PO SCH (08:18)
[2019-03-15] MEDS: MEMANTINE 10 MG TABLET. PO SCH (08:18)
[2019-03-15] MEDS: FINASTERIDE 5 MG TABLET PO SCH (08:19)
[2019-03-15] MEDS: SERTRALINE 100 MG TABLET. PO SCH (08:19)
[2019-03-15] MEDS: POLYETHYLENE GLYCOL 3350 17 GM PACKET. PO SCH (08:19)
[2019-03-15] MEDS: PRAZOSIN 1 MG CAPSULE. PO SCH (08:19)
[2019-03-15] MEDS: FUROSEMIDE 20 MG TABLET PO SCH (08:20)
[2019-03-15 08:21] VITALS: BP 172/83
[2019-03-15] MEDS: LORazepam 0.5 MG TABLET PO PRN (09:52)
--- NOTE | 2019-03-15 12:45 | DS ---
DATE OF DISCHARGE: 03/15/2019 PSYCHIATRIC DISCHARGE SUMMARY This note covers the elements not covered in my initial note. REASON FOR ADMISSION: Please refer to the admission history for details. Briefly, the patient is a 73-year-old male referred to us from the [facility] as coordinated by the [place] consequent to increased anxiety, flashbacks from the war, marked insomnia, visual hallucinations, seeing people outside while in the Emergency Room. He was increasingly confused, agitated, grabbed his by the wrist, was looking for a gun, grabbed a knife when the ran out of the house for help. He was dangerous, unmanageable, had failed outpatient psychiatric interventions resulting in this referral. SIGNIFICANT FINDINGS AND CLINICAL COURSE: Following admission, the patient was seen daily individually by myself from a psychiatric standpoint, medical followup with Dr. Gonzalez. The patient was extremely dangerous, hostile, agitated, paranoid, having vivid flashbacks consistent with PTSD at admission. He was dangerous, banging on the doors, windows, threatening, took multiple staff members to contain him. Adjustments were made in his psychotropics and it took a fair amount of oral Risperdal to help with his psychosis. However, in addition to the prazosin, Risperdal and Depakote at a therapeutic level, he remained labile. Gradually mood appeared to improve. He was much less psychotic, but then unable to walk, more sedated with extrapyramidal symptoms. The Risperdal was lowered. No psychotic symptoms resurfaced and it was ultimately stopped. Finally, he appeared to be stabilized on a combination of Aricept 10 mg a day, Zoloft 150 mg a day, Namenda 10 mg b.i.d., melatonin 3 mg at bedtime, Depakote Sprinkles 1000 mg at bedtime, prazosin 1 mg at 0900, 1300 and 2 mg at bedtime, Ativan p.r.n., trazodone 100 mg at bedtime plus p.r.n., Zyprexa p.r.n. Valproic acid level therapeutic at 57. Prior to discharge, March 15, ambulation impaired, in wheelchair. No CV, , pulmonary, eye system symptoms on review. MENTAL STATUS EXAM: Oriented to himself. Insight, judgment, recent and remote memory, attention, concentration, fund of knowledge poor, consistent with his diagnosis. FINAL DIAGNOSES: Major neurocognitive disorder, Alzheimer, vascular with delusion, depression, behavioral disturbance, post-traumatic stress disorder, anxiety disorder, unspecified; impulse control disorder, unspecified. Rest unchanged from admission. DISCHARGE MEDICATIONS: Please refer to the [facility]. DISCHARGE INSTRUCTIONS: Outpatient psychiatric and medical followup at [facility] where he was transitioned at discharge. Time for discharge day management greater than 30 minutes. EILEEN CHAVEZ MD DR: JEANIE/zheng JOB#: [id number] / [id number]
--- NOTE | 2019-03-15 12:52 | PN ---
DATE: 03/14/2019 PSYCHIATRIC PROGRESS NOTE This late entry 03/14/2019 covers elements not covered in my initial note. SUBJECTIVE: I met with the patient evening of 03/14/2019 and staffed with the treatment team meeting with the entire team in the morning. Arrangements have been made to transition him to [facility]. Appetite 100%, sleeping about 7 hours, confused. REVIEW OF SYSTEMS: Ambulation impaired, in wheelchair. No CV, , pulmonary, eye, ENT system symptoms on review. MENTAL STATUS EXAM: Oriented to himself. Insight, judgment, recent and remote memory, attention, concentration, fund of knowledge poor, consistent with his diagnosis mentioned in my initial note. PLAN: No change from initial note. MAN Yvon CHAVEZ MD DR: JEANIE/zheng JOB#: [id number] / [id number]
--- NOTE | 2019-03-15 13:07 | PN ---
DATE: 03/13/2019 PSYCHIATRIC PROGRESS NOTE This late entry 03/13/2019 covers the elements not covered in my initial note. SUBJECTIVE: I met with the patient in the evening of 03/13/2019. Per [place] Finnegan, the patient slept 7-1/2 hours previous night. 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 REVIEW OF SYSTEMS: Ambulation impaired. No CV, , pulmonary, eye, ENT system symptoms on review. Reliability poor. MENTAL STATUS EXAM: Oriented to himself. Insight, judgment, recent and remote memory, attention, concentration and fund of knowledge poor, consistent with his diagnosis mentioned in my initial note. PLAN: No change from initial note. MAN Yvon CHAVEZ MD DR: JEANIE/zheng JOB#: [id number] / [id number]
--- NOTE | 2019-03-15 20:19 | PDOC ---
Exam Note: Brian Note: Please also refer to the separate dictated note~for this date of service dictated separately.~Patient seen individually. Discussed the patient with Nursing staff reviewed the chart.~Reviewed interim history and current functioning. Reviewed vital signs,~Labs/ Radiology~and current medications noted below. Continue current treatment with the changes noted in the dictated addendum note Assessment: Vital Signs/I&O: Vital Signs Date Time Temp Pulse Resp B/P (MAP) Pulse Ox O2 Delivery O2 Flow Rate FiO2 03/15/19 08:21 71 172/83 03/15/19 05:58 97.1 20 94 03/14/19 20:29 Room Air I & O 03/14/19 03/14/19 03/15/19 15:00 23:00 07:00 Intake Total 720 ml 240 ml 120 ml Balance 720 ml 240 ml 120 ml Current Medications: I have reviewed the current psychotropics carefully including drug interactions. Risk benefit ratio favors no change other than as noted in my dictated progress note. Diagnosis: Problems: (1) Anxiety disorder (2) Dementia in Alzheimer's disease with delusions (3) Dementia in Alzheimer's disease with depression (4) Dementia, vascular, with delusions (5) Dementia, vascular, with depression (6) Impulse control disorder (7) Major neurocognitive disorder (8) Post traumatic stress disorder EILEEN CHAVEZ MD Mar 15, 2019 20:19
== END 2019-03-15 10:45 | DRG 57 ==
LOC: GEROPSY 06:00
PROVIDERS: ADMIT Psychiatry & Neurology Psychiatry; ATTEND Psychiatry & Neurology Psychiatry
DX: G30.9 Alzheimer's disease, unspecified (principal); N39.0 Urinary tract infection, site not specified; E44.1 Mild protein-calorie malnutrition; F32.9 Major depressive disorder, single episode, unspecified; F01.50 Vascular dementia, unspecified severity, without behavioral disturbance, psychotic disturbance, mood disturbance, and anxiety; F43.10 Post-traumatic stress disorder, unspecified; F02.80 Dementia in other diseases classified elsewhere, unspecified severity, without behavioral disturbance, psychotic disturbance, mood disturbance, and anxiety; F63.9 Impulse disorder, unspecified; I10 Essential (primary) hypertension; I48.0 Paroxysmal atrial fibrillation; Z66 Do not resuscitate; N40.0 Benign prostatic hyperplasia without lower urinary tract symptoms; K21.9 Gastro-esophageal reflux disease without esophagitis; E03.9 Hypothyroidism, unspecified; E78.5 Hyperlipidemia, unspecified; G47.00 Insomnia, unspecified; Z79.899 Other long term (current) drug therapy; Z88.8 Allergy status to other drugs, medicaments and biological substances; Z68.32 Body mass index [BMI] 32.0-32.9, adult
CPT/HCPCS: 36415; 80053; 80061; 80164; 81001; 82140; 82306; 82550; 82947; 83036; 83540; 83550; 83605; 83735; 84436; 84443; 84480; 85025; 85027; 86592; 87086; 90471; 90686; 93005; 94640; 94760; J1630; J2060; J7613; J7626; 97110; 97116; 97530